=== PATIENT | female | born 1950 | race Caucasian/White ===

== ENCOUNTER 2017-10-10 12:44 | Day surgery (SDC) | payer MEDICARE, SELFPAY ==
[2017-10-10] VITALS (7 sets, daily range): BP systolic 118–142; BP diastolic 69–81; PULSE 67–80; RESP 14–16; TEMP 36.7–37.4; O2SAT 96–97; BMI 28.0
[2017-10-10 13:23] LABS: Hematocrit 44.5 % (37-47); Hemoglobin 15.3 g/dl (12.0-15.0); Mean Corp Hgb Conc 34.4 g/gl (32-36); Mean Corpuscular Hgb 31.1 pg (27.0-32.0); Mean Corpuscular Volume 90.4 fL (81-99); Mean Platelet Vol. 8.9 fl (6.2-12.0); Platelet Count 195 K/mm3 (150-450); RBC Distribution Width CV 12.6 % (11.6-14.6); RBC Distribution Width SD 41.4 fl (35.1-43.9); Red Blood Count 4.92 M/mm3 (4.2-5.4); Scan Indicated on CBC? Y/N NO; White Blood Count 5.2 K/mm3 (4.4-11.0)
--- NOTE | 2017-10-10 14:25 | UTC_PTH ---
PATIENT: CANDICE CARD LOC: [facility] – [place] U#:[id number] AGE/SX: 67/F ROOM: RE10/10/[address]: Dr. Esperanza Barber MD : 1950 BED: DIS: 10/10/2017 SPEC #: [id number] RECD: 10/10/17 16:10 STATUS: SERGIO GARY #: [id number] FEDE: 10/10/17 14:[address]: Esperanza Barber DEPT: SURGICAL PATHOLOGY RECD BY: Scot De León ENTERED: 10/11/17 08:07 SP TYPE: TX IBRAHIMA CARRILLO DR: Dr. Darryl Ramirez MD Tissues: Uterine cervix, NOS Procedures: Surgery Specimen Level IV HEADER OPERATION: Hysteroscopy, dilation and curettage PRE-OP DIAGNOSIS: Postmenopausal bleeding TISSUE SUBMITTED: Uterine curettings MICROSCOPIC DIAGNOSIS Uterine curettings: A few strips of benign endometrial epithelium, superficial fragment of benign endometrial tissue consisting only of stromal tissue and blood clots. A few fragments of benign endocervical mucosa. See comment. NEFTALY:beni 10/12/17 COMMENT The specimen predominantly consists of blood clots. Clinical correlation and appropriate follow up are necessary. MICROSCOPIC DESCRIPTION Slides are reviewed. GROSS DESCRIPTION Received in fixative is one container labeled with the patient's name and designated uterine curettings. The specimen consists of multiple irregular fragments of red-chambers soft tissue that in aggregate measure 6 x 3 x 0.2 cm. The specimen is totally submitted in three cassettes. / AM:beni 10/11/17 TC:5 CPT: 45855
--- NOTE | 2017-10-10 14:26 | PCM.DC.D&C ---
Discharge Diet: No Restrictions Discharge Activity: May not drive while taking narcotic pain medications., May Shower, May Take a Tub Bath May resume sexual activity in: 1 week - when comfortable Call your doctor if you observe: Fever of 101 or Higher, Using more than one pad per hour, Uncontrolled pain Additional Instructions: you may take Tylenol , Aleve or Ibuprofen as needed for mild pain. Add Ultram if needed for more severe pain. Allergies/Adverse Reactions: Allergies bee venom protein (honey bee) Allergy (Verified 10/05/17 08:15) Swelling Sulfa (Sulfonamide Antibiotics) Allergy (Verified 10/05/17 08:15) Rash Proton Pump Inhibitors Adverse Reaction (Verified 10/05/17 08:15) Upset Stomach Medications to take at Discharge Krill Oil 1,000 mg PO DAILY 10/05/17 Losartan Potassium [Cozaar] 25 mg PO DAILY 10/05/17 Minocycline [Minocin] 100 mg PO PRN PRN 10/05/17 traMADol [Ultram (G)] 50 mg PO Q6H PRN PRN 2 Days #5 tablet 10/10/17 Primary Care Physician: Darryl Ramirez MD [Primary Care Provider] - Please Follow Up With: Esperanza Barber MD - [phone] When: optional postop check in 1-2 wks Call for appt if you would like this appt Proposed Discharge Date: 10/10/17
--- NOTE | 2017-10-10 14:30 | DCINST_ITS ---
Discharge Diet: No Restrictions Discharge Activity: May not drive while taking narcotic pain medications., May Shower, May Take a Tub Bath May resume sexual activity in: 1 week - when comfortable Call your doctor if you observe: Fever of 101 or Higher, Using more than one pad per hour, Uncontrolled pain Additional Instructions: you may take Tylenol , Aleve or Ibuprofen as needed for mild pain. Add Ultram if needed for more severe pain. Allergies/Adverse Reactions: Allergies bee venom protein (honey bee) Allergy (Verified 10/05/17 08:15) Swelling Sulfa (Sulfonamide Antibiotics) Allergy (Verified 10/05/17 08:15) Rash Proton Pump Inhibitors Adverse Reaction (Verified 10/05/17 08:15) Upset Stomach Medications to take at Discharge Krill Oil 1,000 mg PO DAILY 10/05/17 Losartan Potassium [Cozaar] 25 mg PO DAILY 10/05/17 Minocycline [Minocin] 100 mg PO PRN PRN 10/05/17 traMADol [Ultram (G)] 50 mg PO Q6H PRN PRN 2 Days #5 tablet 10/10/17 Primary Care Physician: Darryl Ramirez MD [Primary Care Provider] - Please Follow Up With: Esperanza Barber MD - [phone] When: optional postop check in 1-2 wks Call for appt if you would like this appt Proposed Discharge Date: 10/10/17
[2017-10-10] MEDS: Silver Nitrate (BKC) 1 EACH (15:16)
[2017-10-10] MEDS: FERRIC SUBSULFATE 8 GM SOLN (15:25)
--- NOTE | 2017-10-11 11:47 | PCM.OP.BLANK ---
Operative Report Date of Procedure: 10/10/17 PROCEDURE: Hysteroscopy, Dilation and curettage Preoperative Diagnosis: Thickened endometrial stripe on pelvic ultrasound . Possible pedunculated submucous fibroid vs endometrial polyp Postmenopausal bleeding Prior endometrial ablation procedure. Postop diagnosis: Thickened endometrial stripe on pelvic ultrasound . Possible pedunculated submucous fibroid vs endometrial polyp Postmenopausal bleeding Prior endometrial ablation procedure, with significant adhesions in endometrial cavity. Suboptimal hysteroscopy : neither tubal ostium noted No evidence of pedunculated polyp. Probable Left posterior uterine segment submucous/intramural fibroid by texture on sharp curettage Anesthesia: General laryngeal airway, Nadine Gamez MD Surgeon: Esperanza Barber MD EBL: 100 cc Drains: Red Null catheter, minimal clear yellow urine Complications: none Fluids: replacement Findings: Uterus sounds to approximately 9 cm Significant scarring noted within the endometrial cavity, partially broken up by sharp D and C. Neither tubal ostia visualized No endometrial polyp or pedunculated fibroid noted. By texture at curettage: likely submucous fibroid at L posterior lower uterine segment. Narrative account After the R,B,Alternatives of the procedure were reviewed with the patient , informed consent was obtained. The patient was taken to the operating room with an IV running and placed in dorsal supine position on the operating table. She was given general anesthesia by laryngeal airway, and repositioned to the dorsal lithotomy position and prepped and draped in the usual sterile fashion. A graves speculum was placed into the vagina and the cervix was brought into view. A single toothed tenaculum was applied to the posterior lip of the cervix. The cervix was then gently probed and sequentially dilated to allow admission of the hysteroscope into the endometrial cavity. The hysteroscopy was performed with findings noted as above. There were significant adhesions within the endometrial cavity, and neither tubal ostia was noted. A sharp curettage was performed to break up the adhesions and sample tissue. Blood and tissue were withdrawn and set aside. The hysteroscope was again inserted and again significant adhesions were still noted. By texture at sharp curettage: likely submucous fibroid at posterior lower uterine segment. The multiple pieces of tissue were set aside for later pathology review. The single toothed tenaculum was removed from the cervix and two stitches were placed over the tenaculum puncture sites, Silver nitrate and Monsels were also used for hemostasis. A RayTec was used to remove any remaining tissue and blood from the upper vagina and cervix. Adequate hemostasis was noted. The procedure was terminated. The speculum was removed. The patient was returned to dorsal supine position and awakened from IV sedation and transferred to her recovery room bed in stable condition after tolerating the procedure well. Sponge, lap, needle and instrument counts were correct x two. medications given intraoperatively included the topical AgNO3 and Monsells. For a complete listing of the medications given intraoperatively, see the anesthesia record.
== END 2017-10-10 17:07 | disposition home or self-care (01) ==
LOC: SDC 12:45 → AC 12:50
PROVIDERS: Family Provider Family Medicine; PCP Family Medicine; Visit Provider Obstetrics & Gynecology
PROC: 0UDB8ZZ Extraction of Endometrium, Via Natural or Artificial Opening Endoscopic (ICD-10-PCS; CPT 58558; principal; 2017-10-10 14:15)
DX: N85.01 Benign endometrial hyperplasia (principal); N95.0 Postmenopausal bleeding; N73.6 Female pelvic peritoneal adhesions (postinfective); R10.32 Left lower quadrant pain; I10 Essential (primary) hypertension; Z86.718 Personal history of other venous thrombosis and embolism
CPT/HCPCS: 58558; 36415; 85027; 86850; 86900; 88305; J7120; J2405

== ENCOUNTER 2017-10-24 13:08 | Day surgery (SDC) | payer MEDICARE, SELFPAY ==
--- NOTE | 2017-10-19 08:33 | EKG12_ITS ---
Test Reason : PRE-OP Blood Pressure : / mmHG Vent. Rate : 064 BPM Atrial Rate : 064 BPM P-R Int : 174 ms QRS Dur : 082 ms QT Int : 396 ms P-R-T Axes : 056 007 014 degrees QTc Int : 408 ms Normal sinus rhythm Septal infarct , age undetermined Abnormal ECG Confirmed by CORNELIO DANIEL, ADELSO ([id number]), photo editor SILVERIO TATE ([id number]) on 10/23/2017 2:24:00 PM Referred By: Esperanza Barber Confirmed By:ADELSO GRIMES MD
[2017-10-19 08:36] LABS: Hematocrit 41.9 % (37-47); Hemoglobin 14.7 g/dl (12.0-15.0); Mean Corp Hgb Conc 35.1 g/gl (32-36); Mean Corpuscular Hgb 31.5 pg (27.0-32.0); Mean Corpuscular Volume 89.7 fL (81-99); Mean Platelet Vol. 8.8 fl (6.2-12.0); Platelet Count 199 K/mm3 (150-450); RBC Distribution Width CV 12.5 % (11.6-14.6); RBC Distribution Width SD 40.8 fl (35.1-43.9); Red Blood Count 4.67 M/mm3 (4.2-5.4); Scan Indicated on CBC? Y/N NO; White Blood Count 5.8 K/mm3 (4.4-11.0)
[2017-10-24] VITALS (12 sets, daily range): BP systolic 118–144; BP diastolic 67–81; PULSE 57–81; RESP 14–17; TEMP 36.5–37; O2SAT 94–100; BMI 27.8; BMI 27.6
--- NOTE | 2017-10-24 | IMM_PTH ---
PATIENT: CANDICE CARD LOC: [facility] [place] U#:[id number] AGE/SX: 67/F ROOM: RE10/24/[address]: Dr. Esperanza Barber MD : 1950 BED: DIS: 10/25/2017 SPEC #: [id number] RECD: 10/31/17 12:35 STATUS: SERGIO REMauricio #: [id number] FEDE: 10/24/17 00:[address]: Esperanza Barber DEPT: IMMUNOHISTOCHEMISTRY RECD BY: Krystina Roland ENTERED: 10/31/17 12:36 SP TYPE: IMMUNO OTHR DR: Dr. Darryl Ramirez MD Tissues: Uterus, NOS Procedures: MLH-1 (add) MSH6 (add) Anti-PMS2 (add) MSH2 (initial) PHYSICIAN & INSTITUTION [place] [id number] SPECIMEN INFORMATION: Tissue Source: Uterus, hysterectomy Clinical Info: Abdominal pain lower left quadrant, postmenopausal bleeding Specimen Number: [id number] #7 CPT code: 89890, 33430 x3 METHODOLOGY: Deparaffinized sections of prefer/formalin-fixed tissue or PAP/DQ stained slides are incubated with monoclonal/polyclonal antibodies/oligonucleotide probes. Localization is made via biotin free immunoperoxidase method. Appropriate controls are performed and reacted as expected. Results on target cell population are indicated in the following table: RESULTS: ANTIBODY / CLONE RESULT Block #7 MSH2 (25D12) negative MSH6 (44) negative MLH-1 (M1) positive PMS2 (NCT8294) positive These tests were developed and their performance characteristics determined by [facility]. They may not have been cleared or approved by the U.[place]. Food and Drug Administration. The FDA has determined that such clearance or approval is not necessary. INTERPRETATION: Uterus, hysterectomy: Result of Microsatellite Instability Study: Positive (partial loss of mismatch proteins; microsatellite instability detected): Loss of MSH2 and MSH6. AM:beni 11/01/17
--- NOTE | 2017-10-24 | HYST_PTH ---
PATIENT: CANDICE CARD LOC: [facility] [place] U#:[id number] AGE/SX: 67/F ROOM: RE10/24/[address]: Dr. Esperanza Barber MD : 1950 BED: DIS: 10/25/2017 SPEC #: [id number] RECD: 10/25/17 11:53 STATUS: SERGIO GARY #: [id number] FEDE: 10/24/17 00:[address]: Esperanza Barber DEPT: SURGICAL PATHOLOGY RECD BY: Scot De León ENTERED: 10/25/17 11:53 SP TYPE: HYSTERECT OTHR DR: Dr. Darryl Ramirez MD Tissues: Uterus, NOS Procedures: Surgery Specimen Level IV HEADER OPERATION: Hysterectomy, lap assisted vaginal, BSO PRE-OP DIAGNOSIS: Abdominal pain lower left quadrant, postmenopausal bleeding TISSUE SUBMITTED: Uterus, cervix, bilateral ovaries and fallopian tubes MICROSCOPIC DIAGNOSIS Uterus, cervix, bilateral fallopian tubes and ovaries, vaginal hysterectomy and bilateral salpingo-oophorectomy: Endometrial adenocarcinoma. See cancer summary below. ENDOMETRIUM CANCER SUMMARY: Specimen ? uterus, cervix, right ovary, left ovary, right fallopian tube and left fallopian tube Procedure - vaginal hysterectomy and bilateral salpingo-oophorectomy Lymph node sampling ? not performed Specimen integrity ? intact hysterectomy Tumor site ? anterior and posterior endometrium Tumor size ? 3 x 3 x 3 cm Histologic type ? endometrial adenocarcinoma, not otherwise characterized Histologic grade - FIGO grade I Myometrial invasion ? present Depth of invasion ? 1.5 cm Myometrial thickness ? 2 cm Involvement of cervix ? not involved Extent of involvement of other organs ? bilateral ovaries and bilateral fallopian tubes ? not involved Peritoneal ascitic fluid ? not submitted Margins ? margins uninvolved by invasive carcinoma Distance of invasive carcinoma from closest margin ? the tumor is 0.5 cm away from the closest serosal surface posterior uterine wall. Lymph-Vascular invasion ? not identified Regional lymph nodes ? not submitted or found Distant metastasis ? not applicable Additional pathologic findings: Cervix ? chronic cystic cervicitis. Myometrium ? no additional mass lesion. Bilateral fallopian tubes and ovaries ? no pathologic diagnosis. Left paratubal cyst. Ancillary studies ? not performed PATHOLOGIC STAGE: pT1b Nx Mx The above summary is in compliance with [employer] (CAP) Cancer Protocols Checklist and [place] Joint Committee of Cancer (AJCC), Staging Manual, 8th Ed. SJ:beni 10/26/17 COMMENT Please make reference to previous specimen ([id number]) uterine curettings with diagnosis of a few strips of benign endometrial epithelium, superficial fragment of benign endometrial tissue consisting only of stromal tissue and blood clots. The specimen predominantly consists of blood clots. The slides are reviewed again along with Dr. Jeronimo. Case has been reviewed in consultation with Dr. Jeronimo who concurs with the above diagnosis. IDC:AM MICROSCOPIC DESCRIPTION Slides are reviewed. GROSS DESCRIPTION Received in fixative is one container labeled with the patient's name and designated uterus, cervix, bilateral ovaries and fallopian tubes. The specimen consists of a hysterectomy specimen consisting of uterus with cervix, attached left fallopian tube and ovary and detached right fallopian tube and ovary. The uterus with cervix weighs 117 gm and measures 10 x 7 x 5 cm. The serosal surface is chambers, glistening. The ectocervical mucosa is partly disrupted. The external os is oval in contour. The endocervical canal measures 3.5 cm in length and the endocervical mucosa is chambers, glistening and unremarkable. The endometrial cavity measures 5.5 cm in length and 3.6 cm in width. The proximal portion of endometrial cavity is filled with hemorrhagic mucoid mass measuring 3 x 3 x 3 cm. The mass does not extend up to the lower uterine segment. The mass appears to involve more than half the thickness of the uterine wall. Sections of this mass reveal grayish, mucoidy cut surfaces. Sections of the uterine wall do not reveal additional mass lesions and it measures up to 2 cm in thickness. The detached right fallopian tube measures 4.5 cm in length and 0.5 cm in diameter. The fimbrial end is identified. Tubo-ovarian adhesions are not seen. The right ovary measures 2.5 x 2 x 1.5 cm. Sections reveal a cyst filled with clear fluid measuring 1 cm in greatest dimension. The left fallopian tube measures 5 cm in length and 0.5 cm in diameter. The fimbrial end is identified. A paratubal cyst is also noted measuring 1 cm in greatest dimension. No tubo-ovarian adhesions are identified. The left ovary measures 2 x 1 x 1 cm. Sections reveal unremarkable cut surfaces. 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 right fallopian tube, 12 ? right ovary, 13 - left fallopian tube and paratubal cyst, 14 ? left ovary. / SJ:rg 10/25/17 TC:0 CPT: 18534
--- NOTE | 2017-10-24 15:56 | PCM.DC.VHY ---
Discharge Diet: No Restrictions Discharge Activity: May not drive while taking narcotic pain medications., May Shower, May Take a Tub Bath May resume sexual activity in: 4-6 weeks Lifting Restrictions: Limit to 20 lbs or less for 4-6 wk to allow healing Call your doctor if you observe: Fever of 101 or Higher, Inability to urinate, Inability to have a bowel movement, Using more than one pad per hour, Shortness of breath, Calf discomfort, Uncontrolled pain Change Dressing in (Days):: 4 Remove Dressing in (days):: 4 Cleanse incision/area with: Soap & Water, Keep Dressing Clean & Dry Additional Instructions: 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 Nothing in vagina and avoid heavy lifting for 4-6 wk to allow healing. Take Tylenol up to 1000 mg by mouth every 8 hrs for pain Add two Naprosyn every 8 hr for pain Add OxyIR 5 - 10 mg every 6 hr for more severe pain. Allergies/Adverse Reactions: Allergies bee venom protein (honey bee) Allergy (Verified 10/17/17 13:49) Swelling Sulfa (Sulfonamide Antibiotics) Allergy (Verified 10/17/17 13:49) Rash Proton Pump Inhibitors Adverse Reaction (Verified 10/17/17 13:49) Upset Stomach Medications to take at Discharge Krill Oil 1,000 mg PO DAILY 10/05/17 Losartan Potassium [Cozaar] 25 mg PO QHS 10/05/17 Minocycline [Minocin] 100 mg PO PRN PRN 10/05/17 traMADol [Ultram (G)] 50 mg PO Q6H PRN PRN 2 Days #5 tablet 10/10/17 Naproxen [Naprosyn] 250 - 500 mg PO BID PRN #30 tab 10/24/17 Oxycodone [Oxyir] 5 - 10 mg PO Q6H PRN PRN 7 Days #28 tablet 10/24/17 Polyethylene Glycol 3350 [Miralax] 17 gm PO DAILY 30 Days #30 packet 10/24/17 The following prescriptions were given: Oxycodone [Oxyir] 5 - 10 mg PO Q6H PRN PRN 7 Days #28 tablet PRN Reason: Mod-Severe Pain (-04/17) Polyethylene Glycol 3350 [Miralax] 17 gm PO DAILY 30 Days #30 packet Naproxen [Naprosyn] 250 - 500 mg PO BID PRN #30 tab PRN Reason: Mild-Mod Pain (-11/15) Primary Care Physician: Darryl Ramirez MD [Primary Care Provider] - Please Follow Up With: Esperanza Barber MD - [phone] When: two weeks for initial postop check. Proposed Discharge Date: 10/25/17
--- NOTE | 2017-10-24 16:04 | DCINST_ITS ---
Discharge Diet: No Restrictions Discharge Activity: May not drive while taking narcotic pain medications., May Shower, May Take a Tub Bath May resume sexual activity in: 4-6 weeks Lifting Restrictions: Limit to 20 lbs or less for 4-6 wk to allow healing Call your doctor if you observe: Fever of 101 or Higher, Inability to urinate, Inability to have a bowel movement, Using more than one pad per hour, Shortness of breath, Calf discomfort, Uncontrolled pain Change Dressing in (Days):: 4 Remove Dressing in (days):: 4 Cleanse incision/area with: Soap & Water, Keep Dressing Clean & Dry Additional Instructions: 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 Nothing in vagina and avoid heavy lifting for 4-6 wk to allow healing. Take Tylenol up to 1000 mg by mouth every 8 hrs for pain Add two Naprosyn every 8 hr for pain Add OxyIR 5 - 10 mg every 6 hr for more severe pain. Allergies/Adverse Reactions: Allergies bee venom protein (honey bee) Allergy (Verified 10/17/17 13:49) Swelling Sulfa (Sulfonamide Antibiotics) Allergy (Verified 10/17/17 13:49) Rash Proton Pump Inhibitors Adverse Reaction (Verified 10/17/17 13:49) Upset Stomach Medications to take at Discharge Krill Oil 1,000 mg PO DAILY 10/05/17 Losartan Potassium [Cozaar] 25 mg PO QHS 10/05/17 Minocycline [Minocin] 100 mg PO PRN PRN 10/05/17 traMADol [Ultram (G)] 50 mg PO Q6H PRN PRN 2 Days #5 tablet 10/10/17 Naproxen [Naprosyn] 250 - 500 mg PO BID PRN #30 tab 10/24/17 Oxycodone [Oxyir] 5 - 10 mg PO Q6H PRN PRN 7 Days #28 tablet 10/24/17 Polyethylene Glycol 3350 [Miralax] 17 gm PO DAILY 30 Days #30 packet 10/24/17 The following prescriptions were given: Oxycodone [Oxyir] 5 - 10 mg PO Q6H PRN PRN 7 Days #28 tablet PRN Reason: Mod-Severe Pain (-04/17) Polyethylene Glycol 3350 [Miralax] 17 gm PO DAILY 30 Days #30 packet Naproxen [Naprosyn] 250 - 500 mg PO BID PRN #30 tab PRN Reason: Mild-Mod Pain (-11/15) Primary Care Physician: Darryl Ramirez MD [Primary Care Provider] - Please Follow Up With: Esperanza Barber MD - [phone] When: two weeks for initial postop check. Proposed Discharge Date: 10/25/17
[2017-10-24] MEDS: Bupiv/Epi 0.5% Mpf 30 ML Vial (17:35)
[2017-10-24] MEDS: Ketorolac 15 MG/ML Vial IV (22:09)
[2017-10-24] MEDS: HYDROmorphone 1 MG/ML Syringe IV (22:10)
[2017-10-24] MEDS: Acetaminophen 500 MG Tablet 1000 MG PO (22:18)
[2017-10-24] MEDS: Losartan Potassium 25 MG Tablet PO (22:18)
[2017-10-24] MEDS: Docusate Sodium 100 MG Capsule PO (22:18)
[2017-10-25 01:12] VITALS: BP 121/73; PULSE 80; RESP 16; TEMP 37.3; O2SAT 99
--- NOTE | 2017-10-25 01:42 | NURSING ---
USING LR BAG FROM OR
[2017-10-25] MEDS: Acetaminophen 500 MG Tablet 1000 MG PO (05:24)
[2017-10-25] MEDS: Ketorolac 15 MG/ML Vial IV ×2 (05:24→12:22)
[2017-10-25 05:32] VITALS: BP 120/55; PULSE 82; RESP 18; TEMP 36.8; O2SAT 93
--- NOTE | 2017-10-25 05:41 | PCM.OP.BLANK ---
Operative Report Date of Procedure: 10/24/17 PROCEDURE: Laparoscopic assisted vaginal hysterectomy. Bilateral salpingoophorectomy Preoperative diagnosis: Postmenopausal bleeding Prior endometrial ablation Uterine fibroid on sono Postop diagnosis: Postmenopausal bleeding Prior endometrial ablation Uterine fibroid on sono Anesthesia: General Francesca Schmitt CRNA Surgeon: Esperanza Barber MD Dental Hygienist Mobile Coordinator: ILIANA Porter second assist RN EBL 380 cc Complications: none Drains: Muro draining clear yellow urine 90 cc for case Fluids: replacement LR Findings: On exam under anesthesia, minimal prolapse of a parous appearing cervix At Laparoscopy: the uterus fallopian tubes and atrophic ovaries are normal appearing. PATH: Uterus and cervix, bilateral fallopian tubes and ovaries Narrative account: After the risks, benefits and alternatives of the procedure were reviewed with the patient , informed consent was obtained. The patient was taken to the Operating room with an IV running . She was positioned in the dorsal supine position on the operating table and given general anesthesia. Once asleep she was positioned to the dorsal lithotomy position with the arms tucked at the sides and prepped and draped in the usual sterile fashion. A Muro catheter was inserted to drain the bladder. The weighted speculum was placed into the vagina and a single tooth tenaculum was placed at the cervix. A Gonzalez cannula was inserted into the cervix and secured into place with the single - toothed tenaculum. Attention was then turned to the anterior abdominal wall. the scrap hoist operator's gloves were changed and skin incisions were created at the infraumbilical skin, suprapubic skin and at a point approximately fdc between the suprapubic and infraumbilical skin incisions. Local anesthesia was used to infiltrate the skin where the trocar incision sites were created. A vertical 5 mm infraumbilical skin incision , a transverse 5 mm suprapubic incision and an transverse 5 mm midline mid-lower abdominal incision were created. A Veress needle was inserted in to the peritoneal cavity at the infraumbilical skin incision while maintaining upward traction of the anterior abdominal wall at the umbilicus. There was free drop of saline, free flow of CO2 and low opening pressure noted. Once the intraabdominal pressure had reached approximately 12 mm HG, the Veress needle was removed and a bladeless 5 mm trocar was inserted into the peritoneal cavity. Correct placement was confirmed using the laparoscope. Under direct visualization the other two 5 mm bladeless trocars were inserted into the peritoneal cavity through the other skin incisions. The fallopian tubes and ovaries were retracted medially, and using a LigaSure device the infundibulopelvic ligament at each side was taken down. Excellent hemostasis was noted. The broad ligament then was sequentially grasped and divided in pedicles at each side of the uterus down to the level of the round ligament on each side. Each pedicle was grasped and divided and inspected for hemostasis. Excellent hemostasis was noted. The round ligaments were grasped and divided at each side. At this point the laparoscopic portion of the case was completed. The trocars were left in place, but the instruments were removed and gas turned off. A sterile drape was used to cover the abdomen. Attention was then turned to the vaginal portion of the case. The Gonzalez cannula was removed and the single toothed tenaculum repositioned on the cervix. The cervical mucosal was then incised circumferentially using Bovie cautery and a knife. The posterior cul de sac was entered by sharp dissection with Walton scissors and a long weighted speculum was placed into the posterior cul se sac. Dissection then was initiated at the anterior cervix to and the anterior anterior cul se sac was entered by sharp dissection and a narrow Heena retractor was placed to retract the bladder back out of harm's way for the remainder of the case. The uterosacral ligaments were clamped bilaterally with curved Oz clamps and the pedicles divided and suture ligated and tagged for later identification. Next the cardinal ligament was clamped bilaterally and divided and suture ligated. Adequate hemostasis was noted. The uterine arteries were clamped bilaterally , divided and suture ligated. Dissection then continued along each side of the uterus. Each pedicle was secured with a Oz clamp, divided and suture ligated until ultimately the uterine fundus was reached. The uterus was inverted and the superior pedicles on each side were secured with a curved Oz clamp and the uterus and attached fallopian tube and ovary on the left was then surgically amputated and set aside. The remaining R ovarian pedicle and R fallopian tube was retracted medially and the pedicle clamped, divided (removing the fallopian tube and ovary) divided, and suture ligated and tied. Excellent hemostasis was noted. The L superior pedicle was lost. There was bleeding noted at the L vaginal angle and this was grasped and oversewn with a figure of 8 stitch of 1 vicryl. The posterior cuff was reapproximated to the posterior cul de sac peritoneum for hemostasis. The R superior pedicle was dry. The peritoneum was then closed with a running purse string suture of 1 Vicryl, incorporating the superior pedicle on the right, and uterosacral ligament tags. The vaginal cuff was then close using interrupted and figure of eight stitches of 1 Vicryl. Excellent hemostasis was noted. The Muro was attached to the Muro bag., and clear yellow urine returned. A second look was performed with the laparoscope: The pelvis and abdomen were irrigated. Old clots were aspirated. Excellent hemostasis was noted at all pedicles and at the vaginal cuff. James was sprayed along the cuff and pedicles for additional hemostasis. The pneumoperitoneum was reduced and all instruments and trocars were removed. The skin incisions were closed with 4-0 Monocryl in a subcuticular fashion. Sterile dressings were then applied. The patient was returned to dorsal supine position and awakened from general anesthesia. She was transferred to the recovery room bed in stable condition after tolerating the procedure well. Sponge, lap, needle and instrument counts correct times two. Medications given preop and intraoperatively included: Cefotetan IV given education courses sales representative to the operating room , 0.5% Marcaine with epinephrine was used as a subcutaneous injection at the trocar skin incision sites. For a complete listing of medications given preop and intraoperatively, please see the anesthesia record.
[2017-10-25 06:00] LABS: Hematocrit 34.4 % (37-47); Hemoglobin 11.5 g/dl (12.0-15.0); Mean Corp Hgb Conc 33.4 g/gl (32-36); Mean Corpuscular Hgb 30.4 pg (27.0-32.0); Platelet Count 179 K/mm3 (150-450); RBC Distribution Width SD 42.8 fl (35.1-43.9); Red Blood Count 3.78 M/mm3 (4.2-5.4); White Blood Count 7.2 K/mm3 (4.4-11.0)
[2017-10-25 06:13] LABS: Scan Indicated on CBC? Y/N NO
[2017-10-25 06:15] LABS: Anion Gap 8 (5-15); BUN 11 mg/dL (7-18); BUN/Creat Ratio 13.7 RATIO (10-20); Calcium,Total 7.6 mg/dL (8.5-10.1); Chloride 105 mmol/L (98-107); EST Glomerular Filtration Rate 76 mL/min (>60); Est Glom Filt Rate - Afr Amer 91 mL/min (>60); Estimated Creatinine Clearance 69.78 ml/min; Glucose 99 mg/dL (74-106); Potassium 3.6 mmol/L (3.5-5.1); Sodium Level 140 mmol/L (136-145)
--- NOTE | 2017-10-25 08:18 | PCM.PROGNOTE ---
Subjective: POD#1 ANGELICA BSO Doing well. tolerating liquids w/o N/V Ordered breakfast. States pain control adequate. Occasionally having some sharp cramping lower abdominal pain. OOB to chair and tolerating well. Objective: OOB to chair. tolerating well. Johnston in place with copious clear pale yellow urine. - Physical Exam General: Alert, Oriented x3, Cooperative, No apparent distress HEENT: Atraumatic Neck: Supple Abdomen: Soft Skin: Incision - L/S incisions CDI. Shadow dischg noted , not extending beyond marked. Psych/Mental Status: Normal Affect Vital Signs Temp Pulse Resp BP Pulse Ox 98.2 F 82 18 120/55 L 93 10/25/17 05:32 10/25/17 05:32 10/25/17 05:32 10/25/17 05:32 10/25/17 05:32 Oxygen Flow Rate (L/min) 2 Oxygen Delivery Method Room Air Weight: 82.554 kg Body Mass Index (BMI) 27.6 Intake and Output for Last 24 Hours 10/23/18 10/24/17 10/25/17 23:59 23:59 23:59 Intake Total 2500 / 2500 2525 / 2525 Output Total 90 / 90 1500 / 1500 Balance 2410 / 2410 1025 / 1025 Laboratory Tests Past 24 Hrs 10/25/18 10/25/17 05:10 05:10 WBC 7.2 RBC 3.78 L Hgb 11.5 L Hct 34.4 L MCV 91.0 MCH 30.4 MCHC 33.4 RDW 13.0 RDW Differential 42.8 Plt Count 179 MPV 9.0 Sodium 140 Potassium 3.6 Chloride 105 Carbon Dioxide 27.0 Anion Gap 8 BUN 11 Creatinine 0.80 Estim Creat Clear Calc 69.78 Est GFR (MDRD) Af Amer 91 Est GFR (MDRD) Non-Af 76 BUN/Creatinine Ratio 13.7 Glucose 99 Calcium 7.6 L Medical Necessity - Tobacco Use Smoking Status: Never smoker Assessment/Plan POD#1 ANGELICA BSO Stable postop. Inc diet and activity as tolerated. D/C johnston for voiding trial. Begin po meds. Dischg home today. RTO in 2 wk , prn sooner.
[2017-10-25 08:24] VITALS: O2SAT 94
--- NOTE | 2017-10-25 08:24 | DS.PCM_ITS ---
Discharge Date and Diagnosis Date of Admission: 10/24/17 - postmenopausal bleeding. fibroid failed endometrial ablation Date of Discharge: 10/25/17 - S/P LAVH, BSO Hospital Course and Treatment Operations: hysterectomy - LAVH, BSO Summary of Care Provided: The patient is a 67 year old F s/p prior endometrial ablation, with postmenopausal bleeding and h/o LLQ pain. Likely fibroid uterus. Presented for LAVH, BSO. Procedure uncomplicated. Postop course uneventful and sent home on POD #1 RTO in 2 wk, prn sooner. Discharge Diet: No Restrictions Discharge Activity: May not drive while taking narcotic pain medications., May Shower, May Take a Tub Bath May resume sexual activity in: 4-6 weeks Call your doctor if you observe: Fever of 101 or Higher, Inability to urinate, Inability to have a bowel movement, Using more than one pad per hour, Shortness of breath, Calf discomfort, Uncontrolled pain Change Dressing in (Days):: 4 Remove Dressing in (days):: 4 Cleanse incision/area with: Soap & Water, Keep Dressing Clean & Dry Home Medications: Medications to take at Discharge Krill Oil 1,000 mg PO DAILY 10/05/17 Losartan Potassium [Cozaar] 25 mg PO QHS 10/05/17 Minocycline [Minocin] 100 mg PO PRN PRN 10/05/17 traMADol [Ultram (G)] 50 mg PO Q6H PRN PRN 2 Days #5 tablet 10/10/17 Naproxen [Naprosyn] 250 - 500 mg PO BID PRN #30 tab 10/24/17 Oxycodone [Oxyir] 5 - 10 mg PO Q6H PRN PRN 7 Days #28 tablet 10/24/17 Polyethylene Glycol 3350 [Miralax] 17 gm PO DAILY 30 Days #30 packet 10/24/17 Following Prescrptions Were Given to Patient: Oxycodone [Oxyir] 5 - 10 mg PO Q6H PRN PRN 7 Days #28 tablet PRN Reason: Mod-Severe Pain (4-10/10) Polyethylene Glycol 3350 [Miralax] 17 gm PO DAILY 30 Days #30 packet Naproxen [Naprosyn] 250 - 500 mg PO BID PRN #30 tab PRN Reason: Mild-Mod Pain (1-5/10) Primary Care Physician: Darryl Ramirez MD [Primary Care Provider] - Please Follow Up With: Esperanza Barber MD - [phone] When: two weeks for initial postop check. 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 Nothing in vagina and avoid heavy lifting for 4-6 wk to allow healing. Take Tylenol up to 1000 mg by mouth every 8 hrs for pain Add two Naprosyn every 8 hr for pain Add OxyIR 5 - 10 mg every 6 hr for more severe pain. Medical Necessity - Tobacco Use Smoking Status: Never smoker Meaningful Use Info Meaningful Use Diagnoses (Choose all that apply): None applicable
[2017-10-25 09:11] VITALS: BP 109/61; PULSE 78; RESP 16; TEMP 36.7; O2SAT 100
== END 2017-10-25 13:03 | disposition home or self-care (01) ==
LOC: SDC 13:09 → AC 13:13 → MS3 10-25 12:13
PROVIDERS: Family Provider Family Medicine; PCP Family Medicine; Visit Provider Obstetrics & Gynecology
PROC: 0UT9FZZ Resection of Uterus, Via Natural or Artificial Opening With Percutaneous Endoscopic Assistance (ICD-10-PCS; CPT 58552; principal; 2017-10-24 14:15)
DX: C54.1 Malignant neoplasm of endometrium (principal); N72 Inflammatory disease of cervix uteri; N95.0 Postmenopausal bleeding; D25.0 Submucous leiomyoma of uterus; I10 Essential (primary) hypertension; Z79.899 Other long term (current) drug therapy
CPT/HCPCS: 58552; 36415; 80048; 85027; 86850; 86900; 88305; 88307; 88341; 88342; 93005; J7120; A4216; J2310; J2405

== ENCOUNTER → 2017-11-09 10:35 | Outpatient (CLI) | payer MEDICARE, SELFPAY ==
--- NOTE | 2017-11-09 10:38 | RAD_ITS ---
STUDY: X-RAY CHEST REASON FOR EXAM: Female, 67 years old. No chest complaints. Recent removal of an endometrial tumor. TECHNIQUE: PA and lateral views of the chest. COMPARISON: None. FINDINGS: The lungs are clear and expanded. There is no demonstrated pleural abnormality. Normal size heart. Normal mediastinum and maria luisa. Normal visualized pulmonary arteries. There is atherosclerotic calcification of the aortic arch with tortuosity. There are diffuse degenerative changes of the visualized thoracic spine. Normal visualized ribs, clavicles, and shoulders. There is no demonstrated abnormality of the visualized soft tissue structures of the upper abdomen. RAD/Chest PA and Lateral IMPRESSION: No acute cardiopulmonary disease. Electronically Signed: Zia De La Cruz DO at 12:24 EDT Tel [phone], Service support ,
== END ==
PROVIDERS: Family Provider Family Medicine; PCP Family Medicine; Visit Provider Obstetrics & Gynecology Gynecologic Oncology
DX: C54.1 Malignant neoplasm of endometrium (principal)
CPT/HCPCS: 71046

== ENCOUNTER → 2017-11-13 07:28 | Outpatient (CLI) | payer MEDICARE, SELFPAY ==
--- NOTE | 2017-11-13 07:32 | CT_ITS ---
STUDY: CT ABDOMEN AND PELVIS WITH CONTRAST REASON FOR EXAM: Female, 67 years old. Endometrial cancer, new diagnosis RADIATION DOSAGE (If Supplied By Facility): CTDIvol = ( 13.26 ) mGy, DLP = ( 1014.16 ) mGycm TECHNIQUE: Transaxial images were obtained from the dome of the diaphragm to the symphysis pubis with oral contrast. 100 ml of Isovue 300 contrast was administered. Sagittal and coronal images were reconstructed. Individualized dose optimization techniques were used for this CT. COMPARISON: None. FINDINGS: The visualized lung bases are unremarkable. The visualized portions of the heart are within normal limits. There is a subcentimeter cyst of the periphery of the anterior left hepatic lobe. Normal gallbladder and extrahepatic biliary system. Normal spleen. Normal pancreas. Normal bilateral adrenal glands. Normal right kidney. Normal left kidney. Normal visualized stomach. Normal small intestine. There are several small sigmoid diverticuli. There is no associated diverticulitis. There is non-visualization of the appendix. There are several small calcified plaques of the abdominal aorta. Normal inferior vena cava. No pathologically enlarged retroperitoneal nodes are seen. Normal urinary bladder. There is absence of the uterus consistent with a prior hysterectomy. There is a small umbilical hernia containing fat. There are diffuse degenerative changes of the visualized thoracolumbar spine. CT/Abdomen/Pelvis WITH Contrast IMPRESSION: 1. There are several small sigmoid diverticuli with no associated diverticulitis. 2. Status post hysterectomy. 3. Diffuse degenerative changes of the visualized thoracolumbar spine. 4. Small fat-containing umbilical hernia. 5. There is no evidence of free intra-abdominal or intrapelvic air, fluid, or inflammatory process. No pathologically enlarged retroperitoneal nodes are evident. Electronically Signed: Diego Glass MD at 23:50 EDT , Service support ,
== END ==
PROVIDERS: Family Provider Family Medicine; PCP Family Medicine; Visit Provider Obstetrics & Gynecology Gynecologic Oncology
DX: C54.1 Malignant neoplasm of endometrium (principal); K57.30 Diverticulosis of large intestine without perforation or abscess without bleeding; K42.9 Umbilical hernia without obstruction or gangrene
CPT/HCPCS: 74177; Q9967

== ENCOUNTER → 2018-01-14 08:59 | Outpatient (CLI) | payer MEDICARE, SELFPAY ==
[2018-01-14 10:33] LABS: Anion Gap 9 (5-15); BUN 14 mg/dL (7-18); BUN/Creat Ratio 18.1 RATIO (10-20); Calcium,Total 8.6 mg/dL (8.5-10.1); Chloride 106 mmol/L (98-107); Cholesterol 167 mg/dL (200); Creatinine, Serum 0.78 mg/dL (0.55-1.02); EST Glomerular Filtration Rate 79 mL/min (>60); Est Glom Filt Rate - Afr Amer 95 mL/min (>60); Glucose 110 mg/dL (74-106); High Density Lipoprotein 33 mg/dL; Potassium 3.8 mmol/L (3.5-5.1); Sodium Level 141 mmol/L (136-145); Triglycerides 141 mg/dL; Very Low Density Lipoprotein 28 mg/dL (5-40)
== END ==
PROVIDERS: Family Provider Family Medicine; PCP Family Medicine; Visit Provider Family Medicine
DX: I10 Essential (primary) hypertension (principal)
CPT/HCPCS: 36415; 80048; 80061

== ENCOUNTER → 2018-01-25 09:53 | Outpatient (CLI) | payer MEDICARE, SELFPAY ==
--- NOTE | 2018-01-25 09:57 | CDU_ITS ---
Reason For Study: Neck Pain/ Syncope Rt. Velocities/BP Lt. Velocities/BP Prox CCA 110/16 cm/sec. Prox CCA 143/37 cm/sec. Mid CCA 110/23 cm/sec. Mid CCA 109/22 cm/sec. Dist CCA 83/19 cm/sec. Dist CCA 85/25 cm/sec. Prox ICA 60/15 cm/sec. Prox ICA 75/17 cm/sec. Mid ICA 70/25 cm/sec. Mid ICA 75/24 cm/sec. Dist ICA 106/33 cm/sec. Dist ICA 113/39 cm/sec. Rt. ICA/CCA = 0.96. Lt. ICA/CCA = 1.03. Prox ECA 136/24 cm/sec. Prox ECA 94/15 cm/sec. Rt. Vert. 55/17 cm/sec. Lt. Vert. 50/14 cm/sec. Right Extracranial There is intimal thickening but no significant atherosclerotic plaque noted in the right common carotid artery. There is heterogeneous, smooth atherosclerotic plaque noted in the right internal carotid artery. There is intimal thickening but no significant atherosclerotic plaque noted in the right external carotid artery. Antegrade flow is noted in the right vertebral artery. Left Extracranial There is intimal thickening but no significant atherosclerotic plaque noted in the left common carotid artery. There is intimal thickening but no significant atherosclerotic plaque noted in the left internal carotid artery. There is intimal thickening but no significant atherosclerotic plaque noted in the left external carotid artery. Antegrade flow is noted in the left vertebral artery. Procedure Carotid Duplex 71946. Exam performed in department. Interpretation Summary Mild (<50%) stenosis right extracranial internal carotid. No significant atherosclerotic plaque or stenosis noted in the left internal carotid artery. Flow within the vertebral arteries is antegrade bilaterally. Ordering Physician: Darryl Ramirez Referring Physician: Darryl Ramirez Performed By: Ro Person, RDCS, RVT
== END ==
PROVIDERS: Family Provider Family Medicine; PCP Family Medicine; Visit Provider Family Medicine
DX: R55 Syncope and collapse (principal); M54.2 Cervicalgia
CPT/HCPCS: 93880

== ENCOUNTER → 2018-05-01 07:41 | Outpatient (CLI) | payer MEDICARE, SELFPAY ==
--- NOTE | 2018-05-01 07:44 | BI_ITS ---
MAMMOGRAPHY - BILATERAL SCREENING REASON FOR EXAM: Female, 68 years old. Routine annual screening examination. PERTINENT HISTORY: Sisters with breast cancer. TECHNIQUE: Digital bilateral breast regi (3D mammographic acquisition) in the CC and MLO projections. 2-D mediolateral oblique (MLO) and craniocaudad (CC) views of both breasts were obtained. CAD: Full Field Digital Mammography with Computer Added Detection was performed. COMPARISON: Comparison is made with prior study dated April 30, 2017 and April 19, 2016. FINDINGS: Breast Composition: The breasts are heterogeneously dense, which may obscure small masses. There are no dominant masses or suspicious calcifications. No other significant abnormalities are identified. There has been no significant change since the prior study. BI/SCREENING MAMM (CAD), BILAT IMPRESSION: Stable bilateral screening mammogram. Yearly follow-up mammogram recommended. (A) ASSESSMENT CATEGORY: BIRADS Category 1: Negative. A letter regarding these results will be sent to the patient by the facility within 30 days. Approximately 10% of breast cancers are not detected by mammography. A normal mammogram should not delay biopsy of a clinically suspicious abnormality. [id number] Electronically Signed: Jose Fox MD at 9:28 EDT Tel [phone], Service support ,
[2018-05-04 13:32] LABS: HPV Reflexed? NOT INDICATED
== END ==
LOC: OPBI 07:42 → LABSPEC 13:35
PROVIDERS: Referring Provider Obstetrics & Gynecology; Visit Provider Obstetrics & Gynecology
DX: Z12.4 Encounter for screening for malignant neoplasm of cervix (principal); Z12.31 Encounter for screening mammogram for malignant neoplasm of breast
CPT/HCPCS: 77063; 77067; 88175; G0145

== ENCOUNTER → 2018-07-01 10:40 | Outpatient (CLI) | payer MEDICARE, SELFPAY ==
[2018-07-01 12:30] LABS: Anion Gap 9 (5-15); BUN 13 mg/dL (7-18); BUN/Creat Ratio 17.1 RATIO (10-20); Calcium,Total 8.9 mg/dL (8.5-10.1); Chloride 107 mmol/L (98-107); Creatinine, Serum 0.76 mg/dL (0.55-1.02); EST Glomerular Filtration Rate 80 mL/min (>60); Est Glom Filt Rate - Afr Amer 97 mL/min (>60); Glucose 96 mg/dL (74-106); Potassium 4.2 mmol/L (3.5-5.1); Sodium Level 144 mmol/L (136-145)
== END ==
PROVIDERS: Family Provider Family Medicine; PCP Family Medicine; Referring Provider Family Medicine; Visit Provider Family Medicine
DX: I10 Essential (primary) hypertension (principal)
CPT/HCPCS: 36415; 80048

== ENCOUNTER → 2018-09-12 06:23 | Outpatient (CLI) | payer MEDICARE, SELFPAY ==
--- NOTE | 2018-09-12 09:57 | STRESSREP_ITS ---
Stress Test Report Date: 09-12-18 Procedure: Exercise tolerance test/imaging study Indications: shortness of breath/dyspnea Consent: Per the patient Procedure: The patient exercised on a Patricio protocol for 6 minutes completing Stage II achieving a peak heart rate of 162 bpm (105 % predicted maximal heart rate) with a peak blood pressure 164/70 mmHg and a peak MET capacity of 7 METs. The baseline ECG demonstrated normal sinus rhythm . The peak exercise ECG demonstrated no obvious ECG changes . There were occasional PVCs and ventricular couplets during exercise and occasional PVCs during recovery . The functional capacity was considered average . There was no complaint of chest discomfort during exercise or recovery. The examination was discontinued secondary to dyspnea . Impression: 1. Technically adequate (percent predicted maximal heart rate greater than 85%) exercise tolerance test 2. Peak exercise ECG with no obvious ECG changes 3. There were occasional PVCs and ventricular couplets during exercise and occasional PVCs during recovery 4. Nuclear images pending Myocardial perfusion imaging study: Technique: The patient was injected with 11.3 mCi of technetium 99m Cardiolite and subsequently rest SPECT Cardiolite nuclear imaging was obtained in the horizontal long, vertical long, and short axis views. The patient exercised on a Patricio protocol for 6 minutes completing Stage II achieving a peak heart rate of 162 bpm (105 % predicted maximal heart rate) with a peak blood pressure 164/70 mmHg and a peak MET capacity of 7 METs. The patient was injected with 33.6 mCi of technetium 99m Cardiolite and subsequently stress SPECT Cardiolite nuclear imaging was obtained in the horizontal long, vertical long, and short axis views. A gated Cardiolite study at peak stress was obtained. Interpretation: Rest and stress SPECT Cardiolite nuclear imaging status post realignment, normalization, and attenuation correction, demonstrates the appearance of relative uniform tracer uptake and myocardial perfusion appearing within normal limits. There is end systolic thickening and brightening. The gated Cardiolite study demonstrates myocardial thickening and inward wall motion. The reported LVEF is 84 %. Impression: 1. Rest and stress SPECT Cardiolite nuclear imaging demonstrate relative uniform tracer uptake and myocardial perfusion appearing within normal limits. 2. The gated Cardiolite study reports an LVEF of 84 %. This note was generated with [employer] software. It may contain incorrect words, spelling, and punctuation that were not noted in checking the note before signing.
== END ==
PROVIDERS: Family Provider Family Medicine; PCP Family Medicine; Referring Provider Family Medicine; Visit Provider Family Medicine
DX: R06.02 Shortness of breath (principal)
CPT/HCPCS: 78452; 93017; A9500; A4216

== ENCOUNTER → 2018-10-30 09:44 | Outpatient (CLI) | payer MEDICARE, SELFPAY ==
[2018-11-13 12:24] LABS: HPV Reflexed? NOT INDICATED
== END ==
PROVIDERS: Visit Provider Obstetrics & Gynecology
DX: Z12.4 Encounter for screening for malignant neoplasm of cervix (principal); C54.1 Malignant neoplasm of endometrium
CPT/HCPCS: 88175; G0145

== ENCOUNTER → 2019-01-13 08:26 | Outpatient (CLI) | payer MEDICARE, SELFPAY ==
[2019-01-13 11:08] LABS: Vitamin D,25 Hydroxy 17.7 ng/mL (29.95-100.01)
[2019-01-13 11:11] LABS: Anion Gap 4 (5-15); BUN 13 mg/dL (7-18); BUN/Creat Ratio 17.9 RATIO (10-20); Calcium,Total 8.9 mg/dL (8.5-10.1); Chloride 108 mmol/L (98-107); Cholesterol 151 mg/dL (200); Creatinine, Serum 0.73 mg/dL (0.55-1.02); EST Glomerular Filtration Rate 85 mL/min (>60); Est Glom Filt Rate - Afr Amer 102 mL/min (>60); Glucose 97 mg/dL (74-106); High Density Lipoprotein 36 mg/dL; Sodium Level 140 mmol/L (136-145); Triglycerides 120 mg/dL
[2019-01-13 11:12] LABS: Thyroid Stim Hormone (TSH) 1.59 uIU/mL (0.358-3.74); Very Low Density Lipoprotein 24 mg/dL (5-40)
== END ==
PROVIDERS: Visit Provider Family Medicine
DX: I10 Essential (primary) hypertension (principal); R53.83 Other fatigue
CPT/HCPCS: 36415; 80048; 80061; 82306; 84443

== ENCOUNTER → 2019-03-03 17:41 | Outpatient (CLI) | payer MEDICARE, SELFPAY ==
--- NOTE | 2019-03-03 | IMM_PTH ---
PATIENT: CANDICE CARD LOC: [facility] U#:[id number] AGE/SX: 75/F ROOM: RE03/03/[address]: Dr. Rafa Arnold MD : 1950 BED: DIS: SPEC #: [id number] RECD: 03/05/19 12:35 STATUS: SERGIO RE #: [id number] FEDE: 03/03/19 00:[address]: Rafa Arnold DEPT: IMMUNOHISTOCHEMISTRY RECD BY: Jovita Izquierdo Tissues: Vagina, NOS Procedures: p16 (initial) KI-67 (add) PHYSICIAN & INSTITUTION [place] [id number] SPECIMEN INFORMATION: Tissue Source: Vaginal lesion Clinical Info: Vaginal lesion Specimen Number: [id number] CPT code: 51728, 69302 METHODOLOGY: Deparaffinized sections of prefer/formalin-fixed tissue or PAP/DQ stained slides are incubated with monoclonal/polyclonal antibodies/oligonucleotide probes. Localization is made via biotin free immunoperoxidase method. Appropriate controls are performed and reacted as expected. Results on target cell population are indicated in the following table: RESULTS: ANTIBODY / CLONE RESULT P16 (E6H4) positive, rare cells, dim Ki-67 (30-9) negative These tests were developed and their performance characteristics determined by [facility]. They may not have been cleared or approved by the U.S. Food and Drug Administration. The FDA has determined that such clearance or approval is not necessary. INTERPRETATION: Vaginal lesion, biopsy: No evidence of dysplasia AM:kenzie 03/06/19
--- NOTE | 2019-03-03 14:30 | LES_PTH ---
PATIENT: CANDICE CARD LOC: [facility] U#:[id number] AGE/SX: 75/F ROOM: RE03/03/[address]: Dr. Rafa Arnold MD : 1950 BED: DIS: SPEC #: [id number] RECD: 03/03/19 17:47 STATUS: SERGIO GARY #: [id number] FEDE: 03/03/19 14:[address]: Rafa Arnold DEPT: SURGICAL PATHOLOGY RECD BY: Angelito Miles Tissues: Vagina, NOS Procedures: Surgery Specimen Level IV HEADER OPERATION: Vaginal cuff PRE-OP DIAGNOSIS: Vaginal lesion TISSUE SUBMITTED: Vaginal lesion MICROSCOPIC DIAGNOSIS Vaginal lesion, biopsy: Fragments of benign mucosa and submucosa with mild chronic inflammation. No evidence of dysplasia. AM:michael 03/05/19 COMMENT Results from immunohistochemistry ([id number]) for surrogate HPV marker (p16) will be reported separately. MICROSCOPIC DESCRIPTION Slides are reviewed. GROSS DESCRIPTION Received is one container labeled with the patient name and designated vagina lesion. The specimen consists of two irregular fragments of chambers soft tissue each measuring 0.2 x 0.2 x 0.1 cm. The specimen is totally submitted in one cassette. /NEFTALY:sp 03/04/19 TC: 3 CPT:83809
== END ==
PROVIDERS: Referring Provider Obstetrics & Gynecology; Visit Provider Obstetrics & Gynecology
DX: N89.8 Other specified noninflammatory disorders of vagina (principal); N39.0 Urinary tract infection, site not specified; Z85.42 Personal history of malignant neoplasm of other parts of uterus
CPT/HCPCS: 87086; 87088; 88305; 88341; 88342

== ENCOUNTER → 2019-03-18 14:41 | Outpatient (CLI) | payer MEDICARE, SELFPAY ==
[2019-03-18 07:35] VITALS: BMI 27.6
== END ==
PROVIDERS: Referring Provider Physician Assistant Surgical; Visit Provider Physician Assistant Surgical
DX: J02.9 Acute pharyngitis, unspecified (principal)
CPT/HCPCS: 87070; 87186

== ENCOUNTER → 2019-05-05 | Outpatient (CLI) | payer MEDICARE, SELFPAY ==
[2019-03-18 07:35] VITALS: BMI 27.6
--- NOTE | 2019-05-05 07:47 | BI_ITS ---
MAMMOGRAPHY - BILATERAL SCREENING REASON FOR EXAM: Female, 69 years old. Routine annual screening examination. PERTINENT HISTORY: Sisters with breast cancer. TECHNIQUE: Digital bilateral breast ham (3D mammographic acquisition) in the CC and MLO projections. 2-D mediolateral oblique (MLO) and craniocaudad (CC) views of both breasts were obtained. CAD: Full Field Digital Mammography with Computer Added Detection was performed. COMPARISON: Comparison is made with prior examination May 01, 2018 and April 30, 2017. FINDINGS: Breast Composition: The breasts are heterogeneously dense, which may obscure small masses. There are no dominant masses or suspicious calcifications. No other significant abnormalities are identified. There has been no significant change since the prior study. BI/SCREEN MAMM (CAD) W/HAM BILAT IMPRESSION: Stable bilateral screening mammogram. Yearly follow-up mammogram recommended. (A) ASSESSMENT CATEGORY: BIRADS Category 1: Negative. A letter regarding these results will be sent to the patient by the facility within 30 days. Approximately 10% of breast cancers are not detected by mammography. A normal mammogram should not delay biopsy of a clinically suspicious abnormality. [id number] Electronically Signed: Jose Fox, at 9:59 EDT , Service support ,
== END | disposition home or self-care (01) ==
PROVIDERS: Family Provider Family Medicine; PCP Family Medicine; Referring Provider Obstetrics & Gynecology; Visit Provider Obstetrics & Gynecology
DX: Z12.4 Encounter for screening for malignant neoplasm of cervix (principal); Z12.31 Encounter for screening mammogram for malignant neoplasm of breast
CPT/HCPCS: 77063; 77067; 88175; G0145

== ENCOUNTER → 2019-11-03 17:45 | Outpatient (CLI) | payer MEDICARE, SELFPAY ==
[2019-03-18 07:35] VITALS: BMI 27.6
== END ==
PROVIDERS: PCP Family Medicine; Referring Provider Obstetrics & Gynecology; Visit Provider Obstetrics & Gynecology
DX: Z12.4 Encounter for screening for malignant neoplasm of cervix (principal)
CPT/HCPCS: 88175; G0145

== ENCOUNTER → 2020-01-26 11:06 | Outpatient (CLI) | payer MEDICARE, SELFPAY ==
[2019-03-18 07:35] VITALS: BMI 27.6
[2020-01-26 15:39] LABS: Anion Gap 3 (5-15); BUN 13 mg/dL (7-18); BUN/Creat Ratio 18.8 RATIO (10-20); Calcium,Total 8.8 mg/dL (8.5-10.1); Chloride 110 mmol/L (98-107); Cholesterol 193 mg/dL (200); Creatinine, Serum 0.69 mg/dL (0.55-1.02); EST Glomerular Filtration Rate 90 mL/min (>60); Est Glom Filt Rate - Afr Amer 109 mL/min (>60); Glucose 99 mg/dL (74-106); High Density Lipoprotein 43 mg/dL; Potassium 4.3 mmol/L (3.5-5.1); Sodium Level 143 mmol/L (136-145); Triglycerides 122 mg/dL; Very Low Density Lipoprotein 24 mg/dL (5-40)
[2020-01-28 14:02] LABS: Vitamin D,25 Hydroxy 31.1 ng/mL
== END ==
PROVIDERS: PCP Family Medicine; Referring Provider Family Medicine; Visit Provider Family Medicine
DX: Z00.00 Encounter for general adult medical examination without abnormal findings (principal); E55.9 Vitamin D deficiency, unspecified; I10 Essential (primary) hypertension
CPT/HCPCS: 36415; 80048; 80061; 82306

== ENCOUNTER → 2020-01-29 12:53 | Outpatient (CLI) | payer MEDICARE, SELFPAY ==
[2019-03-18 07:35] VITALS: BMI 27.6
--- NOTE | 2020-01-29 13:00 | BD_ITS ---
STUDY: DUAL ENERGY X-RAY ABSORPTIOMETRY / DXA REASON FOR EXAM: Female, 70 years old. 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 COMPARISON: Comparison is made with prior study dated 08-08-16. FINDINGS: Lumbar Spine (L1-L4): g/cm2 (1.446) / T-score (2.3) / Z-score (3.9) Findings are suggestive of normal bone density with a low fracture risk. Left Femur Total: g/cm2 (0.956) / T-score (-0.4) / Z-score (1.0) Left Femoral Neck: g/cm2 (0.895) / T-score (-1.0) / Z-score (0.6) Right Femur Total: g/cm2 (0.974) / T-score (-0.3) / Z-score (1.1) Right Femoral Neck: g/cm2 (0.946) / T-score (-0.7) / Z-score (1.0) The T-Scores on the most recent prior examination were: Lumbar Spine (L1-L4): There has been worsening of bone density since the previous examination. Left Femur Total: which represents a worsening of 4.3%. Right Femur Total: which represents a worsening of 2.6%. BD/Dexa Bone Density Study IMPRESSION: The patient is considered normal as outlined below according to World Bill Organization (WHO) criteria with a low fracture risk. There has been worsening of bone density since the previous examination. Reference Information: The T-score is the number of standard deviations above or below the standard which is normal for young adults at their peak bone mineral density. The World Health Organization (WHO) interprets the T-scores as follows: Above -1 Normal bone density Between -1 and -2.5 Osteopenia Equal to / or below -2.5 Osteoporosis As a practical clinical guideline, osteopenia may be graded as follows: Mild -1 through -1.5 Moderate -1.6 through -2.0 Severe -2.1 through -2.4 The Z-score is the number of standard deviations above or below age-matched controls. A Z-score of less than -1.5 would be considered abnormal. References: 1. NIH Osteoporosis and Related Bone Diseases http://www.osteo.org 2. International Society for Clinical Densitometry http://www.iscd.org 3. National Osteoporosis Foundation http://www.nof.org Electronically Signed: Jose Fox, at 9:26 EDT , Service support ,
== END ==
PROVIDERS: PCP Family Medicine; Referring Provider Family Medicine; Visit Provider Family Medicine
DX: N95.9 Unspecified menopausal and perimenopausal disorder (principal)
CPT/HCPCS: 77080

== ENCOUNTER → 2020-05-06 15:10 | Outpatient (CLI) | payer MEDICARE, SELFPAY ==
[2019-03-18 07:35] VITALS: BMI 27.6
--- NOTE | 2020-05-06 15:13 | BI_ITS ---
MAMMOGRAPHY - BILATERAL SCREENING REASON FOR EXAM: Female, 70 years old. Routine annual screening examination. PERTINENT HISTORY: Sister with breast cancer. TECHNIQUE: Digital bilateral breast ham (3D mammographic acquisition) in the CC and MLO projections. 2-D mediolateral oblique (MLO) and craniocaudad (CC) views of both breasts were obtained. CAD: Full Field Digital Mammography with Computer Added Detection was performed. COMPARISON: Comparison is made with prior study dated 05/05/2019 and 05/01/2018. FINDINGS: Breast Composition: The breasts are heterogeneously dense, which may obscure small masses. There are no dominant masses or suspicious calcifications. Stable small benign appearing bilateral axillary lymph nodes. No other significant abnormalities are identified. There has been no significant change since the prior study. BI/SCREEN MAMM (CAD) W/HAM BILAT IMPRESSION: Stable bilateral screening mammogram. Yearly follow-up mammogram recommended. (A) ASSESSMENT CATEGORY: BIRADS Category 2: Benign. A letter regarding these results will be sent to the patient by the facility within 30 days. Approximately 10% of breast cancers are not detected by mammography. A normal mammogram should not delay biopsy of a clinically suspicious abnormality. [id number] Electronically Signed: Jose Fox, at 8:46 EDT , Service support ,
== END ==
PROVIDERS: PCP Family Medicine; Referring Provider Obstetrics & Gynecology; Visit Provider Obstetrics & Gynecology
DX: Z12.31 Encounter for screening mammogram for malignant neoplasm of breast (principal)
CPT/HCPCS: 77063; 77067

== ENCOUNTER → 2020-07-19 11:53 | Outpatient (CLI) | payer MEDICARE, SELFPAY ==
[2019-03-18 07:35] VITALS: BMI 27.6
--- NOTE | 2020-07-19 11:57 | RAD_ITS ---
STUDY: X-RAY - CERVICAL SPINE REASON FOR EXAM: Female, 70 years old. NECK PAIN AND LROM, GOES INTO BILATERAL ARMS- LEFT and gt; RIGHT EXTREMITY TECHNIQUE: 5 view(s) of the cervical spine were obtained. COMPARISON: None FINDINGS: There are degenerative changes of the anterior atlantoaxial articulation. Normal odontoid process. There is straightening of the normal cervical lordosis. There is multi-level endplate spondylosis. There is multi-level degenerative disc disease with multilevel disc space narrowing. There is right greater than left neural foraminal narrowing especially in the upper cervical spine. There is multilevel severe disc space narrowing spondylosis without evidence of acute loss of height or alignment. The soft tissue structures are unremarkable. RAD/Cerv Spine 4 or 5 Views IMPRESSION: Multilevel degenerative disc disease. No visualized acute fracture. Could consider follow-up MRI if clinically appropriate. Electronically Signed: Ayse Mariano MD at 0:43 EST Tel , Service support ,
== END ==
PROVIDERS: PCP Family Medicine; Referring Provider Family Medicine; Visit Provider Family Medicine
DX: M54.2 Cervicalgia (principal)
CPT/HCPCS: 72050

== ENCOUNTER → 2020-08-20 11:55 | Outpatient (CLI) | payer MEDICARE, SELFPAY ==
[2020-08-20 15:27] LABS: Absolute Lymphocyte Count 1.62 X10^3/uL (0.83-4.51); Absolute Neutrophil Count 4.6 X10^3/uL (2.0-7.7); Basophil# 0.04 X10^3/uL; Basophil% 0.6 % (0-1); Eosinophil# 0.12 X10^3/uL; Eosinophils% 1.7 % (0-5); Hematocrit 44.8 % (37-47); Hemoglobin 15.1 g/dL (12.0-15.0); Lymphocyte # 1.62 X10^3/ul (4.0); Lymphocyte % 23.2 % (19-41); Mean Corp Hgb Conc 33.7 g/dL (32-36); Mean Corpuscular Hgb 30.8 pg (27.0-32.0); Mean Corpuscular Volume 91.4 fL (81-99); Mean Platelet Vol. 9.4 fl (6.2-12.0); Monocyte% 8.6 % (0-10); NRBC Flagged by Analyzer 0 % (0-5); Neutrophil # 4.59 X10^3/uL (2.7-7.7); Neutrophil % 65.6 % (47-70); Platelet Count 263 K/mm3 (150-450); RBC Distribution Width CV 11.9 % (11.6-14.6); RBC Distribution Width SD 39.9 fl (35.1-43.9)
[2020-08-20 15:43] LABS: Hemoglobin A1c 5.7 % (3.8-5.6)
[2020-08-20 15:44] LABS: Erythrocyte Sedimentation Rate 26 mm/hr (0-30)
[2020-08-20 15:45] LABS: Free T3 2.8 pg/mL (2.18-3.98); T4 Total, Thyroxin 9.5 ug/dL (4.8-13.9); Thyroid Stim Hormone (TSH) 2.19 uIU/mL (0.358-3.74)
[2020-08-23 15:35] LABS: ANTINUCLEAR ANTIBODIES DIRECT Negative (Negative)
== END ==
PROVIDERS: PCP Family Medicine; Referring Provider Family Medicine; Visit Provider Family Medicine
DX: Z00.00 Encounter for general adult medical examination without abnormal findings (principal); R53.83 Other fatigue; Z79.899 Other long term (current) drug therapy; M25.50 Pain in unspecified joint; I10 Essential (primary) hypertension
CPT/HCPCS: 36415; 83036; 84436; 84443; 84481; 85025; 85652; 86038

== ENCOUNTER 2020-09-27 11:30 | Outpatient (RCR) | payer MEDICARE, SELFPAY ==
[2020-08-04 13:31] VITALS: BMI 27.1
--- NOTE | 2020-08-25 16:07 | HP.PTEVAL_ITS ---
Patient's Visit Information CANDICE CARD is a 70 year old F referred to Physical Therapy by Dr. Mk Justin DO with a diagnosis of B shoulder impingement. Date of Evaluation: 08/25/20 Physical Therapist: Delroy Quintana, PT, ATC - Visit Plan Frequency: 2-3x /Week Duration: 4-6 Weeks Plan: B shoulder rot cuff strengthening, scap stab ex's, UBE, and HEP - Subjective Pt reports her L shoulder became painful on July 09 of this year. Pt reports she was walking her dog when the dog jerked her, resulting in L shoulder pain. Pt reports approximately 1 month later, she began to experience R shoulder pain as well. Pt notes she has significant sleep difficulty secondary to pain. Pt reports her pain will radiate down her UE's to elbow at times. Pt reports she has difficulty with donning her jacket secondary to pain. Pt reports she recen tlelza bagan taking a steroid which has helped her pain a lot. Pt has been going to a chiro which has helped a little bit. 0/10 pain at rest on meds, 10/10 at worst (getting out of bet). Pt notes reaching into cabnes to lift objects down and reaching into the fridge all increase her pain. - Pain B Shoulders Pain Intensity (Out of 10): 0 Pain Intensity Range: 10 - Objective Neuro: B UE sensation is WNL to light touch. B bicepital reflex= 2/3. Palpation: Pt is sore along the anterior shoulder along the LHB tendon and posteriorly along the supraspinatus. ROM: R shoulder flex= 170, abd= 165, ER= 65, IR= WNL; L shoulder flex= 170, abd= 165, ER= 60, IR WNL. MMT: B shoulder IR= 5/5 throughout. All other measurements 4/5 througjout. SPecial tests: Pos Mcmurrays, Pos speeds - Goals Goal 1:: Decrease B shoulder pain x 50% to aid with sleep Goal Time Frame: 4-6 Weeks Goal 2:: Increase B shoulder strength x 1 grade to aid with IADL's Goal Time Frame: 4-6 Weeks Goal 3:: I with HEP Goal Time Frame: 4-6 Weeks - Rehabilitation Potential Physical Therapy Diagnosis: B shoulder pain, weakness, and limited ROM secondary to B shoulder impingement syndrome Rehabilitation Potential: Good - Anticipated Interventions Patient/Client Instruction: Educate patient on: Condition, Plan of Care For the Purpose of:: To improve self management Therapeutic Exercise to Include: Strength training, Endurance training, Postural training, Scapular Strength/Stabilization For the Purpose of:: To decrease pain, To improve muscle performance and motor function Cryotherapy (ice pack, ice massage): Yes Ultrasound (thermal/non thermal): Yes For the Purpose of:: To decrease pain Thank you for the opportunity to evaluate your patient. For Medicare and Medicare HMO plans, please review the plan of care and approve it. It will need to be FAXED BACK to us at [phone] for Medicare purposes. For Medicare only, by signing this I certify the plan of care. Please let me know if there are questions or concerns regarding this plan of care. Physician Signature: Date:
--- NOTE | 2021-01-31 12:43 | HP.PTDCSUM ---
It has been my pleasure to treat CANDICE CARD referred by Dr. Mk Justin DO, with the diagnosis of B shoulder impingement for a total of 10 visit(s). Discharge Date: Please see the following information for a summary of their discharge status. Subjective: R shoulder is now in more pain than the L. Did not get through her HEP exercises due to pain in R shoulder. L shoulder still hurts but not as bad as it has been. She gets woken up at night with throbbing of the R shoulder. Drying hair in the morning has been a problem getting her R arm up. B Shoulders Pain Intensity (Out of 10): 5 % Improvement: 40 Objective/Function: ROM: WNL on L side, ABD limited on R side due to pain. MMT: R: Flex:4/5; ABD 3+/5 due to pain; ER: 4+/5, IE 5/5. L: Flex: 4/5; ABD 4/5; ER 4+/5, IR 5/5. Palpation: R sided coracoid process tenderness Goal 1:: Decrease B shoulder pain x 50% to aid with sleep Goal Progress: Not Progressing Goal 2:: Increase B shoulder strength x 1 grade to aid with IADL's Goal Progress: Not Progressing Goal 3:: I with HEP Goal Progress: Goal Met Plan: HEP for L shoulder and refer to MD to assess R shoulder pain. Discharge. If there are questions or concerns regarding this patient's physical therapy, please feel free to call me at [phone]. Thank you for the referral of this patient. Sincerely, Delroy Quintana, PT, ATC Balance/Gait/Functional tests - Balance/Special Test Scores Quick DASH Score: [phone]
== END 2020-09-27 19:00 | disposition home or self-care (01) ==
LOC: PT 11:30
PROVIDERS: PCP Family Medicine; Referring Provider Orthopaedic Surgery; Visit Provider Orthopaedic Surgery
DX: M75.41 Impingement syndrome of right shoulder (principal); M75.42 Impingement syndrome of left shoulder; M47.812 Spondylosis without myelopathy or radiculopathy, cervical region
CPT/HCPCS: 97110; 97161; 97164

== ENCOUNTER → 2020-10-26 16:16 | Outpatient (CLI) | payer MEDICARE, SELFPAY ==
--- NOTE | 2020-10-26 16:16 | MRI_ITS ---
STUDY: MRI RIGHT SHOULDER REASON FOR EXAM: Female, 70 years old. pain TECHNIQUE: Standardized fat and water weighted pulse sequences were obtained in all 3 orthogonal planes. COMPARISON: X-ray 10/18/2020 FINDINGS: Moderate supraspinatus and infraspinatus tendinosis and peritendinitis as with a 1 x 1 cm full-thickness tear of the distal anterior supraspinatus tendon at the footprint. Moderate subscapularis tendinosis with an interstitial tear and interstitial subluxation long head of the biceps tendon. Normal teres minor tendon. There is moderate muscular atrophy of the supraspinatus muscle. Normal infraspinatus muscle. Normal subscapularis muscle. Normal teres minor muscle. Normal glenohumeral articulation. Normal humeral head and visualized proximal humerus. Normal biceps labral complex. There is tendinosis with thickening of the biceps tendon, but without a demonstrated tear. Normal labrum. Normal capsulo- ligamentous complex. Normal rotator interval. 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 There is a Type II morphology (curved), with a anterior downsloping orientation. There is no subacromial-subdeltoid bursal fluid. Normal visualized coracohumeral and coracoacromial ligaments. Normal quadrilateral space. Normal axillary space. Normal deltoid muscle. Normal trapezius muscle. MRI/Upper Ext Joint Only(Routine) IMPRESSION: 1. Moderate supraspinatus and infraspinatus tendinosis and peritendinitis as with a 1 x 1 cm full-thickness tear of the distal anterior supraspinatus tendon at the footprint with moderate supraspinatus muscular atrophy. 2. Moderate subscapularis tendinosis with interstitial tears and interstitial subluxation long head of the biceps tendon. 3. Moderate acromioclavicular joint arthrosis with inferior osteophyte formation producing medial outlet stenosis. Anterolateral downsloping acromion with thickening of the coracoacromial ligament produces lateral outlet stenosis. Electronically Signed: Ivan Moran MD at 11:23 EDT Tel , Service support ,
--- NOTE | 2020-10-26 16:54 | MRI_ITS ---
STUDY: MRI LEFT SHOULDER REASON FOR EXAM: Female, 70 years old. pain TECHNIQUE: Standardized fat and water weighted pulse sequences were obtained in all 3 orthogonal planes. COMPARISON: X-ray 08/04/2020 FINDINGS: Moderate supraspinatus and infraspinatus tendinosis and peritendinitis with a 1 x 1 cm full-thickness tear of the distal mid supraspinatus tendon at the footprint. Moderate subscapularis tendinosis with interstitial tears. Normal teres minor tendon. There is moderate muscular atrophy of the supraspinatus muscle. Normal infraspinatus muscle. Normal subscapularis muscle. Normal teres minor muscle. Normal glenohumeral articulation. Normal humeral head and visualized proximal humerus. Normal biceps labral complex. There is tendinosis with thickening of the biceps tendon, but without a demonstrated tear. Normal labrum. Normal capsulo- ligamentous complex. Normal rotator interval. 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 There is a Type II morphology (curved), with a anterior downsloping orientation. There is no subacromial-subdeltoid bursal fluid. Normal visualized coracohumeral and coracoacromial ligaments. Normal quadrilateral space. Normal axillary space. Normal deltoid muscle. Normal trapezius muscle. MRI/Upper Ext Joint Only(Routine) IMPRESSION: 1. Moderate supraspinatus and infraspinatus tendinosis and peritendinitis as with a 1 x 1 cm full-thickness tear of the distal mid supraspinatus tendon at the footprint with moderate of the supraspinatus muscular atrophy. 2. Moderate subscapularis tendinosis with interstitial tears. 3. Tendinosis of the arcuate segment long head of the biceps tendon. 4. Moderate acromioclavicular joint arthrosis with inferior osteophyte formation producing medial outlet stenosis. Anterolateral downsloping acromion with thickening of the coracoacromial ligament produces lateral outlet stenosis. Electronically Signed: Ivan Moran MD at 11:19 EDT Tel , Service support ,
== END ==
PROVIDERS: PCP Family Medicine; Referring Provider Orthopaedic Surgery; Visit Provider Orthopaedic Surgery
DX: M75.41 Impingement syndrome of right shoulder (principal); M75.42 Impingement syndrome of left shoulder
CPT/HCPCS: 73221

== ENCOUNTER → 2020-11-08 16:12 | Outpatient (CLI) | payer MEDICARE, SELFPAY ==
[2020-11-11 15:34] LABS: HPV Reflexed? NOT INDICATED
== END ==
PROVIDERS: Visit Provider Obstetrics & Gynecology
DX: Z12.4 Encounter for screening for malignant neoplasm of cervix (principal)
CPT/HCPCS: 88175; G0145

== ENCOUNTER → 2021-03-07 07:49 | Outpatient (CLI) | payer MEDICARE, SELFPAY ==
[2021-03-07 10:16] LABS: Absolute Lymphocyte Count 1.65 X10^3/uL (0.83-4.51); Absolute Neutrophil Count 3.8 X10^3/uL (2.0-7.7); Basophil# 0.03 X10^3/uL; Basophil% 0.5 % (0-1); Eosinophil# 0.14 X10^3/uL; Eosinophils% 2.3 % (0-5); Hematocrit 44.2 % (37-47); Hemoglobin 15.2 g/dL (12.0-15.0); Lymphocyte # 1.65 X10^3/ul (0.83-4.51); Lymphocyte % 27.2 % (19-41); Mean Corp Hgb Conc 34.4 g/dL (32-36); Mean Corpuscular Hgb 31.5 pg (27.0-32.0); Mean Corpuscular Volume 91.5 fL (81-99); Mean Platelet Vol. 9.8 fl (6.2-12.0); Monocyte# 0.44 X10^3/uL; Monocyte% 7.2 % (0-10); NRBC Flagged by Analyzer 0 % (0-5); Neutrophil % 62.6 % (47-70); Platelet Count 226 K/mm3 (150-450); RBC Distribution Width CV 11.9 % (11.6-14.6); RBC Distribution Width SD 39.8 fl (35.1-43.9); Red Blood Count 4.83 M/mm3 (4.2-5.4); White Blood Count 6.1 K/mm3 (4.4-11.0)
[2021-03-07 10:23] LABS: Anion Gap 6 (5-15); BUN 14 mg/dL (7-18); BUN/Creat Ratio 21.7 RATIO (10-20); Calcium,Total 9.4 mg/dL (8.5-10.1); Chloride 106 mmol/L (98-107); Creatinine, Serum 0.64 mg/dL (0.55-1.02); EST Glomerular Filtration Rate 97 mL/min (>60); Est Glom Filt Rate - Afr Amer 117 mL/min (>60); Glucose 114 mg/dL (74-106); Sodium Level 140 mmol/L (136-145)
[2021-03-07 10:25] LABS: Vitamin D,25 Hydroxy 34.8 ng/mL
== END ==
PROVIDERS: PCP Family Medicine; Referring Provider Family Medicine; Visit Provider Family Medicine
DX: Z00.00 Encounter for general adult medical examination without abnormal findings (principal); R53.83 Other fatigue; E55.9 Vitamin D deficiency, unspecified
CPT/HCPCS: 36415; 80048; 82306; 85025

== ENCOUNTER 2021-03-29 06:28 | Day surgery (SDC) | payer MEDICARE, SELFPAY ==
[2021-03-29] VITALS (7 sets, daily range): BP systolic 102–138; BP diastolic 59–79; PULSE 72–88; RESP 16–18; TEMP 36.1–36.2; O2SAT 94–99; BMI 27.5
[2021-03-29] MEDS: Lactated Ringers 1,000 ML 100 ML IV (07:19)
--- NOTE | 2021-03-29 07:30 | COLBX_PTH ---
PATIENT: CANDICE CARD LOC: EN U#:[id number] AGE/SX: 71/F ROOM: RE03/29/[address]: Dr. Dasia Parada MD : 1950 BED: DIS: 03/29/2021 SPEC #: [id number] RECD: 03/29/21 08:47 STATUS: SERGIO REMauricio #: [id number] FEDE: 03/29/21 07:[address]: Dasia Parada DEPT: SURGICAL PATHOLOGY RECD BY: Scot De León ENTERED: 03/29/21 10:37 SP TYPE: COLON BX OTHR DR: Dr. Darryl Ramirez MD Tissues: COLON BIOPSY Procedures: Surgery Specimen Level IV HEADER OPERATION: Colonoscopy (MAC) PRE-OP DIAGNOSIS: Bright red blood per rectum TISSUE SUBMITTED: Biopsy carpet-like polyp at appendiceal orifice MICROSCOPIC DIAGNOSIS Polyp at appendiceal orifice, biopsy: Fragments of tubular adenoma. AM:beni 03/30/2021 MICROSCOPIC DESCRIPTION Slides are reviewed. GROSS DESCRIPTION Received in fixative is one container labeled with the patient's name and designated carpet-like polyp at appendiceal orifice. The specimen consists of multiple irregular fragments of light chambers soft tissue that in aggregate measure 2.5 x 0.5 x 0.1 cm. The specimen is totally submitted in one cassette. / NEFTALY:beni 03/29/21 TC:5 CPT:
--- NOTE | 2021-03-29 07:33 | PCM.HP.BLA ---
History and Physical Date of Admission: 03/29/21 Date of Service: 03/22/21 MR#:[id number]: CANDICE CARDep #:[id number]:[id number] Provider:Dr. 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 Is patient in pain?: No Allergies lansoprazole [From Prevacid] Allergy (Mild, Verified 03/22/21 08:49) Unknown bee venom protein (honey bee) Allergy (Verified 03/22/21 08:49) Swelling Sulfa (Sulfonamide Antibiotics) Allergy (Verified 03/22/21 08:49) Rash Proton Pump Inhibitors Adverse Reaction (Verified 03/22/21 08:49) Upset Stomach Medications losartan 25 mg tablet 25 mg PO tab 08/04/20 [History Confirmed 03/22/21] triamcinolone acetonide 0.1 % topical cream applic TOPICAL 08/04/20 [History Confirmed 03/22/21] PFSH Medical History Fatigue History of cancer History of carpal tunnel syndrome Hypertension Surgical History History of hysterectomy Family History Sister Breast cancer x2 Aunt CVA (cerebral vascular accident) Social History Smoking Status: Never smoker alcohol intake: never HPI HPI HPI: CANDICE CARD, is a 71 F who presents to the office today for bright red blood per rectum. Patient states for the last couple months she has had blood with her stools about once a week. Patient states that it is red in color. Patient denies any straining but states his nausea does not happen with every bowel movement. Patient denies any history of hemorrhoids. Patient's last colonoscopy was in [address] Zafar only showed diverticulosis. Patient states she does not have blood when she wipes only in the toilet. Patient does have occasional abdominal pain described at time of an ache that goes across her belly but she also admits to having increased gas. Patient denies any family history of colon cancer. Patient did have a hysterectomy in 2018 in which they did find endometrial carcinoma pathological stage T1b. ROS General General: No weight change, appetite, fatigue, colon cancer, breast cancer or weakness HEENT HEENT: No difficulty swallowing, eye injury, eye surgery, swollen glands or hoarseness Endo Endocrine: No thyroid disease, diabetes mellitus, thyroid cancer, Hair loss, heat intolerance or cold intolerance Skin Skin: No rash or changing moles Breast Breast: No left breast lump, right breast lump, nipple discharge, breast pain, abnormal mammogram, abnormal US or breast enlargement Musc Musculoskeletal: Yes arthritis; No back problems, rheumatoid arthritis, gout or joint pain Cardio Cardiovascular: Yes high blood pressure; No murmur, pacemaker, heart disease, atrial fibrillation, heart attack, heart stent, palpitations, shortness of breat with exertion or chest pain Psych Psychiatric: No depression, anxiety or hearing voices Resp Respiratory: No shortness of breath, No sleep apnea, No cough, No COPD, No asthma, No emphysema and No wheezing Gastro Gastrointestinal: Yes abdominal pain, No nausea or vomiting, No diarrhea, No constipation, Yes blood in stool, Yes acid reflux, Yes hemorrhoids, No ulcers, No gallbladder problem and No black,tarry stools [place] Hematologic: No blood thinners, No blood disorders, No bleeding, No anemia and No blood clots Neuro Neurologic: No weakness Exam Const General: cooperative, healthy appearing, comfortable and no acute distress Neck Neck: normal visual inspection Resp Effort & Inspection: normal respiratory effort Cardio Rate: regular rate GI Inspection: non-distended Palpation: soft, no guarding and nontender Skin General: no rashes or lesions noted Neuro General: patient oriented x3 Psych Affect: normal affect COVID (Procedure Consent) Procedure Criteria Procedure Criteria: Yes Elective The surgeon/proceduralist and patient have discussed in detail the risk of exposure to and/or potential harm posed by the COVID-19 virus with having a surgery/procedure at this time versus the risk of delaying the surgery/procedure. It is not possible to know either the risk of delaying the surgery or procedure or chance of getting an infection with perfect accuracy, but a joint decision was made between the patient and the surgeon/proceduralist to proceed at this time with the scheduled surgery/procedure as indicated on the consent form. Assessment and Plan Assessment and Plan (1) BRBPR (bright red blood per rectum): Status: Acute Plan - Dr. Dasia Parada MD: I have discussed the above with the patient. I have offered the patient colonoscopy for evaluation. I have explained the risks/benefits of the procedure and described the procedure. I have discussed the risks with the patient, including but not limited to: infection, bleeding, perforation of the GI tract requiring emergency surgery, inability to complete the procedure, injury to any internal organs, complications of anesthesia, etc. - the patient understands and agrees to proceed. I have answered all the patient's questions to the patient's satisfaction and the patient has no further questions. The patient has been given instructions for the colon cleansing preparation. 1 day of clears, MiraLAX Dulcolax split prep Dasia Parada M.D. Pager: [phone] [facility] [address] [place] [address], [address] [place] [address] Office: [phone] Plan Details Other Orders: Orders: Colonoscopy 03/22/21 Coding Level of Care Code Off vis,new,level 3 Diagnoses BRBPR (bright red blood per rectum) K62.5 03/24/21 1253<Electronically signed by Dasia Parada MD>Date Dasia Parada MD
--- NOTE | 2021-03-29 08:20 | OP.COLON_ITS ---
Patient Name: Anali Rdz Procedure Date: 03/29/2021 7:06 AM Date of : 1950 Age: 71 Procedure: Colonoscopy Indications: Gastrointestinal occult blood loss Providers: Dasia Parada MD Medicines: Monitored Anesthesia Care Patient Profile: This is a 71 year old female. Last Colonoscopy: 2016. Complications: No immediate complications. Procedure: Pre-Anesthesia Assessment: - Prior to the procedure, a History and Physical was performed, and patient medications and allergies were reviewed. The patient's tolerance of previous anesthesia was also reviewed. The risks and benefits of the procedure and the sedation options and risks were discussed with the patient. All questions were answered, and informed consent was obtained. Prior Anticoagulants: The patient has taken no previous anticoagulant or antiplatelet agents. ASA Grade Assessment: Per anesthesia. After reviewing the risks and benefits, the patient was deemed in satisfactory condition to undergo the procedure. After I obtained informed consent, the scope was passed under direct vision. Throughout the procedure, the patient's blood pressure, pulse, and oxygen saturations were monitored continuously. The Colonoscope was introduced through the anus and advanced to the cecum, identified by the ileocecal valve. The colonoscopy was performed without difficulty. The patient tolerated the procedure well. The quality of the bowel preparation was good. Scope In: 7:41:09 AM Scope Out: 8:10:23 AM Total Procedure Duration Time 0 hours 29 minutes 14 seconds Findings: Multiple small-mouthed diverticula were found in the sigmoid colon, descending colon and transverse colon. A 7 mm polyp was found in the appendiceal orifice. The polyp was carpet-like. Polypectomy was attempted, initially using a piecemeal technique with a hot snare. Polyp resection was incomplete with this device. This intervention then required a different device and polypectomy technique. The polyp was removed with a piecemeal technique using a cold biopsy forceps. Difficult area to assure complete resection due to being in the appendiceal oriface, complete retrieval. The perianal and digital rectal examinations were normal. The exam was otherwise without abnormality on direct and retroflexion views. Impression: - Diverticulosis in the sigmoid colon, in the descending colon and in the transverse colon. - One 7 mm polyp at the appendiceal orifice, removed piecemeal using a cold biopsy forceps. - The examination was otherwise normal on direct and retroflexion views. - No specimens collected. Recommendation: - Discharge patient to home. - High fiber diet. - Continue present medications. - Await pathology results. - Perform a CT scan (computed tomography) of abdomen with contrast and pelvis with contrast at appointment to be scheduled. - Repeat colonoscopy is recommended. The colonoscopy date will be determined after pathology results from today's exam become available for review. Procedure Code(s): --- Professional --- 02775, Colonoscopy, flexible; diagnostic, including collection of specimen(s) by brushing or washing, when performed (separate procedure) Diagnosis Code(s): --- Professional --- D12.1, Benign neoplasm of appendix R19.5, Other fecal abnormalities K57.30, Diverticulosis of large intestine without perforation or abscess without bleeding CPT copyright 2017 [employer]. All rights reserved. The codes documented in this report are preliminary and upon talent scout review may be revised to meet current compliance requirements. MD Dasia Lundy MD 03/29/2021 8:20:21 AM This report has been signed electronically. Number of Addenda: 0 Note Initiated On: 03/29/2021 7:06 AM
--- NOTE | 2021-03-29 08:21 | OP.CCLET_ITS ---
03/29/2021 Darryl Ramirez MD [address] [id number] Re : Colonoscopy procedure for Anali Luxhoff Dear Dr. Ramirez This procedure was performed on Monday, March 29, 2021. My impressions and recommendations are as follows: Impressions : - Diverticulosis in the sigmoid colon, in the descending colon and in the transverse colon. - One 7 mm polyp at the appendiceal orifice, removed piecemeal using a cold biopsy forceps. - The examination was otherwise normal on direct and retroflexion views. - No specimens collected. Recommendations : - Discharge patient to home. - High fiber diet. - Continue present medications. - Await pathology results. - Perform a CT scan (computed tomography) of abdomen with contrast and pelvis with contrast at appointment to be scheduled. - Repeat colonoscopy is recommended. The colonoscopy date will be determined after pathology results from today's exam become available for review. My findings are described in the full procedure note, which is enclosed. If I can be of further assistance, please feel free to contact me at Doctor phone number(s): , Work: . Sincerely, MD Dasia Lundy MD 03/29/2021 8:20:21 AM This report has been signed electronically.
== END 2021-03-29 08:56 ==
LOC: EN 06:29 → AC 06:33
PROVIDERS: PCP Family Medicine; Referring Provider Family Medicine; Visit Provider Surgery
PROC: 0DJD8ZZ Inspection of Lower Intestinal Tract, Via Natural or Artificial Opening Endoscopic (ICD-10-PCS; CPT 45378; principal; 2021-03-29 07:25)
DX: Z12.11 Encounter for screening for malignant neoplasm of colon (principal); D12.1 Benign neoplasm of appendix; K57.30 Diverticulosis of large intestine without perforation or abscess without bleeding; I10 Essential (primary) hypertension; Z79.899 Other long term (current) drug therapy
CPT/HCPCS: 45380; 88305; J7120; J2405

== ENCOUNTER → 2021-04-06 07:38 | Outpatient (CLI) | payer MEDICARE, SELFPAY ==
--- NOTE | 2021-04-06 07:46 | CT_ITS ---
STUDY: CT ABDOMEN AND PELVIS WITH CONTRAST REASON FOR EXAM: Female, 71 years old. Appendiceal polyp. Partial resection., hx of endometrial cancer -- with PO and IV contrast RADIATION DOSAGE (If Supplied By Facility): CTDIvol = ( 13.72 ) mGy, DLP = ( 606.31 ) mGycm TECHNIQUE: Transaxial images were obtained from the dome of the diaphragm to the symphysis pubis with oral contrast. Oral and amp; IV REDICAT and amp; 100ML ISOVUE 370 was administered. Sagittal and coronal images were reconstructed. Individualized dose optimization techniques were used for this CT. COMPARISON: Comparison is made with prior study dated 11/13/2017. FINDINGS: The visualized lung bases are unremarkable. The visualized portions of the heart are within normal limits. Normal liver. Normal gallbladder and extrahepatic biliary system. Normal spleen. Normal pancreas. Normal bilateral adrenal glands. Normal right kidney. Normal left kidney. There is a small hiatal hernia. Normal small intestine. There are scattered colonic diverticula consistent with diverticulosis. There is non-visualization of the appendix. Increased markings are seen within the mesenteric fat in the right lower quadrant in the region of the appendix. This has progressed as compared to prior study. There is scattered atherosclerotic calcification of the abdominal aorta, without a demonstrated aneurysm. Normal inferior vena cava. There is borderline retroperitoneal lymphadenopathy with enlarged nodes no greater than 10mm in the short axis diameter. Normal urinary bladder. There is absence of the uterus consistent with a prior hysterectomy. There is a small umbilical hernia containing fat. There are diffuse degenerative changes of the visualized lumbar spine. Loss of the normal lumbar lordosis. CT/Abdomen/Pelvis WITH Contrast IMPRESSION: Increased markings are seen in the mesenteric fat in the right lower quadrant in the region of the appendix. This has progressed as compared to prior study. Electronically Signed: Jose Fox MD at 9:18 EDT , Service support ,
== END ==
PROVIDERS: PCP Family Medicine; Referring Provider Surgery; Visit Provider Surgery
DX: Z85.42 Personal history of malignant neoplasm of other parts of uterus (principal)
CPT/HCPCS: 74177; Q9967

== ENCOUNTER → 2021-04-27 11:53 | Outpatient (CLI) | payer MEDICARE, SELFPAY ==
--- NOTE | 2021-04-27 11:56 | RAD_ITS ---
STUDY: X-RAY - RIGHT KNEE REASON FOR EXAM: Right knee pain. TECHNIQUE: 4 view(s) of the knee. COMPARISON: None. FINDINGS: Normal visualized distal femur. Normal visualized proximal tibia and fibula. Normal proximal tibiofibular articulation. Normal medial femorotibial compartment. Normal lateral femorotibial compartment. Normal patellofemoral articulation. There is a small joint effusion. There is mild patellar enthesopathy. RAD/Knee 4 or More Views IMPRESSION: Small joint effusion. Mild patellar enthesopathy. Otherwise, unremarkable x-ray examination of the right knee. Electronically Signed: Daniel Oquendo MD at 12:54 EDT Tel , Service support ,
== END ==
PROVIDERS: PCP Family Medicine; Referring Provider Family Medicine; Visit Provider Family Medicine
DX: M25.561 Pain in right knee (principal)
CPT/HCPCS: 73564

== ENCOUNTER 2021-04-28 07:48 | Day surgery (SDC) | payer MEDICARE, SELFPAY ==
[2021-04-28] VITALS (9 sets, daily range): BP systolic 122–156; BP diastolic 66–90; PULSE 66–80; RESP 16–18; TEMP 36.4–37.2; O2SAT 94–100; BMI 28.1
--- NOTE | 2021-04-28 | IMM_PTH ---
PATIENT: CANDICE CARD LOC: EN U#:[id number] AGE/SX: 71/F ROOM: RE04/28/[address]: Dr. Brian Guerra DO : 1950 BED: DIS: 04/28/2021 SPEC #: [id number] RECD: 04/29/21 14:06 STATUS: SERGIO REQ #: [id number] FEDE: 04/28/21 00:[address]: Brian Guerra DEPT: IMMUNOHISTOCHEMISTRY RECD BY: Krystina Roland ENTERED: 04/29/21 14:07 SP TYPE: IMMUNO OTHR DR: Dr. Darryl Ramirez MD Tissues: Cecum, NOS Procedures: BCL-2 (add) CD20 (add) CD3 (add) CD45 (add) CD5 (add) CD79A (add) Pankeratin (initial) PHYSICIAN & INSTITUTION [place] [id number] SPECIMEN INFORMATION: Tissue Source: Cecal polyp Clinical Info: Tubular adenoma of colon, retroperitoneal lymphadenopathy Specimen Number: [id number] CPT code: 34522, 14303 x6 METHODOLOGY: Deparaffinized sections of prefer/formalin-fixed tissue or PAP/DQ stained slides are incubated with monoclonal/polyclonal antibodies/oligonucleotide probes. Localization is made via biotin free immunoperoxidase method. Appropriate controls are performed and reacted as expected. Results on target cell population are indicated in the following table: RESULTS: ANTIBODY / CLONE RESULT AE1-3 (AE1/AE3/PCK26) negative CD3 (PS1) positive CD5 (SP10) positive CD20 (L26) positive CD45 (RP2/18) positive CD79a (11E3) positive BCL-2 (bcl-2/100/D5) negative These tests were developed and their performance characteristics determined by [facility]. They may not have been cleared or approved by the U.S. Food and Drug Administration. The FDA has determined that such clearance or approval is not necessary. The above immunohistochemical/dualISH markers are ordered and reviewed by the Pathologist. INTERPRETATION: Cecal polyp, biopsy: Polytypic (benign) lymphoid aggregates. AM:beni 05/02/2021
[2021-04-28] MEDS: Lactated Ringers 1,000 ML 100 ML IV ×2 (08:35→11:17)
--- NOTE | 2021-04-28 09:00 | COLBX_PTH ---
PATIENT: CANDICE CARD LOC: EN U#:[id number] AGE/SX: 71/F ROOM: RE04/28/[address]: Dr. Brian Guerra DO : 1950 BED: DIS: 04/28/2021 SPEC #: [id number] RECD: 04/28/21 11:49 STATUS: SERGIO REMauricio #: [id number] FEDE: 04/28/21 09:[address]: Brian Guerra DEPT: SURGICAL PATHOLOGY RECD BY: Negra Omalley ENTERED: 04/28/21 12:51 SP TYPE: COLON BX OTHR DR: Dr. Darryl Ramirez MD Tissues: Cecum, NOS Procedures: Surgery Specimen Level IV HEADER OPERATION: Colonoscopy (MAC) PRE-OP DIAGNOSIS: Tubular adenoma of colon; retroperitoneal lymphadenopathy TISSUE SUBMITTED: Cecal polyp MICROSCOPIC DIAGNOSIS Cecal polyp, biopsy: Cauterized fragments of colonic mucosa with hyperplastic change. Fragments of benign lymphoid tissue. See comment. AM:beni 04/29/2021 COMMENT Immunohistochemistry ([id number]) supports the above diagnosis. Case has been reviewed in consultation with Dr. Hollis who concurs with the above diagnosis. IDC:NEFTALY MICROSCOPIC DESCRIPTION Slides are reviewed. GROSS DESCRIPTION Received in fixative is one container labeled with the patient's name and designated cecal polyp. The specimen consists of multiple irregular fragments of light chambers soft tissue that in aggregate measure 1 x 0.5 x 0.1 cm. The specimen is totally submitted in one cassette. / NEFTALY:beni 04/28/21 TC:5 [facility]: [id number]
--- NOTE | 2021-04-28 09:54 | HP.PCM_ITS ---
History and Physical Date of Admission: 04/28/21 HPI HPI Chief Complaint: rectal bleeding Details: CANDICE CARD, is a 71 F who presents to the office today for Coloscopy performed by Dr. Parada recently and there was a polyp that she was unable to remove. She was noted to have a sessile tubular adenoma in the cecal cap. She has had 2 other colonoscopies and has not had any polyps. She has no problems with her bowels. She has no abdominal pain. She has not had any melena or hematochezia. She recently had a follow-up CT scan from her previous diagnosis of uterine cancer in 2018. Her previous CT scan in 2018 did not show any signs lymphadenopathy and on her current CT scan it does show 11mm lymph node in the retroperitoneum. She has no night sweats. She has no subjective symptoms. She has no abdominal pain. She has no melena hematochezia. ROS Gastro GI: Positive for bloating and heartburn Exam Const General: cooperative and comfortable Nutritional Appearance: average body habitus and well nourished HENIL Head: normal to inspection Ears: hearing grossly normal bilaterally Nose: external nose normal Face and sinus: normal facial exam Mouth: oral mucosae normal Throat: posterior oropharynx normal Eyes General: appearance normal, both eyes and all related structures Neck Neck: normal visual inspection Chest Chest palpation & inspection: normal inspection of the chest and normal palpation of entire chest wall Resp Effort & Inspection: normal respiratory effort Auscultation: Bilateral: Clear to Auscultation Cardio Palpation: normal PMI Rate: regular rate Rhythm: regular rhythm GI Inspection: normal to inspection Auscultation: normal bowel sounds Percussion: normal to percussion Palpation: no hepatosplenomegaly Skin General: no rashes or lesions noted Neuro General: patient alert Extrem General: normal to inspection Psych Affect: normal affect Quality Reporting Tobacco Screening ([facility] 138) Smoking Status: Never smoker Assessment and Plan Assessment and Plan (1) Tubular adenoma of colon: Status: Acute Comment: incomplete resection at appendiceal orifice Orders: Orders: Colonoscopy 04/28/21 (2) Retroperitoneal lymphadenopathy: Status: Acute Plan - Dr. oTrres Friend, DO: She should have a repeat CT scan in approximately 2 to 3 months. She should have an LDH, ESR, CRP, ANTOINE, CA 19-9, CA-125, CEA. If the size of the lymphadenopathy changes she will need PET scan and possibly biopsy with referral to oncology. Plan Details Other Medications: New: bisacodyl 20 mg (4 x 5 mg) PO ONCE 4 tabs 0RF polyethylene glycol 3350 (Miralax) 17 grams PO Q10M 238 grams 0RF Coding Level of Care Code Off vis,new,level 3 Diagnoses Tubular adenoma of colon D12.6 Retroperitoneal lymphadenopathy R59.0
--- NOTE | 2021-04-28 12:07 | OP.COLON_ITS ---
Patient Name: Anali Rdz Procedure Date: 04/28/2021 9:55 AM Date of : 1950 Age: 71 Procedure: Colonoscopy Indications: High risk colon cancer surveillance: Personal history of colonic polyps Providers: Brian Guerra DO Medicines: Propofol per Anesthesia Patient Profile: This is a 71 year old female. Refer to note in patient chart for documentation of history and physical. Last Colonoscopy: within the past 3 months. Complications: No immediate complications. Procedure: Pre-Anesthesia Assessment: - Prior to the procedure, a History and Physical was performed, and patient medications and allergies were reviewed. The patient is competent. The risks and benefits of the procedure and the sedation options and risks were discussed with the patient. All questions were answered and informed consent was obtained. Patient identification and proposed procedure were verified by the physician in the pre-procedure area. Mental Status Examination: alert and oriented. Airway Examination: normal oropharyngeal airway and neck mobility. Respiratory Examination: clear to auscultation. CV Examination: normal. Prophylactic Antibiotics: The patient does not require prophylactic antibiotics. Prior Anticoagulants: The patient has taken no previous anticoagulant or antiplatelet agents. ASA Grade Assessment: II - A patient with mild systemic disease. After reviewing the risks and benefits, the patient was deemed in satisfactory condition to undergo the procedure. The anesthesia plan was to use moderate sedation / analgesia (conscious sedation). Immediately prior to administration of medications, the patient was re-assessed for adequacy to receive sedatives. The heart rate, respiratory rate, oxygen saturations, blood pressure, adequacy of pulmonary ventilation, and response to care were monitored throughout the procedure. The physical status of the patient was re-assessed after the procedure. After I obtained informed consent, the scope was passed under direct vision. Throughout the procedure, the patient's blood pressure, pulse, and oxygen saturations were monitored continuously. The pediatric colonoscope was introduced through the anus and advanced to the cecum, identified by appendiceal orifice and ileocecal valve. The colonoscopy was performed without difficulty. The patient tolerated the procedure well. The quality of the bowel preparation was good. Moderate Sedation: Moderate (conscious) sedation was administered by the endoscopy nurse and supervised by the endoscopist. The following parameters were monitored: oxygen saturation, heart rate, blood pressure, and response to care. Total physician intraservice time was 15 minutes. Scope In: 10:07:54 AM Scope Out: 10:38:51 AM Total Procedure Duration Time 0 hours 30 minutes 57 seconds Findings: The perianal and digital rectal examinations were normal. A few small and large-mouthed diverticula were found in the sigmoid colon and descending colon. A 5 mm polyp was found in the cecum. The polyp was sessile. Area was successfully injected with 2 mL of a 1:10,000 solution of epinephrine for a lift polypectomy. The polyp was removed with a saline injection-lift technique using a hot snare at 20 vail. Resection and retrieval were complete using a suction (via the working channel). Verification of patient identification for the specimen was done. Impression: - Diverticulosis in the sigmoid colon and in the descending colon. - One 5 mm polyp in the cecum, removed using injection-lift and a hot snare. Resected and retrieved. Injected. Recommendation: - Await pathology results. - Repeat colonoscopy in 3 years for surveillance based on pathology results. - Continue present medications. Procedure Code(s): --- Professional --- 26562, Colonoscopy, flexible; with removal of tumor(s), polyp(s), or other lesion(s) by snare technique 04847, Colonoscopy, flexible; with directed submucosal injection(s), any substance G0500, Moderate sedation services provided by the same physician or other qualified health senior caregiver performing a gastrointestinal endoscopic service that sedation supports, requiring the presence of an independent trained observer to assist in the monitoring of the patient's level of consciousness and physiological status; initial 15 minutes of intra-service time; patient age 5 years or older (additional time may be reported with 15791, as appropriate) CPT copyright 2017 [employer]. All rights reserved. The codes documented in this report are preliminary and upon womens volleyball coach review may be revised to meet current compliance requirements. Brian Guerra DO 04/28/2021 12:07:15 PM This report has been signed electronically. Number of Addenda: 1 Note Initiated On: 04/28/2021 9:55 AM Addendum Number: 1 Addendum Date: 03/09/2022 4:40:43 PM MAC was used instead of moderate sedation for this patient. Brian Guerra DO 03/09/2022 4:40:50 PM This report has been signed electronically.
--- NOTE | 2021-04-28 12:07 | OP.CCLET_ITS ---
03/09/2022 Darryl Ramirez MD [address] [id number] Re : Colonoscopy procedure for Anali Rdz Dear Dr. Ramirez This procedure was performed on April. My impressions and recommendations are as follows: Impressions : - Diverticulosis in the sigmoid colon and in the descending colon. - One 5 mm polyp in the cecum, removed using injection-lift and a hot snare. Resected and retrieved. Injected. Recommendations : - Await pathology results. - Repeat colonoscopy in 3 years for surveillance based on pathology results. - Continue present medications. My findings are described in the full procedure note, which is enclosed. If I can be of further assistance, please feel free to contact me at . Sincerely, Brian Friend, 04/28/2021 12:07:15 PM This report has been signed electronically.
== END 2021-04-28 12:20 ==
LOC: EN 07:48 → AC 07:53
PROVIDERS: PCP Family Medicine; Referring Provider Family Medicine; Visit Provider Internal Medicine Gastroenterology
PROC: 0DJD8ZZ Inspection of Lower Intestinal Tract, Via Natural or Artificial Opening Endoscopic (ICD-10-PCS; CPT 45378; principal; 2021-04-28 08:55)
DX: D12.0 Benign neoplasm of cecum (principal); K57.30 Diverticulosis of large intestine without perforation or abscess without bleeding; I10 Essential (primary) hypertension; M19.90 Unspecified osteoarthritis, unspecified site; Z85.42 Personal history of malignant neoplasm of other parts of uterus; Z79.899 Other long term (current) drug therapy
CPT/HCPCS: 45381; 45385; 88305; 88341; 88342; J7120; A4216; J2405; J3490

== ENCOUNTER → 2021-05-12 14:41 | Outpatient (CLI) | payer MEDICARE, SELFPAY | PROVIDERS: PCP Family Medicine; Visit Provider Obstetrics & Gynecology | DX: Z12.4 Encounter for screening for malignant neoplasm of cervix (principal) | CPT/HCPCS: 88175; G0145 ==

== ENCOUNTER → 2021-05-12 14:54 | Outpatient (CLI) | payer MEDICARE, SELFPAY ==
--- NOTE | 2021-05-12 14:57 | BI_ITS ---
MAMMOGRAPHY - BILATERAL SCREENING REASON FOR EXAM: Female, 71 years old. Routine annual screening examination. PERTINENT HISTORY: Sisters with breast cancer. TECHNIQUE: Digital bilateral breast ham (3D mammographic acquisition) in the CC and MLO projections. 2-D mediolateral oblique (MLO) and craniocaudad (CC) views of both breasts were obtained. CAD: Full Field Digital Mammography with Computer Added Detection was performed. COMPARISON: Comparison is made with prior study dated 05/06/2020 and 05/05/2019. FINDINGS: Breast Composition: The breasts are heterogeneously dense, which may obscure small masses. There are no dominant masses or suspicious calcifications. No other significant abnormalities are identified. There has been no significant change since the prior study. BI/SCRN MAMM (CAD)W/HAM BILAT IMPRESSION: Stable bilateral screening mammogram. Yearly follow-up mammogram recommended. (A) ASSESSMENT CATEGORY: BIRADS Category 1: Negative. A letter regarding these results will be sent to the patient by the facility within 30 days. Approximately 10% of breast cancers are not detected by mammography. A normal mammogram should not delay biopsy of a clinically suspicious abnormality. [id number] Electronically Signed: Jose Fox MD at 15:45 EDT , Service support ,
== END ==
PROVIDERS: PCP Family Medicine; Referring Provider Obstetrics & Gynecology; Visit Provider Obstetrics & Gynecology
DX: Z12.31 Encounter for screening mammogram for malignant neoplasm of breast (principal); Z12.4 Encounter for screening for malignant neoplasm of cervix
CPT/HCPCS: 77063; 77067; 88175; G0145

== ENCOUNTER → 2021-05-13 13:26 | Outpatient (CLI) | payer MEDICARE, SELFPAY ==
[2021-05-13 14:22] LABS: Erythrocyte Sedimentation Rate 17 mm/hr (0-30)
[2021-05-13 14:58] LABS: CRP < 2.90 mg/L (0.0-3.0); LDH 209 U/L (84-246)
[2021-05-16 14:08] LABS: Anti-Centromere B Ab <0.2 AI (0.0-0.9); Anti-Chromatin <0.2 AI (0.0-0.9); Anti-Jo <0.2 AI (0.0-0.9); Anti-Scleroderma-70 AB <0.2 AI (0.0-0.9); Anti-ribosomal P Antibodies <0.2 AI (0.0-0.9); RNP Ab 0.2 AI (0.0-0.9); SJOGREN'S Anti-SS-A test < 0.2 AI (0.0-0.9); SJOGREN'S Anti-SS-B test < 0.2 AI (0.0-0.9); Smith Ab <0.2 AI (0.0-0.9); Smith/RNP Ab <0.2 AI (0.0-0.9)
[2021-05-16 14:19] LABS: Anti-dsDNA Ab <1 IU/mL (0-9)
[2021-05-16 17:46] LABS: Cancer Antigen 125 2303 13.7 U/mL (0.0-38.1); Carbohydrate Ag 19-9 2261 15 U/mL (0-35); Carcinoembryonic Antigen 2139 1.2 ng/mL (0.0-4.7)
== END ==
PROVIDERS: PCP Family Medicine; Referring Provider Internal Medicine Gastroenterology; Visit Provider Internal Medicine Gastroenterology
DX: R59.0 Localized enlarged lymph nodes (principal)
CPT/HCPCS: 36415; 82378; 83615; 85652; 86038; 86140; 86225; 86235; 86301; 86304

== ENCOUNTER → 2021-05-27 13:01 | Outpatient (CLI) | payer MEDICARE, SELFPAY ==
[2021-05-27 15:25] LABS: Vitamin D,25 Hydroxy 44.6 ng/mL
== END ==
PROVIDERS: PCP Family Medicine; Visit Provider Specialist
DX: E55.9 Vitamin D deficiency, unspecified (principal)
CPT/HCPCS: 36415; 82306

== ENCOUNTER → 2021-06-29 12:51 | Outpatient (CLI) | payer MEDICARE, SELFPAY ==
--- NOTE | 2021-06-29 12:53 | CT_ITS ---
STUDY: CT ABDOMEN AND PELVIS WITH CONTRAST REASON FOR EXAM: Female, 71 years old. Monitor RETRO PERITONEAL lymphadenopathy RADIATION DOSAGE (If Supplied By Facility): CTDIvol = ( 11.69 ) mGy, DLP = ( 554.20 ) mGycm TECHNIQUE: Transaxial images were obtained from the dome of the diaphragm to the symphysis pubis without oral contrast. IV 100mL Isovue-300 was administered. Sagittal and coronal images were reconstructed. Individualized dose optimization techniques were used for this CT. COMPARISON: Comparison is made with prior study dated 04/06/2021. FINDINGS: The visualized lung bases are unremarkable. The visualized portions of the heart are within normal limits. Normal liver. Normal gallbladder and extrahepatic biliary system. Normal spleen. Normal pancreas. Normal bilateral adrenal glands. Normal right kidney. Normal left kidney. Normal visualized stomach. Normal small intestine. Normal colon. The patient is status post hysterectomy. There is scattered atherosclerotic calcification of the abdominal aorta, without a demonstrated aneurysm. Normal inferior vena cava. There is borderline retroperitoneal lymphadenopathy with enlarged nodes no greater than 10mm in the short axis diameter. Normal urinary bladder. There is absence of the uterus consistent with a prior hysterectomy. There is a small umbilical hernia containing fat. There are diffuse degenerative changes of the visualized lumbar spine. CT/Abdomen/Pelvis WITH Contrast IMPRESSION: The previously seen mild increased markings in the mesenteric fat in the right lower quadrant is not seen at this time. The remainder of the examination is unchanged. Electronically Signed: Jose Fox MD at 13:46 EST , Service support ,
[2021-06-29 13:20] LABS: CREATININE FINGERSTICK < 0.6 mg/dL (0.55-1.02); EGFR FINGERSTICK > 60.0000 mL/min (>60)
== END ==
PROVIDERS: PCP Family Medicine; Referring Provider Internal Medicine Gastroenterology; Visit Provider Internal Medicine Gastroenterology
DX: R59.0 Localized enlarged lymph nodes (principal)
CPT/HCPCS: 74177; Q9967

== ENCOUNTER 2021-09-12 09:13 | Outpatient (CLI) | payer MEDICARE, SELFPAY ==
[2021-09-12 11:04] LABS: LDH 195 U/L (84-246)
[2021-09-12 11:09] LABS: Anion Gap 5 (5-15); BUN 11 mg/dL (7-18); BUN/Creat Ratio 14.5 RATIO (10-20); Calcium,Total 8.7 mg/dL (8.5-10.1); Chloride 107 mmol/L (98-107); Cholesterol 170 mg/dL (200); Creatinine, Serum 0.76 mg/dL (0.55-1.02); EST Glomerular Filtration Rate 80 mL/min (>60); Est Glom Filt Rate - Afr Amer 97 mL/min (>60); Glucose 110 mg/dL (74-106); High Density Lipoprotein 40 mg/dL; Potassium 3.7 mmol/L (3.5-5.1); Sodium Level 140 mmol/L (136-145); Triglycerides 119 mg/dL; Very Low Density Lipoprotein 24 mg/dL (5-40)
[2021-09-13 14:17] LABS: Cancer Antigen 125 13.5 U/mL (0.0-38.1); Carbohydrate Ag 19-9 2261 18 U/mL (0-35)
== END 2021-09-12 23:59 | disposition home or self-care (01) ==
LOC: MTLAB 09:15
PROVIDERS: PCP Family Medicine; Referring Provider Internal Medicine Gastroenterology; Visit Provider Internal Medicine Gastroenterology
DX: R59.0 Localized enlarged lymph nodes (principal); I10 Essential (primary) hypertension; D12.6 Benign neoplasm of colon, unspecified
CPT/HCPCS: 36415; 80048; 80061; 82378; 83615; 86301; 86304

== ENCOUNTER → 2021-12-06 | Outpatient (CLI) | payer MEDICARE, SELFPAY ==
--- NOTE | 2021-12-06 07:52 | MRI_ITS ---
STUDY: MRI BRAIN WITH AND WITHOUT CONTRAST (ATTENTION INTERNAL AUDITORY CANALS - I.A.C.''s) REASON FOR EXAM: Female, 71 years old. VERTIGO TECHNIQUE: Standardized multiplanar fat and water weighted pulse sequences were obtained. IV 17ml Dotarem was administered for the contrast portion of the examination. COMPARISON: None. FINDINGS: Normal bilateral temporal bones. Normal bilateral internal auditory canals. There is no demonstrated intracanalicular or cisternal vestibular schwannoma (acoustic neuroma). There is no enhancement of the bilateral VIIth or VIIIth cranial nerves. Normal bilateral cochlea, vestibules and semicircular canals. Normal size of the ventricles and extra-axial spaces for the patient''s age. Normal white matter tracts of the supratentorial brain. Normal prominent perivascular space in the right anterior periventricular white matter and in the subcortical white matter of the right parietal lobe. Normal bilateral basal ganglia. Normal thalami. Normal flow voids within the major intracranial circulation suggesting patency by spin echo criteria. Normal venous enhancement. There is no enhancing intra-axial or extra-axial abnormality. There is no extra-axial fluid accumulation. Normal sella turcica, pituitary gland, infundibular stalk, optic chiasm and hypothalamus. Normal tectal plate and pineal gland. Normal midbrain, joanna and medulla. Normal cerebellum. Normal basal cisterns. No demonstrated orbital abnormality, within the constraints of a routine brain study. Normal visualized paranasal sinuses. Normal calvarium and skull base. Normal visualized soft tissue structures. Normal visualized upper cervical spine. MRI/Brain W/WO Contrast IMPRESSION: Normal unenhanced and enhanced MRI of the bilateral internal auditory canals (I.A.C''s). Electronically Signed: Jace Morrison MD at 13:42 EDT ,
[2021-12-06 10:15] LABS: CREATININE FINGERSTICK < 0.9 mg/dL (0.55-1.02); EGFR FINGERSTICK > 60.0000 mL/min (>60)
== END | disposition home or self-care (01) ==
LOC: MRI 07:46
PROVIDERS: PCP Family Medicine; Referring Provider Otolaryngology Otolaryngology/Facial Plastic Surgery; Visit Provider Otolaryngology Otolaryngology/Facial Plastic Surgery
DX: H81.12 Benign paroxysmal vertigo, left ear (principal)
CPT/HCPCS: 70553; A9575

== ENCOUNTER → 2021-12-16 | Outpatient (CLI) | payer MEDICARE, SELFPAY ==
--- NOTE | 2021-12-16 12:54 | CT_ITS ---
STUDY: CT ABDOMEN AND PELVIS WITH CONTRAST REASON FOR EXAM: Female, 71 years old. Monitoring retroperitoneal lymphadenopathy RADIATION DOSAGE (If Supplied By Facility): CTDIvol = ( 14.59 ) mGy, DLP = ( 1025.47 ) mGycm TECHNIQUE: Transaxial images were obtained from the dome of the diaphragm to the symphysis pubis without oral contrast. IV 100mL Isovue-300 was administered. Sagittal and coronal images were reconstructed. Individualized dose optimization techniques were used for this CT. COMPARISON: 06/29/2021 FINDINGS: The visualized lung bases are unremarkable. The visualized portions of the heart are within normal limits. Liver is mildly enlarged and there is diffuse fatty infiltration of liver without mass or bile duct dilatation. Contracted thick-walled gallbladder without calcified stones likely physiologic however if concern for gallbladder disease ultrasound recommended. Normal spleen. Normal pancreas. Normal bilateral adrenal glands. Normal right kidney. Normal left kidney. Normal visualized stomach. Normal small intestine. Minor diverticular changes of the sigmoid colon without evidence for acute diverticulitis. No evidence for acute appendicitis Minor atherosclerotic changes of the aorta without evidence for aneurysm.. Normal inferior vena cava. Tiny subcentimeter nodes are present. No pathologically enlarged retroperitoneal nodes are observed unchanged since previous exam.. Poorly distended thick-walled bladder likely of no significance Uterus not visualized consistent with hysterectomy Normal abdominal wall. Lumbar spine demonstrates spondylosis CT/Abdomen/Pelvis WITH Contrast IMPRESSION: No significant abnormalities. Specifically no evidence for retroperitoneal adenopathy Nonspecific fatty infiltrated liver. Contracted thick-walled gallbladder without stones.. Minor diverticular changes of the colon without evidence for acute diverticulitis. Electronically Signed: Yoan Reilly MD at 21:43 EDT ,
[2021-12-16 13:20] LABS: CREATININE FINGERSTICK < 0.9 mg/dL (0.55-1.02); EGFR FINGERSTICK > 60.0000 mL/min (>60)
== END | disposition home or self-care (01) ==
PROVIDERS: PCP Family Medicine; Referring Provider Internal Medicine Gastroenterology; Visit Provider Internal Medicine Gastroenterology
DX: R59.0 Localized enlarged lymph nodes (principal)
CPT/HCPCS: 74177; Q9967

== ENCOUNTER 2022-01-25 13:00 | Outpatient (RCR) | payer MEDICARE, SELFPAY ==
--- NOTE | 2021-12-14 19:06 | HP.PTEVAL_ITS ---
Patient's Visit Information CANDICE CARD is a 71 year old F referred to Physical Therapy by Dr. Easton Porter MD with a diagnosis of dizziness and vertigo. Date of Evaluation: 12/14/21 Physical Therapist: JASWANT Hood - Visit Plan Frequency: 1-2x /Week Duration: 6 Weeks Plan: 1-2X/ week for habiltuation of seated flexion and full sitting and then progressing to supine to sit and then standing flexion to standing extension exercises - Subjective She has had this since October 16. She got up in the morning and had to hold onto door frame to stay up. She threw up quite a bit that day and it lasted a few days. She had that one other time but it was a shorter duration. She was supposed to go on a road trip. She found Gaurav padilla that she found online and when she would sit up and she would start vomiting. She saw Dr Maza and he said that both of her Eustacian tubes were red and swollen and put her on a steroid (Sunday) and then Sunday she saw Dr Crook cause she was still dizzy bending over or looking down and he checked her out and told her that her L ear was the problem with BPPV and told her to take Benedryl and go on her trip. He told her it would be 10 days to 2 weeks. Car ride was a little shaky in the mountains but she could still tell she was dizzy when bend over and stand up. On the way home she told her that was calling and ENT and saw Dr Porter and he did the Elpy manuever and she felt like she was going to throw up but did not (only gag). She left his office and the whole rid home she was car sick and got home and got into kitchen and started vomiting and saw Dr Porter 10 days later and he did the Eply Dejon again and said that her eyes were better and she did not throw up then. She wants to try PT before she does drugs. It is mostly when she leans over (housework). She feels like she is spinning and it lasts a few minutes. She reports that rolling over in bed to her L side would make her dizzy but said to not do that and so she has not. She puts pillows up to try and prevent her from rolling to her L side. - Objective -Hallpike B for nystagmus or dizziness. -Roll test B for nystagmus or dizziness. Pt did have some dizziness going from supine to sit quickly but subsided quickly. VOR Cx, COR X 1 and VOR X 2 ... no dizziness. Smooth pursuit both horizontal and vertical... slight decreased smoothness on the L but no dizziness and could be age related changes. Standing VOR horizontal and vertical... maybe slight off feeling.... Walking VOR horizotonal and vertical.... more than just standing but not much. Had pt do repeated seated head to L knee X 10 and to R X 10 and had slight issue to the L. Had pt do repeated bending forward in the chair and back to full erect sitting posture and she did feel slightly off.... got better by 3rd set of 10. Pt had no issues rolling to her L side... encourage pt to resume sleeping on the L side. Pt did get dizzy going from supine to sit... will start habiliutation of this next visit - Balance/Special Test Scores Dizziness Score: 40 - Goals Goal 1:: I HEP Goal Time Frame: 4-6 Weeks Goal 2:: Abolish standing and bending and coming back to erect standing without any dizziness Goal Time Frame: 6-8 Weeks Goal 3:: Be able to walk with head turns with eyes focused without any hin of dizziness Goal Time Frame: 6-8 Weeks - Rehabilitation Potential Rehabilitation Potential: Good - Anticipated Interventions Patient/Client Instruction: Educate patient on: Condition, Plan of Care For the Purpose of:: To improve nutrient delivery to tissue, To improve muscle performance and motor function, To improve ability to perform ADL's, To increase tolerance to activity/condition/position, To improve performance and independence with ADL's, To decrease level of supervision to perform tasks, To improve ability of physical actions for home/community/work/leisure Therapeutic Exercise to Include: Balance training, Coordination, Body mechanics, Postural training, Flexibilty training, Gait and locomotor training, Neuromotor development For the Purpose of:: To improve nutrient delivery to tissue, To increase oxygenation perfusion, To improve muscle performance and motor function, To improve performance and independence with ADL's, To decrease level of supervision to perform tasks, To improve ability of physical actions for home/community/work/leisure, To improve gait and locomotor functions Thank you for the opportunity to evaluate your patient. For Medicare and Medicare HMO plans, please review the plan of care and approve it. It will need to be FAXED BACK to us at [phone] for Medicare purposes. For Medicare only, by signing this I certify the plan of care. Please let me know if there are questions or concerns regarding this plan of care. Physician Signature: Date:
--- NOTE | 2022-04-03 10:36 | HP.PT.NRP ---
CANDICE CARD was seen in my office for initial evaluation on 12/14/21. The following Plan of Care was established for this patient: Initial Frequency: 1-2x /Week Initial Duration: 6 Weeks Patient/Client Instruction: Educate patient on: Condition, Plan of Care For the Purpose of:: To improve nutrient delivery to tissue, To improve muscle performance and motor function, To improve ability to perform ADL's, To increase tolerance to activity/condition/position, To improve performance and independence with ADL's, To decrease level of supervision to perform tasks, To improve ability of physical actions for home/community/work/leisure Therapeutic Exercise to Include: Balance training, Coordination, Body mechanics, Postural training, Flexibilty training, Gait and locomotor training, Neuromotor development For the Purpose of:: To improve nutrient delivery to tissue, To increase oxygenation perfusion, To improve muscle performance and motor function, To improve performance and independence with ADL's, To decrease level of supervision to perform tasks, To improve ability of physical actions for home/community/work/leisure, To improve gait and locomotor functions This patient was last seen in our office 01/25/22. Pertinent comments regarding their Physical therapy will appear below: Pt was to call in 2 weeks if he felt he needed additional PT and he did not. He will be discharged from our care. At this point I will be discontinuing this patient from physical therapy. I would be happy to see this patient again in the future if found appropriate by the physician. Thank you! Onelia Wasserman, MPT Balance/Gait/Functional tests - Balance/Special Test Scores CATSIB Score (Max score 120 seconds): 90 Dizziness Score: 40
== END 2022-01-25 19:00 | disposition home or self-care (01) ==
LOC: PT 13:00
PROVIDERS: PCP Family Medicine; Referring Provider Otolaryngology Otolaryngology/Facial Plastic Surgery; Visit Provider Otolaryngology Otolaryngology/Facial Plastic Surgery
DX: R42 Dizziness and giddiness (principal)
CPT/HCPCS: 97110; 97161; 97530

== ENCOUNTER → 2022-02-14 | Outpatient (CLI) | payer MEDICARE, SELFPAY ==
--- NOTE | 2022-02-14 09:24 | US_ITS ---
STUDY: ABDOMINAL ULTRASOUND - ELASTOGRAPHY REASON FOR VISIT: Female, 72 years old. Fatty infiltration of the liver. TECHNIQUE: Liver stiffness measurements were obtained on a [employer] RS 85 ultrasound machine using a CA 1-7 probe following the SRU guidelines. 3 measurements were obtained using a 2-D-SWE method. The IQR/M was 15% suggesting a quality data set. TECHNICAL QUALITY: Adequate. COMPARISON: Comparison is made with prior study done earlier in the day. FINDINGS: Liver: Fatty infiltration of the liver. Median liver stiffness measured 10.5 kPa. US/Elastography Parenchyma/Organ IMPRESSION: Liver stiffness measures 10.5 kPa compatible with F2-F3 (Mild to moderate liver fibrosis) Metavir score. Electronically Signed: Jose Fox MD at 14:51 EDT ,
--- NOTE | 2022-02-14 09:24 | US_ITS ---
STUDY: ABDOMINAL ULTRASOUND - RIGHT UPPER QUADRANT REASON FOR VISIT: Female, 72 years old fatty liver TECHNIQUE: Ultrasound evaluation of the right upper quadrant was performed with real-time and static morales-scale imaging. TECHNICAL QUALITY: Adequate. COMPARISON: Comparison is made with prior CT scan of the abdomen and pelvis dated 12/16/2021. FINDINGS: Liver: The liver measures 13.8 cm. There is increased echogenicity consistent with fatty infiltration. The bile ducts are within normal limits. There is hepatic color flow. The direction of portal flow is hepatopetal. There is a 7 mm x 6 mm x 5 mm cyst in the left lobe of the liver. Gallbladder: Normal distended gallbladder. The gallbladder wall measures 1.8 mm. There is a negative sonographic Pemberton''s sign. There is no pericholecystic fluid. There are no gallstones. Common Bile Duct (C.B.D.): The common bile duct measures 3.4 mm. Pancreas: Normal size of the head, body of the pancreas. The tail portion is obscured due to overlying bowel gas. There is normal echogenicity of the pancreas. There is no demonstrated pancreatic mass or cyst. Right Kidney: Normal size of the right kidney. The right kidney measures 12.7 cm x 4.9 cm x 4.6 cm. Normal renal cortex. The right cortex measures 1.5 cm. There is no demonstrated renal mass or cyst. There is no right hydronephrosis. US/Abdomen Limited IMPRESSION: Fatty infiltration of the liver. Subcentimeter cyst in the left lobe of the liver. Electronically Signed: Jose Fox MD at 14:49 EDT ,
== END | disposition home or self-care (01) ==
PROVIDERS: PCP Family Medicine; Referring Provider Internal Medicine Gastroenterology; Visit Provider Internal Medicine Gastroenterology
DX: K76.0 Fatty (change of) liver, not elsewhere classified (principal); R59.0 Localized enlarged lymph nodes
CPT/HCPCS: 76705; 76981

== ENCOUNTER → 2022-03-24 | Outpatient (CLI) | payer MEDICARE, SELFPAY ==
[2022-03-24 10:17] LABS: ALB/GLOB Ratio 0.9 RATIO (0.9-2.4); AST(SGOT) 30 U/L (15-37); Alanine Aminotransfer ALT/SGPT 55 U/L (13-56); Albumin, Serum 3.6 g/dL (3.2-5.0); Alkaline Phosphatase 91 U/L (45-117); Anion Gap 6 (5-15); BUN 16 mg/dL (7-18); BUN/Creat Ratio 21.5 RATIO (10-20); Calcium,Total 8.9 mg/dL (8.5-10.1); Chloride 107 mmol/L (98-107); Cholesterol 162 mg/dL (200); Creatinine, Serum 0.74 mg/dL (0.55-1.02); EST Glomerular Filtration Rate 82 mL/min (>60); Est Glom Filt Rate - Afr Amer 99 mL/min (>60); Globulin 3.8 g/dL (2.2-4.2); Glucose 113 mg/dL (74-106); High Density Lipoprotein 37 mg/dL; Potassium 3.9 mmol/L (3.5-5.1); Protein, Total 7.4 g/dL (6.4-8.2); Sodium Level 141 mmol/L (136-145); Triglycerides 83 mg/dL; Very Low Density Lipoprotein 17 mg/dL (5-40)
== END | disposition home or self-care (01) ==
PROVIDERS: PCP Family Medicine; Referring Provider Family Medicine; Visit Provider Family Medicine
DX: I10 Essential (primary) hypertension (principal)
CPT/HCPCS: 36415; 80053; 80061

== ENCOUNTER 2022-04-19 14:13 | Outpatient (CLI) | payer MEDICARE, SELFPAY ==
[2022-04-19 14:56] LABS: Ammonia < 10.0 umol/L (11-32)
[2022-04-19 15:40] LABS: Absolute Neutrophil Count 4.1 X10^3/uL (2.0-7.7); Basophil# 0.04 X10^3/uL; Basophil% 0.7 % (0-1); Eosinophils% 1.6 % (0-5); Hematocrit 46.9 % (37-47); Hemoglobin 16.2 g/dL (12.0-15.0); Mean Corp Hgb Conc 34.5 g/dL (32-36); Mean Corpuscular Hgb 32.4 pg (27.0-32.0); Mean Corpuscular Volume 93.8 fL (81-99); Mean Platelet Vol. 9.5 fl (6.2-12.0); Monocyte# 0.42 X10^3/uL; Monocyte% 6.9 % (0-10); NRBC Flagged by Analyzer 0 % (0-5); Neutrophil # 4.12 X10^3/uL (2.7-7.7); Neutrophil % 67.5 % (47-70); Platelet Count 234 K/mm3 (150-450); RBC Distribution Width CV 12.1 % (11.6-14.6); White Blood Count 6.1 K/mm3 (4.4-11.0)
[2022-04-19 15:48] LABS: International Normalized Ratio 1.1; Prothrombin Time (Protime)PT. 14.4 SECONDS (11.7-14.9)
[2022-04-19 16:00] LABS: Erythrocyte Sedimentation Rate 12 mm/hr (0-30)
[2022-04-19 16:28] LABS: AST(SGOT) 41 U/L (15-37); Alanine Aminotransfer ALT/SGPT 65 U/L (13-56); Albumin, Serum 4.2 g/dL (3.2-5.0); Alkaline Phosphatase 104 U/L (45-117); Anion Gap 8 (5-15); BUN 17 mg/dL (7-18); BUN/Creat Ratio 22.8 RATIO (10-20); CRP < 2.90 mg/L (0.0-3.0); Calcium,Total 9.4 mg/dL (8.5-10.1); Chloride 105 mmol/L (98-107); Creatinine, Serum 0.75 mg/dL (0.55-1.02); EST Glomerular Filtration Rate 81 mL/min (>60); Est Glom Filt Rate - Afr Amer 99 mL/min (>60); Ferritin 550 ng/mL (8-252); Globulin 4.1 g/dL (2.2-4.2); Glucose 93 mg/dL (74-106); LDH 193 U/L (84-246); Potassium 4.1 mmol/L (3.5-5.1); Protein, Total 8.3 g/dL (6.4-8.2); Sodium Level 140 mmol/L (136-145)
[2022-04-19 16:33] LABS: HIV - WCH Non-Reactive (Nonreactive)
[2022-04-21 13:08] LABS: Anti-Centromere B Ab <0.2 AI (0.0-0.9); Anti-Chromatin <0.2 AI (0.0-0.9); Anti-Jo <0.2 AI (0.0-0.9); Anti-Scleroderma-70 AB <0.2 AI (0.0-0.9); RNP Ab 0.2 AI (0.0-0.9); SJOGREN'S Anti-SS-A test < 0.2 AI (0.0-0.9); SJOGREN'S Anti-SS-B test < 0.2 AI (0.0-0.9); Smith Ab <0.2 AI (0.0-0.9)
[2022-04-22 13:57] LABS: Anti-Mitochondrial AB <20.0 Units (0.0-20.0); Anti-dsDNA Ab <1 IU/mL (0-9)
[2022-04-24 16:09] LABS: Angiotensin Convert Enzyme 41 U/L (14-82); Ceruloplasmin 26.7 mg/dL (19.0-39.0); Cytoplasmic Ab (C-ANCA) <1:20 titer (Neg:<1:20)
[2022-04-24 18:04] LABS: Anti-Smooth Muscle ABS 10 Units (0-19); Cancer Antigen 125 15.7 U/mL (0.0-38.1); Carbohydrate AG 19-9 20 U/mL (0-35); Carcinoembryonic Antigen 1.2 ng/mL (0.0-4.7); Copper, Serum or Plasma 103 ug/dL (80-158); Haptoglobin 167 mg/dL (42-346); Perinuclear Ab (P-ANCA) <1:20 titer (Neg:<1:20)
== END 2022-04-19 23:59 | disposition home or self-care (01) ==
LOC: LAB 14:14
PROVIDERS: PCP Family Medicine; Visit Provider Nurse Practitioner Adult Health
DX: K76.0 Fatty (change of) liver, not elsewhere classified (principal); C80.1 Malignant (primary) neoplasm, unspecified; K62.5 Hemorrhage of anus and rectum; R59.0 Localized enlarged lymph nodes; M75.112 Incomplete rotator cuff tear or rupture of left shoulder, not specified as traumatic
CPT/HCPCS: 36415; 80053; 82140; 82164; 82378; 82390; 82525; 82728; 83010; 83516; 83615; 85025; 85610; 85652; 86140; 86225; 86235; 86256; 86301; 86304; 86703

== ENCOUNTER → 2022-05-17 | Outpatient (CLI) | payer MEDICARE, SELFPAY ==
--- NOTE | 2022-05-17 10:51 | BI_ITS ---
MAMMOGRAPHY - BILATERAL SCREENING REASON FOR EXAM: Female, 72 years old. Routine annual screening examination. PERTINENT HISTORY: Sisters with breast cancer. TECHNIQUE: Digital bilateral breast ham (3D mammographic acquisition) in the CC and MLO projections. 2-D mediolateral oblique (MLO) and craniocaudad (CC) views of both breasts were obtained. CAD: Full Field Digital Mammography with Computer Added Detection was performed. COMPARISON: Comparison is made with prior examination dated 05/12/2021 and 05/06/2020. FINDINGS: Breast Composition: The breasts are heterogeneously dense, which may obscure small masses. There are no dominant masses or suspicious calcifications. No other significant abnormalities are identified. There has been no significant change since the prior study. BI/SCRN MAMM (CAD)W/HAM BILAT IMPRESSION: Stable bilateral screening mammogram. Yearly follow-up mammogram recommended. (A) ASSESSMENT CATEGORY: BIRADS Category 1: Negative. A letter regarding these results will be sent to the patient by the facility within 30 days. Approximately 10% of breast cancers are not detected by mammography. A normal mammogram should not delay biopsy of a clinically suspicious abnormality. [id number] Electronically Signed: Jose Fox MD at 12:19 EST ,
== END | disposition home or self-care (01) ==
LOC: OPBD 10:49
PROVIDERS: PCP Family Medicine; Visit Provider Family Medicine
DX: Z12.31 Encounter for screening mammogram for malignant neoplasm of breast (principal)
CPT/HCPCS: 77063; 77067

== ENCOUNTER → 2022-05-19 | Outpatient (CLI) | payer MEDICARE, SELFPAY ==
[2022-05-19 13:38] LABS: Absolute Lymphocyte Count 2.12 X10^3/uL (0.83-4.51); Absolute Neutrophil Count 3.9 X10^3/uL (2.0-7.7); Basophil# 0.03 X10^3/uL; Basophil% 0.4 % (0-1); Eosinophil# 0.17 X10^3/uL; Eosinophils% 2.5 % (0-5); Hemoglobin 15.5 g/dL (12.0-15.0); Lymphocyte # 2.12 X10^3/ul (0.83-4.51); Lymphocyte % 31.2 % (19-41); Mean Corp Hgb Conc 35.2 g/dL (32-36); Mean Corpuscular Hgb 32.7 pg (27.0-32.0); Mean Corpuscular Volume 92.8 fL (81-99); Mean Platelet Vol. 9.4 fl (6.2-12.0); Monocyte# 0.55 X10^3/uL; Monocyte% 8.1 % (0-10); NRBC Flagged by Analyzer 0 % (0-5); Neutrophil # 3.91 X10^3/uL (2.7-7.7); Neutrophil % 57.5 % (47-70); Platelet Count 231 K/mm3 (150-450); RBC Distribution Width CV 12.4 % (11.6-14.6); RBC Distribution Width SD 41.9 fl (35.1-43.9); Red Blood Count 4.74 M/mm3 (4.2-5.4); White Blood Count 6.8 K/mm3 (4.4-11.0)
[2022-05-19 14:19] LABS: Ferritin 475 ng/mL (8-252); Iron 130 ug/dL (50-170); Iron Binding Capacity,Total 281 ug/dL (250-450); PERCENT IRON SATURATION 46.3 % (15.0-55.0)
[2022-05-21 12:07] LABS: HEPATITIS B SURFACE AG Negative (Negative); Hep C Antibodies <0.1 s/co ratio (0.0-0.9); Hepatitis A IgM Antibody Negative (Negative); Hepatitis B Core AB IgM Negative (Negative)
== END | disposition home or self-care (01) ==
LOC: LAB 13:06
PROVIDERS: PCP Family Medicine; Referring Provider Nurse Practitioner Adult Health; Visit Provider Nurse Practitioner Adult Health
DX: R79.89 Other specified abnormal findings of blood chemistry (principal)
CPT/HCPCS: 36415; 80074; 82728; 83540; 83550; 85025

== ENCOUNTER 2022-05-22 13:00 | Outpatient (RCR) | payer MEDICARE, SELFPAY ==
--- NOTE | 2022-04-25 18:17 | HP.PTEVAL ---
Patient's Visit Information CANDICE CARD is a 72 year old F referred to Physical Therapy by Dr. Rafa Walsh MD with a diagnosis of BPPV. Date of Evaluation: 04/25/22 Physical Therapist: Santiago Sifuentes, DPT, OCS, CSCS - Visit Plan Frequency: 1-2x /Week Duration: 2-4 Weeks Plan: 1-2x/week as needed for 2-4 weeks for positional treatments and exercises. Did L noel today and check these positionals next time. - Subjective Woke up this morning with dizzyness after she walked into bathroom as the world started spinning and she fell off the toilet. Saw Dr. Walsh (Ramirez not in) and tried positional but she could not tolerate and vomitted. Has been having LAMB with coughing or sneezing and head hurts across eyes for a few minutes. Bending over to look in stove gets woozy and has since Arpil 10 , woozy until she straightens back up. Lying down in bed bothered her rolling one direction and it goes away quick. Had to be careful before today. Today has been worse and took benadryl and gave shot for nausea. Retired. No other recent falls. - Objective Walks into PT I but miserable look on face. Transfers I. Cervical aROM is slow but I. - L HD, + R HD for up torsional delayed and 15 second. Treated with Noel R and much better after but did vomit after treatement. - Balance/Special Test Scores Functional Gait Assessment Score: 29 % Disability: 3.3400 Dizziness Score: 74 - Goals Goal 1:: abolish dizzyness bending or lying down/rolling Goal Time Frame: 2-4 Weeks Goal 2:: pt feel 100% better with dizzyness Goal Time Frame: 2-4 Weeks Goal 3:: DHI score 10 or less. Goal Time Frame: 2-4 Weeks - Rehabilitation Potential Physical Therapy Diagnosis: R post canal BPPV Rehabilitation Potential: Fair - Anticipated Interventions Patient/Client Instruction: Educate patient on: Condition, Plan of Care For the Purpose of:: To increase tolerance to activity/condition/position Comment: positional treatments and exercises, return of function ex as needed. For the Purpose of:: To increase tolerance to activity/condition/position Thank you for the opportunity to evaluate your patient. For Medicare and Medicare HMO plans, please review the plan of care and approve it. It will need to be FAXED BACK to us at [phone] for Medicare purposes. For Medicare only, by signing this I certify the plan of care. Please let me know if there are questions or concerns regarding this plan of care. Physician Signature: Date:
--- NOTE | 2022-05-03 13:01 | HP.PTREVAL ---
Dr. Rafa Walsh MD, It has been my pleasure to treat CANDICE CARD over the last 4 visits for BPPV. Please see the progress note below for an update on the physical therapy plan of care! Subjective: [place] good yesterday, Thought she turned the corner. Did laundry adn put quilts out on line and fucntioned half decently. Did 8 reps yesterday and felt a little off but not bad. no change since then. [place] ok waking this morning and then started exercises and it just made her nauseous and felt worse with 3 reps. Objective/Function: - R hallpike raffy today. + L hallpike raffy for quick up torsional nystagmus, treated with Epleya dn then negative however she gets dizzy/nauseous feeling evertyime she sits up today(3x). Looks miserable and wants to (appropriately ) contact doctor regarding other options but I will continue to see her in therapy until no nystagmus or other symptoms appropriate. Plan Plan: Pt to contact doctor regarding her concerns of infection and unconventional response to positional treatments despite obvious positive tests. continue positional monitorring. Balance/Gait/Functional tests - Balance/Special Test Scores Functional Gait Assessment Score: 29 % Disability: 3.3400 Dizziness Score: 74 Goals Goal 1:: abolish dizzyness bending or lying down/rolling Goal Time Frame: 2-4 Weeks Goal 2:: pt feel 100% better with dizzyness Goal Time Frame: 2-4 Weeks Goal 3:: DHI score 10 or less. Goal Time Frame: 2-4 Weeks Anticipated Interventions Patient/Client Instruction: Educate patient on: Condition, Plan of Care For the Purpose of:: To increase tolerance to activity/condition/position Comment: positional treatments and exercises, return of function ex as needed. For the Purpose of:: To increase tolerance to activity/condition/position Please do not hesitate to contact me at [phone] by phone or if you have questions or concerns regarding this new plan of care! Sincerely, Santiago Sifuentes, DPT, OCS, CSCS
--- NOTE | 2022-05-22 13:26 | HP.PTDCSUM_ITS ---
It has been my pleasure to treat CANDICE CARD referred by Dr. Rafa Walsh MD, with the diagnosis of BPPV for a total of 8 visit(s). Discharge Date: 05/22/22 Please see the following information for a summary of their discharge status. Subjective: Last Sunday got nauseous after her visit. Did exe Sunday 6 reps. Today feels very good and had dental check up this morning without a problem. Did 10 exercises this am without a problem. Had a little nauseaover the weekend. No nausea lying down but gets saueous when she comes back up. Outside of exercises, can tell she is not right getting up from looking in the dryer. Up from bending down can still be awkward. These are transient. % Improvement: 95 Objective/Function: - B hallpike raffy, no nystagmus, only slight dizzyness up from the right. - roll test. Pursuit and saccades are normal. Walking is normal today. Pt significantly better but seems to be up and down with nausea and dizzyness mostly up from right side. Recommend f/u with doctor to r/o other possible causes(carotid, vertebral arteries, blood pressure, etc) due to lack of consistent progress. Pt to schedule with doctor this week. Goal 1:: abolish dizzyness bending or lying down/rolling Goal Progress: up from lying still Goal 2:: pt feel 100% better with dizzyness Goal Progress: 95% Goal 3:: DHI score 10 or less. Goal Progress: Goal Met Plan: d/c, pt to doctor for next medical step. Discharge Comments: Pt to doctor for next medical step due to lack of full im provement. If there are questions or concerns regarding this patient's physical therapy, please feel free to call me at [phone]. Thank you for the referral of this patient. Sincerely, Santiago Sifuentes, DPT, OCS, CSCS Balance/Gait/Functional tests - Balance/Special Test Scores Functional Gait Assessment Score: 30 % Disability: 0 Dizziness Score: 22
== END 2022-05-22 13:37 | disposition home or self-care (01) ==
LOC: PT 13:00
PROVIDERS: PCP Family Medicine; Referring Provider Family Medicine; Visit Provider Family Medicine
DX: H81.10 Benign paroxysmal vertigo, unspecified ear (principal)
CPT/HCPCS: 97161; 97164; 97530

== ENCOUNTER → 2022-06-07 | Outpatient (CLI) | payer MEDICARE, SELFPAY ==
--- NOTE | 2022-06-07 11:17 | BD_ITS ---
STUDY: DUAL ENERGY X-RAY ABSORPTIOMETRY / DXA REASON FOR EXAM: Female, 72 years old. V76.12ScreeningBONE DENSITY REASON FOR EXAM TECHNIQUE: Bone Mineral Density (BMD) measurements of lumbar spine and bilateral hips were obtained. COMPARISON: Comparison is made with prior study of 01/29/2020. FINDINGS: Lumbar Spine (L1-L4): g/cm2 (1.248) / T-score (1.8) / Z-score (4.0) Findings are suggestive of normal bone density with a low fracture risk. Left Femur Total: g/cm2 (0.879) / T-score (-0.5) / Z-score (1.1) Left Femoral Neck: g/cm2 (0.743) / T-score (-1.0) / Z-score (0.9) Right Femur Total: g/cm2 (0.870) / T-score (-0.6) / Z-score (1.0) Right Femoral Neck: g/cm2 (0.732) / T-score (-1.1) / Z-score (0.8) The T-Scores on the most recent prior examination were: Lumbar Spine (L1-L4): There has been worsening of bone density since the previous examination. Left Femur Total: which represents a worsening of 1.3%. Right Femur Total: which represents a worsening of 4.3%. BD/Dexa Bone Density Study IMPRESSION: The patient is considered osteopenic as outlined below according to World Bill Organization (WHO) criteria with a low fracture risk. There has been worsening of bone density since the previous examination. Reference Information: The T-score is the number of standard deviations above or below the standard which is normal for young adults at their peak bone mineral density. The World Health Organization (WHO) interprets the T-scores as follows: Above -1 Normal bone density Between -1 and -2.5 Osteopenia Equal to / or below -2.5 Osteoporosis As a practical clinical guideline, osteopenia may be graded as follows: Mild -1 through -1.5 Moderate -1.6 through -2.0 Severe -2.1 through -2.4 The Z-score is the number of standard deviations above or below age-matched controls. A Z-score of less than -1.5 would be considered abnormal. References: 1. NIH Osteoporosis and Related Bone Diseases www osteo.org 2. International Society for Clinical Densitometry www iscd.org 3. National Osteoporosis Foundation www nof.org Electronically Signed: Jose Fox MD at 11:09 EST ,
== END | disposition home or self-care (01) ==
LOC: OPBD 11:10
PROVIDERS: PCP Family Medicine; Referring Provider Family Medicine; Visit Provider Family Medicine
DX: M81.0 Age-related osteoporosis without current pathological fracture (principal)
CPT/HCPCS: 77080

== ENCOUNTER → 2022-09-08 | Outpatient (CLI) | payer MEDICARE, SELFPAY ==
--- NOTE | 2022-09-08 08:38 | US_ITS ---
STUDY: ABDOMINAL ULTRASOUND - ELASTOGRAPHY REASON FOR VISIT: Female, 72 years old. Fatty infiltration of the liver. TECHNIQUE: Liver stiffness measurements were obtained on a [employer] RS 85 ultrasound machine using a CA 1-7 probe following the SRU guidelines. 3 measurements were obtained using a 2-D-SWE method. TheIQR/M was 18 % suggesting a quality data set. TECHNICAL QUALITY: Adequate. COMPARISON: Comparison is made with prior study February 14, 2022. FINDINGS: Liver: Fatty infiltration of the liver. Median liver stiffness measured 9 kPa. IMPRESSION: Liver stiffness measures 9 kPa compatible with F2-F3 (Mild to moderate liver fibrosis) Metavir score. Electronically Signed: Jose Fox MD at 14:12 EST , STUDY: ABDOMINAL ULTRASOUND - RIGHT UPPER QUADRANT REASON FOR VISIT: Female, 72 years old fatty liver TECHNIQUE: Ultrasound evaluation of the right upper quadrant was performed with real-time and static morales-scale imaging. TECHNICAL QUALITY: Adequate. COMPARISON: Comparison is made with prior sonogram dated February 14, 2022. FINDINGS: Liver: The liver measures 15 cm. There is increased echogenicity consistent with fatty infiltration. The bile ducts are within normal limits. There is hepatic color flow. The direction of portal flow is hepatopetal. Several echogenic nodules seen throughout both lobes of the liver. The largest in the right lobe measures 2.7 cm x 3.3 cm x 1.9 cm. The largest in the left lobe measures 2.3 cm x 1.6 x 1.3 cm. Gallbladder: Normal distended gallbladder. The gallbladder wall measures 1.5 mm. There is a negative sonographic Pemberton''s sign. There is no pericholecystic fluid. There are no gallstones. A 4 mm x 9 mm x 7 mm polyp is seen. Common Bile Duct (C.B.D.): The common bile duct measures 3.4 mm. Pancreas: Normal size of the head, body and tail of the pancreas. There is normal echogenicity of the pancreas. There is no demonstrated pancreatic mass or cyst. Right Kidney: Normal size of the right kidney. The right kidney measures 10.8 cm x 4.9 cm by 5.5 cm. Normal renal cortex. The right cortex measures 2.1 cm. There is no demonstrated renal mass or cyst. There is no right hydronephrosis. US/ABD Limited w/ Elastography IMPRESSION: Multiple echogenic nodules in the liver as described. Correlation with a CT scan following IV contrast is recommended. Electronically Signed: Jose Fox MD at 15:44 EST ,
== END | disposition home or self-care (01) ==
LOC: US 08:38
PROVIDERS: PCP Family Medicine; Visit Provider Nurse Practitioner Adult Health
DX: K76.0 Fatty (change of) liver, not elsewhere classified (principal)
CPT/HCPCS: 76705; 76981

== ENCOUNTER → 2022-09-12 | Outpatient (CLI) | payer MEDICARE, SELFPAY ==
--- NOTE | 2022-09-12 19:18 | CT_ITS ---
INDICATION: New liver nodules on ultrasound. EXAMINATION: CT ABDOMEN AND PELVIS WITH CONTRAST - CT Abdomen And Pelvis W/ Contrast Injection TECHNIQUE: Helically acquired images were obtained of the abdomen and pelvis following IV contrast. A radiation dose optimization technique was used for this scan. IV Contrast dosage and agent: 100 mL of Isovue-370 Oral contrast: None. COMPARISON: Abdominal ultrasound, September 08, 2022. CT of the abdomen and pelvis, December 16, 2021. FINDINGS: LOWER CHEST: Lung bases are clear. No cardiomegaly or pericardial effusion. LIVER: There is a small fluid attenuation structure in the subcapsular aspect of segment 2 of the liver (image 24 series 2. This measures 4 mm in diameter. There is no evidence of enhancing mass or other liver abnormality. There are no CT correlates to the ringlike density seen in the liver on ultrasound. GALLBLADDER AND BILIARY TREE: No calcified gallstones. No gallbladder distension or wall edema. No intra- or extrahepatic biliary ductal dilation. PANCREAS: No focal cystic or solid mass. SPLEEN: Normal size without focal cystic or solid mass. ADRENAL GLANDS: No nodules. KIDNEYS AND URETERS: Normal renal size and position. No hydronephrosis. Normal visualized ureters. PERITONEUM: No ascites or free air. No other fluid collection. BOWEL: Normal stomach. Normal small intestine. Scattered colonic diverticuli without inflammatory change. There is no mass or obstruction. The appendix is not visualized. LYMPH NODES: No enlarged mesenteric or retroperitoneal lymph nodes. VESSELS: Normal abdominal aorta. Normal IVC. URINARY BLADDER: Unremarkable. REPRODUCTIVE ORGANS: Status post hysterectomy. Unremarkable vaginal cuff. ABDOMINAL WALL: No discrete abdominal or pelvic wall hernia. BONES: There is flattening of lumbar lordosis with diffuse degenerative change. There is evidence of narrowing of the spinal canal at L1-2, L2-3 and L3-4. CT/Abdomen/Pelvis WITH Contrast IMPRESSION: 1. Small stable cysts in the left lobe of the liver. No other mass is seen. If there is continued concern for mass, MRI is recommended. 2. No acute abnormality of the abdomen or pelvis or other major interval change from the CT of December 16, 2021. Electronically Signed: Zia De La Cruz DO at 17:19 EST Reading Location ID and State: [address] [place] [address] Tel [phone], Service support ,
[2022-09-12 19:41] LABS: CREATININE FINGERSTICK < 0.9 mg/dL (0.55-1.02); EGFR FINGERSTICK > 60.0000 mL/min (>60)
== END | disposition home or self-care (01) ==
PROVIDERS: PCP Family Medicine; Visit Provider Nurse Practitioner Adult Health
DX: R16.0 Hepatomegaly, not elsewhere classified (principal)
CPT/HCPCS: 74177; Q9967

== ENCOUNTER → 2022-10-10 | Outpatient (CLI) | payer MEDICARE, SELFPAY ==
[2022-10-10 07:25] LABS: Absolute Lymphocyte Count 1.93 X10^3/uL (0.83-4.51); Absolute Neutrophil Count 3.6 X10^3/uL (2.0-7.7); Basophil# 0.04 X10^3/uL; Basophil% 0.6 % (0-1); Eosinophils% 3.2 % (0-5); Hematocrit 44.6 % (37-47); Hemoglobin 15.1 g/dL (12.0-15.0); Lymphocyte # 1.93 X10^3/ul (0.83-4.51); Lymphocyte % 30.6 % (19-41); Mean Corp Hgb Conc 33.9 g/dL (32-36); Mean Corpuscular Hgb 31.7 pg (27.0-32.0); Mean Corpuscular Volume 93.7 fL (81-99); Mean Platelet Vol. 9.1 fl (6.2-12.0); Monocyte# 0.56 X10^3/uL; Monocyte% 8.9 % (0-10); NRBC Flagged by Analyzer 0 % (0-5); Neutrophil # 3.57 X10^3/uL (2.7-7.7); Neutrophil % 56.5 % (47-70); Platelet Count 210 K/mm3 (150-450); RBC Distribution Width SD 41.8 fl (35.1-43.9); Red Blood Count 4.76 M/mm3 (4.2-5.4); White Blood Count 6.3 K/mm3 (4.4-11.0)
[2022-10-10 08:11] LABS: Erythrocyte Sedimentation Rate 8 mm/hr (0-30)
[2022-10-10 08:15] LABS: AST(SGOT) 30 U/L (15-37); Alanine Aminotransfer ALT/SGPT 29 U/L (13-56); Albumin, Serum 3.8 g/dL (3.2-5.0); Alkaline Phosphatase 90 U/L (45-117); Anion Gap 4 (5-15); BUN 19 mg/dL (7-18); BUN/Creat Ratio 23.1 RATIO (10-20); CRP 4.38 mg/L (0.0-3.0); Calcium,Total 9.1 mg/dL (8.5-10.1); Chloride 107 mmol/L (98-107); Creatinine, Serum 0.82 mg/dL (0.55-1.02); EST Glomerular Filtration Rate 73 mL/min (>60); Est Glom Filt Rate - Afr Amer 88 mL/min (>60); Ferritin 271 ng/mL (8-252); Globulin 3.8 g/dL (2.2-4.2); Glucose 110 mg/dL (74-106); Potassium 3.7 mmol/L (3.5-5.1); Protein, Total 7.6 g/dL (6.4-8.2); Sodium Level 140 mmol/L (136-145)
--- NOTE | 2022-10-10 14:28 | CT_ITS ---
INDICATION: DIZZINESS EXAMINATION: CTA NECK - CTA Neck WO/W Contrast Injection TECHNIQUE: Routine carotid CT angiogram protocol was performed with IV contrast. NASCET criteria using the distal ICAs for comparison were used for evaluation of stenoses. 3D reconstructions were reviewed. A radiation dose optimization technique was used for this scan. IV Contrast dosage and agent: 75 cc Isovue-370 COMPARISON: None. FINDINGS: AORTIC ARCH AND BRANCHES: Vessel origins patent. RIGHT CCA: No occlusion, significant stenosis or dissection. RIGHT ICA: No occlusion, significant stenosis or dissection. LEFT CCA: No occlusion, significant stenosis or dissection. LEFT ICA: No occlusion, significant stenosis or dissection. RIGHT VERTEBRAL ARTERY: No occlusion, significant stenosis or dissection. LEFT VERTEBRAL ARTERY: No occlusion, significant stenosis or dissection. NECK SOFT TISSUES: Unremarkable. LUNG APICES: Clear. BONES: Degenerative changes. CT/CTA Neck W/WO Contrast IMPRESSION: Negative CTA Neck. Electronically Signed: Mike Wagner MD at 16:27 EDT ,
== END | disposition home or self-care (01) ==
LOC: CT 14:27
PROVIDERS: Nurse Practitioner Adult Health; PCP Family Medicine; Referring Provider Family Medicine; Visit Provider Family Medicine
DX: K76.0 Fatty (change of) liver, not elsewhere classified (principal); R42 Dizziness and giddiness
CPT/HCPCS: 36415; 70498; 80053; 82728; 85025; 85652; 86140; Q9967; A4216

== ENCOUNTER → 2023-03-19 | Outpatient (CLI) | payer MEDICARE, SELFPAY ==
[2023-03-19 15:23] LABS: Absolute Lymphocyte Count 1.38 X10^3/uL (0.83-4.51); Absolute Neutrophil Count 3.7 X10^3/uL (2.0-7.7); Basophil# 0.04 X10^3/uL; Basophil% 0.7 % (0-1); Eosinophil# 0.13 X10^3/uL; Eosinophils% 2.3 % (0-5); Hematocrit 44.7 % (37-47); Hemoglobin 14.9 g/dL (12.0-15.0); Lymphocyte # 1.38 X10^3/ul (0.83-4.51); Mean Corp Hgb Conc 33.3 g/dL (32-36); Mean Corpuscular Hgb 31.4 pg (27.0-32.0); Mean Corpuscular Volume 94.3 fL (81-99); Mean Platelet Vol. 10.1 fl (6.2-12.0); Monocyte# 0.47 X10^3/uL; Monocyte% 8.2 % (0-10); NRBC Flagged by Analyzer 0 % (0-5); Neutrophil # 3.72 X10^3/uL (2.7-7.7); Neutrophil % 64.6 % (47-70); Platelet Count 223 K/mm3 (150-450); RBC Distribution Width CV 12.2 % (11.6-14.6); RBC Distribution Width SD 42.2 fl (35.1-43.9); Red Blood Count 4.74 M/mm3 (4.2-5.4); White Blood Count 5.8 K/mm3 (4.4-11.0)
[2023-03-19 15:58] LABS: Vitamin D,25 Hydroxy 51.1 ng/mL
[2023-03-19 16:07] LABS: AST(SGOT) 25 U/L (15-37); Alanine Aminotransfer ALT/SGPT 33 U/L (13-56); Albumin, Serum 3.8 g/dL (3.2-5.0); Alkaline Phosphatase 98 U/L (45-117); Anion Gap 9 (5-15); BUN 13 mg/dL (7-18); BUN/Creat Ratio 17.3 RATIO (10-20); Calcium,Total 9.2 mg/dL (8.5-10.1); Chloride 105 mmol/L (98-107); Cholesterol 200 mg/dL (200); Creatinine, Serum 0.75 mg/dL (0.55-1.02); EST Glomerular Filtration Rate 81 mL/min (>60); Est Glom Filt Rate - Afr Amer 98 mL/min (>60); Ferritin 256 ng/mL (8-252); Globulin 3.9 g/dL (2.2-4.2); Glucose 86 mg/dL (74-106); High Density Lipoprotein 42 mg/dL; Iron 150 ug/dL (50-170); Iron Binding Capacity,Total 273 ug/dL (250-450); PERCENT IRON SATURATION 54.9 % (15.0-55.0); Potassium 3.9 mmol/L (3.5-5.1); Protein, Total 7.7 g/dL (6.4-8.2); Sodium Level 140 mmol/L (136-145); Triglycerides 124 mg/dL; Very Low Density Lipoprotein 25 mg/dL (5-40)
[2023-03-23 06:09] LABS: Alternaria alternata <0.10 kU/L (Class 0); Aspergillus fumigatus <0.10 kU/L (Class 0); Bahia Grass <0.10 kU/L (Class 0); Bermuda Grass <0.10 kU/L (Class 0); Bluegrass, Kentucky <0.10 kU/L (Class 0); Cat Hair/Dander, Standard <0.10 kU/L (Class 0); Cedar, Mountain <0.10 kU/L (Class 0); Cladosporium herbarum <0.10 kU/L (Class 0); Cockroach, American <0.10 kU/L (Class 0); D farinae Mite <0.10 kU/L (Class 0); D pteronyssinus <0.10 kU/L (Class 0); Dog Epithelia <0.10 kU/L (Class 0); Elm, American White <0.10 kU/L (Class 0); Hazelnut Tree <0.10 kU/L (Class 0); Hickory, White 1.79 kU/L (Class III); Johnson Grass <0.10 kU/L (Class 0); Maple/Box Elder <0.10 kU/L (Class 0); Mucor racemosus <0.10 kU/L (Class 0); Mugwort <0.10 kU/L (Class 0); Mulberry, White <0.10 kU/L (Class 0); Nettle <0.10 kU/L (Class 0); Oak, White <0.10 kU/L (Class 0); Penicillium chrysogen <0.10 kU/L (Class 0); Pigweed, Rough <0.10 kU/L (Class 0); Plantain, English <0.10 kU/L (Class 0); Ragweed, Short/Common <0.10 kU/L (Class 0); Sheep Sorrel(Dock) <0.10 kU/L (Class 0); Stemphylium herbarum <0.10 kU/L (Class 0); Sweet Gum <0.10 kU/L (Class 0); Sycamore, American <0.10 kU/L (Class 0)
== END | disposition home or self-care (01) ==
LOC: MTLAB 11:21
PROVIDERS: PCP Family Medicine; Referring Provider Family Medicine; Visit Provider Family Medicine
DX: Z00.00 Encounter for general adult medical examination without abnormal findings (principal); D64.9 Anemia, unspecified; R42 Dizziness and giddiness; E55.9 Vitamin D deficiency, unspecified; T78.40XA Allergy, unspecified, initial encounter; Z79.899 Other long term (current) drug therapy
CPT/HCPCS: 36415; 80053; 80061; 82306; 82728; 83540; 83550; 85025; 86003

== ENCOUNTER 2023-03-21 14:00 | Outpatient (RCR) | payer MEDICARE, SELFPAY ==
--- NOTE | 2023-03-14 10:27 | HP.PTEVAL_ITS ---
Patient's Visit Information Visit Information Visit Information: CANDICE CARD is a 73 year old F referred to Physical Therapy by MANN Jean with a diagnosis of BPPV. Date of Evaluation: 03/14/23 Physical Therapist: Santiago Sifuentes, SADIAT, OCS, CSCS Visit Plan Frequency: 1-2x /Week Duration: 2-4 Weeks Plan: weekly x 2-4 for progression of VOR exercises and MSQ as needed. pt is to schedule with doctor to r/o other conditions. No positive tests for BPPV today. Also will do VOR H 60 sec 6x/day and activitiy modification to minimize symptoms at home Subjective Subjective: Had BPPV last year. Was doing well. it came back Sunday upon waking and sitting up. head was not right. moving head was weird feeling. [place] Ok while she was up for a little bit. That evening ears felt weird. Sunday went into [facility] to check for ear infection, her ears were fine. Was very active Sunday but did not feel normal. This morning moving head made her feel funny again swimmy. Got moving and it was getting worse. Vomitted today after breakfast. Bent over brushing teeth and stood back up and then nauseous. Has not had room spinning. Lying on wedge at night for the last year. No other blood tests or anything at [facility]. Sleep is OK on wedge on back, typicaly left side. Retired. Spends day walking in am and cleaning house and has been avoiding lately. Has been taking claritin since last episode in 2021 until about 3 weeks ago and then stopped, wondering if this is coincidence. Will check with doctor on this. Objective Objective: Neck movement is slow and hesitant but WFL ROM cardona. UE AROM WFL. reflexes 2/3 bi and tri Walk is I with hesitancy to trun or move head, nausea bag in hand. - B hallpike raffy, - roll test Oculomotor: no nystagmus with gaze or head shake No worsening with head shake - ocular tilt - skew eye deviation - head thrust DVA 4 + lines worse than SVA Pursuit and saccades appear normal VOR is slightly symptomatic 30 seconds for a few seconds. 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 For Medicare and Medicare HMO plans, please review the plan of care and approve it. It will need to be FAXED BACK to us at [phone] for Medicare purposes. For Medicare only, by signing this I certify the plan of care. Please let me know if there are questions or concerns regarding this plan of care. Physician Signature: Date:
--- NOTE | 2023-05-22 10:24 | HP.PT.NRP ---
Patient Information Patient Information: CANDICE CARD was seen in my office for initial evaluation on 03/14/23. The following Plan of Care was established for this patient: POC Established Initial Frequency: 1-2x /Week Initial Duration: 2-4 Weeks Anticipated Interventions Patient/Client Instruction: Educate patient on: Condition and Plan of Care For the Purpose of:: To increase tolerance to activity/condition/position and To improve gait and locomotor functions Therapeutic Exercise to Include: Balance training For the Purpose of:: To increase tolerance to activity/condition/position and To improve gait and locomotor functions Last Seen Last Seen: This patient was last seen in our office 03/14/23. Pertinent comments regarding their Physical therapy will appear below: Pt seen one visit of positional therapy. She cancelled the rest of her POC stating she felt all better. D/C at this time. At this point I will be discontinuing this patient from physical therapy. I would be happy to see this patient again in the future if found appropriate by the physician. Thank you! Santiago Sifuentes, DPT, OCS, CSCS Balance/Gait/Functional tests Balance/Special Test Scores Functional Gait Assessment Score: 30 % Disability: 0 Dizziness Score: 58
== END 2023-03-21 19:00 | disposition home or self-care (01) ==
LOC: PT 14:00
PROVIDERS: PCP Family Medicine; Referring Provider Physician Assistant; Visit Provider Physician Assistant
DX: H81.10 Benign paroxysmal vertigo, unspecified ear (principal)
CPT/HCPCS: 97110; 97162; 97530

== ENCOUNTER → 2023-05-07 | Outpatient (CLI) | payer MEDICARE, SELFPAY ==
--- NOTE | 2023-05-07 09:56 | US_ITS ---
STUDY: ABDOMINAL ULTRASOUND - RIGHT UPPER QUADRANT; ELASTOGRAPHY REASON FOR VISIT: Female, 73 years old. Fatty infiltration of the liver. TECHNIQUE: Ultrasound evaluation of the right upper quadrant was performed with real-time and static morales-scale imaging. Point quantification shear wave elastography was performed (ElasticBox). TECHNICAL QUALITY: Adequate. COMPARISON: Comparison is made with prior study dated September 08, 2022. FINDINGS: Liver: The liver measures 16.8 cm. There is increased echogenicity consistent with fatty infiltration. The bile ducts are within normal limits. There is hepatic color flow. The direction of portal flow is hepatopetal. Stable 1.2 cm by 1 cm x 0.6 cm septated cyst in the left lobe. Stable right hepatic cyst. Once again, there are multiple echogenic nodules in both lobes. The largest nodule in the right lobe measures 3.2 cm x 3.1 cm x 2.6 cm. The largest echogenic nodule in the left lobe measures 2.8 cm x 2.6 cm by 1.6 cm. Median liver stiffness measured 8.4 kPa. Gallbladder: Normal distended gallbladder. The gallbladder wall measures 1.9 mm. There is a negative sonographic Pemberton''s sign. There is no pericholecystic fluid. There are no gallstones. Sludge is seen within the gallbladder lumen. Common Bile Duct (C.B.D.): The common bile duct measures 4 mm. Pancreas: There is increased echogenicity of the pancreas. There is no demonstrated pancreatic mass or cyst. Right Kidney: Normal size of the right kidney. The right kidney measures 11.7 cm x 5.8 cm x 5 cm. Normal renal cortex. The right cortex measures 1.1 cm. There is no demonstrated renal mass or cyst. There is no right hydronephrosis. US/ABD Limited w/ Elastography IMPRESSION: 1. Liver stiffness measures 8.4 kPa compatible with F2-F3 (Mild to moderate liver fibrosis) Metavir score. 2. Stable multiple echogenic nodules in both lobes of the liver. Electronically Signed: Jose Fox MD at 15:26 EDT ,
[2023-05-07 10:47] LABS: Erythrocyte Sedimentation Rate 2 mm/hr (0-30)
[2023-05-07 10:51] LABS: Absolute Lymphocyte Count 1.38 X10^3/uL (0.83-4.51); Absolute Neutrophil Count 3.5 X10^3/uL (2.0-7.7); Basophil# 0.04 X10^3/uL; Basophil% 0.7 % (0-1); Eosinophil# 0.08 X10^3/uL; Eosinophils% 1.5 % (0-5); Hematocrit 44.4 % (37-47); Hemoglobin 14.9 g/dL (12.0-15.0); Lymphocyte # 1.38 X10^3/ul (0.83-4.51); Lymphocyte % 25.3 % (19-41); Mean Corp Hgb Conc 33.6 g/dL (32-36); Mean Corpuscular Hgb 31.4 pg (27.0-32.0); Mean Corpuscular Volume 93.5 fL (81-99); Mean Platelet Vol. 9.1 fl (6.2-12.0); Monocyte# 0.44 X10^3/uL; Monocyte% 8.1 % (0-10); NRBC Flagged by Analyzer 0 % (0-5); Neutrophil # 3.51 X10^3/uL (2.7-7.7); Neutrophil % 64.2 % (47-70); Platelet Count 210 K/mm3 (150-450); RBC Distribution Width CV 12.3 % (11.6-14.6); RBC Distribution Width SD 42.6 fl (35.1-43.9); Red Blood Count 4.75 M/mm3 (4.2-5.4); White Blood Count 5.5 K/mm3 (4.4-11.0)
[2023-05-07 10:53] LABS: International Normalized Ratio 1.1; Prothrombin Time (Protime)PT. 13.8 SECONDS (11.7-14.9)
[2023-05-07 11:09] LABS: ALB/GLOB Ratio 1.1 RATIO (0.9-2.4); AST(SGOT) 26 U/L (15-37); Alanine Aminotransfer ALT/SGPT 37 U/L (13-56); Alkaline Phosphatase 94 U/L (45-117); Ammonia < 10.0 umol/L (11-32); Anion Gap 4 (5-15); BUN 17 mg/dL (7-18); CRP < 2.90 mg/L (0.0-3.0); Chloride 108 mmol/L (98-107); Creatinine, Serum 0.85 mg/dL (0.55-1.02); EST Glomerular Filtration Rate 70 mL/min (>60); Est Glom Filt Rate - Afr Amer 85 mL/min (>60); Globulin 3.5 g/dL (2.2-4.2); Glucose 111 mg/dL (74-106); LDH 185 U/L (84-246); Potassium 4.3 mmol/L (3.5-5.1); Protein, Total 7.5 g/dL (6.4-8.2); Sodium Level 142 mmol/L (136-145)
== END | disposition home or self-care (01) ==
PROVIDERS: PCP Family Medicine; Referring Provider Internal Medicine Gastroenterology; Visit Provider Internal Medicine Gastroenterology
DX: K76.0 Fatty (change of) liver, not elsewhere classified (principal)
CPT/HCPCS: 36415; 76705; 76981; 80053; 82140; 83615; 85025; 85610; 85652; 86140

== ENCOUNTER → 2023-06-01 | Outpatient (CLI) | payer MEDICARE, SELFPAY ==
--- NOTE | 2023-06-01 12:51 | BI_ITS ---
MAMMOGRAPHY - BILATERAL SCREENING REASON FOR EXAM: Female, 73 years old. Routine annual screening examination. PERTINENT HISTORY: Sisters with breast cancer. TECHNIQUE: Digital bilateral breast ham (3D mammographic acquisition) in the CC and MLO projections. 2-D mediolateral oblique (MLO) and craniocaudad (CC) views of both breasts were obtained. CAD: Full Field Digital Mammography with Computer Added Detection was performed. COMPARISON: Comparison is made with prior examination dated May 17, 2022 and May 12, 2021. FINDINGS: Breast Composition: The breasts are heterogeneously dense, which may obscure small masses. There are no dominant masses or suspicious calcifications. No other significant abnormalities are identified. There has been no significant change since the prior study. BI/SCRN MAMM (CAD)W/HAM BILAT IMPRESSION: Stable bilateral screening mammogram. Yearly follow-up mammogram recommended. (A) ASSESSMENT CATEGORY: BIRADS Category 1: Negative. A letter regarding these results will be sent to the patient by the facility within 30 days. Approximately 10% of breast cancers are not detected by mammography. A normal mammogram should not delay biopsy of a clinically suspicious abnormality. [id number] Electronically Signed: Jose Fox MD at 10:05 EST ,
== END | disposition home or self-care (01) ==
LOC: OPBI 12:49
PROVIDERS: PCP Family Medicine; Referring Provider Family Medicine; Visit Provider Family Medicine
DX: Z12.31 Encounter for screening mammogram for malignant neoplasm of breast (principal)
CPT/HCPCS: 77063; 77067

== ENCOUNTER → 2023-07-06 | Outpatient (CLI) | payer MEDICARE, SELFPAY ==
--- OUTSIDE RECORDS SUMMARY | 2023-07-06 07:52 | XMS RPT_ITS | CCD ---
Author Name Unknown Address [address] [place] [address] Organization [facility] Care Team Providers Care [employer] Marketing Analyst Name Role Phone Robert Braun Unavailable Unavailable PROVIDER, UNKNOWN Unavailable Unavailable No, PCP Unavailable Unavailable Encounters Encounter Date Encounter Type Care Provider Facility Start: 12-27-2017 Ambulatory Robert Braun [facility] Payers Date Payer Category Payer Policy ID Private Health Insurance Progress note 05-19-2021 Note Date & Type Note Facility 05-19-2021 Note HNO ID: [id number] Author: Ana Arreola Population Health Navigator Service: ? Author Type: ? Type: Progress Notes Filed: 05/19/2021 2:42 PM Note Text: POPULATION HEALTH NAVIGATION OUTREACH Action/FYI I left a voice message and a my chart message re: pcp No care everywhere Contact made with patient or family member? NO Pt identified by name and : NO Outreach Outcome/Action Unable to reach patient: Left message MyChart message sent Reason for Outreach Attribution: Provider Off-boarding Payer: Payor: MEDICARE / Plan: MEDICARE A AND B / Product Type: Medicare / Care Gap Reviewed:: Reminder: Reminder note to check Health Maintenance for items below Health Maintenance items due: DEPRESSION SCREENING Never done COVID-19 VACCINE(1) Never done SHINGRIX VACCINE(2 of 3) due on 02/15/2012 ADVANCE DIRECTIVE DISCUSSION Never done PNEUMOVAX AGE 65 AND OVER WITH 5YR LOOKBACK(1) Never done DTAP,TDAP,TD(2 - Td or Tdap) due on 04/16/2016 PAP TESTING due on 03/30/2017 MAMMOGRAM due on 04/30/2018 DIABETES SCREEN due on 01/06/2020 INFLUENZA(1) due on 03/09/2021 Advanced Directives Completed: Have you ever planned for future healthcare decisions with a power of criminal defense attorney, living will, or advance directives? No. Please bring a copy to your next appointment or email to [email or web address] Referrals: N/A Message Sent to Practice: NO Navigation Signature: Ana Arreola Population Health Navigator May 19, 2021 2:41 PM [facility] Clinical Note 05-19-2021 Note Date & Type Note Facility 05-19-2021 Note Patient Outreach (NE TNAV) CANDICE CARD ([id number]) 1950 F Date Time Provider Department 05/19/21 ANA ARREOLA During your visit today, we recorded the following information about you: Ana Arreola Population Health Navigator 05/19/2021 2:42 PM Signed POPULATION HEALTH NAVIGATION OUTREACH Action/FYI I left a voice message and a my chart message re: pcp No care everywhere Contact made with patient or family member? NO Pt identified by name and : NO Outreach Outcome/Action Unable to reach patient: Left message [employer] message sent Reason for Outreach Attribution: Provider Off-boarding Payer: Payor: MEDICARE / Plan: MEDICARE A AND B / Product Type: Medicare / Care Gap Reviewed:: Reminder: Reminder note to check Health Maintenance for items below Health Maintenance items due: DEPRESSION SCREENING Never done COVID-19 VACCINE(1) Never done SHINGRIX VACCINE(2 of 3) due on 02/15/2012 ADVANCE DIRECTIVE DISCUSSION Never done PNEUMOVAX AGE 65 AND OVER WITH 5YR LOOKBACK(1) Never done DTAP,TDAP,TD(2 - Td or Tdap) due on 04/16/2016 PAP TESTING due on 03/30/2017 MAMMOGRAM due on 04/30/2018 DIABETES SCREEN due on 01/06/2020 INFLUENZA(1) due on 03/09/2021 Advanced Directives Completed: Have you ever planned for future healthcare decisions with a power of criminal defense attorney, living will, or advance directives? No. Please bring a copy to your next appointment or email to [email or web address] Referrals: N/A Message Sent to Practice: NO Navigation Signature: Ana Arreola Population Health Navigator May 19, 2021 2:41 PM Allergies As of Date: 05/19/2021 Noted Allergy Reaction BEES 07/31/2016 2 - Rash 7 - Swelling AMLODIPINE 01/25/2015 5 - Intolerance Comments: Swollen ankles LISINOPRIL 01/25/2015 3 - Cough PRILOSEC (OMEPRAZOLE) 04/10/2006 8 - GI Upset SULFA (SULFONAMIDE ANTIBIOTICS) 10/04/2005 2 - Rash Date Reviewed: 01/26/2017 Reviewed by: Ana White Ma - Fully Assessed Reason for Visit: Population Health Navigation Outreach [3910] Cmt: Offboarding Prescriptions as of 05/19/2021 - losartan (COZAAR) 25 mg tablet Take 1 tablet by mouth once daily. - minocycline (MINOCIN, DYNACIN) 100 mg capsule Take 1 capsule by mouth twice daily. as needed for Rosacea flare - mometasone (ELOCON) 0.1 % cream Apply 1 application to affected area once daily. - EPINEPHrine 0.3 mg/0.3 mL auto-injector Inject 0.3 mg intramuscularly as needed (Allergy to bees). - mwchc-tx-2-lsc-rih-wawxtbu-ast (KRILL OIL) 1,789-731-50-50 mg cap Take 2 tablets by mouth once daily. - Apple Cider Vinegar 600 mg cap Take 1,200 mg by mouth as directed. Problem List As Of Date 05/19/2021 Noted Resolved BENIGN HYPERTENSION [I10] PALPITATIONS [R00.2] ESOPHAGEAL REFLUX [K21.9] Diarrhea [R19.7] 07/23/2006 12/05/2013 Hemorrhage of gastrointestinal tract, unspecifi*07/23/2006 12/05/2013 INT HEMORRHOID W/O COMPL [K64.8] 07/23/2006 Impacted cerumen [H61.20] 08/07/2006 12/05/2013 CARPAL TUNNEL SYNDROME [G56.00] 03/27/2007 Impaired fasting glucose [R73.01] 10/10/2010 Rosacea [L71.9] 11/06/2012 Enlargement of sternoclavicular joint [M25.819] 12/10/2014 Pain in left hip [M25.552] 09/06/2016 Encounter Status:Closed by [facility] NAVIGATORANA on 05/19/21 [facility] Summary Purpose Family History No Family History Records FoundNo Family History Records Found Advance Directives No Advanced Directives Records FoundNo Advanced Directives Records Found Additional Source Comments INFORMATION SOURCE (unrecogn ized section and content) DATE CREATED AUTHOR AUTHOR'S ORGANIZ ATION 08/24/2021 [facility] FOR RECORDS PERTAINING TO PATIENTS WHO ARE OR HAVE BEEN ENROLLED IN A CHEMICAL DEPENDENCY/SUBSTANCEABUSE PROGRAM, SOME INFORMATION MAY BE OMITTED. This clinical summary was aggregated from multiple sources. Caution should be exercised in using it in the provision of clinical care. This summary normalizes information from multiple sources, and as a consequence, information in this document may materially change the coding, format and clinical context of patient data. In addition, data may be omitted in some cases. CLINICAL DECISIONS SHOULD BE BASED ON THE PRIMARY CLINICAL RECORDS. [facility] [employer] [facility]. provides no warranty or guarantee of the accuracy or completeness of information in this document.
== END | disposition home or self-care (01) ==
PROVIDERS: PCP Family Medicine; Referring Provider Family Medicine; Visit Provider Family Medicine
DX: R19.7 Diarrhea, unspecified (principal)
CPT/HCPCS: 87493

== ENCOUNTER → 2023-10-10 | Outpatient (CLI) | payer MEDICARE, SELFPAY ==
--- NOTE | 2023-10-10 12:55 | CT_ITS ---
STUDY: CT ABDOMEN AND PELVIS WITH AND WITHOUT CONTRAST REASON FOR EXAM: Female, 73 years old. 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 Isovue 370 was administered. Sagittal and coronal images were reconstructed. Individualized dose optimization techniques were used for this CT. COMPARISON: Comparison is made with prior study September 12, 2022. FINDINGS: The visualized lung bases are unremarkable. The visualized portions of the heart are within normal limits. There is decreased attenuation of the liver consistent with steatosis. 5 mm cyst in the anterior aspect of the left lobe of the liver superiorly. Normal gallbladder and extrahepatic biliary system. Normal spleen. Normal pancreas. Normal bilateral adrenal glands. Normal right kidney. Focal tiny cortical scarring in the mid portion of the medial aspect of the left kidney. Normal visualized stomach. Normal small intestine. There are scattered colonic diverticula consistent with diverticulosis. There is non-visualization of the appendix. There is scattered atherosclerotic calcification of the abdominal aorta, without a demonstrated aneurysm. Normal inferior vena cava. Normal retroperitoneum. Normal urinary bladder. There is absence of the uterus consistent with a prior hysterectomy. There is a small umbilical hernia containing fat. There are diffuse degenerative changes of the visualized lumbar spine. There is loss of the normal lumbar lordosis. CT/CT Abd/Pelvis W/WO Contrast IMPRESSION: Stable 5 mm cyst in the anterior aspect of the left lobe of the liver. Scattered sigmoid diverticula. Fatty infiltration of the liver. No hepatic nodule or mass is seen. Electronically Signed: Jose Fox MD at 13:22 EDT ,
[2023-10-10 13:11] LABS: CREATININE FINGERSTICK < 1.0 mg/dL (0.55-1.02); EGFR FINGERSTICK > 60.0000 mL/min (>60)
== END | disposition home or self-care (01) ==
LOC: CT 12:45
PROVIDERS: PCP Family Medicine; Referring Provider Internal Medicine; Visit Provider Internal Medicine
DX: R16.0 Hepatomegaly, not elsewhere classified (principal); K76.0 Fatty (change of) liver, not elsewhere classified
CPT/HCPCS: 74178; Q9967

== ENCOUNTER → 2023-10-17 | Outpatient (CLI) | payer MEDICARE, SELFPAY ==
[2023-10-17 17:48] LABS: Absolute Lymphocyte Count 1.83 X10^3/uL (0.83-4.51); Absolute Neutrophil Count 4.3 X10^3/uL (2.0-7.7); Basophil# 0.05 X10^3/uL; Basophil% 0.7 % (0-1); Eosinophil# 0.16 X10^3/uL; Eosinophils% 2.3 % (0-5); Hematocrit 43.3 % (37-47); Hemoglobin 14.7 g/dL (12.0-15.0); Lymphocyte # 1.83 X10^3/ul (0.83-4.51); Lymphocyte % 26.6 % (19-41); Mean Corp Hgb Conc 33.9 g/dL (32-36); Mean Corpuscular Hgb 31.5 pg (27.0-32.0); Mean Corpuscular Volume 92.7 fL (81-99); Mean Platelet Vol. 9.3 fl (6.2-12.0); Monocyte# 0.52 X10^3/uL; Monocyte% 7.6 % (0-10); NRBC Flagged by Analyzer 0 % (0-5); Neutrophil % 62.5 % (47-70); Platelet Count 265 K/mm3 (150-450); RBC Distribution Width CV 12.2 % (11.6-14.6); RBC Distribution Width SD 41.2 fl (35.1-43.9); Red Blood Count 4.67 M/mm3 (4.2-5.4); White Blood Count 6.9 K/mm3 (4.4-11.0)
[2023-10-17 17:57] LABS: Erythrocyte Sedimentation Rate 9 mm/hr (0-30)
[2023-10-17 17:58] LABS: International Normalized Ratio 1.1
[2023-10-17 18:19] LABS: Hemoglobin A1c 5.5 % (3.8-5.6)
[2023-10-17 18:26] LABS: AST(SGOT) 26 U/L (15-37); Alanine Aminotransfer ALT/SGPT 34 U/L (13-56); Albumin, Serum 3.7 g/dL (3.2-5.0); Alkaline Phosphatase 89 U/L (45-117); Anion Gap 5 (5-15); BUN 21 mg/dL (7-18); BUN/Creat Ratio 27.1 RATIO (10-20); CRP < 2.90 mg/L (0.0-3.0); Chloride 107 mmol/L (98-107); Cholesterol 194 mg/dL (200); Creatinine, Serum 0.77 mg/dL (0.55-1.02); EST Glomerular Filtration Rate 78 mL/min (>60); Est Glom Filt Rate - Afr Amer 94 mL/min (>60); Ferritin 225 ng/mL (8-252); Globulin 3.7 g/dL (2.2-4.2); Glucose 126 mg/dL (74-106); High Density Lipoprotein 35 mg/dL; Iron 122 ug/dL (50-170); Iron Binding Capacity,Total 271 ug/dL (250-450); Potassium 3.7 mmol/L (3.5-5.1); Protein, Total 7.4 g/dL (6.4-8.2); Sodium Level 141 mmol/L (136-145); Triglycerides 320 mg/dL; Very Low Density Lipoprotein 64 mg/dL (5-40)
[2023-10-19 04:07] LABS: AFP, Tumor Marker < 1.8 ng/mL (0.0-9.2)
== END | disposition home or self-care (01) ==
PROVIDERS: PCP Family Medicine; Referring Provider Internal Medicine; Visit Provider Internal Medicine
DX: K76.0 Fatty (change of) liver, not elsewhere classified (principal); R16.0 Hepatomegaly, not elsewhere classified; R79.89 Other specified abnormal findings of blood chemistry
CPT/HCPCS: 36415; 80053; 80061; 82105; 82728; 83036; 83540; 83550; 85025; 85610; 85652; 86140

== ENCOUNTER → 2024-02-05 | Outpatient (CLI) | payer MEDICARE, SELFPAY ==
[2024-02-05 12:35] LABS: Absolute Lymphocyte Count 1.82 X10^3/uL (0.83-4.51); Absolute Neutrophil Count 3.6 X10^3/uL (2.0-7.7); Basophil# 0.04 X10^3/uL; Basophil% 0.6 % (0-1); Eosinophil# 0.18 X10^3/uL; Eosinophils% 2.9 % (0-5); Hematocrit 43.1 % (37-47); Hemoglobin 14.6 g/dL (12.0-15.0); Lymphocyte # 1.82 X10^3/ul (0.83-4.51); Lymphocyte % 29.3 % (19-41); Mean Corp Hgb Conc 33.9 g/dL (32-36); Mean Corpuscular Hgb 31.2 pg (27.0-32.0); Mean Corpuscular Volume 92.1 fL (81-99); Mean Platelet Vol. 9.5 fl (6.2-12.0); Monocyte# 0.53 X10^3/uL; Monocyte% 8.5 % (0-10); NRBC Flagged by Analyzer 0 % (0-5); Neutrophil # 3.62 X10^3/uL (2.7-7.7); Neutrophil % 58.4 % (47-70); Platelet Count 235 K/mm3 (150-450); RBC Distribution Width CV 12.2 % (11.6-14.6); RBC Distribution Width SD 41.1 fl (35.1-43.9); Red Blood Count 4.68 M/mm3 (4.2-5.4); White Blood Count 6.2 K/mm3 (4.4-11.0)
[2024-02-05 13:03] LABS: ALB/GLOB Ratio 1.1 RATIO (0.9-2.4); AST(SGOT) 34 U/L (15-37); Alanine Aminotransfer ALT/SGPT 35 U/L (13-56); Albumin, Serum 3.8 g/dL (3.2-5.0); Alkaline Phosphatase 93 U/L (45-117); Anion Gap 7 (5-15); BUN 16 mg/dL (7-18); BUN/Creat Ratio 21.2 RATIO (10-20); CRP 3.26 mg/L (0.0-3.0); Calcium,Total 8.8 mg/dL (8.5-10.1); Chloride 106 mmol/L (98-107); Cholesterol 184 mg/dL (200); Creatinine, Serum 0.75 mg/dL (0.55-1.02); EST Glomerular Filtration Rate 80 mL/min (>60); Est Glom Filt Rate - Afr Amer 97 mL/min (>60); Globulin 3.5 g/dL (2.2-4.2); Glucose 100 mg/dL (74-106); High Density Lipoprotein 45 mg/dL; Potassium 4.1 mmol/L (3.5-5.1); Protein, Total 7.3 g/dL (6.4-8.2); Sodium Level 139 mmol/L (136-145); Triglycerides 91 mg/dL; Very Low Density Lipoprotein 18 mg/dL (5-40)
[2024-02-05 13:05] LABS: International Normalized Ratio 1.1; Prothrombin Time (Protime)PT. 13.9 SECONDS (11.7-14.9)
[2024-02-05 13:52] LABS: Hemoglobin A1c 5.4 % (3.8-5.6)
== END | disposition home or self-care (01) ==
LOC: MTLAB 09:50
PROVIDERS: PCP Family Medicine; Referring Provider Internal Medicine; Visit Provider Internal Medicine
DX: K76.0 Fatty (change of) liver, not elsewhere classified (principal); E78.5 Hyperlipidemia, unspecified; R79.0 Abnormal level of blood mineral
CPT/HCPCS: 36415; 80053; 80061; 83036; 85025; 85610; 86140

== ENCOUNTER → 2024-07-03 | Outpatient (CLI) | payer MEDICARE, SELFPAY ==
--- NOTE | 2024-07-03 09:05 | BI_ITS ---
MAMMOGRAPHY - BILATERAL SCREENING 3-D TOMOSYNTHESIS REASON FOR EXAM: Female, 74 years old. SCREENING PERTINENT HISTORY: No significant family history. TECHNIQUE: 2-D mammograms and 3-D Tomosynthesis of the breast (s) were performed. CAD was performed. COMPARISON: 06/01/2023 FINDINGS: The breast composition is heterogeneously dense that can obscure small breast masses. Scattered benign calcifications are seen. No dense spiculated masses or suspicious microcalcifications are identified. No architectural distortion is identified. There is no skin thickening or retraction. There has been no significant change since the prior study. BI/SCRN MAMM (CAD)W/HAM BILAT IMPRESSION: No mammographic signs of malignancy. Routine yearly mammograms recommended. ASSESSMENT CATEGORY: BIRADS Category 1: Negative. A letter regarding these results will be sent to the patient by the facility within 30 days. FOLLOW UP RECOMMENDATION: Yearly follow up mammogram recommended. (A) Approximately 10% of breast cancers are not detected by mammography. A normal mammogram should not delay biopsy of a clinically suspicious abnormality. Electronically Signed: Ivan Moran MD at 10:03 [facility] ,
== END | disposition home or self-care (01) ==
LOC: OPBI 09:04
PROVIDERS: PCP Family Medicine; Referring Provider Obstetrics & Gynecology Gynecology; Visit Provider Obstetrics & Gynecology Gynecology
DX: Z12.31 Encounter for screening mammogram for malignant neoplasm of breast (principal); Z85.42 Personal history of malignant neoplasm of other parts of uterus; Z80.3 Family history of malignant neoplasm of breast
CPT/HCPCS: 77063; 77067

== ENCOUNTER → 2024-09-12 | Outpatient (CLI) | payer MEDICARE, SELFPAY ==
[2024-09-12 07:36] LABS: Absolute Lymphocyte Count 1.73 X10^3/uL (0.83-4.51); Basophil# 0.04 X10^3/uL; Basophil% 0.6 % (0-1); Eosinophil# 0.24 X10^3/uL; Eosinophils% 3.6 % (0-5); Hematocrit 45.1 % (37-47); Hemoglobin 15.3 g/dL (12.0-15.0); Lymphocyte # 1.73 X10^3/ul (0.83-4.51); Lymphocyte % 26.3 % (19-41); Mean Corp Hgb Conc 33.9 g/dL (32-36); Mean Corpuscular Hgb 31.7 pg (27.0-32.0); Mean Corpuscular Volume 93.6 fL (81-99); Mean Platelet Vol. 9.4 fl (6.2-12.0); Monocyte# 0.56 X10^3/uL; Monocyte% 8.5 % (0-10); NRBC Flagged by Analyzer 0 % (0-5); Neutrophil % 60.7 % (47-70); Platelet Count 212 K/mm3 (150-450); RBC Distribution Width CV 12.3 % (11.6-14.6); RBC Distribution Width SD 42.5 fl (35.1-43.9); Red Blood Count 4.82 M/mm3 (4.2-5.4); White Blood Count 6.6 K/mm3 (4.4-11.0)
[2024-09-12 08:26] LABS: Prothrombin Time (Protime)PT. 13.8 SECONDS (11.7-14.9)
[2024-09-12 08:50] LABS: Hemoglobin A1c 5.7 % (<=5.6)
[2024-09-12 10:01] LABS: ALB/GLOB Ratio 1.4 RATIO (0.9-2.4); AST(SGOT) 34 U/L (<=31); Alanine Aminotransfer ALT/SGPT 37 U/L (<=34); Albumin, Serum 4.4 g/dL (3.4-4.8); Alkaline Phosphatase 87 U/L (35-104); Anion Gap 15 (5-15); BUN 14 mg/dL (4-19); BUN/Creat Ratio 18.3 RATIO (10-20); Calcium,Total 9.8 mg/dL (7.6-11.0); Carbon Dioxide 22.2 mmol/L (21.0-32.0); Chloride 104 mmol/L (98-108); Cholesterol 207 mg/dL (<=200); Creatinine, Serum 0.79 mg/dL (0.70-1.20); EST Glomerular Filtration Rate 80 (>60); Globulin 3.1 g/dL (2.2-4.2); Glucose 105 mg/dL (70-99); High Density Lipoprotein 50 mg/dL; Low Density Lipoprotein Calc. 141 mg/dL; Potassium 4.1 mmol/L (3.3-5.1); Protein, Total 7.5 g/dL (5.9-8.4); Sodium Level 141 mmol/L (133-145); Total Bilirubin 0.45 mg/dL (0.00-1.30); Triglycerides 84 mg/dL; Very Low Density Lipoprotein 17 mg/dL (5-40); cholesterol:hdl ratio screen 4.17
[2024-09-12 10:34] LABS: Iron 140 ug/dL (50-170); Iron Binding Capacity,Total 249 ug/dL (250-450); Iron Binding Capacity,Unsat 109 ug/dL (228-428)
[2024-09-12 10:35] LABS: Ferritin 355 ng/mL (22-378); Vitamin D,25 Hydroxy 34.2 ng/mL (30-100)
== END | disposition home or self-care (01) ==
LOC: LAB 06:55
PROVIDERS: PCP Family Medicine; Referring Provider Internal Medicine; Visit Provider Internal Medicine
DX: E78.5 Hyperlipidemia, unspecified (principal); K76.9 Liver disease, unspecified; R73.03 Prediabetes; D64.9 Anemia, unspecified; R16.0 Hepatomegaly, not elsewhere classified; E03.9 Hypothyroidism, unspecified; R63.4 Abnormal weight loss
CPT/HCPCS: 80053; 80061; 82105; 82306; 82728; 83036; 83540; 83550; 84439; 84443; 85025; 85610

== ENCOUNTER → 2024-09-15 | Outpatient (CLI) | payer MEDICARE, SELFPAY ==
--- NOTE | 2024-09-15 09:18 | US_ITS ---
PROCEDURE: ABD LIMITED W/ ELASTOGRAPHY REASON FOR EXAM: Hepatic cyst. COMPARISON: Comparison is made with prior study dated May 07, 2023. TECHNIQUE: Right upper quadrant abdominal ultrasound. [employer] ElastQ Imaging shear wave elastography for non-invasive assessment of liver tissue stiffness. Mary EPIQ Elite. FINDINGS: LIVER: Size: Hepatomegaly. Length: 18.2 cm cm Echotexture: Diffusely echogenic suggesting fatty infiltration Contour: Normal Lesions: Stable 1 cm cyst in the left lobe of the liver. There are multiple echogenic nodules scattered throughout both lobes of the liver. These may represent multiple hemangiomas. Correlation with a CT scan is recommended for further evaluation. Elastography: EQI Med: 6.8 kPa EQI Med Gino: 1.49 m/s IQR/Med: 16 %* GALLBLADDER: Normal COMMON BILE DUCT: Normal it measures 5 mm. PANCREAS: Normal Visualized portions of the right kidney are unremarkable. No right upper quadrant ascites. US/ABD Limited w/ Elastography IMPRESSION: NO TO MILD HEPATIC FIBROSIS Multiple echogenic nodule seen throughout both lobes of the liver as described. Correlation with a CT scan following IV contrast recommended. Reference Values: SRU <1.37 m/s (5.7kPa): No to mild fibrosis 1.37 m/s - 2.2 m/s: Moderate to severe fibrosis >2.2 m/s (15kPa): Significant fibrosis / cirrhosis METAVIR Score F2 or higher: 1.34 m/s (5.7kPa) F3 or higher: 1.55 m/s (7.3kPa) F4: 1.80 m/s (10kPa) * If the IQR/Med is >30%, the variance in the measurements is a large and the a ccuracy of the measurement may be in question. Reading Location: [place] [address]
== END | disposition home or self-care (01) ==
LOC: US 09:18
PROVIDERS: PCP Family Medicine; Referring Provider Internal Medicine; Visit Provider Internal Medicine
DX: K76.0 Fatty (change of) liver, not elsewhere classified (principal); E78.5 Hyperlipidemia, unspecified
CPT/HCPCS: 76705; 76981

== ENCOUNTER 2024-10-09 10:55 | Day surgery (SDC) | payer MEDICARE, SELFPAY ==
[2024-10-09] VITALS (8 sets, daily range): BP systolic 105–147; BP diastolic 71–80; PULSE 67–85; RESP 16; TEMP 36.3–37; O2SAT 94–98; BMI 27.6
--- NOTE | 2024-10-09 12:25 | PRE.ANES_ITS ---
ASA Classification* ASA Classification ASA Classification: 3 Assessment & Plan Anesthesia* Anesthesia Assessment Anesthesia Assessment: Discussed sedation and/or anesthesia options, risks, benefits, and alternatives with patient/parents/legal guardian/POA. Questions invited. The patient/parents/legal guardian/POA seems to understand and agrees to proceed with anesthesia plan. Reviewed the physical assessment, medical history, allergy history and patient home medications list prior to surgery/procedure/anesthetic and documented any changes. Performed airway and anesthesia risk assessments. Anesthesia Type Anesthesia Type: MAC History Source History Obtained from:: Patient and Chart Anesthesia Focused Assessment* Temperature: 97.6 F Pulse Rate: 85 Blood Pressure: 147/80 Respiratory Rate: 16 Pulse Ox: 98 Airway Assessment Mouth opens: >3 cm Mallampati Score: II Focused Labs Anesthesia Preop lab: CBC WBC 6.6 K/mm3 (4.4-11.0) 09/12/24 06:58 09/12/24 RBC 4.82 M/mm3 (4.2-5.4) 09/12/24 06:58 09/12/24 Hgb 15.3 g/dL (12.0-15.0) H 09/12/24 06:58 5 Hct 45.1 % (37-47) 09/12/24 06:58 09/12/24 Plt Count 212 K/mm3 (150-450) 09/12/24 06:58 09/12/24 CHEMISTRY Potassium 4.1 mmol/L (3.3-5.1) 09/12/24 06:58 09/12/24 Sodium 141 mmol/L (133-145) 09/12/24 06:58 09/12/24 BUN 14 mg/dL (4-19) 09/12/24 06:58 09/12/24 Creatinine 0.79 mg/dL (0.70-1.20) 09/12/24 06:58 09/12/24 Glucose 105 mg/dL (70-99) H 09/12/24 06:58 09/12/24 TSH 2.960 uIU/mL (0.300-4.200) 09/12/24 06:58 01/30 COAG PT 13.8 SECONDS (11.7-14.9) 09/12/24 06:58 Pre-Assessment Diagnosis/Proposed Procedure Planned Operative Procedure(s): COLONOSCOPY Anesthesia History 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 When Was Last Pacemaker Check QUESTION #4 FULL TEXT: You/Your Family Experience fever (hyperthermia) with Anesthesia Last Oral Intake Last Oral intake: Last Oral Intake NPO since 07:00 10/09/24 11:28 Meds taken in AM with sips of Yes 10/09/24 11:28 water? Meds patient instructed to take am of surgery PONV PONV - regional facilities manager: PONV - regional facilities manager Female Yes 10/06/24 13:04 HX of Motion Sickness Yes 10/06/24 13:04 HX of N/V After Surgery Yes 10/06/24 13:04 Non-Smoker Yes 10/06/24 13:04 Duration of Surgery greater No 10/06/24 13:04 than 60 minutes Number of Risk Factors 4 10/06/24 13:04 PONV Score Severe Risk 10/06/24 13:04 Height & Weight Height & Weight: Anesthesia: Height & Weight Height 5 ft 7 in 10/09/24 11:28 Weight: 80 kg 10/09/24 11:28 Body Mass Index (BMI) 27.6 10/09/24 11:28 Respiratory Assessment Respiratory Assessment - regional facilities manager: Respiratory Tract Infection Hx - regional facilities manager Hx Respiratory Tract Infection No 10/06/24 13:04 STOP Sleep Apnea STOP Sleep Apnea - regional facilities manager: STOP Sleep Apnea - regional facilities manager Hx Hypertension Yes 10/06/24 13:04 Hx Sleep Apnea No 10/06/24 13:04 CPAP BIPAP Do you snore loudly (louder No 10/06/24 13:04 than talking or can be heard Do you often feel tired/ No 10/06/24 13:04 fatigued/ sleepy during daytime? Has anyone observed you stop No 10/06/24 13:04 breathing during sleep? STOP Results Negative 10/06/24 13:04 QUESTION #5 FULL TEXT : Do you snore loudly (louder than talking or can be heard through closed doors)? Tobacco Use History Tobacco Use History - regional facilities manager: Tobacco Use History - regional facilities manager Tobacco Use Smoking Status Never smoker 10/06/24 13:04 Hx Tobacco Use No 10/06/24 13:04 Years Smoking Packs Smoked per Day Smoking Cessation Date was within the last 15 years Hx Smoking Cessation Date Hx Smoking Cessation Counseling Hematologic Medial History Hematologic Hx - regional facilities manager: Hematologic Medical Hx - proposal rep Hx of Blood Transfusion No 10/06/24 13:04 Hx of Transfusion in last 3 No 10/06/24 13:04 Months Date of Last Transfusion (if within last 3 months) Ever experience any problems No 10/06/24 13:04 with transfusion(s)? Specify any problems Hx of Preganancy in last 3 No 10/06/24 13:04 Months Nurse Filling Out Transfusion [facility] 10/06/24 13:04 & Questions: Date: 10/06/24 10/06/24 13:04 Time: 13:11 10/06/24 13:04 Patient unable to answer at this time (ie. confused, unrespo /Reproduction History /Reproductive History - regional facilities manager: /Reproductive Hx- regional facilities manager Hx Now No 10/06/24 13:04 Gestational Age (in weeks): EDC: Hx Hx Para Hx Section SAB No 10/06/24 13:04 PFSH Medical History Post-menopausal Vertigo Heartburn Cataract (lens) fragments in eye following cataract surgery BPPV (benign paroxysmal positional vertigo) Retroperitoneal lymphadenopathy Tubular adenoma of colon Wears glasses Cancer Arthritis Blood in stool GERD (gastroesophageal reflux disease) Non-smoker History of stress test BRBPR (bright red blood per rectum) History of carpal tunnel syndrome Fatigue History of cancer Hypertension Home Medications ?Medication ?Instructions ?Recorded ?Last Taken ?Type losartan 25 mg tablet 25 mg PO DAILY bp 08/04/20 0 10/09/24 History Lactobacillus rhamnosus GG 20 20 cell PO DAILY 4 10/08/24 History billion cell capsule (Probiotic Digestive Care) milk thistle 500 mg capsule 1,000 mg PO QDAY 04/01/24 Unknown History loratadine 10 mg tablet (Claritin) 10 mg PO QDAY aller gy symptoms 09/19/24 10/08/24 History krill oil 500 mg capsule mg PO DAILY 10/09/24 5 History Allergy/AdvReac Type Severity Reaction Status Date / Time lansoprazole (From Prevacid) Allergy Mild Unknown Verified 10/09/24 11:26 bee venom protein (honey bee) Allergy Swelling Verified 10/09/24 11:26 Sulfa (Sulfonamide Allergy Rash Verified 10/09/24 11:26 Antibiotics) Proton Pump Inhibitors AdvReac Upset Verified 10/09/24 11:26 Stomach soy AdvReac Upset Verified 10/09/24 11:26 Stomach Family History Sister Breast cancer x2 Aunt CVA (cerebral vascular accident) Surgical History History of bilateral cataract extraction History of colonoscopy History of carpal tunnel release of both wrists History of appendectomy History of tonsillectomy History of hysterectomy Social History Smoking Status: Never smoker alcohol intake: never Review of Systems (Anesthesia) ROS Narrative System reviewed and no additional complaints, except as documented.
--- NOTE | 2024-10-09 12:26 | HP.PCM_ITS ---
HPI - General General Date of Admission: 10/09/24 Date of Service: 10/09/24 Chief Complaint: screening colon HPI Narrative CANDICE CARD, is a 74 Fwas previously seen by Dr. Terence Parada for rectal bleeding, there was also a polyp that she was unable to remove. Colonoscopy 03.29.[address] Terence Parada finding diverticulosis of sigmoid, descending and transverse colons; one 7mm polyp at appendiceal orifice. Colonoscopy 04.28.21 finding diverticulosis of sigmoid and descending colons; one 5mm hyperplastic polyp with benign lymphoid tissue removed from cecum. Tubular adenoma ? repeat colonoscopy 2025. CT abd/pel 6.. without lymphadenopathy; fatty infiltration of liver; contracted thick-walled gallbladder without stones; minor diverticular changes of colon without acute diverticulitis. chhk US abd/elastography 8.9.22- Liver measures 13.9cm- fatty infiltration of liver, subcentimeter cyst in the left lower lobe of liver, 10 kPa US abd/elastograpgy 3.3.23- Liver measures 15cm , 9 kPa - several echogenic nodules throughout the right and left lobe of the liver, nodules in both lobes of thyroid gland, reccomended CT CT abd/pel w/ contrast 3.7.23- stable liver cysts, no other mass seen. 10/2022 labs: crp 4.38 H, ferr 271 H, unremarkable CBC, unremarkable CMP OV 04.12.23 Liver stiffness improved. Cont. Milk thistle and Vitamin E. Diet and excercise. Rpt labs and Us in 6 mo US abd/elastograpgy 10.30.23- Liver measuring 16.8cm , 8.4kPa OV 11.6.23 Pt reports doing very well since last visit. Occasional bloating and gas. BM are normal and consistent. No other changes. Labs and ultrasound reviewed from May 07, 2023. Patient is taking liver cleanse and used to take milk thistle CT abd/pel Triple phase 4.3.24- Stable 5mm cyst in the anterior aspect of the left lobe of the liver, scattered sigmoid diverticula, fatty infiltration of liver OV 4.16.24 Pt stable since last visit. Continues to have occasional bloating and gas. BM remain normal. No other concerns. Review of the imaging test. Labs from January 2024 discussed with the patient glucose 100, A1c 5.4. Ferritin which was elevated in the past but most recent 225 in October 2023. Triglyceride 320, total cholesterol 194, VLDL 64 HDL low 35. Last lipid profile in March 31 shows LDL elevated 133 otherwise rest in normal limit. Repeat lipid profile from January 2024 shows triglyceride in normal range 91, TC 184 and other lipid profile normal OV 04.01.24- Reports feeling well since last visit. Weight gain since last visit. Continued occ bloating and gas, stayed the same. Blood pressure is controlled. No new concerns. Liver ultrasound with elastography from April 2023 also discussed which shows stable sepated cyst in the left lobe and right hepatic cyst. Median liver stiffness 8.4 kPa. US abd w/ elastography 3.10.25- Hepatomegaly 18.2 cm. Diffusely echogenic suggesting fatty infiltration. Stable 1 cm cyst in the left lobe of the liver. Multiple echogenic nodules scattered throughout both lobes of the liver. These may represent multiple hemangiomas. Correlation with a CT scan is recommended for further evaluation. OV 3..25- Feeling well. No acute concerns. Occasional gas and bloating unchanged. ROS Const Constitutional: Positive for weight change; No excessive sweating, fatigue, fever(s), frequent falls, headache(s) or w eakness ENT ENT: No headache(s) or difficulty swallowing Cardio Cardiology: No leg pain with exertion or excessive sweating Gastro GI: Positive for bloating and excessive flatus; No abdominal pain, change in bowel habits, constipation, diarrhea, heartburn, difficulty swallowing, Vomiting blood/hematemesis, Blood in stool, nausea/dyspepsia or vomiting Musc Musculoskeletal: No joint pain, back pain, joint swelling, muscle cramps, muscle weakness, numbness, stiffness, tingling, Arthritis, sciatica, restless legs, leg pain at night or leg pain with exertion Skin Skin: No dry skin, lesions, itchy eyes or rash Neuro Neurology: No behavioral changes, unsteady gait/balance, weakness, frequent falls, headache(s), numbness, tingling, restless legs, tremor(s), Increased tone in limbs, paralysis or seizures Psych Psychiatric: No anxiety, No behavioral changes, No depression, No paranoia, No Compulsive Behavior, No hyperactivity, No inattentiveness, No obsessions/compulsions, No Temper Tantrums and No suicidal ideation Endo Endocrine: Positive for weight change; No excessive sweating or fatigue Aller/Imm Allergy/Immunologic: No itchy eyes Bayron/Lymp Hematologic/Lymphatic: No easy bleeding or easy bruising Exam Const General: cooperative, no acute distress and well developed Nutritional Appearance: average body habitus Orientation: alert, awake and oriented x3 [facility] Head: normocephalic and atraumatic Nose: external nose normal Face and sinus: normal facial exam Mouth: moist mucous membranes Eyes Pupils: PERRL EOM: EOM intact bilaterally Neck Neck: normal visual inspection, no meningeal signs and trachea midline Carotids: no bruits Chest Chest palpation & inspection: normal inspection of the chest Resp Effort & Inspection: normal respiratory effort and symmetric chest movement Auscultation: Bilateral: Clear to Auscultation Cardio Palpation: normal PMI Rate: regular rate Rhythm: regular rhythm Heart Sounds: S1 normal and S2 normal Other: Ejection systolic murmur present over right second ICS. GI Auscultation: normal bowel sounds Percussion: normal to percussion Palpation: soft, no hepatosplenomegaly and no guarding Other: Abdomen nontender nondistended. Liver edge palpable over right costal margin. Spleen not palpable. General: bimanual renal exam normal bilaterally, bladder normal to inspection and bladder normal to palpation Bimanual Exam- Vagina & Uterus: bladder normal to palpation Musc Musculoskeletal: No joint tenderness, joint redness, joint warmth or decreased range of motion Thoracic/Lumbar Spine: thor and lumb spine abnorm to inspection Skin General: rashes and/or lesions noted, turgor normal and no erythema Wounds: wound noted Neuro General: patient alert, patient awake, patient oriented x3 and no focal motor deficits Speech: speech normal Motor: muscle tone normal throughout Extrem General: normal exam except as noted Psych Appearance: grossly normal Mood: congruent mood Affect: normal affect Attitude: cooperative Assessment and Plan Assessment and Plan (1) Metabolic dysfunction-associated steatotic liver disease (MASLD): Status: Chronic Plan: Lab test and imaging reviewed with the patient. She has elevated ferritin, H&H 15.3/45.1%. Glucose 105, TIBC low normal, ferritin 355, high normal. Mildly elevated AST ALT 30s. Glucose mildly elevated 105. A1c 5.7% She had elevated ferritin in the past but most recent 225 in October 2023.and started taking milk thistle but she is on multiple other vitamin supplements and herbal medications. Liver ultrasound shows median liver fibrosis 6.8 kPa, median velocity 1.49 m/s suggestive of mild fibrosis. Echogenic nodule seen both lobes of the liver. Her previous CT scan also reviewed with the patient which showed cyst, hemangioma and cyst but no evidence of enhancing mass in CT triple phage in September 2022. Liver ultrasound with elastography from April 2023 also discussed which shows stable sepated cyst in the left lobe and right hepatic cyst. Median liver stiffness 8.4 kPa In last visit, she did not use for respiratory curtis and does not want to take it. Repeat labs including ferritin and iron profile ordered ordered in [address] triple phage in 6 months. Follow-up in 6 months. (2) Dyslipidemia: Status: Chronic Plan: Triglyceride 320, total cholesterol 194, VLDL 64 HDL low 35. Last lipid profile shows total cholesterol 207, TG 84, LDL 141. One-time triglyceride 320 in October 2023 was lab error Advised weight loss. Currently 183. Was about 172 in October 2022 Orders: Orders CT Abd/Pelvis W/WO Contrast 6 Months E78.5 - Hyperlipidemia, unspecified, K76.0 - Fatty (change of) liver, not elsewhere classified, R79.89 - Other specified abnormal findings of blood chemistry CBC W/Diff, Automated 3 Months E78.5 - Hyperlipidemia, unspecified, K76.0 - Fatty (change of) liver, not elsewhere classified, R79.89 - Other specified abnormal findings of blood chemistry Ferritin 3 Months E78.5 - Hyperlipidemia, unspecified, K76.0 - Fatty (change of) liver, not elsewhere classified, R79.89 - Other specified abnormal findings of blood chemistry CRP 3 Months E78.5 - Hyperlipidemia, unspecified, K76.0 - Fatty (change of) liver, not elsewhere classified, R79.89 - Other specified abnormal findings of blood chemistry Comprehensive Metabolic Profil 3 Months E78.5 - Hyperlipidemia, unspecified, K76.0 - Fatty (change of) liver, not elsewhere classified, R79.89 - Other specified abnormal findings of blood chemistry Prothrombin Time w/INR 3 Months E78.5 - Hyperlipidemia, unspecified, K76.0 - Fatty (change of) liver, not elsewhere classified, R79.89 - Other specified abnormal findings of blood chemistry Transferrin 3 Months E78.5 - Hyperlipidemia, unspecified, K76.0 - Fatty (change of) liver, not elsewhere classified, R79.89 - Other specified abnormal findings of blood chemistry Bilirubin, Direct 3 Months E78.5 - Hyperlipidemia, unspecified, K76.0 - Fatty (change of) liver, not elsewhere classified, R79.89 - Other specified abnormal findings of blood chemistry Iron+Iron Binding Capacity 3 Months E78.5 - Hyperlipidemia, unspecified, K76.0 - Fatty (change of) liver, not elsewhere classified, R79.89 - Other specified ab normal findings of blood chemistry Medications: Changed From loratadine (Claritin) 10 mg PO QDAY To loratadine (Claritin) 10 mg PO QDAY PRN allergy symptoms Discontinued [id number]-ktx-znzqria-ast 1,514-365-96-80 mg (krill oil) Discontinued Reason: Discontinued by PCP/other physicians 1 cap PO QDAY [liver health by [employer]] Discontinued Reason: Discontinued by PCP/other physicians 2 caps PO DAILY L.acid,karen-B.anim,bifid,infan 50 billion cell (Fortify [employer]od[employer] Women Probiotic) Discontinued Reason: Discontinued by PCP/other physicians 1 cap PO DAILY sour garcia extract (Tart Garcia Extract) Discontinued Reason: Discontinued by PCP/other physicians 2,500 mg PO DAILY [immuneti] Discontinued Reason: Discontinued by PCP/other physicians 2 caps PO DAILY [CL Balance by [employer]] Discontinued Reason: Discontinued by PCP/other physicians 2 caps PO DAILY vitamin E (dl, acetate) Discontinued Reason: Discontinued by PCP/other physicians 540 mg PO DAILY wjozthfyqdss-Zl-wgzk-minerals Discontinued Reason: Discontinued by PCP/other physicians 1 TAB PO QDAY On Hold milk thistle Hold Comment: Order Changed 1,000 mg PO QDAY [facility] Medical History Post-menopausal Vertigo Heartburn Cataract (lens) fragments in eye following cataract surgery BPPV (benign paroxysmal positional vertigo) Retroperitoneal lymphadenopathy Tubular adenoma of colon Wears glasses Cancer Arthritis Blood in stool GERD (gastroesophageal reflux disease) Non-smoker History of stress test BRBPR (bright red blood per rectum) History of carpal tunnel syndrome Fatigue History of cancer Hypertension Home Medications ?Medication ?Instructions ?Recorded ?Last Taken ?Type losartan 25 mg tablet 25 mg PO DAILY bp 08/04/20 0 10/09/24 History Lactobacillus rhamnosus GG 20 20 cell PO DAILY 4 10/08/24 History billion cell capsule (Probiotic Digestive Care) milk thistle 500 mg capsule 1,000 mg PO QDAY 04/01/24 Unknown History loratadine 10 mg tablet (Claritin) 10 mg PO QDAY aller gy symptoms 09/19/24 10/08/24 History krill oil 500 mg capsule mg PO DAILY 10/09/24 5 History Allergy/AdvReac Type Severity Reaction Status Date / Time lansoprazole (From Prevacid) Allergy Mild Unknown Verified 10/09/24 11:26 bee venom protein (honey bee) Allergy Swelling Verified 10/09/24 11:26 Sulfa (Sulfonamide Allergy Rash Verified 10/09/24 11:26 Antibiotics) Proton Pump Inhibitors AdvReac Upset Verified 10/09/24 11:26 Stomach soy AdvReac Upset Verified 10/09/24 11:26 Stomach Family History Sister Breast cancer x2 Aunt CVA (cerebral vascular accident) Surgical History History of bilateral cataract extraction History of colonoscopy History of carpal tunnel release of both wrists History of appendectomy History of tonsillectomy History of hysterectomy Social History Smoking Status: Never smoker alcohol intake: never ROS Constitutional Constitutional: Denies fatigue, fever(s), poor appetite, weight gain or weight loss Gastrointestinal Gastrointestinal: Denies belching, bloating, change in bowel habits, change in stool character, chewing difficulty, coffee ground emesis, constipation, cramping, diarrhea, dyspepsia, dysphagia, early satiety, excessive flatus, fecal incontinence, heartburn, hematemesis, hematochezia, hemorrhoids, loose stools, melena, nausea, odynophagia, rectal bleeding, tenesmus, vomiting or weight changes Vital Signs Vital Signs Vital Signs: 10/09/24 11:28 10/09/24 11:28 10/09/24 12:26 Temperature 97.6 F L 97.6 F L Temperature Source Temporal Pulse Rate 85 85 Respiratory Rate 16 16 Respiratory Pattern Normal Blood Pressure 147/80 H 147/80 H Blood Pressure Mean 102 Blood Pressure Source Monitor Blood Pressure Position Semi-Fowlers Blood Pressure Location Left Arm Pulse Ox 98 98 Oxygen Delivery Method Room Air Weight Weight: 176 lb 5.917 oz Body Mass Index (BMI) 27.6 Physical Exam Const alert, oriented x3, no apparent distress and healthy appearing General Appearance: cooperative GI normal to inspection, nondistended, normoactive bowel sounds, soft to palpation, non-tender and non-distended Percussion: normal to percussion Rectal Exam: deferred Assessment & Plan Assessment/Plan (1) Colon polyp: PLAN: Attitude: cooperative Assessment and Plan Assessment and Plan (1) 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 She has elevated ferritin, H&H 15.3/45.1%. Glucose 105, TIBC low normal, ferritin 355, high normal. Mildly elevated AST ALT 30s. Glucose mildly elevated 105. A1c 5.7% She had elevated ferritin in the past but most recent 225 in October 2023.and started taking milk thistle but she is on multiple other vitamin supplements and herbal medications. Liver ultrasound shows median liver fibrosis 6.8 kPa, median velocity 1.49 m/s suggestive of mild fibrosis. Echogenic nodule seen both lobes of the liver. Her previous CT scan also reviewed with the patient which showed cyst, hemangioma and cyst but no evidence of enhancing mass in CT triple phage in September 2022. Liver ultrasound with elastography from April 2023 also discussed which shows stable sepated cyst in the left lobe and right hepatic cyst. Median liver stiffness 8.4 kPa In last visit, she did not use for respiratory curtis and does not want to take it. Repeat labs including ferritin and iron profile ordered ordered in [address] triple phage in 6 months. Follow-up in 6 months. (2) Dyslipidemia: Status: Chronic Plan: Triglyceride 320, total cholesterol 194, VLDL 64 HDL low 35. Last lipid profile shows total cholesterol 207, TG 84, LDL 141. One-time triglyceride 320 in October 2023 was lab error Advised weight loss. Currently 183. Was about 172 in October 2022 Orders: Orders CT Abd/Pelvis W/WO Contrast 6 Months E78.5 - Hyperlipidemia, unspecified, K76.0 - Fatty (change of) liver, not elsewhere classified, R79.89 - Other specified abnormal findings of blood chemistry CBC W/Diff, Automated 3 Months E78.5 - Hyperlipidemia, unspecified, K76.0 - Fatty (change of) liver, not elsewhere classified, R79.89 - Other specified abnormal findings of blood chemistry Ferritin 3 Months E78.5 - Hyperlipidemia, unspecified, K76.0 - Fatty (change of) liver, not elsewhere classified, R79.89 - Other specified abnormal findings of blood chemistry CRP 3 Months E78.5 - Hyperlipidemia, unspecified, K76.0 - Fatty (change of) liver, not elsewhere classified, R79.89 - Other specified abnormal findings of blood chemistry Comprehensive Metabolic Profil 3 Months E78.5 - Hyperlipidemia, unspecified, K76.0 - Fatty (change of) liver, not elsewhere classified, R79.89 - Other specified abnormal findings of blood chemistry Prothrombin Time w/INR 3 Months E78.5 - Hyperlipidemia, unspecified, K76.0 - Fatty (change of) liver, not elsewhere classified, R79.89 - Other specified abnormal findings of blood chemistry Transferrin 3 Months E78.5 - Hyperlipidemia, unspecified, K76.0 - Fatty (change of) liver, not elsewhere classified, R79.89 - Other specified abnormal findings of blood chemistry Bilirubin, Direct 3 Months E78.5 - Hyperlipidemia, unspecified, K76.0 - Fatty (change of) liver, not elsewhere classified, R79.89 - Other specified abnormal findings of blood chemistry Iron+Iron Binding Capacity 3 Months E78.5 - Hyperlipidemia, unspecified, K76.0 - Fatty (change of) liver, not elsewhere classified, R79.89 - Other specified abnormal findings of blood chemistry Medications: Changed From loratadine (Claritin) 10 mg PO QDAY To loratadine (Claritin) 10 mg PO QDAY PRN allergy symptoms Discontinued esmca-fv-[id number]-sdp-sjkhidr-ast 1,831-254-12-80 mg (krill oil) Discontinued Reason: Discontinued by PCP/other physicians 1 cap PO QDAY [liver health by [employer]] Discontinued Reason: Discontinued by PCP/other physicians 2 caps PO DAILY L.acid,karen-B.anim,bifid,infan 50 billion cell (Fortify [employer] Women Probiotic) Discontinued Reason: Discontinued by PCP/other physicians 1 cap PO DAILY sour garcia extract (Tart Garcia Extract) Discontinued Reason: Discontinued by PCP/other physicians 2,500 mg PO DAILY [immuneti] Discontinued Reason: Discontinued by PCP/other physicians 2 caps PO DAILY [CL Balance by [employer]] Discontinued Reason: Discontinued by PCP/other physicians 2 caps PO DAILY vitamin E (dl, acetate) Discontinued Reason: Discontinued by PCP/other physicians 540 mg PO DAILY gqszlagkubog-Nr-dfzz-minerals Discontinued Reason: Discontinued by PCP/other physicians 1 TAB PO QDAY On Hold milk thistle Hold Comment: Order Changed 1,000 mg PO QDAY
--- NOTE | 2024-10-09 13:15 | OP.CCLET_ITS ---
10/09/2024 Darryl Ramirez MD [address] [id number] Re : Colonoscopy procedure for Anali Rdz Dear Dr. Ramirez This procedure was performed on October. My impressions and recommendations are as follows: Impressions : - Diverticulosis in the recto-sigmoid colon, in the sigmoid colon, in the transverse colon and in the ascending colon. - The examination was otherwise normal on direct and retroflexion views. - No specimens collected. Recommendations : - Discharge patient to home. - Resume previous diet. - Continue present medications. - Repeat colonoscopy in 5 years for surveillance. My findings are described in the full procedure note, which is enclosed. If I can be of further assistance, please feel free to contact me at . Sincerely, Brian Guerra, 10/09/2024 1:14:51 PM This report has been signed electronically.
--- NOTE | 2024-10-09 13:15 | OP.COLON_ITS ---
Patient Name: Anali Rdz Procedure Date: 10/09/2024 12:22 PM Date of : 1950 Age: 74 Procedure: Colonoscopy Indications: Screening for colorectal malignant neoplasm Providers: Brian Guerra DO Referring MD: Darryl Ramirez MD Medicines: Monitored Anesthesia Care Patient Profile: This is a 74 year old female. Refer to note in patient chart for documentation of history and physical. Last Colonoscopy: 5 years ago. Complications: No immediate complications. Procedure: Pre-Anesthesia Assessment: - Prior to the procedure, a History and Physical was performed, and patient medications and allergies were reviewed. The patient is competent. The risks and benefits of the procedure and the sedation options and risks were discussed with the patient. All questions were answered and informed consent was obtained. Patient identification and proposed procedure were verified by the physician in the pre-procedure area. Mental Status Examination: alert and oriented. Airway Examination: normal oropharyngeal airway and neck mobility. Respiratory Examination: clear to auscultation. CV Examination: normal. Prophylactic Antibiotics: The patient does not require prophylactic antibiotics. Prior Anticoagulants: The patient has taken no anticoagulant or antiplatelet agents except for NSAID medication. ASA Grade Assessment: II - A patient with mild systemic disease. After reviewing the risks and benefits, the patient was deemed in satisfactory condition to undergo the procedure. The anesthesia plan was to use monitored anesthesia care (MAC). Immediately prior to administration of medications, the patient was re-assessed for adequacy to receive sedatives. The heart rate, respiratory rate, oxygen saturations, blood pressure, adequacy of pulmonary ventilation, and response to care were monitored throughout the procedure. The physical status of the patient was re-assessed after the procedure. After I obtained informed consent, the scope was passed under direct vision. Throughout the procedure, the patient's blood pressure, pulse, and oxygen saturations were monitored continuously. The Colonoscope was introduced through the anus and advanced to the cecum, identified by appendiceal orifice and ileocecal valve. The colonoscopy was performed without difficulty. The patient tolerated the procedure well. The quality of the bowel preparation was adequate. The ileocecal valve, appendiceal orifice, and rectum were photographed. Scope In: 12:54:43 PM Scope Withdrawal Time 0 hours 9 minutes 43 seconds Scope Out: 1:09:01 PM Total Procedure Duration Time 0 hours 14 minutes 18 seconds Findings: The perianal and digital rectal examinations were normal. Many small-mouthed diverticula were found in the recto-sigmoid colon, sigmoid colon, transverse colon and ascending colon. The exam was otherwise without abnormality on direct and retroflexion views. Impression: - Diverticulosis in the recto-sigmoid colon, in the sigmoid colon, in the transverse colon and in the ascending colon. - The examination was otherwise normal on direct and retroflexion views. - No specimens collected. Recommendation: - Discharge patient to home. - Resume previous diet. - Continue present medications. - Repeat colonoscopy in 5 years for surveillance. Procedure Code(s): --- Professional --- G0121, Colorectal cancer screening; colonoscopy on individual not meeting criteria for high risk CPT copyright 2021 [employer]. All rights reserved. The codes documented in this report are preliminary and upon potter or ceramic artist review may be revised to meet current compliance requirements. Brian Guerra DO 10/09/2024 1:14:51 PM This report has been signed electronically. Number of Addenda: 0 Note Initiated On: 10/09/2024 12:22 PM
--- NOTE | 2024-10-09 13:20 | PCM.POST.ANE ---
Anesthesia: Postop Eval I Current Vital Signs Temperature: 97.4 F Pulse Rate: 67 Blood Pressure: 113/71 Respiratory Rate: 16 Pulse Ox: 96 Oxygen Delivery Method: Room Air Assessment Airway patent: Yes Spontaneous unlabored respirations: Yes Mental status: Awake and Calm nausea: No Vomiting: No Anesthesia Complication: No Fluid Hydration Crystalloid volume administer (ml): 40 Total IV fluid infused: 40 Progress Note Anesthesia document: Postop Eval 1 completed: Yes
--- NOTE | 2024-10-09 14:05 | PCM.POSTANE2 ---
Anesthesia Postop Eval I Sum Postop Eval Completion status Anesthesia document: Postop Eval 1 completed: Yes Anesthesia Postop Eval I Summary Anesthesia Postop Eval I Summary: Anesthesia Postop Eval I: Assessment Summary Airway patent Yes 10/09/24 13:22 [email or web address] Spontaneous unlabored Yes 10/09/24 13:22 [email or web address] respirations Mental status Awake,Calm 10/09/24 13:22 [email or web address] nausea No 10/09/24 13:22 [email or web address] Vomiting No 10/09/24 13:22 [email or web address] Anesthesia Postop Eval I: Fluid Summary Crystalloid volume administer 40 10/09/24 13:22 [email or web address] (ml) Colloids volume administered ( ml) Blood Product volume administered (ml) Total IV fluid infused 40 10/09/24 13:22 [email or web address] Anesthesia Postop Eval I: Summary Notes Anesthesia Complication No 10/09/24 13:22 [email or web address] Anesthesia Complication Comment: Post-operative progress note Anesthesia: Postop Eval II Evaluation Mental status: Awake and Calm Pain Level: 0 nausea: No Vomiting: No Complications Anesthesia Complication: No
== END 2024-10-09 14:01 | disposition home or self-care (01) ==
LOC: EN 11:01 → AC 11:02
PROVIDERS: PCP Family Medicine; Referring Provider Family Medicine; Visit Provider Internal Medicine Gastroenterology
PROC: 0DJD8ZZ Inspection of Lower Intestinal Tract, Via Natural or Artificial Opening Endoscopic (ICD-10-PCS; CPT 45378; principal; 2024-10-09 11:55)
DX: Z12.11 Encounter for screening for malignant neoplasm of colon (principal); K57.30 Diverticulosis of large intestine without perforation or abscess without bleeding; I10 Essential (primary) hypertension; K76.0 Fatty (change of) liver, not elsewhere classified; Z79.899 Other long term (current) drug therapy
CPT/HCPCS: G0121; A4216; J2405

== ENCOUNTER → 2025-01-29 | Outpatient (CLI) | payer MEDICARE, SELFPAY ==
--- OUTSIDE RECORDS SUMMARY | 2025-01-29 07:31 | XMS RPT_ITS | CCD ---
Author Organization [facility] Care Team Providers Care Self Pay Specialist Name Role Phone Robert Braun Unavailable Unavailable PROVIDER, UNKNOWN Unavailable Unavailable No, PCP Unavailable Unavailable Dr. Darryl Ramirez Primary Care Provider Dr. Darryl Ramirez Referring Provider Friend, Dr. Torres Attending Provider [phone] Lynette SUPERVISOR ANODIZING, SUPERVISOR ANODIZING-C Tigist Rodriguez Attending Provider Dr. Darryl Ramirez Primary Care Provider Dr. Darryl Ramirez Referring Provider Lynette SUPERVISOR ANODIZING, SUPERVISOR ANODIZING-C Tigist Rodriguez Attending Provider [phone] Dr. Darryl Ramirez Primary Care Provider Dr. Darryl Ramirez Referring Provider MANN Moreira Attending Provider Dr. Darryl Ramirez Primary Care Provider Dr. Darryl Ramirez Referring Provider MANN Moreira Attending Provider Dr. Paul Rodriguez Attending Provider Dr. Darryl Ramirez Primary Care Provider Dr. Darryl Ramirez Referring Provider DR. DARRYL NARAYAN Primary Care Physician DR. DARRYL NARAYAN Primary Care CHIQUI Ford MD Attending Unavailable Dr. Darryl Ramirez MD Primary Care Provider Alia DANIEL, Dr. Florian Attending Provider Alia DANIEL, Dr. Florian Referring Provider Mihcael DANIEL, Dr. Miller Attending Provider Michael DANIEL, Dr. Miller Referring Provider James DANIEL, Dr. Andrews Referring Provider Friend DO, Dr. Torres Attending Provider Friend DO, Dr. Torres Other Provider [phone] Michael, Pual Attending Unavailable Ramirez, Darryl Referring Unavailable Ramirez, Darryl Primary Care Unavailable Ramirez, Darryl Primary Care Unavailable Ramirez, Darryl Referring Unavailable Michael, Paul Attending Unavailable Ramirez, Darryl Referring Unavailable Ramirez, Darryl Primary Care Unavailable Friend, Brian Consulting Unavailable Friend, Brian Attending Unavailable Ramirez, Darryl Referring Unavailable Ramirez, Darryl Primary Care Unavailable Michael, Paul Attending Unavailable Friend, Brian Attending Unavailable Ramirez, Darryl Referring Unavailable Ramirez, Darryl Primary Care Unavailable Ramirez, Darryl Primary Care Unavailable Alia, Chiqui Attending Unavailable Alia, Chiqui Referring Unavailable Michael, Paul Referring Unavailable Ramirez, Darryl Primary Care Unavailable Michael, Paul Attending Unavailable Michael, Paul Referring Unavailable Michael, Paul Attending Unavailable Ramirez, Darryl Primary Care Unavailable Ramirez, Darryl Primary Care Unavailable Michael, Paul Referring Unavailable Michael, Paul Attending Unavailable SYLVAIN, DR. DARRYL HOUSER Primary Care Flaca FREITAS, ELIAN Fu Attending Flaca FREITAS, ELIAN Fu Attending Flaca NARAYAN, DR. DARRYL HOUSER Primary Care Flaca vergara Allergies Allergy Classification Reported Allergen(s) Allergy Type Date of Onset Reaction(s) Facility (20 sources) lansoprazole Drug Allergy 1 Unknown [facility] (20 sources) Proton Pump Inhibitors; Translations: [Proton Pump Inhibitors] Propensity to adverse reactions 1 Upset Stomach [facility] (20 sources) Soy protein; Translations: [soy] Propensity to adverse reactions 1 Upset Stomach [facility] (20 sources) Sulfonamides (Antibiotic); Translations: [Sulfa (Sulfonamide Antibiotics)] Allergy to substance 1 Rash [facility] (20 sources) bee venom protein (honey bee) Allergy to substance 1 Swelling [facility] (1 source) Omeprazole; Translations: [omeprazole] Drug Allergy upset stomach [facility] (1 source) Sulfonamide; Translations: [sulfa drugs] Drug allergy rash (when very young) [facility] (1 source) lansoprazole Drug Allergy 5 [facility] (1 source) bee venom protein (honey bee) Drug allergy (disorder) 5 [facility] Medications Current Medications Medication Drug Class(es) Dates Sig (Normalized) Sig (Original) Immuneti (1 source) Start: 06-04-2023 Immuneti Immuneti, 0 Refill(s) Start Date: 06/04/23 Status: Ordered Repeat number: 1 krill oil 500 mg oral capsule (20 sources) Start: 10-09-2024 take 1 mg by mouth once daily Krill Oil 500 mg capsule Active mg PO DAILY October 09, 2024 12:00am Start: 04-01-2024 End: 09-19-2024 take 1 capsule by mouth once daily Pnkbc-Yx-3-Wdv-Ftx-Klnzqem-Ast (Krill Oi l) [id number] mg capsule Discontinued 1 NMA PO daily April 01, 2024 12:00am September 19, 2024 1:30pm Start: 10-05-2017 End: 03-18-2019 take 2 capsules by mouth once daily Krill Oil 500 MG capsule Discontinued 10 00 mg PO DAILY October 05, 2017 12:00am March 18, 2019 7:21am Start: 10-05-2017 End: 03-18-2019 take 1000 mg by mouth once daily Krill Oil Discontinued 1000 MG PO DAILY October 05, 2017 12:00am March 18, 2019 7:21am lactobacillus rhamnosus gg [id number] unt oral capsule (3 sources) Start: 04-01-2024 Lactobacillus Rhamnosus Gg (Probiotic Digestive Care) 20 billion cell capsule Active 20 NMA PO DAILY April 01, 2024 12:00am [facility] (1 source) Start: 06-24-2024 [facility], 0 Refill(s), 79 Start Date: 06/24/24 Status: Ordered Repeat number: 1 loratadine 10 mg oral tablet (7 sources) Start: 04-01-2024 End: 09-19-2024 take 1 tablet by mouth once daily Loratadine (Claritin) 10 mg tablet Active 10 mg PO daily September 19, 2024 1:36pm Start: 06-04-2023 Claritin qDay, 0 Refill(s) Start Date: 06/04/23 Status: Ordered Repeat number: 1 losartan potassium 25 mg oral tablet (20 sources) Angiotensin 2 Receptor Raymond Start: 08-04-2020 take 1 tablet by mouth once daily Losartan 25 mg tablet Active 25 mg PO DAILY August 04, 2020 1:00am Start: 10-05-2017 End: 03-18-2019 take 1 tablet by mouth at bedtime Losartan 25 MG tablet Discontinued 25 mg PO AT BEDTIME October 05, 2017 12:00am March 18, 2019 7:21am MegaRed Ultra Krill Oil 1000 mg oral capsule (1 source) Start: 06-04-2023 MegaRed Ultra Krill Oil 1000 mg oral capsule Dose : 1,000 mg = 1 cap(s), Oral, 0 Refill(s) Start Date: 06/04/23 Status: Ordered Repeat number: 1 Milk Thistle (4 sources) Start: 04-01-2024 take 2 capsules by mouth once daily Milk Thistle 500 mg capsule Active 1000 mg PO daily April 01, 2024 12:00am give with meal/snack Start: 04-01-2024 take 2 capsules by m outh once daily Milk Thistle 500 mg capsule Active 1000 mg PO daily April 01, 2024 12:00am On Hold: Order Changed give with meal/snack Start: 06-04-2023 milk thistle o ral capsule 0 Refill(s) Start Date: 06/04/23 Status: Ordered Repeat number: 1 Pr[facility] (1 source) Start: 06-04-2023 Primal Bone He alth Calciu [facility], 0 Refill(s) Start Date: 06/04/23 Status: Ordered Repeat number: 1 Rephresh Probiotic (1 source) Start: 06-04-2023 Rephresh Probi otic Rephresh Probiotic, 0 Refill(s) Start Date: 06/04/23 Status: Ordered Repeat number: 1 Tart Montero (1 source) Start: 06-04-2023 Tart Montero Ta rt Montero, 0 Refill(s) Start Date: 06/04/23 Status: Ordered Repeat number: 1 Completed/Discontinued Medications Medication Drug Class(es) Dates Sig (Normalized) Sig (Original) bisacodyl 5 mg delayed release oral tablet (20 sources) Stimulant Laxative Start: 04-15-2021 End: 05-19-2022 take 4 tablets by mouth once Bisacodyl 5 mg tablet,delayed release (DR/EC) Discontinued 20 mg PO ONCE April 15, 2021 12:00am May 19, 2022 9:50am Start: 04-15-2021 End: 05-19-2022 take 20 mg by mouth once Bisacodyl Discontinued 20 MG PO ONCE April 15, 2021 12:00am May 19, 2022 9:50am calcium carbonate 1500 mg oral tablet (3 sources) Start: 04-01-2024 End: 09-19-2024 take 1 tablet by mouth once daily Calcium Carbonate 600 mg calcium (1,500 mg) tablet Discontinued 600 mg PO daily April 01, 2024 12:00am September 19, 2024 1:04pm celecoxib 200 mg oral capsule (20 sources) Nonsteroidal Anti-inflammatory Drug Start: 11-24-2020 End: 03-22-2021 take 1 capsule by mouth once daily Celecoxib (Celebrex) 200 mg capsule Discontinued 200 mg PO DAILY November 24, 2020 12:00am March 22, 2021 8:44am Do not take in conjunction with other NSAIDs. CL Balance by [employer] (3 sources) Start: 04-01-2024 End: 09-19-2024 CL Balance by [employer] Discontinued 2 NMA PO DAILY April 01, 2024 12:00am September 19, 2024 1:30pm CL Balance supplement (1 source) Start: 06-24-2024 CL Balance supplement CL Balance supplement, 0 Refill(s), 79 Start Date: 06/24/24 Status: Ordered Repeat number: 1 clindamycin 300 mg oral capsule (20 sources) Lincosamide Antibacterial Start: 03-20-2019 End: 08-04-2020 take 1 capsule by mouth three times daily Clindamycin Hcl 300 mg capsule Discontinued 300 mg PO THREE TIMES A DAY March 20, 2019 12:00am August 04, 2020 2:32pm immuneti (3 sources) Start: 04-01-2024 End: 09-19-2024 immuneti Discontinued 2 NMA PO DAILY April 01, 2024 12:00am September 19, 2024 1:30pm L.Acid,Linda-B.Anim,Bifi d,Infan ([employer] [place] [employer] Probiotic) 50 billion cell capsule,delayed release(DR/EC) (3 sources) Start: 04-01-2024 End: 09-19-2024 L.Acid,Linda-B.An im,Bifid,Infan ([employer] [place] [employer] Probiotic) 50 billion cell capsule,delayed release(DR/EC) Discontinued 1 NMA PO DAILY April 01, 2024 12:00am September 19, 2024 1:30pm liver health by [employer] (3 sources) Start: 04-01-2024 End: 09-19-2024 liver health by [employer] Discontinued 2 NMA PO DAILY April 01, 2024 12:00am September 19, 2024 1:30pm meclizine hydrochloride 25 mg oral tablet (9 sources) Antiemetic Start: 03-13-2023 End: 04-01-2024 take 1 tablet by mouth three times daily as needed for dizziness Meclizine 25 mg tablet Discontinued 25 mg PO THREE TIMES A DAY as needed for dizziness or vertigo March 13, 2023 12:00am April 01, 2024 12:41pm meloxicam 15 mg oral tablet (20 sources) Nonsteroidal Anti-inflammatory Drug Start: 08-04-2020 End: 03-22-2021 take 1 tablet by mouth once daily Meloxicam (Mobic) 15 mg tablet Discontinued 15 mg PO DAILY October 27, 2020 12:00am March 22, 2021 8:44am methylPREDNISolone acetate 40 mg/ml injectable suspension (2 sources) Corticosteroid Start: 10-27-2020 End: 10-27-2020 Depo-Medrol (methylprednisol one acetate) 40 mg/mL suspension for injection Discontinued 80 MG INTRAARTIC ONCE October 27, 2020 12:50pm October 27, 2020 1:29pm minocycline 100 mg oral capsule (20 sources) Tetracycline-class Drug Start: 10-05-2017 End: 03-18-2019 Minocycline 100 MG capsule Discontinued 100 mg PO NEEDED as needed for rosacea October 05, 2017 12:00am March 18, 2019 7:21am Tmnehpmlboha-Mw-Xctk-Mi nerals tablet (3 sources) Start: 09-19-2024 End: 09-19-2024 Multivitamin-Ca- Iron-Minerals tablet Discontinued 1 {tbl} PO daily September 19, 2024 12:00am September 19, 2024 1:16pm naproxen 250 mg oral tablet (20 sources) Nonsteroidal Anti-inflammatory Drug Start: 10-24-2017 End: 03-18-2019 take 250-500 mg by mouth twice daily as needed for pain Naproxen 250 MG tablet Discontinued 250 - 500 mg PO TWICE A DAY as needed for Mild-Mod Pain (1-5/10) October 24, 2017 4:01pm March 18, 2019 7:21am oxyCODONE hydrochloride 5 mg oral tablet (20 sources) Opioid Agonist Start: 10-24-2017 End: 03-18-2019 take 5-10 mg by mouth every six hours as needed for pain Oxycodone 5 MG tablet Discontinued 5 - 10 mg PO EVERY 6 HOURS NEEDED as needed for Mod-Severe Pain (4-10/10) 28 October 24, 2017 12:00am March 18, 2019 7:21am polyethylene glycol 3350 78973 mg powder for oral solution (20 sources) Osmotic Laxative Start: 04-15-2021 End: 05-19-2022 Polyethylene Glycol 3350 (Miralax) 17 gram/dose powder Discontinued 17 g PO Q10M 238 April 15, 2021 12:00am May 19, 2022 9:51am Start: 10-24-2017 End: 03-18-2019 take 17 g by mouth once daily Polyethylene Glycol 3350 17 GM packet Discontinued 17 g PO DAILY October 24, 2017 12:00am March 18, 2019 7:21am sour montero allergenic extract (3 sources) Non-Standardized Food Allergenic Extract, Non-Standardized Plant Allergenic Extract Start: 04-01-2024 End: 09-19-2024 take 1 capsule by mouth once daily Sour Montero Extract (Tart Montero Extract) 1,000 mg capsule Discontinued 2500 mg PO DAILY April 01, 2024 12:00am September 19, 2024 1:31pm traMADol hydrochloride 50 mg oral tablet (20 sources) Opioid Agonist Start: 10-10-2017 End: 03-18-2019 take 1 tablet by mouth every six hours as needed for pain Tramadol 50 MG tablet Discontinued 50 mg PO EVERY 6 HOURS NEEDED as needed for Mod-Severe Pain (-04/17) 5 2 October 10, 2017 12:00am March 18, 2019 7:21am vitamin e 180 mg oral capsule (7 sources) Start: 04-01-2024 End: 09-19-2024 Vitamin E (Dl, Acetate) 180 mg (400 unit) capsule Discontinued 540 mg PO DAILY April 01, 2024 12:41pm September 19, 2024 1:31pm Start: 10-23-2023 End: 04-01-2024 take 1 capsule by mouth once daily Vitamin E (Dl, Acetate) 180 mg (400 unit) capsule Discontinued 180 mg PO DAILY October 23, 2023 12:00am April 01, 2024 12:41pm Start: 06-04-2023 vitamin E Oral , 0 Refill(s) Start Date: 06/04/23 Status: Ordered Repeat number: 1 Problems Problem Classification Problem Date Documented Da te Episodic/Chronic Cancer; other and unspecified primary (1 source) H/O: malignant neoplasm 06-24-2024 Episodic Conditions associated with dizziness or vertigo (12 sources) Benign paroxysmal positional vertigo; Translations: [Benign paroxysmal vertigo, unspecified ear] 03-13-2023 Episodic Disorders of lipid metabolism (7 sources) Dyslipidemia; Translations: [Hyperlipidemia, unspecified] Onset: 5 10-23-2023 Chronic Gastrointestinal hemorrhage (20 sources) Gastrointestinal hemorrhage; Translations: [Hemorrhage of anus and rectum] 03-22-2021 Episodic Lymphadenitis (20 sources) Retroperitoneal lymphadenopathy ; Translations: [Localized enlarged lymph nodes] Episodic Other and unspecified benign neoplasm (20 sources) Tubular adenoma of colon; Translations: [Benign neoplasm of colon, unspecified] 01-18-2022 Episodic Other and unspecified benign neoplasm (2 sources) Polyp of colon; Translations: [Polyp of colon] 10-09-2024 Episodic Other and unspecified benign neoplasm (1 source) Polyp of colon; Translations: [Polyp of colon] Onset: 5 Episodic Other connective tissue disease (18 sources) Nontraumatic rupture of rotator cuff of right shoulder; Translations: [Incomplete rotator cuff tear or rupture of right shoulder, not specified as traumatic] 11-24-2020 Episodic Other connective tissue disease (20 sources) Rotator cuff impingement syndrome; Translations: [Impingement syndrome of right shoulder] 11-24-2020 Episodic Other connective tissue disease (20 sources) Biceps tendinitis; Translations: [Bicipital tendinitis, right shoulder] 11-24-2020 Episodic Other connective tissue disease (3 sources) Non-traumatic partial tear of right rotator cuff; Translations: [Incomplete rotator cuff tear or rupture of right shoulder, not specified as traumatic] 11-24-2020 Episodic Other liver diseases (19 sources) Steatosis of liver; Translations: [Fatty (change of) liver, not elsewhere classified] 01-18-2022 Chronic Other liver diseases (20 sources) Fatty (change of) liver, not elsewhere classified; Translations: [Other chronic nonalcoholic liver disease] Onset: 5 Chronic Other liver diseases (4 sources) Non-alcoholic fatty liver; Translations: [Fatty (change of) liver, not elsewhere classified] Chronic Other screening for suspected conditions (not mental disorders or infectious disease) (17 sources) Protein level - finding; Translations: [Other specified abnormal findings of blood chemistry] Onset: 5 05-19-2022 Episodic Other upper respiratory infections (20 sources) Acute pharyngitis; Translations: [Acute pharyngitis, unspecified] 03-18-2019 Episodic Residual codes; unclassified (1 source) Family history of breast cancer 06-24-2024 Episodic Unclassified (19 sources) Incomplete rotator cuff tear or rupture of left shoulder, not specified as traumatic 11-24-2020 Results Test Name Value Interpretation Reference Range Facility MRI BREAST W/ + W/O CONTRAST BILATERALon 12-15-2024 MRI BREAST W/ + W/O CONTRAST BILATERAL ORIGINAL FROM: [address] [address] PROCEDURE FOR: ANALI RDZ [address] [place] [address] Home: PID#: [id number] Exam#: [id number] : 1950 Age: 74 TO: ELIAN OROPEZA SPANISH INTERPRETER PHYSICIAN PRACTICE COORDINATOR [address] [address] Fax: NO FAX EXAMINATION: MRI OF THE BILATERAL BREASTS WITHOUT AND WITH CONTRAST 12/09/2024 1:23 pm TECHNIQUE: Multiplanar multisequence MRI of the bilateral breasts were performed without and with the administration of intravenous contrast. Data analysis was performed with color parametric mapping, image subtraction, and 3D reconstructions. COMPARISON: July 03, 2024, June 01, 2023, May 17, 2022 HISTORY: ORDERING SYSTEM PROVIDED HISTORY: Reason for Exam: Screening, high risk of breast cancer, CHEK2 positive PT STATES NO COMPLAINTS. FAMILY HISTORY OF BREAST CANCER. CHEK2 POSITIVE. FINDINGS: Heterogeneous fibroglandular tissue is seen bilaterally. Bilateral background parenchymal enhancement is mild and is symmetric. No significant enhancing masses seen in either breast. There are no enlarged axillary or internal mammary lymph nodes. There is a small hiatal hernia. IMPRESSION: Negative exam. No evidence of a breast carcinoma measuring 3 mm in size or greater. Continued screening with annual mammograms and MRIs are recommended per the patient's screening protocol. BIRADS: BI-RADS: 1: Negative RECALL: return to screening RECALL TYPE: Mammo+MRI LETTER SENT: Normal BI-RADS 1 and 2 Interpreted by: Aster Thomas Preliminary Report By: Aster Thomas Electronically signed By Aster Thomas Dictated Date: 12/15/2024 9:04:38 AM Prelim Date: 12/15/2024 9:05:49 AM Sign Date: 12/15/2024 9:05:49 AM Ordering Provider: ELIAN OROPEZA Battery Loader: ISIDRO LUNA letter sent: Normal BI-RADS 1 and 2 MRI BI-RADS: 1 Negative Normal [facility] Colonoscopy Reporton 025 Colonoscopy Report [facility] Medical Records Department [address] [place] [id number] Colonoscopy Report MR#: [id number] Acct: [id number] Name: ANALI RDZ Rep #: [id number] : 1950 74 From: Brian Guerra DO PCP: Dr. Darryl Ramirez MD Status:[facility] [place] Patient Name: Anali Rdz Procedure Date: 10/09/2024 12:22 PM Date of : 1950 Age: 74 Procedure: Colonoscopy Indications: Screening for colorectal malignant neoplasm Providers: Brian Guerra DO Referring MD: Darryl Ramirez MD Medicines: Monitored Anesthesia Care Patient Profile: This is a 74 year old female. Refer to note in patient chart for documentation of history and physical. Last Colonoscopy: 5 years ago. Complications: No immediate complications. Procedure: Pre-Anesthesia Assessment: - Prior to the procedure, a History and Physical was performed, and patient medications and allergies were reviewed. The patient is competent. The risks and benefits of the procedure and the sedation options and risks were discussed with the patient. All questions were answered and informed consent was obtained. Patient identification and proposed procedure were verified by the physician in the pre-procedure area. Mental Status Examination: alert and oriented. Airway Examination: normal oropharyngeal airway and neck mobility. Respiratory Examination: clear to auscultation. CV Examination: normal. Prophylactic Antibiotics: The patient does not require prophylactic antibiotics. Prior Anticoagulants: The patient has taken no anticoagulant or antiplatelet agents except for NSAID medication. ASA Grade Assessment: II - A patient with mild systemic disease. After reviewing the risks and benefits, the patient was deemed in satisfactory condition to undergo the procedure. The anesthesia plan was to use monitored anesthesia care (MAC). Immediately prior to administration of medications, the patient was re-assessed for adequacy to receive sedatives. The heart rate, respiratory rate, oxygen saturations, blood pressure, adequacy of pulmonary ventilation, and response to care were monitored throughout the procedure. The physical status of the patient was re-assessed after the procedure. After I obtained informed consent, the scope was passed under direct vision. Throughout the procedure, the patient's blood pressure, pulse, and oxygen saturations were monitored continuously. The Colonoscope was introduced through the anus and advanced to the cecum, identified by appendiceal orifice and ileocecal valve. The colonoscopy was performed without difficulty. The patient tolerated the procedure well. The quality of the bowel preparation was adequate. The ileocecal valve, appendiceal orifice, and rectum were photographed. Scope In: 12:54:43 PM Scope Withdrawal Time 0 hours 9 minutes 43 seconds Scope Out: 1:09:01 PM Total Procedure Duration Time 0 hours 14 minutes 18 seconds Findings: The perianal and digital rectal examinations were normal. Many small-mouthed diverticula were found in the recto-sigmoid colon, sigmoid colon, transverse colon and ascending colon. The exam was otherwise without abnormality on direct and retroflexion views. Impression: - Diverticulosis in the recto-sigmoid colon, in the sigmoid colon, in the transverse colon and in the ascending colon. - The examination was otherwise normal on direct and retroflexion views. - No specimens collected. Recommendation: - Discharge patient to home. - Resume previous diet. - Continue present medications. - Repeat colonoscopy in 5 years for surveillance. Procedure Code(s): --- Professional --- G0121, Colorectal cancer screening; colonoscopy on individual not meeting criteria for high risk CPT copyright 2021 [employer]. All rights reserved. The codes documented in this report are preliminary and upon director of construction review may be revised to meet current compliance requirements. Brian Guerra DO 10/09/2024 1:14:51 PM This report has been signed electronically. Number of Addenda: 0 Note Initiated On: 10/09/2024 12:22 PM 10/09/24 1315 Date Brian Guerra DO Cosigner Signature: Date (if indicated) CC: Dr. Darryl Ramirez MD; Brian Guerra DO Date Dictated: 10/09/24 1222 Date Transcribed: Supervisor Assembly And Packing: CORBIN Signed [facility] MR/POSTOP.Gagan 10-09-2024 MR/POSTOP.[facility] Medical Records Department [address] [place] [address] Anesthesia Postop Eval I 10/09/24 1320 MR#: [id number] Acct: [id number] Name: ANALI RDZ Rep #: [id number] : 1950 74 From: Dilip Triana PCP: Dr. Darryl Ramirez MD Status:[facility] Y Race: C Location: [place] [address] Anesthesia: Postop Eval I Current Vital Signs Temperature: 97.4 F Pulse Rate: 67 Blood Pressure: 113/71 Respiratory Rate: 16 Pulse Ox: 96 Oxygen Delivery Method: Room Air Assessment Airway patent: Yes Spontaneous unlabored respirations: Yes Mental status: Awake and Calm nausea: No Vomiting: No Anesthesia Complication: No Fluid Hydration Crystalloid volume administer (ml): 40 Total IV fluid infused: 40 Progress Note Anesthesia document: Postop Eval 1 completed: Yes 10/09/24 1322 Date Dilip Coxignsteffany Signature: Date CC: Signed Normal [facility] [id number] 10-09-2024 [facility] Medical Records Department [address] [place] [address] Anesthesia Postop Eval II 10/09/24 1405 MR#: [id number] Acct: [id number] Name: ANALI RDZ Rep #: [id number] : 1950 74 From: Juliana Thomas PCP: Dr. Darryl Ramirez MD Status:[facility] Y Race: C Location: EN Anesthesia Postop Eval I Sum Postop Eval Completion status Anesthesia document: Postop Eval 1 completed: Yes Anesthesia Postop Eval I Summary Anesthesia Postop Eval I Summary: Anesthesia Postop Eval I: Assessment Summary Airway patent Yes 10/09/24 13:22 [email or web address] Spontaneous unlabored Yes 10/09/24 13:22 [email or web address] respirations Mental status Awake,Calm 10/09/24 13:22 [email or web address] nausea No 10/09/24 13:22 [email or web address] Vomiting No 10/09/24 13:22 [email or web address] Anesthesia Postop Eval I: Fluid Summary Crystalloid volume administer 40 10/09/24 13:22 [email or web address] (ml) Colloids volume administered ( ml) Blood Product volume administered (ml) Total IV fluid infused 40 10/09/24 13:22 [email or web address] Anesthesia Postop Eval I: Summary Notes Anesthesia Complication No 10/09/24 13:22 [email or web address] Anesthesia Complication Comment: Post-operative progress note Anesthesia: Postop Eval II Evaluation Mental status: Awake and Calm Pain Level: 0 nausea: No Vomiting: No Complications Anesthesia Complication: No 10/09/24 1406 Date Juliana Dotterer Cosigner Signature: Date CC: Signed Normal [facility] Gastroenterology Visit Repor ton 09-19-2024 Gastroenterology Visit Report [facility] [address] [place] [address] OFFICE VISIT Date of Service: 09/19/24 MR#: [id number] Acct: [id number] Name: AANLI RDZ Rep #: [id number] : 1950 Provider: Dr. Paul bryan MD Age/Sex: 74/F [place] [facility] [place]: Signed Intake Vital Signs 04/01/24 12:42 09/19/24 12:59 Height 5 ft 7 in 5 ft 7 in Weight: 182 lb 183 lb BMI 28.5 28.6 BP 145/81 H 144/81 H Blood Pressure Location Rt brachial Rt brachial Position Sitting Sitting Respiration 16 12 Pulse 74 71 Pulse Source Monitor Monitor Temp 99.1 F Temp Source Temporal Pulse Oximetry (%) 94 94 Oxygen Delivery Method room air room air Intake Visit Reasons: 6 M FU Chief Complaint: F/u non-alcoholic fatty liver Box Stamper Required: No Accompanied by: Is patient in pain?: No Allergies lansoprazole (From Prevacid) Allergy (Mild, Verified 09/19/24 13:01) Unknown bee venom protein (honey bee) Allergy (Verified 09/19/24 13:01) Swelling Sulfa (Sulfonamide Antibiotics) Allergy (Verified 09/19/24 13:01) Rash Proton Pump Inhibitors Adverse Reaction (Verified 09/19/24 13:01) Upset Stomach soy Adverse Reaction (Verified 09/19/24 13:01) Upset Stomach Medications ???Medication ???Instructions ???Recorded ???Confirmed ???Type losartan 25 mg tablet 25 mg PO DAILY bp 08/04/20 5 History Lactobacillus rhamnosus GG 20 20 cell PO DAILY 04/01/24 09/19/24 History billion cell capsule (Probiotic Digestive Care) milk thistle 500 mg capsule 1,000 mg PO QDAY 04/01/24 09/19/24 History Held on 09/19/24. Instructions: Order Changed loratadine 10 mg tablet (Claritin) 10 mg PO QDAY PRN allergy sympto ms 09/19/24 09/19/24 History Have you fallen in the past year?: No PFSH Medical History Cataract (lens) fragments in eye following cataract surgery BPPV (benign paroxysmal positional vertigo) Retroperitoneal lymphadenopathy Tubular adenoma of colon Wears glasses Cancer Arthritis Blood in stool GERD (gastroesophageal reflux disease) Non-smoker History of stress test BRBPR (bright red blood per rectum) History of carpal tunnel syndrome Fatigue History of cancer Hypertension Surgical History History of colonoscopy History of carpal tunnel release of both wrists History of appendectomy History of tonsillectomy History of hysterectomy Family History Sister Breast cancer x2 Aunt CVA (cerebral vascular accident) Social History Smoking Status: Never smoker alcohol intake: never HPI HPI Chief Complaint: F/u non-alcoholic fatty liver Details: ANALI RDZ, is a 74 F who presents to the office today for BGI Established 04.15.21. She was previously seen by Dr. Terence Parada for rectal bleeding, there was also a polyp that she was unable to remove. Colonoscopy 03.29.[address] Terence Parada finding diverticulosis of sigmoid, descending and transverse colons; one 7mm polyp at appendiceal orifice. Colonoscopy 04.28.21 finding diverticulosis of sigmoid and descending colons; one 5mm hyperplastic polyp with benign lymphoid tissue removed from cecum. Tubular adenoma ??? repeat colonoscopy 2025. CT abd/pel 6.. without lymphadenopathy; fatty infiltration of liver; contracted thick-walled gallbladder without stones; minor diverticular changes of colon without acute diverticulitis. chk US abd/elastography 8.9.22- Liver measures 13.9cm- fatty infiltration of liver, subcentimeter cyst in the left lower lobe of liver, 10 kPa US abd/elastograpgy 3.3.23- Liver measures 15cm , 9 kPa - several echogenic nodules throughout the right and left lobe of the liver, nodules in both lobes of thyroid gland, reccomended CT CT abd/pel w/ contrast 3.7.23- stable liver cysts, no other mass seen. 10/2022 labs: crp 4.38 H, ferr 271 H, unremarkable CBC, unremarkable CMP OV 04.12.23 Liver stiffness improved. Cont. Milk thistle and Vitamin E. Diet and excercise. Rpt labs and Us in 6 mo US abd/elastograpgy 10.30.23- Liver measuring 16.8cm , 8.4kPa OV 11.6.23 Pt reports doing very well since last visit. Occasional bloating and gas. BM are normal and consistent. No other changes. Labs and ultrasound reviewed from May 07, 2023. Patient is taking liver cleanse and used to take milk thistle CT abd/pel Triple phase 4.3.24- Stable 5mm cyst in the anterior aspect of the left lobe of the liver, scattered sigmoid diverticula, fatty infiltration of liver OV 4.16.24 Pt stable since last visit. Continues to have occasional bloating and gas. BM remain normal. No other concern (more content not included)... Normal [facility] ABD Limited w/ Elastographyo n 09-15-2024 ABD Limited w/ Elastography [facility] Imaging Services [address] [place] [address] ABD Limited w/ Elastography MR#: [id number] Acct: [id number] Name: ANALI RDZ Rep #: [id number] : 1950 F 74 From: Jose lopez MD PCP: Dr. Darryl Ramirez MD Status: REG CLI Study: ABD Limited w/ Elastography Date of Exam: 09/06 Exam# [id number] Ordering Dr: Paul Rodriguez MD PROCEDURE: ABD LIMITED W/ ELASTOGRAPHY REASON FOR EXAM: Hepatic cyst. COMPARISON: Comparison is made with prior study dated May 07, 2023. TECHNIQUE: Right upper quadrant abdominal ultrasound. wst.cn ElastQ Imaging shear wave elastography for non- invasive assessment of liver tissue stiffness. wst.cn EPIQ Elite. FINDINGS: LIVER: Size: Hepatomegaly. Length: 18.2 cm cm Echotexture: Diffusely echogenic suggesting fatty infiltration Contour: Normal Lesions: Stable 1 cm cyst in the left lobe of the liver. There are multiple echogenic nodules scattered throughout both lobes of the liver. These may represent multiple hemangiomas. Correlation with a CT scan is recommended for further evaluation. Elastography: EQI Med: 6.8 kPa EQI Med Gino: 1.49 m/s IQR/Med: 16 %* GALLBLADDER: Normal COMMON BILE DUCT: Normal it measures 5 mm. PANCREAS: Normal Visualized portions of the right kidney are unremarkable. No right upper quadrant ascites. US/ABD Limited w/ Elastography IMPRESSION: NO TO MILD HEPATIC FIBROSIS Multiple echogenic nodule seen throughout both lobes of the liver as described. Correlation with a CT scan following IV contrast recommended. Reference Values: SRU <1.37 m/s (5.7kPa): No to mild fibrosis 1.37 m/s - 2.2 m/s: Moderate to severe fibrosis >2.2 m/s (15kPa): Significant fibrosis / cirrhosis METAVIR Score F2 or higher: 1.34 m/s (5.7kPa) F3 or higher: 1.55 m/s (7.3kPa) F4: 1.80 m/s (10kPa) * If the IQR/Med is >30%, the variance in the measurements is a large and the accuracy of the measurement may be in question. Reading Location: [place] [address] CC: Dr. Darryl Ramirez MD; Dr. Paul Rodriguez MD Supervisor Assembly And Packing: Signed Normal [facility] AFP, Tumor Markeron 09-14-19 25 AFP TUMOR JADEN 2.0 ng/mL Normal 0.0-9.2 [facility] Comment on above: Order Comment: N Result Comment: [facility] Electrochemiluminescence Immunoassay (ECLIA) Values obtained with different assay methods or kits cannot be used interchangeably. Results cannot be interpreted as absolute evidence of the presence or absence of malignant disease. This test is not interpretable in females. Performed at: [facility] [id number] Manager Rfid: Anderson Holguin PhD, Phone: [phone] Performed By: #### L 506.0400, L501.9520, L506.1001, L501.9985, L500.4100, L3300.0700, L300.3900, L503.6550, L503.6030, L100.0100, L500.4050 ####[facility] [address] [place], [address] Absolute neutrophil countOrd ered By: Paul Rodriguez on 09-12-2024 Neutrophils (Bld) [#/Vol] 4.0 10*3/uL 2.0-7.7 [facility] Alpha fetoprotein measuremen t as tumor markerOrdered By: Paul Rodriguez on 09-12-2024 Tumor Marker Alpha Fetoprotein 2.0 ng/mL 0.0-9.2 [facility] Comment on above: [facility] El ectrochemiluminescence Immunoassay(ECLIA)Values obtained with different assay methods or kits cannotbe used interchangeably. Results cannot be interpreted asabsolute evidence of the presence or absence of malignantdisease.This test is not interpretable in females.Performed at: [facility] [id number] Director: Anderson Holguin PhD, Phone: [phone] Anion gap in Serum or Plasma Ordered By: Paul Rodriguez on 09-12-2024 Anion gap [Moles/Vol] 15 mmol/L 5-15 [facility] BUN/creatinine ratioOrdered By: Paul Rodriguez on 09-12-2024 Urea nitrogen/Creatinine [Mass ratio] 18.3 mg/mg 10-20 [facility] Basophil percentageOrdered B y: Paul Rodriguez on 09-12-2024 Basophils/100 WBC (Bld) 0.6 % 0-1 [facility] Bilirubin, totalOrdered By: Paul Rodriguez on 09-12-2024 Bilirubin [Mass/Vol] 0.45 mg/dL 0.00-1.30 [facility] CBC W/Diff, Automatedon Absolute Lymph 1.73 X10 3/uL Normal 0.83-4.51 [facility] Comment on above: Performed By: #### L 506.0400, L501.9520, L506.1001, L501.9985, L500.4100, L3300.0700, L300.3900, L503.6550, L503.6030, L100.0100, L500.4050 #### [facility] [address] [facility] [place], [address] Absolute Neut 4.0 X10 3/uL Normal 2.0-7.7 [facility] Comment on above: Performed By: #### L 506.0400, L501.9520, L506.1001, L501.9985, L500.4100, L3300.0700, L300.3900, L503.6550, L503.6030, L100.0100, L500.4050 #### [facility] [address] [place], [address] Basophils/100 WBC (Bld) 0.6 % Normal 0-1 [facility] Comment on above: Performed By: #### L 506.0400, L501.9520, L506.1001, L501.9985, L500.4100, L3300.0700, L300.3900, L503.6550, L503.6030, L100.0100, L500.4050 #### [facility] [address] [place], [address] Eosinophils/100 WBC (Bld) 3.6 % Normal 0-5 [facility] Comment on above: Performed By: #### L 506.0400, L501.9520, L506.1001, L501.9985, L500.4100, L3300.0700, L300.3900, L503.6550, L503.6030, L100.0100, L500.4050 #### [facility] [address] [place], [place], [phone] (641) Erythrocyte distribution width (RBC) [Ratio] 12.3 % Normal 11.6-14.6 [facility] Comment on above: Performed By: #### L 506.0400, L501.9520, L506.1001, L501.9985, L500.4100, L3300.0700, L300.3900, L503.6550, L503.6030, L100.0100, L500.4050 #### [facility] [address] [place], [address] Hematocrit (Bld) [Volume fraction] 45.1 % Normal 37-47 [facility] Comment on above: Performed By: #### L 506.0400, L501.9520, L506.1001, L501.9985, L500.4100, L3300.0700, L300.3900, L503.6550, L503.6030, L100.0100, L500.4050 #### [facility] [address] [place], [address] Hemoglobin (Bld) [Mass/Vol] 15.3 g/dL High 12.0-15.0 [facility] Comment on above: Performed By: #### L 506.0400, L501.9520, L506.1001, L501.9985, L500.4100, L3300.0700, L300.3900, L503.6550, L503.6030, L100.0100, L500.4050 #### [facility] [address] [facility] [place], [address] IG% 0.300 Normal 0.0-0.9 [facility] Comment on above: Result Comment: IG% - Immature Granulocytes (promyelocytes, myelocytes and metamyelocytes) > 1% indicates that a LEFT SHIFT is Present. Performed By: #### L 506.0400, L501.9520, L506.1001, L501.9985, L500.4100, L3300.0700, L300.3900, L503.6550, L503.6030, L100.0100, L500.4050 #### [facility] [address] [facility] [place], [address] Lymphocytes/100 WBC (Bld) 26.3 % Normal 19-41 [facility] Comment on above: Performed By: #### L 506.0400, L501.9520, L506.1001, L501.9985, L500.4100, L3300.0700, L300.3900, L503.6550, L503.6030, L100.0100, L500.4050 #### [facility] [address] [facility] [place], [address] MCH (RBC) [Entitic mass] 31.7 pg Normal 27.0-32.0 [facility] Comment on above: Performed By: #### L 506.0400, L501.9520, L506.1001, L501.9985, L500.4100, L3300.0700, L300.3900, L503.6550, L503.6030, L100.0100, L500.4050 #### [facility] [address] [facility] [place], [address] MCHC (RBC) [Mass/Vol] 33.9 g/dL Normal 32-36 [facility] Comment on above: Performed By: #### L 506.0400, L501.9520, L506.1001, L501.9985, L500.4100, L3300.0700, L300.3900, L503.6550, L503.6030, L100.0100, L500.4050 #### [facility] [address] [place], [address] MCV (RBC) [Entitic vol] 93.6 fL Normal 81-99 [facility] Comment on above: Performed By: #### L 506.0400, L501.9520, L506.1001, L501.9985, L500.4100, L3300.0700, L300.3900, L503.6550, L503.6030, L100.0100, L500.4050 #### [facility] [address] [place], [address] Monocytes/100 WBC (Bld) 8.5 % Normal 0-10 [facility] Comment on above: Performed By: #### L 506.0400, L501.9520, L506.1001, L501.9985, L500.4100, L3300.0700, L300.3900, L503.6550, L503.6030, L100.0100, L500.4050 #### [facility] [address] [place], [address] Neutrophils/100 WBC (Bld) 60.7 % Normal 47-70 [facility] Comment on above: Performed By: #### L 506.0400, L501.9520, L506.1001, L501.9985, L500.4100, L3300.0700, L300.3900, L503.6550, L503.6030, L100.0100, L500.4050 #### [facility] [address] [place], [address] Nucleated RBC (Bld) [#/Vol] 0 10*3/uL Normal 0-5 [facility] Comment on above: Performed By: #### L 506.0400, L501.9520, L506.1001, L501.9985, L500.4100, L3300.0700, L300.3900, L503.6550, L503.6030, L100.0100, L500.4050 #### [facility] [address] [place], [address] Platelet mean volume (Bld) [Entitic vol] 9.4 fL Normal 6.2-12.0 [facility] Comment on above: Performed By: #### L 506.0400, L501.9520, L506.1001, L501.9985, L500.4100, L3300.0700, L300.3900, L503.6550, L503.6030, L100.0100, L500.4050 #### [facility] [address] [facility] [place], [address] Platelets (Bld) [#/Vol] 212 10*3/uL Normal 150-450 [facility] Comment on above: Performed By: #### L 506.0400, L501.9520, L506.1001, L501.9985, L500.4100, L3300.0700, L300.3900, L503.6550, L503.6030, L100.0100, L500.4050 #### [facility] [address] [facility] [place], [address] RBC (Bld) [#/Vol] 4.82 10*6/uL Normal 4.2-5.4 [facility] Comment on above: Performed By: #### L 506.0400, L501.9520, L506.1001, L501.9985, L500.4100, L3300.0700, L300.3900, L503.6550, L503.6030, L100.0100, L500.4050 #### [facility] [address] [place], [place], [id number] RDW SD 42.5 fl Normal 35.1-43.9 [facility] Comment on above: Performed By: #### L 506.0400, L501.9520, L506.1001, L501.9985, L500.4100, L3300.0700, L300.3900, L503.6550, L503.6030, L100.0100, L500.4050 #### [facility] [address] [place], [place], [phone] WBC (Bld) [#/Vol] 6.6 10*3/uL Normal 4.4-11.0 [place] Comment on above: Performed By: #### L 506.0400, L501.9520, L506.1001, L501.9985, L500.4100, L3300.0700, L300.3900, L503.6550, L503.6030, L100.0100, L500.4050 #### [facility] [address] [place], [place], [phone] Calculated total iron bindin g capacityOrdered By: Paul Rodriguez on 09-12-2024 Total Iron Binding Capacity 249 ug/dL Low 250-450 [facility] Calculated very low density lipoprotein (VLDL) cholesterol measurementOrdered By: Paul Rodriguez on 09-12-2024 VLDL Cholesterol 17 mg/dL 5-40 [facility] Carbon dioxide, total [Moles /volume] in Central venous bloodOrdered By: Paul Rodriguez on 09-12-2024 CO2 [Moles/Vol] 22.2 mmol/L 21.0-32.0 [facility] Chloride assayOrdered By: Marifer Rodriguez on 09-12-2024 Chloride [Moles/Vol] 104 mmol/L 98-108 [facility] Comprehensive Metabolic Prof ilon 09-12-2024 Albumin [Mass/Vol] 4.4 g/dL Normal 3.4-4.8 [place] Comment on above: Performed By: #### L 506.0400, L501.9520, L506.1001, L501.9985, L500.4100, L3300.0700, L300.3900, L503.6550, L503.6030, L100.0100, L500.4050 #### [facility] [address] [place], [place], [phone] (953) Albumin/Globulin [Mass ratio] 1.4 {ratio} Normal 0.9-2.4 [facility] Comment on above: Performed By: #### L 506.0400, L501.9520, L506.1001, L501.9985, L500.4100, L3300.0700, L300.3900, L503.6550, L503.6030, L100.0100, L500.4050 #### [facility] [address] [place], [place], [id number] ALK PHOS 87 U/L Normal 35-104 [facility] Comment on above: Performed By: #### L 506.0400, L501.9520, L506.1001, L501.9985, L500.4100, L3300.0700, L300.3900, L503.6550, L503.6030, L100.0100, L500.4050 #### [facility] [address] [place], [place], [phone] (732) ALT [Catalytic activity/Vol] 37 U/L High <=34 [facility] Comment on above: Performed By: #### L 506.0400, L501.9520, L506.1001, L501.9985, L500.4100, L3300.0700, L300.3900, L503.6550, L503.6030, L100.0100, L500.4050 #### [facility] [address] [place], [place], [phone] (310) AST [Catalytic activity/Vol] 34 U/L High <=31 [facility] Comment on above: Performed By: #### L 506.0400, L501.9520, L506.1001, L501.9985, L500.4100, L3300.0700, L300.3900, L503.6550, L503.6030, L100.0100, L500.4050 #### [facility] [address] [place], [address] Bilirubin [Mass/Vol] 0.45 mg/dL Normal 0.00-1.30 [facility] Comment on above: Performed By: #### L 506.0400, L501.9520, L506.1001, L501.9985, L500.4100, L3300.0700, L300.3900, L503.6550, L503.6030, L100.0100, L500.4050 #### [facility] [address] [place], [address] (383) BUN/CRE 18.3 RATIO Normal 10-20 [facility] Comment on above: Performed By: #### L 506.0400, L501.9520, L506.1001, L501.9985, L500.4100, L3300.0700, L300.3900, L503.6550, L503.6030, L100.0100, L500.4050 #### [facility] [address] [place], [place], [phone] (510) Calcium [Mass/Vol] 9.8 mg/dL Normal 7.6-11.0 [place] Comment on above: Performed By: #### L 506.0400, L501.9520, L506.1001, L501.9985, L500.4100, L3300.0700, L300.3900, L503.6550, L503.6030, L100.0100, L500.4050 #### [facility] [address] [place], [place], [phone] (068) Chloride [Moles/Vol] 104 mmol/L Normal 98-108 [facility] Comment on above: Performed By: #### L 506.0400, L501.9520, L506.1001, L501.9985, L500.4100, L3300.0700, L300.3900, L503.6550, L503.6030, L100.0100, L500.4050 #### [facility] [address] [place], [place], [phone] (728) CO2 [Moles/Vol] 22.2 mmol/L Normal 21.0-32.0 [facility] Comment on above: Performed By: #### L 506.0400, L501.9520, L506.1001, L501.9985, L500.4100, L3300.0700, L300.3900, L503.6550, L503.6030, L100.0100, L500.4050 #### [facility] [address] [place], [place], [id number] Creatinine [Mass/Vol] 0.79 mg/dL Normal 0.70-1.20 [facility] Comment on above: Performed By: #### L 506.0400, L501.9520, L506.1001, L501.9985, L500.4100, L3300.0700, L300.3900, L503.6550, L503.6030, L100.0100, L500.4050 #### [facility] [address] [place], [place], [id number] GAP 15 Normal 5-15 [facility] Comment on above: Performed By: #### L 506.0400, L501.9520, L506.1001, L501.9985, L500.4100, L3300.0700, L300.3900, L503.6550, L503.6030, L100.0100, L500.4050 #### [facility] [address] [place], [address] GFR/1.73 sq M.predicted among non-blacks MDRD (S/P/Bld) [Vol rate/Area] 80 mL/min/{1.73_m2} Normal >60 [facility] Comment on above: Result Comment: mL/m in/1.73m2 CKD-EPI Creatinine Equation (2020) Performed By: #### L 506.0400, L501.9520, L506.1001, L501.9985, L500.4100, L3300.0700, L300.3900, L503.6550, L503.6030, L100.0100, L500.4050 #### [facility] [address] [place], [address] Globulin (S) [Mass/Vol] 3.1 g/dL Normal 2.2-4.2 [facility] Comment on above: Performed By: #### L 506.0400, L501.9520, L506.1001, L501.9985, L500.4100, L3300.0700, L300.3900, L503.6550, L503.6030, L100.0100, L500.4050 #### [facility] [address] [place], [address] Glucose [Mass/Vol] 105 mg/dL High 70-99 [place] Comment on above: Performed By: #### L 506.0400, L501.9520, L506.1001, L501.9985, L500.4100, L3300.0700, L300.3900, L503.6550, L503.6030, L100.0100, L500.4050 #### [facility] [address] [place], [address] Potassium [Moles/Vol] 4.1 mmol/L Normal 3.3-5.1 [facility] Comment on above: Performed By: #### L 506.0400, L501.9520, L506.1001, L501.9985, L500.4100, L3300.0700, L300.3900, L503.6550, L503.6030, L100.0100, L500.4050 #### [facility] [address] [place], [address] Sodium [Moles/Vol] 141 mmol/L Normal 133-145 [place] Comment on above: Performed By: #### L 506.0400, L501.9520, L506.1001, L501.9985, L500.4100, L3300.0700, L300.3900, L503.6550, L503.6030, L100.0100, L500.4050 #### [facility] [address] [place], [place], [id number] (710) T PROT 7.5 g/dL Normal 5.9-8.4 [facility] Comment on above: Performed By: #### L 506.0400, L501.9520, L506.1001, L501.9985, L500.4100, L3300.0700, L300.3900, L503.6550, L503.6030, L100.0100, L500.4050 #### [facility] [address] [place], [place], [id number] (223) Urea nitrogen [Mass/Vol] 14 mg/dL Normal 4-19 [facility] Comment on above: Performed By: #### L 506.0400, L501.9520, L506.1001, L501.9985, L500.4100, L3300.0700, L300.3900, L503.6550, L503.6030, L100.0100, L500.4050 #### [facility] [address] [facility] [place], [address] (419) Eosinophil percentageOrdered By: Paul Rodriguez on 09-12-2024 Eosinophils/100 WBC (Bld) 3.6 % 0-5 [facility] Erythrocyte distribution wid th ratioOrdered By: Paul Rodriguez on 09-12-2024 Erythrocyte distribution width (RBC) [Ratio] 12.3 % 11.6-14.6 [facility] Erythrocyte distribution wid th standard deviationOrdered By: Paul Rodriguez on 09-12-2024 Erythrocyte distribution width (RBC) [Entitic vol] 42.5 fL 35.1-43.9 [facility] Ferritinon 09-12-2024 Ferritin [Mass/Vol] 355 ng/mL Normal 22-378 [facility] Comment on above: Performed By: #### L 506.0400, L501.9520, L506.1001, L501.9985, L500.4100, L3300.0700, L300.3900, L503.6550, L503.6030, L100.0100, L500.4050 ####[facility] [address] [place], [place], [id number] GFR/1.73 sq M.predicted sudhir g non-blacks MDRD (S/P/Bld) [Vol rate/Area]Ordered By: Paul Rodriguez on 09-12-2024 Estimated GFR (MDRD) Non-Af Amer 80 >60 [facility] Comment on above: mL/min/1.73m2 CKD-EP I Creatinine Equation (2020) Hematocrit Auto (Bld) [Volum e fraction]Ordered By: Paul Rodriguez on 09-12-2024 Hematocrit (Bld) [Volume fraction] 45.1 % 37-47 [facility] Hemoglobin A1con 09-12-2024 HbA1c (Bld) [Mass fraction] 5.7 % Normal <=5.6 [facility] Comment on above: Performed By: #### L 506.0400, L501.9520, L506.1001, L501.9985, L500.4100, L3300.0700, L300.3900, L503.6550, L503.6030, L100.0100, L500.4050 #### [facility] [address] [place], [place], [id number] Hemoglobin A1c percentageOrd ered By: Paul Rodriguez on 03-07-2025 HbA1c (Bld) [Mass fraction] 5.7 % >5.7 [facility] Hemoglobin measurementOrdere d By: Paul Rodriguez on 09-12-2024 Hemoglobin (Bld) [Mass/Vol] 15.3 g/dL High 12.0-15.0 [facility] Immature granulocytes/100 WB C Auto (Bld)Ordered By: Paul Rodriguez on 09-12-2024 Immature granulocytes/100 WBC (Bld) 0.300 % 0.0-0.9 [facility] Comment on above: IG% - Immature Granu locytes (promyelocytes, myelocytes and metamyelocytes) > 1% indicates that a LEFT SHIFT is Present. International normalized rat io (INR) calculationOrdered By: Paul Rodriguez on 09-12-2024 INR Coag (Bld) [Relative time] 1.0 {INR} [facility] Iron (Unsp spec) [Mass/Mass] Ordered By: Paul Rodriguez on 09-12-2024 Iron [Mass/Vol] 140 ug/dL 50-170 [facility] Iron saturation [Mass fracti on]Ordered By: Paul Rodriguez on 09-12-2024 Iron Saturation 56.0 % 13-59 [facility] Iron+Iron Binding Capacityon 09-12-2024 Iron [Mass/Vol] 140 ug/dL Normal 50-170 [facility] Comment on above: Performed By: #### L 506.0400, L501.9520, L506.1001, L501.9985, L500.4100, L3300.0700, L300.3900, L503.6550, L503.6030, L100.0100, L500.4050 ####[facility] [address] [place], [place], [id number] IRON SATURATION 56.0 Normal 13-59 [facility] Comment on above: Performed By: #### L 506.0400, L501.9520, L506.1001, L501.9985, L500.4100, L3300.0700, L300.3900, L503.6550, L503.6030, L100.0100, L500.4050 ####[facility] [address] [place], [address] TIBC 249 ug/dL Low 250-450 [facility] Comment on above: Performed By: #### L 506.0400, L501.9520, L506.1001, L501.9985, L500.4100, L3300.0700, L300.3900, L503.6550, L503.6030, L100.0100, L500.4050 ####[facility] [address] [place], [address] UIBC 109 ug/dL Low 228-428 [facility] Comment on above: Performed By: #### L 506.0400, L501.9520, L506.1001, L501.9985, L500.4100, L3300.0700, L300.3900, L503.6550, L503.6030, L100.0100, L500.4050 ####[facility] [address] [place], [address] L506.1001on 09-12-2024 Vitamin D 25-OH 34.2 ng/mL Normal 30-100 [facility] Comment on above: Result Comment: Josiane min D Status Deficiency: <20 ng/mL (50nmol/L) Insufficiency: 20-30 ng/mL (50-75 nmol/L) Sufficiency: 30-100 ng/mL (75-250 nmol/L) Toxicity: >100 ng/mL (>250 nmol/L) Performed By: #### L 506.0400, L501.9520, L506.1001, L501.9985, L500.4100, L3300.0700, L300.3900, L503.6550, L503.6030, L100.0100, L500.4050 ####[facility] [address] [place], [address] LDL calc ser/plasOrdered By: Paul Rodriguez on 09-12-2024 LDL Cholesterol, Calculated 141 mg/dL [facility] Comment on above: Dxbtqqnnzw=929-140 m g/dL & Higher Osme=106 mg/dL or greater Laboratory - Chemistry and C hemistry - challengeOrdered By: Paul Rodriguez on 09-12-2024 AST [Catalytic activity/Vol] 34 U/L High <32 [facility] Lipid Profileon 09-12-2024 CHOL:HDL 4.17 Normal [facility] Comment on above: Performed By: #### L 506.0400, L501.9520, L506.1001, L501.9985, L500.4100, L3300.0700, L300.3900, L503.6550, L503.6030, L100.0100, L500.4050 #### [facility] [address] [place], [place], [phone] ([phone] Cholesterol [Mass/Vol] 207 mg/dL High <=200 [facility] Comment on above: Result Comment: Chol esterol level, Desirable <200 mg/dL Borderline high cholesterol 200-239 mg/dL High cholesterol >=240 mg/dL Recommendations of the NCEP Adult Treatment Panel for the following risk-cutoff thresholds for the [place] population. Performed By: #### L 506.0400, L501.9520, L506.1001, L501.9985, L500.4100, L3300.0700, L300.3900, L503.6550, L503.6030, L100.0100, L500.4050 #### [facility] [address] [place], [place], [phone] ([phone]) Cholesterol in HDL [Mass/Vol] 50 mg/dL Normal [facility] Comment on above: Result Comment: Carmita onal Cholesterol Education Program (NCEP) guidelines: <40 mg/dL: Low HDL-cholesterol (major risk factor for CHD) >= 60 mg/dL: High HDL-cholesterol (negative risk factor for CHD) HDL-cholesterol is affected by a number of factors, e.g. smoking, exercise, hormones, sex and age. Performed By: #### L 506.0400, L501.9520, L506.1001, L501.9985, L500.4100, L3300.0700, L300.3900, L503.6550, L503.6030, L100.0100, L500.4050 #### [facility] [address] [facility] [place], [place], [phone] (084) Cholesterol in LDL [Mass/Vol] 141 mg/dL Normal [facility] Comment on above: Result Comment: Bord ogawpa=960-609 mg/dL Higher Xxtt=066 mg/dL or greater Performed By: #### L 506.0400, L501.9520, L506.1001, L501.9985, L500.4100, L3300.0700, L300.3900, L503.6550, L503.6030, L100.0100, L500.4050 #### [facility] [address] [facility] [place], [place], [phone] (478) Cholesterol in VLDL [Mass/Vol] 17 mg/dL Normal 5-40 [facility] Comment on above: Performed By: #### L 506.0400, L501.9520, L506.1001, L501.9985, L500.4100, L3300.0700, L300.3900, L503.6550, L503.6030, L100.0100, L500.4050 #### [facility] [address] [facility] [place], [place], [phone] (270) Triglyceride [Mass/Vol] 84 mg/dL Normal [facility] Comment on above: Result Comment: The drugs N-Acetylcysteine and Metamizole may falsely depress this assay. Normal range: <150 mg/dL Borderline High: 150-199 mg/dL High: 200-499 mg/dL Very High: >500 mg/dL Performed By: #### L 506.0400, L501.9520, L506.1001, L501.9985, L500.4100, L3300.0700, L300.3900, L503.6550, L503.6030, L100.0100, L500.4050 #### [facility] [address] [place], [address] Lymphocytes Auto (Unsp spec) [#/Vol]Ordered By: Paul Rodriguez on 09-12-2024 Lymphocytes (Bld) [#/Vol] 1.73 10*3/uL 0.83-4.51 [facility] Lymphocytes/100 WBC Auto (Un sp spec)Ordered By: Paul Rodriguez on 09-12-2024 Lymphocytes/100 WBC (Bld) 26.3 % 19-41 [facility] MCV (mean corpuscular volume ) determinationOrdered By: Paul Rodriguez on 09-12-2024 MCV (RBC) [Entitic vol] 93.6 fL 81-99 [facility] Mean corpuscular hemoglobin (MCH) determinationOrdered By: Paul Rodriguez on 09-12-2024 MCH (RBC) [Entitic mass] 31.7 pg 27.0-32.0 [facility] Mean corpuscular hemoglobin concentration (MCHC) determinationOrdered By: Paul Rodriguez on 09-12-2024 MCHC (RBC) [Mass/Vol] 33.9 g/dL 32-36 [facility] Mean platelet volume determi nationOrdered By: Paul Rodriguez on 09-12-2024 Platelet mean volume (Bld) [Entitic vol] 9.4 fL 6.2-12.0 [facility] Monocyte percentageOrdered B y: Paul Rodriguez on 09-12-2024 Monocytes/100 WBC (Bld) 8.5 % 0-10 [facility] Neutrophil percentageOrdered By: Paul Rodriguez on 09-12-2024 Neutrophils/100 WBC (Bld) 60.7 % 47-70 [facility] No Panel InformationOrdered By: Paul Rodriguez on 09-12-2024 Unsaturated Iron Binding Capacity 109 ug/dL Low 228-428 [facility] Nucleated red blood cell per centageOrdered By: Paul Rodriguez on 09-12-2024 Nucleated RBC/100 WBC (Bld) [Ratio] 0 % 0-5 [facility] Platelet countOrdered By: Marifer Rodriguez on 09-12-2024 Platelets (Bld) [#/Vol] 212 10*3/uL 150-450 [facility] Potassium (Unsp spec) [Mass/ Vol]Ordered By: Paul Rodriguez on 09-12-2024 Potassium [Moles/Vol] 4.1 mmol/L 3.3-5.1 [facility] Prothrombin Time w/INRon INR Coag (PPP) [Relative time] 1.0 {INR} Normal [facility] Comment on above: Performed By: #### L 506.0400, L501.9520, L506.1001, L501.9985, L500.4100, L3300.0700, L300.3900, L503.6550, L503.6030, L100.0100, L500.4050 #### [facility] [address] [place], [address] PT Coag (PPP) [Time] 13.8 s Normal 11.7-14.9 [facility] Comment on above: Performed By: #### L 506.0400, L501.9520, L506.1001, L501.9985, L500.4100, L3300.0700, L300.3900, L503.6550, L503.6030, L100.0100, L500.4050 #### [facility] [address] [place], [address] Prothrombin timeOrdered By: Paul Rodriguez on 09-12-2024 PT Coag (PPP) [Time] 13.8 s 11.7-14.9 [facility] RBC Auto (Bld) [#/Vol]Ordere d By: Paul Rodriguez on 09-12-2024 RBC (Bld) [#/Vol] 4.82 10*6/uL 4.2-5.4 [facility] Screening total cholesterol/ high density lipoprotein (HDL) cholesterol ratioOrdered By: Paul Rodriguez on 09-12-2024 Cholesterol.total/Chol esterol in HDL [Mass ratio] 4.17 {ratio} [facility] Serum creatinine measurement (mass/volume)Ordered By: Paul Rodriguez on 09-12-2024 Creatinine [Mass/Vol] 0.79 mg/dL 0.70-1.20 [facility] Serum globulin measurementOr dered By: Paul Rodriguez on 09-12-2024 Globulin (S) [Mass/Vol] 3.1 g/dL 2.2-4.2 [facility] Serum glucose measurement (m ass/volume)Ordered By: Paul Rodriguez on 09-12-2024 Glucose [Mass/Vol] 105 mg/dL High 70-99 [place] Serum or plasma alanine cedeño otransferase (ALT) measurementOrdered By: Paul Rodriguez on 09-12-2024 ALT [Catalytic activity/Vol] 37 U/L High <35 [facility] Serum or plasma albumin arsen urement (mass/volume)Ordered By: Paul Rodriguez on 09-12-2024 Albumin [Mass/Vol] 4.4 g/dL 3.4-4.8 [place] Serum or plasma albumin/glob ulin mass ratioOrdered By: Paul Rodriguez on 09-12-2024 Albumin/Globulin [Mass ratio] 1.4 {ratio} 0.9-2.4 [facility] Serum or plasma alkaline mani sphatase measurementOrdered By: Paul Rodriguez on 09-12-2024 ALP [Catalytic activity/Vol] 87 U/L 35-104 [facility] Serum or plasma calcium arsen urement (mass/volume)Ordered By: Paul Rodriguez on 09-12-2024 Calcium [Mass/Vol] 9.8 mg/dL 7.6-11.0 [place] Serum or plasma cholesterol in HDL measurement (mass/volume)Ordered By: Paul Rodriguez on 09-12-2024 Cholesterol in HDL [Mass/Vol] 50 mg/dL >40 [facility] Comment on above: National Cholesterol Education Program (NCEP) guidelines:<40 mg/dL: Low HDL-cholesterol (major risk factor for CHD)>= 60 mg/dL: High HDL-cholesterol (negative risk factor for CHD)HDL-cholesterol is affected by a number of factors, e.g. smoking, exercise, hormones, sex and age. Serum or plasma cholesterol measurement (mass/volume)Ordered By: Paul Rodriguez on 09-12-2024 Cholesterol [Mass/Vol] 207 mg/dL High <201 [facility] Comment on above: Cholesterol level, D esirable <200 mg/dLBorderline high cholesterol 200-239 mg/dLHigh cholesterol >=240 mg/dLRecommendations of the NCEP Adult Treatment Panel for the following risk-cutoff thresholds for the [place] population. Serum or plasma ferritin thea surement (mass/volume)Ordered By: Paul Rodriguez on 09-12-2024 Ferritin [Mass/Vol] 355 ng/mL 22-378 [facility] Serum or plasma urea nitroge n measurement (mass/volume)Ordered By: Paul Rodriguez on 09-12-2024 Urea nitrogen [Mass/Vol] 14 mg/dL 4-19 [facility] Sodium levelOrdered By: Tarun Rodriguez on 09-12-2024 Sodium [Moles/Vol] 141 mmol/L 133-145 [place] T4 Free Directon 09-12-2024 T4 FREE DIRECT 1.00 ng/dL Normal 0.76-1.46 [facility] Comment on above: Performed By: #### L 506.0400, L501.9520, L506.1001, L501.9985, L500.4100, L3300.0700, L300.3900, L503.6550, L503.6030, L100.0100, L500.4050 ####[facility] [address] [place], [address] T4 freeOrdered By: Paul molina on 09-12-2024 Free T4 [Mass/Vol] 1.00 ng/dL 0.76-1.46 [place] TSH DL <= 0.005 mIU/L QnOrde red By: Paul Rodriguez on 09-12-2024 Thyroid Stimulating Hormone (TSH) 2.960 uIU/mL 0.300-4.200 [facility] Thyroid Stim Hormone (TSH)on 09-12-2024 TSH 2.960 uIU/mL Normal 0.300-4.200 [facility] Comment on above: Performed By: #### L 506.0400, L501.9520, L506.1001, L501.9985, L500.4100, L3300.0700, L300.3900, L503.6550, L503.6030, L100.0100, L500.4050 ####[facility] [address] [place], [place], [id number] Total proteinOrdered By: Parisa Rodriguez on 09-12-2024 Protein [Mass/Vol] 7.5 g/dL 5.9-8.4 [place] Triglycerides measurementOrd ered By: Paul Rodriguez on 09-12-2024 Triglyceride [Mass/Vol] 84 mg/dL <199 [facility] Comment on above: The drugs N-Acetylcy steine and Metamizole may falsely depress this assay. Normal range: <150 mg/dLBorderline High: 150-199 mg/dLHigh: 200-499 mg/dLVery High: >500 mg/dL Vitamin D, 25-hydroxyOrdered By: Paul Rodriguez on 09-12-2024 Vitamin D 25-Hydroxy 34.2 ng/mL 30-100 [facility] Comment on above: Vitamin D StatusDefi ciency: <20 ng/mL (50nmol/L)Insufficiency: 20-30 ng/mL (50-75 nmol/L)Sufficiency: 30-100 ng/mL (75-250 nmol/L)Toxicity: >100 ng/mL (>250 nmol/L) White blood cell (WBC) count Ordered By: Paul Rodriguez on 09-12-2024 WBC (Bld) [#/Vol] 6.6 10*3/uL 4.4-11.0 [place] SCRN MAMM (CAD)W/SREE BILATo n 07-03-2024 SCRN MAMM (CAD)W/SREE BILAT [facility] Imaging Services [address] [place], [place] [address] SCRN MAMM (CAD)W/SREE BILAT MR#: [id number] Acct: [id number] Name: ANALI RDZ Rep #: [id number] : 1950 F 74 From: Ivan Moran MD PCP: Dr. Darryl Ramirez MD Status: REG CLI Study: SCRN MAMM (CAD)W/SREE BILAT Date of Exam: 06/09 12/30 Exam# [id number] Ordering Dr: Chiqui Lawrence MD [id number] MAMMOGRAPHY - BILATERAL SCREENING 3-D TOMOSYNTHESIS REASON FOR EXAM: Female, 74 years old. SCREENING PERTINENT HISTORY: No significant family history. TECHNIQUE: 2-D mammograms and 3-D Tomosynthesis of the breast (s) were performed. CAD was performed. COMPARISON: 06/01/2023 FINDINGS: The breast composition is heterogeneously dense that can obscure small breast masses. Scattered benign calcifications are seen. No dense spiculated masses or suspicious microcalcifications are identified. No architectural distortion is identified. There is no skin thickening or retraction. There has been no significant change since the prior study. BI/SCRN MAMM (CAD)W/SREE BILAT IMPRESSION: No mammographic signs of malignancy. Routine yearly mammograms recommended. ASSESSMENT CATEGORY: BIRADS Category 1: Negative. A letter regarding these results will be sent to the patient by the facility within 30 days. FOLLOW UP RECOMMENDATION: Yearly follow up mammogram recommended. (A) Approximately 10% of breast cancers are not detected by mammography. A normal mammogram should not delay biopsy of a clinically suspicious abnormality. Electronically Signed: Ivan Moran MD at 10:03 EST Reading Location ID and State: [address] [place] [address] Tel , Service support , CC: Dr. Chiqui Lawrence MD; Dr. Darryl Ramirez MD Supervisor Assembly And Packing: Signed Normal [facility] Gastroenterology Visit Repor ton 04-01-2024 Gastroenterology Visit Report [facility] [address] [place] [address] OFFICE VISIT Date of Service: 04/01/24 MR#: [id number] Acct: [id number] Name: ANALI RDZ Rep #: [id number] : 1950 Provider: Dr. Paul bryan MD Age/Sex: 74/F Location: BMS.[facility]I Status: Signed Intake Vital Signs 10/23/23 12:36 04/01/24 12:42 Height 5 ft 7 in 5 ft 7 in Weight: 177 lb 182 lb BMI 27.7 28.5 BP 145/81 H 145/81 H Blood Pressure Location Lt brachial Rt brachial Position Sitting Sitting Respiration 16 Pulse 64 74 Pulse Source Monitor Temp 99.1 F Temp Source Temporal Pulse Oximetry (%) 96 94 Oxygen Delivery Method room air room air Intake Visit Reasons: 6 M FU Chief Complaint: F/u non-alcoholic fatty liver Accompanied by: Is patient in pain?: No Allergies lansoprazole (From Prevacid) Allergy (Mild, Verified 04/01/24 12:31) Unknown bee venom protein (honey bee) Allergy (Verified 04/01/24 12:31) Swelling Sulfa (Sulfonamide Antibiotics) Allergy (Verified 04/01/24 12:31) Rash Proton Pump Inhibitors Adverse Reaction (Verified 04/01/24 12:31) Upset Stomach soy Adverse Reaction (Verified 04/01/24 12:31) Upset Stomach Medications ???Medication ???Instructions ???Recorded ???Confirmed ???Type losartan 25 mg tablet 25 mg PO DAILY bp 08/04/20 04/01/24 History CL Balance by [employer] 2 cap PO DAILY 04/01/24 History L.acid,linda-B.animal,bifid , 1 cap PO DAILY 04/01/24 04/01/24 History 50 billion cell capsule,delayed rel ([employer] [place] [employer] Probiotic) Lactobacillus rhamnosus GG 20 20 cell PO DAILY 04/01/24 04/01/24 History billion cell capsule (Probiotic [employer]est[employer]) calcium carbonate 600 mg PO QDAY 04/01/24 04/01/24 History immuneti 2 cap PO DAILY 04/01/24 History krill 1,000 mg-omega-3 170 mg-dha 1 cap PO QDAY 04/01/24 04/01/24 History 50 mg-epa 80 uw-xbyiwz-zqfti capsule (krill oil) liver health by [employer] 2 cap PO DAILY 04/01/24 History loratadine 10 mg tablet (Claritin) 10 mg PO QDAY 04/01/24 04/01/24 History milk thistle 500 mg capsule 1,000 mg PO QDAY 04/01/24 04/01/24 History sour montero extract 1,000 mg 2,500 mg PO DAILY 04/01/24 04/01/24 History capsule (Tart Montero Extract) vitamin E (dl, acetate) 180 mg 540 mg PO DAILY 04/01/24 04/01/24 History (400 unit) capsule Have you fallen in the past year?: No PFSH Medical History BPPV (benign paroxysmal positional vertigo) Retroperitoneal lymphadenopathy Tubular adenoma of colon Wears glasses Cancer Arthritis Blood in stool GERD (gastroesophageal reflux disease) Non-smoker History of stress test BRBPR (bright red blood per rectum) History of carpal tunnel syndrome Fatigue History of cancer Hypertension Surgical History History of colonoscopy History of carpal tunnel release of both wrists History of appendectomy History of tonsillectomy History of hysterectomy Family History Sister Breast cancer x2 Aunt CVA (cerebral vascular accident) Social History Smoking Status: Never smoker alcohol intake: never HPI HPI Chief Complaint: F/u non-alcoholic fatty liver Details: ANLAI RDZ, is a 74 F who presents to the office today for BGI Established 04.15.21. She was previously seen by Dr. Terence Parada for rectal bleeding, there was also a polyp that she was unable to remove. Colonoscopy 03.29.[address] Terence Parada finding diverticulosis of sigmoid, descending and transverse colons; one 7mm polyp at appendiceal orifice. Colonoscopy 04.28.21 finding diverticulosis of sigmoid and descending colons; one 5mm hyperplastic polyp with benign lymphoid tissue removed from cecum. Tubular adenoma ??? repeat colonoscopy 2025. CT abd/pel 6.10.22 without lymphadenopathy; fatty infiltration of liver; contracted thick-walled gallbladder without stones; minor diverticular changes of colon without acute diverticulitis. [facility] US abd/elastography 8.9.22- Liver measures 13.9cm- fatty infiltration of liver, subcentimeter cyst in the left lower lobe of liver, 10 kPa US abd/elastograpgy 3.3.23- Liver measures 15cm , 9 kPa - several echogenic nodules throughout the right and left lobe of the liver, nodules in both lobes of thyroid gland, reccomended CT CT abd/pel w/ contrast 3.7.23- stable liver cysts, no other mass seen. 10/2022 labs: crp 4.38 H, ferr 271 H, unremarkable CBC, unremarkable CMP OV 04.12.23 Liver stiffness improved. Cont. Milk thistle and Vitamin E. Diet and excercise. Rpt labs and Us in 6 mo US abd/elastograpgy 10.30.23- Liver measuring 16.8cm , (more content not included)... Normal [facility] CBC W/Diff, Automatedon 01-08 0-2023 Absolute Lymph 1.82 X10 3/uL Normal 0.83-4.51 [facility] Comment on above: Performed By: #### L 100.0100, L500.4050, L501.9985, L300.3900, L500.4100, L501.6710 ####[facility] [address] [place], [address] Absolute Neut 3.6 X10 3/uL Normal 2.0-7.7 [facility] Comment on above: Performed By: #### L 100.0100, L500.4050, L501.9985, L300.3900, L500.4100, L501.6710 ####[facility] [address] [place], [address] Basophils/100 WBC (Bld) 0.6 % Normal 0-1 [facility] Comment on above: Performed By: #### L 100.0100, L500.4050, L501.9985, L300.3900, L500.4100, L501.6710 ####[facility] [address] [place], [address] Eosinophils/100 WBC (Bld) 2.9 % Normal 0-5 [facility] Comment on above: Performed By: #### L 100.0100, L500.4050, L501.9985, L300.3900, L500.4100, L501.6710 ####[facility] [address] [place], [address] Erythrocyte distribution width (RBC) [Ratio] 12.2 % Normal 11.6-14.6 [facility] Comment on above: Performed By: #### L 100.0100, L500.4050, L501.9985, L300.3900, L500.4100, L501.6710 ####[facility] [address] [place], [address] Hematocrit (Bld) [Volume fraction] 43.1 % Normal 37-47 [facility] Comment on above: Performed By: #### L 100.0100, L500.4050, L501.9985, L300.3900, L500.4100, L501.6710 ####[facility] [address] [place], [address] Hemoglobin (Bld) [Mass/Vol] 14.6 g/dL Normal 12.0-15.0 [facility] Comment on above: Performed By: #### L 100.0100, L500.4050, L501.9985, L300.3900, L500.4100, L501.6710 ####[facility] [address] [place], [address] IG% 0.300 Normal 0.0-0.9 [facility] Comment on above: Result Comment: IG% - Immature Granulocytes (promyelocytes, myelocytes and metamyelocytes) > 1% indicates that a LEFT SHIFT is Present. Performed By: #### L 100.0100, L500.4050, L501.9985, L300.3900, L500.4100, L501.6710 ####[facility] [address] [place], [address] Lymphocytes/100 WBC (Bld) 29.3 % Normal 19-41 [facility] Comment on above: Performed By: #### L 100.0100, L500.4050, L501.9985, L300.3900, L500.4100, L501.6710 ####[facility] [address] [place], [address] MCH (RBC) [Entitic mass] 31.2 pg Normal 27.0-32.0 [facility] Comment on above: Performed By: #### L 100.0100, L500.4050, L501.9985, L300.3900, L500.4100, L501.6710 ####[facility] [address] [place], [address] MCHC (RBC) [Mass/Vol] 33.9 g/dL Normal 32-36 [facility] Comment on above: Performed By: #### L 100.0100, L500.4050, L501.9985, L300.3900, L500.4100, L501.6710 ####[facility] [address] [place], [address] MCV (RBC) [Entitic vol] 92.1 fL Normal 81-99 [facility] Comment on above: Performed By: #### L 100.0100, L500.4050, L501.9985, L300.3900, L500.4100, L501.6710 ####[facility] [address] [place], [address] Monocytes/100 WBC (Bld) 8.5 % Normal 0-10 [facility] Comment on above: Performed By: #### L 100.0100, L500.4050, L501.9985, L300.3900, L500.4100, L501.6710 ####[facility] [address] [place], [address] Neutrophils/100 WBC (Bld) 58.4 % Normal 47-70 [facility] Comment on above: Performed By: #### L 100.0100, L500.4050, L501.9985, L300.3900, L500.4100, L501.6710 ####[facility] [address] [place], [address] Nucleated RBC (Bld) [#/Vol] 0 10*3/uL Normal 0-5 [facility] Comment on above: Performed By: #### L 100.0100, L500.4050, L501.9985, L300.3900, L500.4100, L501.6710 ####[facility] [address] [place], [address] Platelet mean volume (Bld) [Entitic vol] 9.5 fL Normal 6.2-12.0 [facility] Comment on above: Performed By: #### L 100.0100, L500.4050, L501.9985, L300.3900, L500.4100, L501.6710 ####[facility] [address] [place], [address] Platelets (Bld) [#/Vol] 235 10*3/uL Normal 150-450 [facility] Comment on above: Performed By: #### L 100.0100, L500.4050, L501.9985, L300.3900, L500.4100, L501.6710 ####[facility] [address] [place], [address] RBC (Bld) [#/Vol] 4.68 10*6/uL Normal 4.2-5.4 [facility] Comment on above: Performed By: #### L 100.0100, L500.4050, L501.9985, L300.3900, L500.4100, L501.6710 ####[facility] [address] [place], [address] RDW SD 41.1 fl Normal 35.1-43.9 [facility] Comment on above: Performed By: #### L 100.0100, L500.4050, L501.9985, L300.3900, L500.4100, L501.6710 ####[facility] [address] [place], [address] WBC (Bld) [#/Vol] 6.2 10*3/uL Normal 4.4-11.0 [place] Comment on above: Performed By: #### L 100.0100, L500.4050, L501.9985, L300.3900, L500.4100, L501.6710 ####[facility] [address] [place], [address] CRPon 02-05-2024 C-REACTIVE PROT 3.26 mg/L High 0.0-3.0 [facility] Comment on above: Order Comment: Comme nts: First week of February 2024First February 2024 Result Comment: C-Re active Protein (CRP) provides useful information for the diagnosis, therapy and monitoring of inflammatory processes and associated diseases. For the evaluation of Relative Risk for Cardiovascular Disease, a High Sensitivity CRP (HSCRP) should be ordered. Performed By: #### L 100.0100, L500.4050, L501.9985, L300.3900, L500.4100, L501.6710 ####[facility] [address] [place], [address] Comprehensive Metabolic Prof ilon 02-05-2024 Albumin [Mass/Vol] 3.8 g/dL Normal 3.2-5.0 [place] Comment on above: Order Comment: Comme nts: First week of February 2024First February 2024 Performed By: #### L 100.0100, L500.4050, L501.9985, L300.3900, L500.4100, L501.6710 ####[facility] [address] [place], [address] Albumin/Globulin [Mass ratio] 1.1 {ratio} Normal 0.9-2.4 [facility] Comment on above: Order Comment: Comme nts: First week of February 2024FirFebruary 2024 Performed By: #### L 100.0100, L500.4050, L501.9985, L300.3900, L500.4100, L501.6710 ####[facility] [address] [place], [address] ALK P 93 U/L Normal 45-117 [facility] Comment on above: Order Comment: Comme nts: First week February 2024FirFebruary 2024 Performed By: #### L 100.0100, L500.4050, L501.9985, L300.3900, L500.4100, L501.6710 ####[facility] [address] [place], [address] ALT [Catalytic activity/Vol] 35 U/L Normal 13-56 [facility] Comment on above: Order Comment: Comme nts: First week of February 2024FirFebruary 2024 Performed By: #### L 100.0100, L500.4050, L501.9985, L300.3900, L500.4100, L501.6710 ####[facility] [address] [place], [address] AST [Catalytic activity/Vol] 34 U/L Normal 15-37 [facility] Comment on above: Order Comment: Comme nts: First week of February 2024FirFebruary 2024 Performed By: #### L 100.0100, L500.4050, L501.9985, L300.3900, L500.4100, L501.6710 ####[facility] [address] [place], [address] Bilirubin [Mass/Vol] 0.50 mg/dL Normal 0.20-1.00 [facility] Comment on above: Order Comment: Comme nts: First week of February 2024FirFebruary 2024 Result Comment: For patients on eltrombopag therapy, use of Dimension Tobias TBIL is not recommended. Performed By: #### L 100.0100, L500.4050, L501.9985, L300.3900, L500.4100, L501.6710 ####[facility] [address] [place], [address] BUN/CRE 21.2 RATIO High 10-20 [facility] Comment on above: Order Comment: Comme nts: First week of February 2024FirFebruary 2024 Performed By: #### L 100.0100, L500.4050, L501.9985, L300.3900, L500.4100, L501.6710 ####[facility] [address] [place], [address] CA,Total 8.8 mg/dL Normal 8.5-10.1 [facility] Comment on above: Order Comment: Comme nts: First week of February 2024FirFebruary 2024 Performed By: #### L 100.0100, L500.4050, L501.9985, L300.3900, L500.4100, L501.6710 ####[facility] [address] [place], [address] Chloride [Moles/Vol] 106 mmol/L Normal 98-107 [facility] Comment on above: Order Comment: Comme nts: First week of February 2024FirFebruary 2024 Performed By: #### L 100.0100, L500.4050, L501.9985, L300.3900, L500.4100, L501.6710 ####[facility] [address] [place], [address] CO2 [Moles/Vol] 26.0 mmol/L Normal 21.0-32.0 [facility] Comment on above: Order Comment: Comme nts: First week of February 2024FirFebruary 2024 Performed By: #### L 100.0100, L500.4050, L501.9985, L300.3900, L500.4100, L501.6710 ####[facility] [address] [place], [place], [phone](642) Creatinine [Mass/Vol] 0.75 mg/dL Normal 0.55-1.02 [facility] Comment on above: Order Comment: Comme nts: First week of February 2024FirFebruary 2024 Result Comment: The validity of the calculated GFR GFRAA in patients over 70 years has not been determined. Clinical correlation is essential. Performed By: #### L 100.0100, L500.4050, L501.9985, L300.3900, L500.4100, L501.6710 ####[facility] [address] [place], [place], [phone] GFR - AA 97 mL/min Normal >60 [facility] Comment on above: Order Comment: Comme nts: First week of February 2024First February 2024 Result Comment: Afri can Barbadian GFR Calc Performed By: #### L 100.0100, L500.4050, L501.9985, L300.3900, L500.4100, L501.6710 ####[facility] [address] [place], [place], [id number] GAP 7 Normal 5-15 [facility] Comment on above: Order Comment: Comme nts: First week of February 2024FirFebruary 2024 Performed By: #### L 100.0100, L500.4050, L501.9985, L300.3900, L500.4100, L501.6710 ####[facility] [address] [place], [place], [phone](772) GFR/1.73 sq M.predicted among non-blacks MDRD (S/P/Bld) [Vol rate/Area] 80 mL/min/{1.73_m2} Normal >60 [facility] Comment on above: Order Comment: Comme nts: First week of February 2024FirFebruary 2024 Result Comment: Non- GFR Calc Performed By: #### L 100.0100, L500.4050, L501.9985, L300.3900, L500.4100, L501.6710 ####[facility] [address] [place], [address] Globulin (S) [Mass/Vol] 3.5 g/dL Normal 2.2-4.2 [facility] Comment on above: Order Comment: Comme nts: First week February 2024FirFebruary 2024 Performed By: #### L 100.0100, L500.4050, L501.9985, L300.3900, L500.4100, L501.6710 ####[facility] [address] [place], [address] Glucose [Mass/Vol] 100 mg/dL Normal 74-106 [place] Comment on above: Order Comment: Comme nts: First week of February 2024FirFebruary 2024 Result Comment: Fast ing Glucose result from 100 to 125 mg/dL suggests IMPAIRED HOMEOSTASIS per A.D.A. criteria. Performed By: #### L 100.0100, L500.4050, L501.9985, L300.3900, L500.4100, L501.6710 ####[facility] [address] [place], [address] Potassium [Moles/Vol] 4.1 mmol/L Normal 3.5-5.1 [facility] Comment on above: Order Comment: Comme nts: First week of February 2024FirFebruary 2024 Performed By: #### L 100.0100, L500.4050, L501.9985, L300.3900, L500.4100, L501.6710 ####[facility] [address] [place], [address] Sodium [Moles/Vol] 139 mmol/L Normal 136-145 [place] Comment on above: Order Comment: Comme nts: First week of February 2024First February 2024 Performed By: #### L 100.0100, L500.4050, L501.9985, L300.3900, L500.4100, L501.6710 ####[facility] [address] [place], [address] T PROT 7.3 g/dL Normal 6.4-8.2 [facility] Comment on above: Order Comment: Comme nts: First February 2024First February 2024 Performed By: #### L 100.0100, L500.4050, L501.9985, L300.3900, L500.4100, L501.6710 ####[facility] [address] [place], [place], [phone] Urea nitrogen [Mass/Vol] 16 mg/dL Normal 7-18 [facility] Comment on above: Order Comment: Comme nts: First week of February 2024First February 2024 Performed By: #### L 100.0100, L500.4050, L501.9985, L300.3900, L500.4100, L501.6710 ####[facility] [address] [place], [place], [phone] Hemoglobin A1con 02-05-2024 HbA1c (Bld) [Mass fraction] 5.4 % Normal 3.8-5.6 [facility] Comment on above: Result Comment: Norm al < 5.7 % Prediabetic 5.7 - 6.4 % Diabetic >or= 6.5 % Please note range changes. Performed By: #### L 100.0100, L500.4050, L501.9985, L300.3900, L500.4100, L501.6710 ####[facility] [address] [place], [place], [phone] Lipid Profileon 02-05-2024 Cholesterol [Mass/Vol] 184 mg/dL Normal 200 [facility] Comment on above: Order Comment: Comme nts: First week of February 2024FirFebruary 2024 Result Comment: <200 mg/dL Desirable 200-240 mg/dL Borderline >240 mg/dL High Risk Performed By: #### L 100.0100, L500.4050, L501.9985, L300.3900, L500.4100, L501.6710 ####[facility] [address] [place], [address] Cholesterol in HDL [Mass/Vol] 45 mg/dL Normal [facility] Comment on above: Order Comment: Comme nts: First week of February 2024FirFebruary 2024 Result Comment: The drugs N-Acetylcysteine and Metamizole may falsely depress this assay. Reference Range HDL <40 mg/dL Low HDL Cholesterol HDL >or= 60 mg/dL High HDL Cholesterol Performed By: #### L 100.0100, L500.4050, L501.9985, L300.3900, L500.4100, L501.6710 ####[facility] [address] [place], [address] Cholesterol in LDL [Mass/Vol] 121 mg/dL Normal 0-130 [facility] Comment on above: Order Comment: Comme nts: First week of February 2024FirFebruary 2024 Performed By: #### L 100.0100, L500.4050, L501.9985, L300.3900, L500.4100, L501.6710 ####[facility] [address] [place], [address] Cholesterol in VLDL [Mass/Vol] 18 mg/dL Normal 5-40 [facility] Comment on above: Order Comment: Comme nts: First week of February 2024FirFebruary 2024 Performed By: #### L 100.0100, L500.4050, L501.9985, L300.3900, L500.4100, L501.6710 ####[facility] [address] [place], [address] Triglyceride [Mass/Vol] 91 mg/dL Normal [facility] Comment on above: Order Comment: Comme nts: First week of February 2024First week of February 2024 Result Comment: The drugs N-Acetylcysteine and Metamizole may falsely depress this assay. Serum Triglycerides Reference Interval Normal <150 mg/dL Borderline high 150 - 199 mg/dL High 200 - 499 mg/dL Very High > or = 500 mg/dL Performed By: #### L 100.0100, L500.4050, L501.9985, L300.3900, L500.4100, L501.6710 ####[facility] [address] [place], [address] Prothrombin Time w/INRon INR Coag (PPP) [Relative time] 1.1 {INR} Normal [facility] Comment on above: Performed By: #### L 100.0100, L500.4050, L501.9985, L300.3900, L500.4100, L501.6710 ####[facility] [address] [place], [address] PT Coag (PPP) [Time] 13.9 s Normal 11.7-14.9 [facility] Comment on above: Performed By: #### L 100.0100, L500.4050, L501.9985, L300.3900, L500.4100, L501.6710 ####[facility] [address] [place], [address] Gastroenterology Visit Repor ton 10-23-2023 Gastroenterology Visit Report [facility] [address] [place] [address] OFFICE VISIT Date of Service: 10/23/23 MR#: [id number] Acct: [id number] Name: ANALI RDZ Rep #: [id number] : 1950 Provider: Dr. Paul bryan MD Age/Sex: 73/F Location: [facility] [place].[facility] Status: Signed Intake Vital Signs 05/14/23 12:25 10/23/23 12:36 Height 5 ft 7 in 5 ft 7 in Weight: 177 lb BMI 27.7 BP 145/81 H Blood Pressure Location Lt brachial Position Sitting Pulse 64 Pulse Oximetry (%) 96 Oxygen Delivery Method room air Intake Visit Reasons: FU Chief Complaint: dizziness, ear discomfort Allergies lansoprazole [From Prevacid] Allergy (Mild, Verified 05/14/23 12:25) Unknown bee venom protein (honey bee) Allergy (Verified 05/14/23 12:25) Swelling Sulfa (Sulfonamide Antibiotics) Allergy (Verified 05/14/23 12:25) Rash Proton Pump Inhibitors Adverse Reaction (Verified 05/14/23 12:25) Upset Stomach soy Adverse Reaction (Verified 05/14/23 12:25) Upset Stomach Medications losartan 25 mg tablet 25 mg PO DAILY bp 08/04/20 [History Confirmed 10/23/23] meclizine 25 mg tablet 25 mg PO TID PRN dizziness or vertigo #20 tabs 03/13/23 [Rx Confirmed 03/13/23] vitamin E (dl, acetate) 180 mg (400 unit) capsule 180 mg PO DAILY 10/23/23 [History Confirmed 10/23/23] PFSH Medical History Arthritis Blood in stool BPPV (benign paroxysmal positional vertigo) BRBPR (bright red blood per rectum) Cancer Fatigue GERD (gastroesophageal reflux disease) History of cancer History of carpal tunnel syndrome History of stress test Hypertension Non-smoker Retroperitoneal lymphadenopathy Tubular adenoma of colon Wears glasses Surgical History History of appendectomy History of carpal tunnel release of both wrists History of colonoscopy History of hysterectomy History of tonsillectomy Family History Sister Breast cancer x2 Aunt CVA (cerebral vascular accident) Social History Smoking Status: Never smoker alcohol intake: never HPI HPI Chief Complaint: dizziness, ear discomfort Details: ANALI RDZ, is a 73 F who presents to the office today for follow up. BGI Established 04.15.21. She was previously seen by Dr. Terence Parada for rectal bleeding, there was also a polyp that she was unable to remove. Colonoscopy 03.29.[address] Terence Parada finding diverticulosis of sigmoid, descending and transverse colons; one 7mm polyp at appendiceal orifice. Colonoscopy 04.28.21 finding diverticulosis of sigmoid and descending colons; one 5mm hyperplastic polyp with benign lymphoid tissue removed from cecum. Tubular adenoma ??? repeat colonoscopy 2025. CT abd/pel 6.04.29 without lymphadenopathy; fatty infiltration of liver; contracted thick-walled gallbladder without stones; minor diverticular changes of colon without acute diverticulitis. chhk US abd/elastography 8..- Liver measures 13.9cm- fatty infiltration of liver, subcentimeter cyst in the left lower lobe of liver, 10 kPa US abd/elastograpgy 3.3.- Liver measures 15cm , 9 kPa - several echogenic nodules throughout the right and left lobe of the liver, nodules in both lobes of thyroid gland, reccomended CT CT abd/pel w/ contrast 3.7.23- stable liver cysts, no other mass seen. 10/2022 labs: crp 4.38 H, ferr 271 H, unremarkable CBC, unremarkable CMP OV 04.12.23 Liver stiffness improved. Cont. Milk thistle and Vitamin E. Diet and excercise. Rpt labs and Us in 6 mo US abd/elastograpgy 10.30.23- Liver measuring 16.8cm , 8.4kPa OV 11.6.23 Pt reports doing very well since last visit. Occasional bloating and gas. BM are normal and consistent. No other changes. Labs and ultrasound reviewed from May 07, 2023. Patient is taking liver cleanse and used to take milk thistle CT abd/pel Triple phase 4.3.24- Stable 5mm cyst in the anterior aspect of the left lobe of the liver, scattered sigmoid diverticula, fatty infiltration of liver OV 4.16.24 Pt stable since last visit. Continues to have occasional bloating and gas. BM remain normal. No other concerns. Review of the imaging test. ROS Const Constitutional: No fatigue ENT ENT: No difficulty swallowing Gastro GI: Positive for bloating and excessive flatus; No abdominal pain, belching, change in bowel habits, change in stool character, coffee ground emesis, constipation, cramping, diarrhea, heartburn, difficulty swallowing, feeling full early, incontinent of stools, Vomiting blood/hematemesis, Blood in stool, loose stools, Black,tarry stools, nausea/dyspepsia, pain with swallowing, vomiting or other Genitourinary (more content not included)... Normal [facility] Absolute lymphocyte countOrd ered By: Paul Rodriguez on 10-17-2023 Lymphocytes Auto (Unsp spec) [#/Vol] 1.83 10*3/uL 0.83-4.51 [facility] Automated lymphocyte count a s percentage of total leukocytesOrdered By: Paul Rodriguez on 10-17-2023 Lymphocytes/100 WBC Auto (Unsp spec) 26.6 % 19-41 [facility] Basophil percentageOrdered B y: Paul Rodriguez on 10-17-2023 Basophils/100 WBC (Bld) 0.7 % 0-1 [facility] Bilirubin [Mass/Vol] 0.70 mg/dL 0.20-1.00 [facility] Comment on above: For patients on eltr ombopag therapy, use of Dimension Tobias TBIL is not recommended. Chloride [Moles/Vol] 107 mmol/L 98-107 [facility] Cholesterol [Mass/Vol] 194 mg/dL <200 [facility] Comment on above: <200 mg/dL Desirable 200-240 mg/dL Borderline >240 mg/dL High Risk Eosinophils/100 WBC (Bld) 2.3 % 0-5 [facility] Glucose [Mass/Vol] 126 mg/dL 74-106 [place] Comment on above: Fasting Glucose resu lt greater than or equal to 126 mg/dL suggests DIABETES MELLITUS per A.D.A. criteria. Hemoglobin (Bld) [Mass/Vol] 14.7 g/dL 12.0-15.0 [facility] Monocytes/100 WBC (Bld) 7.6 % 0-10 [facility] Neutrophils (Bld) [#/Vol] 4.3 10*3/uL 2.0-7.7 [facility] Neutrophils/100 WBC (Bld) 62.5 % 47-70 [facility] Potassium [Moles/Vol] 3.7 mmol/L 3.5-5.1 [facility] Protein [Mass/Vol] 7.4 g/dL 6.4-8.2 [place] Sodium [Moles/Vol] 141 mmol/L 136-145 [place] Triglyceride [Mass/Vol] 320 mg/dL <199 [facility] Comment on above: The drugs N-Acetylcy steine and Metamizole may falsely depress this assay.Serum Triglycerides Reference Interval Normal <150 mg/dL Borderline high 150 - 199 mg/dL High 200 - 499 mg/dL Very High > or = 500 mg/dL WBC (Bld) [#/Vol] 6.9 10*3/uL 4.4-11.0 [place] Determination of erythrocyte mean corpuscular volume (MCV)Ordered By: Paul Rodriguez on 10-17-2023 MCV (RBC) [Entitic vol] 92.7 fL 81-99 [facility] Erythrocyte distribution wid th ratioOrdered By: Paul Rodriguez on 10-17-2023 Erythrocyte distribution width (RBC) [Ratio] 12.2 % 11.6-14.6 [facility] Erythrocyte distribution wid th standard deviationOrdered By: Paul Rodriguez on 10-17-2023 Erythrocyte distribution width (RBC) [Entitic vol] 41.2 fL 35.1-43.9 [facility] Erythrocyte sedimentation ra teOrdered By: Paul Rodriguez on 10-17-2023 ESR (Bld) [Velocity] 9 mm/h 0-30 [facility] Hematocrit Auto (Bld) [Volum e fraction]Ordered By: Paul Rodriguez on 10-17-2023 Hematocrit (Bld) [Volume fraction] 43.3 % 37-47 [facility] Immature granulocytes/100 WB C Auto (Bld)Ordered By: Paul Rodriguez on 10-17-2023 Immature granulocytes/100 WBC (Bld) 0.300 % 0.0-0.9 [facility] Comment on above: IG% - Immature Granu locytes (promyelocytes, myelocytes and metamyelocytes) > 1% indicates that a LEFT SHIFT is Present. Iron measurement (mass/mass) Ordered By: Paul Rodriguez on 10-17-2023 Iron (Unsp spec) [Mass/Mass] 122 ug/dL 50-170 [facility] Laboratory - Chemistry and C hemistry - challengeOrdered By: Paul Rodriguez on 10-17-2023 Albumin/Globulin [Mass ratio] 1.0 {ratio} 0.9-2.4 [facility] ALP [Catalytic activity/Vol] 89 U/L 45-117 [facility] ALT [Catalytic activity/Vol] 34 U/L 13-56 [facility] Cholesterol in HDL [Mass/Vol] 35 mg/dL >40 [facility] Comment on above: The drugs N-Acetylcy steine and Metamizole may falsely depress this assay. Reference Range HDL <40 mg/dL Low HDL Cholesterol HDL >or= 60 mg/dL High HDL Cholesterol Cholesterol in LDL [Mass/Vol] 95 mg/dL 0-130 [facility] CO2 [Moles/Vol] 29.0 mmol/L 21.0-32.0 [facility] Ferritin [Mass/Vol] 225 ng/mL 8-252 [facility] Globulin (S) [Mass/Vol] 3.7 g/dL 2.2-4.2 [facility] Urea nitrogen/Creatinine [Mass ratio] 27.1 mg/mg 10-20 [facility] Laboratory - CoagulationOrde red By: Paul Rodriguez on 10-17-2023 INR Coag (Bld) [Relative time] 1.1 {INR} [facility] PT Coag (PPP) [Time] 14.0 s 11.7-14.9 [facility] Laboratory - Hematology and Cell countsOrdered By: Paul Rodriguez on 10-17-2023 MCH (RBC) [Entitic mass] 31.5 pg 27.0-32.0 [facility] MCHC (RBC) [Mass/Vol] 33.9 g/dL 32-36 [facility] Nucleated RBC/100 WBC (Bld) [Ratio] 0 % 0-5 [facility] Platelet mean volume (Bld) [Entitic vol] 9.3 fL 6.2-12.0 [facility] Platelets (Bld) [#/Vol] 265 10*3/uL 150-450 [facility] No Panel InformationOrdered By: Paul Rodriguez on 10-17-2023 C-Reactive Protein Extended Range < 2.90 mg/L 0.0-3.0 [facility] Comment on above: C-Reactive Protein ( CRP) provides useful information for thediagnosis, therapy and monitoring of inflammatory processesand associated diseases. For the evaluation of Relative Riskfor Cardiovascular Disease, a High Sensitivity CRP (HSCRP)should be ordered. Estimated GFR (MDRD) Amer 94 mL/min >60 [facility] Comment on above: GFR Calc Estimated GFR (MDRD) Non-Af Amer 78 mL/min >60 [facility] Comment on above: Non- GFR Calc Total Iron Binding Capacity 271 ug/dL 250-450 [facility] Tumor Marker Alpha Fetoprotein < 1.8 ng/mL 0.0-9.2 [facility] Comment on above: [facility] El ectrochemiluminescence Immunoassay(ECLIA)Values obtained with different assay methods or kits cannotbe used interchangeably. Results cannot be interpreted asabsolute evidence of the presence or absence of malignantdisease.This test is not interpretable in females.Performed at: [facility] [address] [id number] Director: Anderson Holguin PhD, Phone: [phone] VLDL Cholesterol 64 mg/dL 5-40 [facility] RBC Auto (Bld) [#/Vol]Ordere d By: Paul Rodriguez on 10-17-2023 RBC (Bld) [#/Vol] 4.67 10*6/uL 4.2-5.4 [facility] Serum or plasma calcium arsen urement (mass/volume)Ordered By: Paul Rodriguez on 10-17-2023 Calcium [Mass/Vol] 9.0 mg/dL 8.5-10.1 [place] Serum or plasma creatinine m easurement (mass/volume)Ordered By: Paul Rodriguez on 10-17-2023 Creatinine [Mass/Vol] 0.77 mg/dL 0.55-1.02 [facility] Comment on above: The validity of the calculated GFR & GFRAA in patients over 70 years has not been determined. Clinical correlation is essential. Serum or plasma urea nitroge n measurement (mass/volume)Ordered By: Paul Rodriguez on 10-17-2023 Urea nitrogen [Mass/Vol] 21 mg/dL 7-18 [facility] Thin prep Papanicolaou smear with manual screeningOrdered By: Paul Rodriguez on 10-17-2023 Thin prep Papanicolaou smear with manual screening 3.7 g/dL 3.2-5.0 [facility] Thin prep Papanicolaou smear with manual screening 26 U/L 15-37 [facility] Thin prep Papanicolaou smear with manual screening 5 5-15 [facility] Whole blood hemoglobin A1c/t otal hemoglobin ratio (mass fraction)Ordered By: Paul Rodriguez on 10-17-2023 HbA1c (Bld) [Mass fraction] 5.5 % 3.8-5.6 [facility] Comment on above: Normal < 5.7 % Predi abetic 5.7 - 6.4 % Diabetic >or= 6.5 % Please note range changes. Basophil percentageOrdered B y: Paul Rodriguez on 10-10-2023 Basophil percentage < 1.0 mg/dL 0.55-1.02 [facility] No Panel InformationOrdered By: Paul Rodriguez on 10-10-2023 Bedside Estimated GFR (eGFR) > 60.0000 mL/min >60 [facility] Clostridioides difficile nuc leic acid assay by PCROrdered By: Darryl Ramirez on 07-06-2023 C. difficile DNA RY+probe Ql (Unsp spec) [facility] Clostridium difficile detect ion by polymerase chain reactionOrdered By: Darryl Ramirez on 07-06-2023 C. difficile DNA RY+probe Ql (Unsp spec) [facility] No Panel InformationOrdered By: Darryl Ramirez on 07-06-2023 Miscellaneous Test See comment [facility] Comment on above: TEST RESULTS LIMITSS tool CultureSalmonella/Shigella Screen Final reportResult 1No Salmonella or Shigella recovered.Campylobacter Culture Final reportResult 1No Campylobacter species isolated.E coli Shiga Toxin EIA Negative Negative TESTING PERFORMED AT [facility]. ORIGINAL REPORT ON FILE IN LAB CONTAINS ADDITIONAL TEST SITE INFORMATION. Absolute lymphocyte countOrd ered By: Briandulce Guerra on 05-07-2023 Lymphocytes Auto (Unsp spec) [#/Vol] 1.38 10*3/uL 0.83-4.51 [facility] Basophil percentageOrdered B y: Brianelena Guerra on 05-07-2023 Basophil percentage < 10.0 umol/L 11-32 [facility] Basophils/100 WBC (Bld) 0.7 % 0-1 [facility] Bilirubin [Mass/Vol] 0.50 mg/dL 0.20-1.00 [facility] Comment on above: For patients on eltr ombopag therapy, use of Dimension Tobias TBIL is not recommended. Chloride [Moles/Vol] 108 mmol/L 98-107 [facility] Eosinophils/100 WBC (Bld) 1.5 % 0-5 [facility] Glucose [Mass/Vol] 111 mg/dL 74-106 [place] Comment on above: Fasting Glucose resu lt from 100 to 125 mg/dL suggests IMPAIRED HOMEOSTASIS per A.D.A. criteria. LDH [Catalytic activity/Vol] 185 U/L 84-246 [facility] Neutrophils (Bld) [#/Vol] 3.5 10*3/uL 2.0-7.7 [facility] Neutrophils/100 WBC (Bld) 64.2 % 47-70 [facility] Potassium [Moles/Vol] 4.3 mmol/L 3.5-5.1 [facility] Protein [Mass/Vol] 7.5 g/dL 6.4-8.2 [place] Sodium [Moles/Vol] 142 mmol/L 136-145 [place] WBC (Bld) [#/Vol] 5.5 10*3/uL 4.4-11.0 [place] Blood erythrocytes count (nu mber/volume)Ordered By: Brian Guerra on 05-07-2023 RBC (Bld) [#/Vol] 4.75 10*6/uL 4.2-5.4 [facility] Blood hemoglobin measurement (mass/volume)Ordered By: Brian Guerra on 05-07-2023 Hemoglobin (Bld) [Mass/Vol] 14.9 g/dL 12.0-15.0 [facility] Blood lymphocytes/100 leukoc ytesOrdered By: Brian Guerra on 05-07-2023 Lymphocytes/100 WBC (Bld) 25.3 % 19-41 [facility] Blood monocytes/100 leukocyt esOrdered By: Brian Guerra on 05-07-2023 Monocytes/100 WBC (Bld) 8.1 % 0-10 [facility] Blood platelet mean volumeOr dered By: Brian Guerra on 05-07-2023 Platelet mean volume (Bld) [Entitic vol] 9.1 fL 6.2-12.0 [facility] Determination of erythrocyte mean corpuscular volume (MCV)Ordered By: Brian Guerra on 05-07-2023 MCV (RBC) [Entitic vol] 93.5 fL 81-99 [facility] Erythrocyte sedimentation ra teOrdered By: Brian Guerra on 05-07-2023 ESR (Bld) [Velocity] 2 mm/h 0-30 [facility] Hematocrit Auto (Bld) [Volum e fraction]Ordered By: Brian Guerra on 05-07-2023 Hematocrit (Bld) [Volume fraction] 44.4 % 37-47 [facility] INR in Blood by Coagulation assayOrdered By: Brian Guerra on 05-07-2023 INR Coag (Bld) [Relative time] 1.1 {INR} [facility] Laboratory - Chemistry and C hemistry - challengeOrdered By: Brian Guerra on 05-07-2023 ALP [Catalytic activity/Vol] 94 U/L 45-117 [facility] ALT [Catalytic activity/Vol] 37 U/L 13-56 [facility] CO2 [Moles/Vol] 30.0 mmol/L 21.0-32.0 [facility] Globulin (S) [Mass/Vol] 3.5 g/dL 2.2-4.2 [facility] Urea nitrogen/Creatinine [Mass ratio] 20.0 mg/mg 10-20 [facility] Laboratory - CoagulationOrde red By: Brian Guerra on 05-07-2023 PT Coag (PPP) [Time] 13.8 s 11.7-14.9 [facility] Laboratory - Hematology and Cell countsOrdered By: Brian Guerra on 05-07-2023 Erythrocyte distribution width (RBC) [Entitic vol] 42.6 fL 35.1-43.9 [facility] Erythrocyte distribution width (RBC) [Ratio] 12.3 % 11.6-14.6 [facility] Immature granulocytes/100 WBC (Bld) 0.200 % 0.0-0.9 [facility] Comment on above: IG% - Immature Granu locytes (promyelocytes, myelocytes and metamyelocytes) > 1% indicates that a LEFT SHIFT is Present. MCH (RBC) [Entitic mass] 31.4 pg 27.0-32.0 [facility] Nucleated RBC/100 WBC (Bld) [Ratio] 0 % 0-5 [facility] MCHC Auto (RBC) [Mass/Vol]Or dered By: Brian Guerra on 05-07-2023 MCHC (RBC) [Mass/Vol] 33.6 g/dL 32-36 [facility] No Panel InformationOrdered By: Brian Guerra on 05-07-2023 Estimated GFR (MDRD) Amer 85 mL/min >60 [facility] Comment on above: GFR Calc Estimated GFR (MDRD) Non-Af Amer 70 mL/min >60 [facility] Comment on above: Non- GFR Calc Platelets bldOrdered By: Kali Guerra on 05-07-2023 Platelets (Bld) [#/Vol] 210 10*3/uL 150-450 [facility] Serum or plasma C reactive p rotein measurement (mass/volume)Ordered By: Brian Guerra on 05-07-2023 CRP [Mass/Vol] mg/L 0.0-3.0 [facility] Comment on above: C-Reactive Protein ( CRP) provides useful information for thediagnosis, therapy and monitoring of inflammatory processesand associated diseases. For the evaluation of Relative Riskfor Cardiovascular Disease, a High Sensitivity CRP (HSCRP)should be ordered. Serum or plasma albumin arsen urement (mass/volume)Ordered By: Brian Guerra on 05-07-2023 Albumin [Mass/Vol] 4.0 g/dL 3.2-5.0 [place] Serum or plasma albumin/glob ulin mass ratioOrdered By: Brian Guerra on 05-07-2023 Albumin/Globulin [Mass ratio] 1.1 {ratio} 0.9-2.4 [facility] Serum or plasma calcium arsen urement (mass/volume)Ordered By: Brian Guerra on 05-07-2023 Calcium [Mass/Vol] 9.0 mg/dL 8.5-10.1 [place] Serum or plasma creatinine m easurement (mass/volume)Ordered By: Brian Guerra on 05-07-2023 Creatinine [Mass/Vol] 0.85 mg/dL 0.55-1.02 [facility] Comment on above: The validity of the calculated GFR & GFRAA in patients over 70 years has not been determined. Clinical correlation is essential. Serum or plasma urea nitroge n measurement (mass/volume)Ordered By: Brian Guerra on 05-07-2023 Urea nitrogen [Mass/Vol] 17 mg/dL 7-18 [facility] Thin prep Papanicolaou smear with manual screeningOrdered By: Brian Guerra on 05-07-2023 Thin prep Papanicolaou smear with manual screening 26 U/L 15-37 [facility] Thin prep Papanicolaou smear with manual screening 4 5-15 [facility] Absolute lymphocyte countOrd ered By: Darryl Ramirez on 03-19-2023 Lymphocytes Auto (Unsp spec) [#/Vol] 1.38 10*3/uL 0.83-4.51 [facility] Alternaria alternata IgE ser umOrdered By: Darryl Ramirez on 03-19-2023 A. alternata IgE Qn (S) <0.10 kU/L Class 0 [facility] Basophil percentageOrdered B y: Darryl Ramirez on 03-19-2023 Basophils/100 WBC (Bld) 0.7 % 0-1 [facility] Bilirubin [Mass/Vol] 0.50 mg/dL 0.20-1.00 [facility] Comment on above: For patients on eltr ombopag therapy, use of Dimension Tobias TBIL is not recommended. Chloride [Moles/Vol] 105 mmol/L 98-107 [facility] Cholesterol [Mass/Vol] 200 mg/dL <200 [facility] Comment on above: <200 mg/dL Desirable 200-240 mg/dL Borderline >240 mg/dL High Risk Eosinophils/100 WBC (Bld) 2.3 % 0-5 [facility] Glucose [Mass/Vol] 86 mg/dL 74-106 [place] Neutrophils (Bld) [#/Vol] 3.7 10*3/uL 2.0-7.7 [facility] Neutrophils/100 WBC (Bld) 64.6 % 47-70 [facility] Potassium [Moles/Vol] 3.9 mmol/L 3.5-5.1 [facility] Protein [Mass/Vol] 7.7 g/dL 6.4-8.2 [place] Sodium [Moles/Vol] 140 mmol/L 136-145 [place] Triglyceride [Mass/Vol] 124 mg/dL <199 [facility] Comment on above: The drugs N-Acetylcy steine and Metamizole may falsely depress this assay.Serum Triglycerides Reference Interval Normal <150 mg/dL Borderline high 150 - 199 mg/dL High 200 - 499 mg/dL Very High > or = 500 mg/dL WBC (Bld) [#/Vol] 5.8 10*3/uL 4.4-11.0 [place] Blood erythrocytes count (nu mber/volume)Ordered By: Darryl Ramirez on 03-19-2023 RBC (Bld) [#/Vol] 4.74 10*6/uL 4.2-5.4 [facility] Blood hemoglobin measurement (mass/volume)Ordered By: Darryl Ramirez on 03-19-2023 Hemoglobin (Bld) [Mass/Vol] 14.9 g/dL 12.0-15.0 [facility] Blood lymphocytes/100 leukoc ytesOrdered By: Darryl Ramirez on 03-19-2023 Lymphocytes/100 WBC (Bld) 24.0 % 19-41 [facility] Blood monocytes/100 leukocyt esOrdered By: Darryl Ramirez on 03-19-2023 Monocytes/100 WBC (Bld) 8.2 % 0-10 [facility] Blood platelet mean volumeOr dered By: Darryl Ramirez on 03-19-2023 Platelet mean volume (Bld) [Entitic vol] 10.1 fL 6.2-12.0 [facility] Determination of erythrocyte mean corpuscular volume (MCV)Ordered By: Darryl Ramirez on 03-19-2023 MCV (RBC) [Entitic vol] 94.3 fL 81-99 [facility] Hematocrit Auto (Bld) [Volum e fraction]Ordered By: Darryl Ramirez on 03-19-2023 Hematocrit (Bld) [Volume fraction] 44.7 % 37-47 [facility] Iron measurement (mass/mass) Ordered By: Darryl Ramirez on 03-19-2023 Iron (Unsp spec) [Mass/Mass] 150 ug/dL 50-170 [facility] Laboratory - Chemistry and C hemistry - challengeOrdered By: Darryl Ramirez on 03-19-2023 ALP [Catalytic activity/Vol] 98 U/L 45-117 [facility] ALT [Catalytic activity/Vol] 33 U/L 13-56 [facility] CO2 [Moles/Vol] 26.0 mmol/L 21.0-32.0 [facility] Globulin (S) [Mass/Vol] 3.9 g/dL 2.2-4.2 [facility] Urea nitrogen/Creatinine [Mass ratio] 17.3 mg/mg 10-20 [facility] - Hematology and Cell countsOrdered By: Darryl Ramirez on 03-19-2023 Erythrocyte distribution width (RBC) [Entitic vol] 42.2 fL 35.1-43.9 [facility] Erythrocyte distribution width (RBC) [Ratio] 12.2 % 11.6-14.6 [facility] Immature granulocytes/100 WBC (Bld) 0.200 % 0.0-0.9 [facility] Comment on above: IG% - Immature Granu locytes (promyelocytes, myelocytes and metamyelocytes) > 1% indicates that a LEFT SHIFT is Present. MCH (RBC) [Entitic mass] 31.4 pg 27.0-32.0 [facility] Nucleated RBC/100 WBC (Bld) [Ratio] 0 % 0-5 [facility] Laboratory - Miscellaneous t estsOrdered By: Darryl Ramirez on 03-19-2023 Service comment (Unsp spec) [Interp] Comment . [facility] Comment on above: Levels of Specific I gE Class Description of Class ----- < 0.10 0 Negative 0.10 - 0.31 0/I Equivocal/Low 0.32 - 0.55 I Low 0.56 - 1.40 II Moderate 1.41 - 3.90 III High 3.91 - 19.00 IV Very High 19.01 - 100.00 V Very High >100.00 [facility] MCHC Auto (RBC) [Mass/Vol]Or dered By: Darryl Ramirez on 03-19-2023 MCHC (RBC) [Mass/Vol] 33.3 g/dL 32-36 [facility] No Panel InformationOrdered By: Darryl Ramirez on 03-19-2023 Aspergillus fumigatus Allergen <0.10 kU/L Class 0 [facility] Common Ragweed (Short) Allergen <0.10 kU/L Class 0 [facility] Kuwaiti Plantain Allergen (RAST) <0.10 kU/L Class 0 [facility] Estimated GFR (MDRD) Amer 98 mL/min >60 [facility] Comment on above: GFR Calc Estimated GFR (MDRD) Non-Af Amer 81 mL/min >60 [facility] Comment on above: Non- GFR Calc Maple (Bond) Allergen IgE Ab <0.10 kU/L Class 0 [facility] Ector Tree Allergen <0.10 kU/L Class 0 [facility] Total Iron Binding Capacity 273 ug/dL 250-450 [facility] Vitamin D 25-Hydroxy 51.1 ng/mL [facility] Comment on above: Vitamin D 25(OH) Sta tus Range Deficiency <20 ng/mL (50nmol/L) Insufficiency 20 - 30 ng/mL (50 - 75 nmol/L) Sufficiency 30 - 100 ng/mL (75 - 250 nmol/L) Toxicity >100 ng/mL (>250 nmol/L) Platelets bldOrdered By: Slime Ramirez on 03-19-2023 Platelets (Bld) [#/Vol] 223 10*3/uL 150-450 [facility] Rough pigweed specific IgE a ntibody assayOrdered By: Darryl Ramirez on 03-19-2023 Rough Pigweed IgE Qn (S) <0.10 kU/L Class 0 [facility] Serum Bermuda grass IgE anti body assay (units/volume)Ordered By: Darryl Ramirez on 03-19-2023 Bermuda grass IgE Qn (S) <0.10 kU/L Class 0 [facility] Serum Cladosporium herbarum IgE antibody assay (units/volume)Ordered By: Darryl Ramirez on 03-19-2023 C. herbarum IgE Qn (S) <0.10 kU/L Class 0 [facility] Serum Dermatophagoides farin ae specific IgE antibody assay (units/volume)Ordered By: Darryl Ramirez on 03-19-2023 Barbadian house dust mite IgE Qn (S) <0.10 kU/L Class 0 [facility] Serum house dust mi te IgE antibody assay (units/volume)Ordered By: Darryl Ramirez on 03-19-2023 house dust mite IgE Qn (S) <0.10 kU/L Class 0 [facility] Serum Magdy grass IgE anti body assay (units/volume)Ordered By: Darryl Ramirez on 03-19-2023 Magdy grass IgE Qn (S) <0.10 kU/L Class 0 [facility] Serum [place] blue grass Ig E antibody assay (units/volume)Ordered By: Darryl Ramirez on 03-19-2023 [place] blue grass IgE Qn (S) <0.10 kU/L Class 0 [facility] Serum Mucor racemosus IgE an tibody assay (units/volume)Ordered By: Darryl Ramirez on 03-19-2023 Mucor racemosus IgE Qn (S) <0.10 kU/L Class 0 [facility] Serum Penicillium notatum Ig E antibody assay (units/volume)Ordered By: Darryl Ramirez on 03-19-2023 P. notatum IgE Qn (S) <0.10 kU/L Class 0 [facility] Serum Periplaneta americana IgE antibody assay (units/volume)Ordered By: Darryl Ramirez on 03-19-2023 Barbadian Cockroach IgE Qn (S) <0.10 kU/L Class 0 [facility] Serum bahia grass IgE antibo dy assay (units/volume)Ordered By: Darryl Ramirez on 03-19-2023 Bahia grass IgE Qn (S) <0.10 kU/L Class 0 [facility] Serum cat dander IgE antibod y assay (units/volume)Ordered By: Darryl Ramirez on 03-19-2023 Cat dander IgE Qn (S) <0.10 kU/L Class 0 [facility] Serum dog epithelium IgE ant ibody assay (units/volume)Ordered By: Darryl Ramirez on 03-19-2023 Dog epithelium IgE Qn (S) <0.10 kU/L Class 0 [facility] Serum hazelnut pollen IgE an tibody assay (units/volume)Ordered By: Darryl Ramirez on 03-19-2023 Hazelnut Pollen IgE Qn (S) <0.10 kU/L Class 0 [facility] Serum mountain cedar specifi c IgE antibody assayOrdered By: Darryl Ramirez on 03-19-2023 Mountain Juniper IgE Qn (S) <0.10 kU/L Class 0 [facility] Serum mugwort IgE antibody a ssay (units/volume)Ordered By: Darryl Ramirez on 03-19-2023 Mugwort IgE Qn (S) <0.10 kU/L Class 0 [place] Serum nettle IgE antibody as say (units/volume)Ordered By: Darryl Ramirez on 03-19-2023 Nettle IgE Qn (S) <0.10 kU/L Class 0 [facility] Comment on above: Performed at: [facility] Julieth porter [address] [id number] Director: Cheryl Kaur MD, Phone: [phone] Serum or plasma albumin arsen urement (mass/volume)Ordered By: Darryl Ramirez on 03-19-2023 Albumin [Mass/Vol] 3.8 g/dL 3.2-5.0 [place] Serum or plasma albumin/glob ulin mass ratioOrdered By: Darryl Ramirez on 03-19-2023 Albumin/Globulin [Mass ratio] 1.0 {ratio} 0.9-2.4 [facility] Serum or plasma calcium arsen urement (mass/volume)Ordered By: Darryl Ramirez on 03-19-2023 Calcium [Mass/Vol] 9.2 mg/dL 8.5-10.1 [place] Serum or plasma cholesterol in HDL measurement (mass/volume)Ordered By: Darryl Ramirez on 03-19-2023 Cholesterol in HDL [Mass/Vol] 42 mg/dL >40 [facility] Comment on above: The drugs N-Acetylcy steine and Metamizole may falsely depress this assay. Reference Range HDL <40 mg/dL Low HDL Cholesterol HDL >or= 60 mg/dL High HDL Cholesterol Serum or plasma cholesterol in VLDL measurement (mass/volume)Ordered By: Darryl Ramirez on 03-19-2023 Cholesterol in VLDL [Mass/Vol] 25 mg/dL 5-40 [facility] Serum or plasma creatinine m easurement (mass/volume)Ordered By: Darryl Ramirez on 03-19-2023 Creatinine [Mass/Vol] 0.75 mg/dL 0.55-1.02 [facility] Comment on above: The validity of the calculated GFR & GFRAA in patients over 70 years has not been determined. Clinical correlation is essential. Serum or plasma ferritin thea surement (mass/volume)Ordered By: Darryl Ramirez on 03-19-2023 Ferritin [Mass/Vol] 256 ng/mL 8-252 [facility] Serum or plasma iron saturat ion measurement (mass fraction)Ordered By: Darryl Ramirez on 03-19-2023 Iron saturation [Mass fraction] 54.9 % 15.0-55.0 [facility] Serum or plasma low density lipoprotein (LDL) cholesterol measurement (mass/volume)Ordered By: Darryl Ramirez on 03-19-2023 Cholesterol in LDL [Mass/Vol] 133 mg/dL 0-130 [facility] Serum or plasma urea nitroge n measurement (mass/volume)Ordered By: Darryl Ramirez on 03-19-2023 Urea nitrogen [Mass/Vol] 13 mg/dL 7-18 [facility] Serum sheep sorrel IgE antib daniel assay (units/volume)Ordered By: Darryl Ramirez on 03-19-2023 Sheep Cobden IgE Qn (S) <0.10 kU/L Class 0 [facility] Serum sweet gum IgE radioall ergosorbent test (RAST) class determinationOrdered By: Darryl Ramirez on 03-19-2023 Sweet gum IgE RAST class (S) <0.10 kU/L Class 0 [facility] Serum white elm IgE antibody assay (units/volume)Ordered By: Darryl Ramirez on 03-19-2023 White Elm IgE Qn (S) <0.10 kU/L Class 0 [facility] Serum white hickory IgE anti body assay (units/volume)Ordered By: Darryl Ramirez on 03-19-2023 White Yellow Medicine IgE Qn (S) 1.79 kU/L Class III [facility] Serum white mulberry IgE ant ibody assay (units/volume)Ordered By: Darryl Ramirez on 03-19-2023 White mulberry IgE Qn (S) <0.10 kU/L Class 0 [facility] Serum white oak IgE antibody assay (units/volume)Ordered By: Darryl Ramirez on 03-19-2023 C[place]kill IgE Qn (S) <0.10 kU/L Class 0 [facility] Stemphylium herbarum IgE ser umOrdered By: Darryl Ramirez on 03-19-2023 Stemphylium botryosum IgE Qn (S) <0.10 kU/L Class 0 [facility] Thin prep Papanicolaou smear with manual screeningOrdered By: Darryl Ramirez on 03-19-2023 Thin prep Papanicolaou smear with manual screening 25 U/L 15-37 [facility] Thin prep Papanicolaou smear with manual screening 9 5-15 [facility] Basophil percentageOrdered B y: Tigist Ojeda on 09-12-2022 Basophil percentage < 0.9 mg/dL 0.55-1.02 [facility] No Panel InformationOrdered By: Tigist Ojeda on 09-12-2022 Bedside Estimated GFR (eGFR) > 60.0000 mL/min >60 [facility] Absolute lymphocyte countOrd ered By: Tigist Ojeda on 05-19-2022 Lymphocytes Auto (Unsp spec) [#/Vol] 2.12 10*3/uL 0.83-4.51 [facility] Basophil percentageOrdered B y: Tigist Ojeda on 05-19-2022 Basophils/100 WBC (Bld) 0.4 % 0-1 [facility] Eosinophils/100 WBC (Bld) 2.5 % 0-5 [facility] Neutrophils (Bld) [#/Vol] 3.9 10*3/uL 2.0-7.7 [facility] Neutrophils/100 WBC (Bld) 57.5 % 47-70 [facility] WBC (Bld) [#/Vol] 6.8 10*3/uL 4.4-11.0 [place] Blood erythrocytes count (nu mber/volume)Ordered By: Tigist Ojeda on 05-19-2022 RBC (Bld) [#/Vol] 4.74 10*6/uL 4.2-5.4 [facility] Blood hemoglobin measurement (mass/volume)Ordered By: Tigist Ojeda on 05-19-2022 Hemoglobin (Bld) [Mass/Vol] 15.5 g/dL 12.0-15.0 [facility] Blood lymphocytes/100 leukoc ytesOrdered By: Tigist Ojeda on 05-19-2022 Lymphocytes/100 WBC (Bld) 31.2 % 19-41 [facility] Blood monocytes/100 leukocyt esOrdered By: Tigist Ojeda on 05-19-2022 Monocytes/100 WBC (Bld) 8.1 % 0-10 [facility] Blood platelet mean volumeOr dered By: Tigist Ojeda on 05-19-2022 Platelet mean volume (Bld) [Entitic vol] 9.4 fL 6.2-12.0 [facility] Determination of erythrocyte mean corpuscular volume (MCV)Ordered By: Tigist Ojeda on 05-19-2022 MCV (RBC) [Entitic vol] 92.8 fL 81-99 [facility] Hematocrit Auto (Bld) [Volum e fraction]Ordered By: Tigist Ojeda on 05-19-2022 Hematocrit (Bld) [Volume fraction] 44.0 % 37-47 [facility] Iron measurement (mass/mass) Ordered By: Tigist Ojeda on 05-19-2022 Iron (Unsp spec) [Mass/Mass] 130 ug/dL 50-170 [facility] Laboratory - Hematology and Cell countsOrdered By: Tigist Ojeda on 05-19-2022 Erythrocyte distribution width (RBC) [Entitic vol] 41.9 fL 35.1-43.9 [facility] Erythrocyte distribution width (RBC) [Ratio] 12.4 % 11.6-14.6 [facility] Immature granulocytes/100 WBC (Bld) 0.300 % 0.0-0.9 [facility] Comment on above: IG% - Immature Granu locytes (promyelocytes, myelocytes and metamyelocytes) > 1% indicates that a LEFT SHIFT is Present. MCH (RBC) [Entitic mass] 32.7 pg 27.0-32.0 [facility] Nucleated RBC/100 WBC (Bld) [Ratio] 0 % 0-5 [facility] MCHC Auto (RBC) [Mass/Vol]Or dered By: Tigist Ojeda on 05-19-2022 MCHC (RBC) [Mass/Vol] 35.2 g/dL 32-36 [facility] No Panel InformationOrdered By: Tigist Ojeda on 05-19-2022 Hepatitis A IgM Antibody Negative Negative [facility] Hepatitis B Core IgM Antibody Negative Negative [facility] Hepatitis C Antibody (EIA) <0.1 s/co ratio 0.0-0.9 [facility] Hepatitis C Antibody Comment Comment . [facility] Comment on above: NegativeNot infected with HCV, unless recent infection issuspected or other evidence exists to indicate HCVinfection.Performed at: [facility] [employer] [id number] Director: Anderson Holguin PhD, Phone: [phone] Total Iron Binding Capacity 281 ug/dL 250-450 [facility] Platelets bldOrdered By: Tess Ojeda on 05-19-2022 Platelets (Bld) [#/Vol] 231 10*3/uL 150-450 [facility] Serum or plasma ferritin thea surement (mass/volume)Ordered By: Tigist Ojeda on 05-19-2022 Ferritin [Mass/Vol] 475 ng/mL 8-252 [facility] Serum or plasma hepatitis B virus surface antigen detection by immunoassayOrdered By: Tigist Ojeda on 05-19-2022 HBV surface Ag IA Ql Negative Negative [facility] Serum or plasma iron saturat ion measurement (mass fraction)Ordered By: Tigist Ojeda on 05-19-2022 Iron saturation [Mass fraction] 46.3 % 15.0-55.0 [facility] Absolute lymphocyte counton 04-19-2022 Lymphocytes Auto (Unsp spec) [#/Vol] 1.40 10*3/uL 0.83-4.51 [facility] Work Phone: [phone] Atypical perinuclear antineu trophil cytoplasmic antibodies measurementon 04-19-2022 Neutrophil cytoplasmic Ab.perinuclear.atypica l IF (S) [Titer] <1:20 titer Neg:<1:20 [facility] Work Phone: Comment on above: The atypical pANCA p attern has been observed in asignificant percentage of patients with ulcerative colitis,primary sclerosing cholangitis and autoimmune hepatitis. Basophil percentageon 2021 Basophil percentage < 10.0 umol/L - [facility] Work Phone: Basophil percentage < 0.2 AI 0.0-0.9 [facility] Work Phone: Basophils/100 WBC (Bld) 0.7 % 0-1 [facility] Work Phone: Bilirubin [Mass/Vol] 0.50 mg/dL 0.20-1.00 [facility] Work Phone: [phone] Comment on above: For patients on eltr ombopag therapy, use of Dimension Tobias TBIL is not recommended. Chloride [Moles/Vol] 105 mmol/L 98-107 [facility] Work Phone: Eosinophils/100 WBC (Bld) 1.6 % 0-5 [facility] Work Phone: Glucose [Mass/Vol] 93 mg/dL 74-106 [place] Work Phone: Neutrophils (Bld) [#/Vol] 4.1 10*3/uL 2.0-7.7 [facility] Work Phone: Neutrophils/100 WBC (Bld) 67.5 % 47-70 [facility] Work Phone: Potassium [Moles/Vol] 4.1 mmol/L 3.5-5.1 [facility]: Protein [Mass/Vol] 8.3 g/dL 6.4-8.2 [place] Work Phone: Sodium [Moles/Vol] 140 mmol/L 136-145 [place] Work Phone: WBC (Bld) [#/Vol] 6.1 10*3/uL 4.4-11.0 [place] Work Phone: Blood erythrocytes count (nu mber/volume)on 04-19-2022 RBC (Bld) [#/Vol] 5.00 10*6/uL 4.2-5.4 [facility]: Blood hemoglobin measurement (mass/volume)on 04-19-2022 Hemoglobin (Bld) [Mass/Vol] 16.2 g/dL 12.0-15.0 [facility] Work Phone: Blood lymphocytes/100 leukoc yteson 04-19-2022 Lymphocytes/100 WBC (Bld) 23.0 % 19-41 [facility] Work Phone: Blood monocytes/100 leukocyt eson 04-19-2022 Monocytes/100 WBC (Bld) 6.9 % 0-10 [facility] Work Phone: Blood platelet mean volumeon 04-19-2022 Platelet mean volume (Bld) [Entitic vol] 9.5 fL 6.2-12.0 [facility] Work Phone: Determination of erythrocyte mean corpuscular volume (MCV)on 04-19-2022 MCV (RBC) [Entitic vol] 93.8 fL 81-99 [facility] Work Phone: Erythrocyte sedimentation ra terence 04-19-2022 ESR (Bld) [Velocity] 12 mm/h 0-30 [facility] Work Phone: HIV 1 and HIV-2 antibody ass ay with HIV-1 p24 antigen detectionon 04-19-2022 HIV 1+2 Ab+HIV1 p24 Ag IA Ql Non-Reactive Nonreactive [facility] Work Phone: Hematocrit Auto (Bld) [Volum e fraction]on 04-19-2022 Hematocrit (Bld) [Volume fraction] 46.9 % 37-47 [facility] Work Phone: INR in Blood by Coagulation assayon 04-19-2022 INR Coag (Bld) [Relative time] 1.1 {INR} [facility] Work Phone: [phone] Laboratory - Chemistry and C hemistry - challengeon 04-19-2022 ALP [Catalytic activity/Vol] 104 U/L 45-117 [facility] Work Phone: ALT [Catalytic activity/Vol] 65 U/L 13-56 [facility] Work Phone: CO2 [Moles/Vol] 27.0 mmol/L 21.0-32.0 [facility] Work Phone: Globulin (S) [Mass/Vol] 4.1 g/dL 2.2-4.2 [facility] Work Phone: Urea nitrogen/Creatinine [Mass ratio] 22.8 mg/mg 10-20 [facility] Work Phone: Laboratory - Coagulationon 1 PT Coag (PPP) [Time] 14.4 s 11.7-14.9 [facility] Work Phone: Laboratory - Hematology and Cell countson 04-19-2022 Erythrocyte distribution width (RBC) [Entitic vol] 42.0 fL 35.1-43.9 [facility] Work Phone: Erythrocyte distribution width (RBC) [Ratio] 12.1 % 11.6-14.6 [facility] Work Phone: Immature granulocytes/100 WBC (Bld) 0.300 % 0.0-0.9 [facility] Work Phone: Comment on above: IG% - Immature Granu locytes (promyelocytes, myelocytes and metamyelocytes) > 1% indicates that a LEFT SHIFT is Present. MCH (RBC) [Entitic mass] 32.4 pg 27.0-32.0 [facility] Work Phone: Nucleated RBC/100 WBC (Bld) [Ratio] 0 % 0-5 [facility] Work Phone: MCHC Auto (RBC) [Mass/Vol]on 04-19-2022 MCHC (RBC) [Mass/Vol] 34.5 g/dL 32-36 [facility] Work Phone: No Panel Informationon 04-19 CA 125 Antigen 15.7 U/mL 0.0-38.1 [facility] Work Phone: Comment on above: Peri Diagnostics El ectrochemiluminescence Immunoassay(ECLIA)Values obtained with different assay methods or kits cannotbe used interchangeably. Results cannot be interpreted asabsolute evidence of the presence or absence of malignantdisease. CA 19-9 Antigen 20 U/mL 0-35 [facility] Work Phone: Comment on above: [facility] El ectrochemiluminescence Immunoassay(ECLIA)Values obtained with different assay methods or kits cannotbe used interchangeably. Results cannot be interpreted asabsolute evidence of the presence or absence of malignantdisease. Centromere B Antibody <0.2 AI 0.0-0.9 [facility] Work Phone: Ceruloplasmin 26.7 mg/dL 19.0-39.0 [facility] Work Phone: Estimated GFR (MDRD) Amer 99 mL/min >60 [facility] Work Phone: Comment on above: GFR Calc Estimated GFR (MDRD) Non-Af Amer 81 mL/min >60 [facility] Work Phone: Comment on above: Non- GFR Calc Haptoglobin 167 mg/dL 42-346 [facility] Work Phone: Comment on above: Performed at: CB - [facility] [id number] [place], [place] [id number] Director: Anderson Holguin PhD, Phone: [phone] at: - [facility] [id number] [place], [place] [id number] Director: Cheryl Kaur MD, Phone: [phone] WINDING MACHINE OPERATOR Antibody 0.2 AI 0.0-0.9 [facility] Work Phone: Platelets bldon 04-19-2022 Platelets (Bld) [#/Vol] 234 10*3/uL 150-450 [facility] Work Phone: Serum DNA double strand anti body assay (units/volume)on 04-19-2022 DNA double strand Ab Qn (S) [IU]/mL 0-9 [facility] Work Phone: Comment on above: Negative <5 Equivoca l 5 - 9 Positive >9 Serum Patricia-1 antibody assay (u nits/volume)on 04-19-2022 Patricia-1 extractable nuclear Ab Qn (S) <0.2 AI 0.0-0.9 [facility] Work Phone: Serum Scl-70 extractable nuc lear antibody assay (units/volume)on 04-19-2022 SCL-70 extractable nuclear Ab Qn (S) <0.2 AI 0.0-0.9 [facility] Work Phone: Serum Maza extractable nucl ear antibody detectionon 04-19-2022 Maza extractable nuclear Ab Ql (S) <0.2 AI 0.0-0.9 [facility] Work Phone: Serum classic neutrophil cyt oplasmic antibody assay (units/volume)on 04-19-2022 Neutrophil cytoplasmic Ab.classic Qn (S) <1:20 titer Neg:<1:20 [facility] Work Phone: Serum mitochondria antibody detectionon 04-19-2022 Mitochondria Ab Ql (S) <20.0 Units 0.0-20.0 [facility] Work Phone: Comment on above: Negative 0.0 - 20.0 Equivocal 20.1 - 24.9 Positive >24.9Mitochondrial (M2) Antibodies are found in 90-96% ofpatients with primary biliary cirrhosis.Performed at: [facility] [id number] [place], [place] [id number] Director: Anderson Holguin PhD, Phone: [phone] Serum or plasma C reactive p rotein measurement (mass/volume)on 04-19-2022 CRP [Mass/Vol] mg/L 0.0-3.0 [facility] Work Phone: Comment on above: C-Reactive Protein ( CRP) provides useful information for thediagnosis, therapy and monitoring of inflammatory processesand associated diseases. For the evaluation of Relative Riskfor Cardiovascular Disease, a High Sensitivity CRP (HSCRP)should be ordered. Serum or plasma actin IgG an tibody assay (units/volume)on 04-19-2022 Actin IgG Qn 10 Units 0-19 [facility] Work Phone: Comment on above: Negative 0 - 19 Weak positive 20 - 30 Moderate to strong positive >30 Actin Antibodies are found in 52-85% of patients with autoimmune hepatitis or chronic active hepatitis and in 22% of patients with primary biliary cirrhosis. Serum or plasma albumin arsen urement (mass/volume)on 04-19-2022 Albumin [Mass/Vol] 4.2 g/dL 3.2-5.0 [facility] Work Phone: Serum or plasma albumin/glob ulin mass ratioon 04-19-2022 Albumin/Globulin [Mass ratio] 1.0 {ratio} 0.9-2.4 [facility] Work Phone: Serum or plasma angiotensin converting enzyme measurement (enzymatic activity/volume)on 04-19-2022 Angiotensin converting enzyme [Catalytic activity/Vol] 41 U/L 14-82 [facility] Work Phone: Serum or plasma calcium arsen urement (mass/volume)on 04-19-2022 Calcium [Mass/Vol] 9.4 mg/dL 8.5-10.1 [facility] Work Phone: Serum or plasma carcinoembry onic antigen measurement (mass/volume)on 04-19-2022 Carcinoembryonic Ag [Mass/Vol] 1.2 ng/mL 0.0-4.7 [facility] Work Phone: Comment on above: Nonsmokers <3.9 Smok ers <5.6[facility] [employer] Electrochemiluminescence Immunoassay(ECLIA)Values obtained with different assay methods or kitscannot be used interchangeably. Results cannot beinterpreted as absolute evidence of the presence orabsence of malignant disease. Serum or plasma creatinine m easurement (mass/volume)on 04-19-2022 Creatinine [Mass/Vol] 0.75 mg/dL 0.55-1.02 [facility] Work Phone: Comment on above: The validity of the calculated GFR & GFRAA in patients over 70 years has not been determined. Clinical correlation is essential. Serum or plasma ferritin thea surement (mass/volume)on 04-19-2022 Ferritin [Mass/Vol] 550 ng/mL 8-252 [facility] Work Phone: Serum or plasma urea nitroge n measurement (mass/volume)on 04-19-2022 Urea nitrogen [Mass/Vol] 17 mg/dL 7-18 [facility] Work Phone: Serum perinuclear neutrophil cytoplasmic antibody titer by immunofluorescenceon 04-19-2022 Neutrophil cytoplasmic Ab.perinuclear IF (S) [Titer] <1:20 titer Neg:<1:20 [facility] Work Phone: Comment on above: The presence of posi tive fluorescence exhibiting P-ANCA orC-ANCA patterns alone is not specific for the diagnosis ofWegener's Granulomatosis (WG) or microscopic polyangiitis.Decisions about treatment should not be based solely onANCA IFA results. The International ANCA Group Consensusrecommends follow up testing of positive sera with both IN-3 and MPO-ANCA enzyme immunoassays. As many as 5% serumsamples are positive only by EIA. Ref. AM J Clin [id number];111:507-513. Thin prep Papanicolaou smear with manual screeningon 04-19-2022 Thin prep Papanicolaou smear with manual screening 41 U/L 15-37 [facility] Work Phone: Thin prep Papanicolaou smear with manual screening 8 5-15 [facility] Work Phone: Thin prep Papanicolaou smear with manual screening 193 U/L 84-246 [facility] Work Phone: Thin prep Papanicolaou smear with manual screening 103 ug/dL 80-158 [facility] Work Phone: Comment on above: Detection Limit = 5 Basophil percentageon 2021 Bilirubin [Mass/Vol] 0.40 mg/dL 0.20-1.00 [facility] Work Phone: Comment on above: For patients on eltr ombopag therapy, use of Dimension Tobias TBIL is not recommended. Chloride [Moles/Vol] 107 mmol/L 98-107 [facility] Work Phone: Cholesterol [Mass/Vol] 162 mg/dL <200 [facility] Work Phone: Comment on above: <200 mg/dL Desirable 200-240 mg/dL Borderline >240 mg/dL High Risk Glucose [Mass/Vol] 113 mg/dL 74-106 [facility] Work Phone: Comment on above: Fasting Glucose resu lt from 100 to 125 mg/dL suggests IMPAIRED HOMEOSTASIS per A.D.A. criteria. Potassium [Moles/Vol] 3.9 mmol/L 3.5-5.1 [facility] Work Phone: Protein [Mass/Vol] 7.4 g/dL 6.4-8.2 [facility] Work Phone: Sodium [Moles/Vol] 141 mmol/L 136-145 [facility] Work Phone: Triglyceride [Mass/Vol] 83 mg/dL <199 [facility] Work Phone: Comment on above: The drugs N-Acetylcy steine and Metamizole may falsely depress this assay.Serum Triglycerides Reference Interval Normal <150 mg/dL Borderline high 150 - 199 mg/dL High 200 - 499 mg/dL Very High > or = 500 mg/dL Laboratory - Chemistry and C hemistry - challengeon 03-24-2022 ALP [Catalytic activity/Vol] 91 U/L 45-117 [facility] Work Phone: ALT [Catalytic activity/Vol] 55 U/L 13-56 [facility] Work Phone: CO2 [Moles/Vol] 28.0 mmol/L 21.0-32.0 [facility] Work Phone: Globulin (S) [Mass/Vol] 3.8 g/dL 2.2-4.2 [facility] Work Phone: Urea nitrogen/Creatinine [Mass ratio] 21.5 mg/mg 10-20 [facility] Work Phone: No Panel Informationon 03-24 Estimated GFR (MDRD) Amer 99 mL/min >60 [facility] Work Phone: Comment on above: GFR Calc Estimated GFR (MDRD) Non-Af Amer 82 mL/min >60 [facility] Work Phone: Comment on above: Non- GFR Calc Serum or plasma albumin arsen urement (mass/volume)on 03-24-2022 Albumin [Mass/Vol] 3.6 g/dL 3.2-5.0 [facility] Work Phone: Serum or plasma albumin/glob ulin mass ratioon 03-24-2022 Albumin/Globulin [Mass ratio] 0.9 {ratio} 0.9-2.4 [facility] Work Phone: Serum or plasma calcium arsen urement (mass/volume)on 03-24-2022 Calcium [Mass/Vol] 8.9 mg/dL 8.5-10.1 [facility] Work Phone: Serum or plasma cholesterol in HDL measurement (mass/volume)on 03-24-2022 Cholesterol in HDL [Mass/Vol] 37 mg/dL >40 [facility] Work Phone: Comment on above: The drugs N-Acetylcy steine and Metamizole may falsely depress this assay. Reference Range HDL <40 mg/dL Low HDL Cholesterol HDL >or= 60 mg/dL High HDL Cholesterol Serum or plasma cholesterol in VLDL measurement (mass/volume)on 03-24-2022 Cholesterol in VLDL [Mass/Vol] 17 mg/dL 5-40 [facility] Work Phone: Serum or plasma creatinine m easurement (mass/volume)on 03-24-2022 Creatinine [Mass/Vol] 0.74 mg/dL 0.55-1.02 [facility] Work Phone: Comment on above: The validity of the calculated GFR & GFRAA in patients over 70 years has not been determined. Clinical correlation is essential. Serum or plasma low density lipoprotein (LDL) cholesterol measurement (mass/volume)on 03-24-2022 Cholesterol in LDL [Mass/Vol] 108 mg/dL 0-130 [facility] Work Phone: Serum or plasma urea nitroge n measurement (mass/volume)on 03-24-2022 Urea nitrogen [Mass/Vol] 16 mg/dL 7-18 [facility] Work Phone: Thin prep Papanicolaou smear with manual screeningon 03-24-2022 Thin prep Papanicolaou smear with manual screening 30 U/L 15-37 [facility] Work Phone: Thin prep Papanicolaou smear with manual screening 6 5-15 [facility] Work Phone: Basophil percentageon 2021 Basophil percentage < 0.9 mg/dL 0.55-1.02 [facility] Work Phone: No Panel Informationon 12-16 Bedside Estimated GFR (eGFR) > 60.0000 mL/min >60 [facility] Work Phone: Basophil percentageon 2021 Basophil percentage < 0.9 mg/dL 0.55-1.02 [facility] Work Phone: No Panel Informationon 12-06 Bedside Estimated GFR (eGFR) > 60.0000 mL/min >60 [facility] Work Phone: Basophil percentageon 2021 Chloride [Moles/Vol] 107 mmol/L 98-107 [facility] Work Phone: Cholesterol [Mass/Vol] 170 mg/dL <200 [facility] Work Phone: Comment on above: <200 mg/dL Desirable 200-240 mg/dL Borderline >240 mg/dL High Risk Glucose [Mass/Vol] 110 mg/dL 74-106 [facility] Work Phone: Comment on above: Fasting Glucose resu lt from 100 to 125 mg/dL suggests IMPAIRED HOMEOSTASIS per A.D.A. criteria. Potassium [Moles/Vol] 3.7 mmol/L 3.5-5.1 [facility] Work Phone: Sodium [Moles/Vol] 140 mmol/L 136-145 [facility] Work Phone: Triglyceride [Mass/Vol] 119 mg/dL [facility] Work Phone: Comment on above: The drugs N-Acetylcy steine and Metamizole may falsely depress this assay.Serum Triglycerides Reference Interval Normal <150 mg/dL Borderline high 150 - 199 mg/dL High 200 - 499 mg/dL Very High > or = 500 mg/dL Laboratory - Chemistry and C hemistry - challengeon 09-12-2021 CO2 [Moles/Vol] 28.0 mmol/L 21.0-32.0 [facility] Work Phone: Urea nitrogen/Creatinine [Mass ratio] 14.5 mg/mg 10-20 [facility] Work Phone: No Panel Informationon 09-12 Estimated GFR (MDRD) Amer 97 mL/min >60 [facility] Work Phone: Comment on above: GFR Calc Estimated GFR (MDRD) Non-Af Amer 80 mL/min >60 [facility] Work Phone: Comment on above: Non- GFR Calc CA 125 Antigen 13.5 U/mL [facility] Work Phone: Comment on above: [facility] El ectrochemiluminescence Immunoassay(ECLIA)Values obtained with different assay methods or kits cannotbe used interchangeably. Results cannot be interpreted asabsolute evidence of the presence or absence of malignantdisease.Performed at: [address] [id number] Director: Anderson Holguin PhD, Phone: [phone] CA 19-9 Antigen Serial Monitoring See comment [facility] Work Phone: Comment on above: Scanned image report available in EMR Carcinoembryonic Ag Serial Monitor See comment [facility] Work Phone: Comment on above: Scanned image report available in EMR Serum or plasma calcium arsen urement (mass/volume)on 09-12-2021 Calcium [Mass/Vol] 8.7 mg/dL 8.5-10.1 [facility] Work Phone: Serum or plasma carcinoembry onic antigen measurement (mass/volume)on 09-12-2021 Carcinoembryonic Ag [Mass/Vol] 1.0 ng/mL [facility] Work Phone: Comment on above: Nonsmokers <3.9 Smok ers <5.6[facility] [employer] Electrochemiluminescence Immunoassay(ECLIA)Values obtained with different assay methods or kitscannot be used interchangeably. Results cannot beinterpreted as absolute evidence of the presence orabsence of malignant disease. Serum or plasma cholesterol in HDL measurement (mass/volume)on 09-12-2021 Cholesterol in HDL [Mass/Vol] 40 mg/dL [facility] Work Phone: Comment on above: The drugs N-Acetylcy steine and Metamizole may falsely depress this assay. Reference Range HDL <40 mg/dL Low HDL Cholesterol HDL >or= 60 mg/dL High HDL Cholesterol Serum or plasma cholesterol in VLDL measurement (mass/volume)on 09-12-2021 Cholesterol in VLDL [Mass/Vol] 24 mg/dL 5-40 [facility] Work Phone: Serum or plasma creatinine m easurement (mass/volume)on 09-12-2021 Creatinine [Mass/Vol] 0.76 mg/dL 0.55-1.02 [facility] Work Phone: Comment on above: The validity of the calculated GFR & GFRAA in patients over 70 years has not been determined. Clinical correlation is essential. Serum or plasma low density lipoprotein (LDL) cholesterol measurement (mass/volume)on 09-12-2021 Cholesterol in LDL [Mass/Vol] 106 mg/dL 0-130 [facility] Work Phone: Serum or plasma urea nitroge n measurement (mass/volume)on 09-12-2021 Urea nitrogen [Mass/Vol] 11 mg/dL 7-18 [facility] Work Phone: Thin prep Papanicolaou smear with manual screeningon 09-12-2021 Thin prep Papanicolaou smear with manual screening 5 5-15 [facility] Work Phone: Thin prep Papanicolaou smear with manual screening 195 U/L 84-246 [facility] Work Phone: Vital Signs Date Time Vital Sign Value Performing Clinician Faci lity 10-09-2024 13:31-0400 Body temperature 98.4 [degF] Dr. Darryl Ramirez MD Work Phone: [facility] 10-09-2024 13:31-0400 Diastolic blood pressure 73 mm[Hg] Dr. Darryl Ramirez MD Work Phone: [facility] 10-09-2024 13:31-0400 Heart rate 75 /min Dr. Darryl Ramirez MD Work Phone: [facility] 10-09-2024 13:31-0400 Respiratory rate 16 /min Dr. Darryl Ramirez MD Work Phone: [facility] 10-09-2024 13:31-0400 SaO2% (BldA) [Mass fraction] 96 % Dr. Darryl Ramirez MD Work Phone: [facility] 10-09-2024 13:31-0400 Systolic blood pressure 105 mm[Hg] Dr. Darryl Ramirez MD Work Phone: [facility] 10-09-2024 11:28-0400 Body height 170.[address] Darryl Ramirez MD Work Phone: [facility] 10-09-2024 11:28-0400 Body mass index (BMI) [Ratio] 27.6 kg/m2 Dr. Darryl Ramirez MD Work Phone: [facility] 10-09-2024 11:28-0400 Body weight [address] Darryl Ramirez MD Work Phone: [facility] 09-19-2024 12:59-0400 Body height 170.[address] Darryl Ramirez MD Work Phone: [facility] 09-19-2024 12:59-0400 Body mass index (BMI) [Ratio] 28.6 kg/m2 Dr. Darryl Ramirez MD Work Phone: [facility] 09-19-2024 12:59-0400 Body weight [address] Darryl Ramirez MD Work Phone: [facility] 09-19-2024 12:59-0400 Diastolic blood pressure 81 mm[Hg] Dr. Darryl Ramirez MD Work Phone: [facility] 09-19-2024 12:59-0400 Heart rate 71 /min Dr. Darryl Ramirez MD Work Phone: [facility] 09-19-2024 12:59-0400 Respiratory rate 12 /min Dr. Darryl Ramirez MD Work Phone: [facility] 09-19-2024 12:59-0400 SaO2% (BldA) [Mass fraction] 94 % Dr. Darryl Ramirez MD Work Phone: [facility] 09-19-2024 12:59-0400 Systolic blood pressure 144 mm[Hg] Dr. Darryl Ramirez MD Work Phone: [facility] 05-14-2023 12:25-0500 Body height 170.[address] Darryl Ramirez Work Phone: [facility] 05-14-2023 12:25-0500 Body mass index (BMI) [Ratio] 27.2 kg/m2 Dr. Darryl Ramirez Work Phone: [facility] 05-14-2023 12:25-0500 Body weight 78.[address] Darryl Ramirez Work Phone: [facility] 05-14-2023 12:25-0500 Diastolic blood pressure 83 mm[Hg] Dr. Darryl Ramirez Work Phone: [facility] 05-14-2023 12:25-0500 Heart rate 66 /min Dr. Darryl Ramirez Work Phone: [facility] 05-14-2023 12:25-0500 SaO2% (BldA) [Mass fraction] 95 % Dr. Darryl Ramirez Work Phone: [facility] 05-14-2023 12:25-0500 Systolic blood pressure 136 mm[Hg] Dr. Darryl Ramirez Work Phone: [facility] 06-07-2022 11:12-0500 Body height 170.[address] Darryl Ramirez Work Phone: [facility] 04-19-2022 13:26-0400 Body height 170.[address] Darryl Ramirez Work Phone: [facility] Work Phone: 04-19-2022 13:26-0400 Body mass index (BMI) [Ratio] 28.1 kg/m2 Dr. Darryl Ramirez Work Phone: [facility] Work Phone: 04-19-2022 13:26-0400 Body weight 81.[address] Darryl Ramirez Work Phone: [facility] Work Phone: 04-19-2022 13:26-0400 Diastolic blood pressure 82 mm[Hg] Dr. Darryl Ramirez Work Phone: [facility] Work Phone: 04-19-2022 13:26-0400 Heart rate 72 /min Dr. Darryl Ramirez Work Phone: [facility] Work Phone: 04-19-2022 13:26-0400 SaO2% (BldA) [Mass fraction] 96 % Dr. Darryl Ramirez Work Phone: [facility] Work Phone: 04-19-2022 13:26-0400 Systolic blood pressure 147 mm[Hg] Dr. Darryl Ramirez Work Phone: [facility] Work Phone: Encounters Encounter Date Encounter Type Care Provider Facility Start: 12-09-2024 End: 12-09-2024 ambulatory ELIAN OROPEZA APRNPHYSICIAN PRACTICE COORDINATOR Facility:A Start: 10-09-2024 ambulatory Darryl Ramirez Facility:[facility] Start: 10-09-2024 Non-patient / Non-visit Brian Guerra DO -[facility] Start: 10-09-2024 End: 10-09-2024 Admission to same day surgery center Brian Guerra DO -Endoscopy Work Phone: Start: 10-09-2024 End: 10-09-[address] Darryl Ramirez MD Work Phone: [facility] Work Phone: Start: 09-19-2024 End: 09-19-[address] Paul Rodriguez MD -[facility] Work Phone: Start: 09-19-2024 End: 09-19-2024 ambulatory Paul Rodriguez Facility:[facility] Start: 09-15-2024 End: 09-15-[address] Darryl Ramirez MD Work Phone: [facility] Work Phone: Start: 09-15-2024 End: 09-15-[address] Paul Rodriguez MD -Ultrasound, [facility] Work Phone: Start: 09-15-2024 End: 09-15-2024 ambulatory Paul Rodriguez Facility:[facility] Start: 09-12-2024 End: 09-12-[address] Darryl Ramirez MD Work Phone: [facility] Work Phone: Start: 09-12-2024 End: 09-12-[address] Paul Rodriguez MD -Laboratory Work Phone: Start: 09-12-2024 End: 09-12-2024 ambulatory Paul Rodriguez Facility:[facility] Start: 09-11-2024 End: 09-11-[address] DARRYL NARAYAN Facility:[facility] Start: 07-03-2024 End: 07-03-[address] Chiqui Lawrence MD -Outpatient Breast Imaging Work Phone: Start: 07-03-2024 End: 07-03-2024 ambulatory Darryl Ramirez Facility:[facility] Start: 06-24-2024 End: 06-24-[address] DARRYL NARAYAN Facility:[facility] Start: 06-24-2024 End: 06-24-2024 Patient encounter procedure CHIQUI LAWRENCE MD [facility] Start: 04-01-2024 End: 04-01-2024 ambulatory Darryl Ramirez Facility:[facility] Start: 02-05-2024 End: 02-05-2024 ambulatory Darryl Ramirez Facility:[facility] Start: 10-23-2023 End: 10-23-2023 ambulatory Darryl Ramirez Facility:[facility] Start: 10-17-2023 End: 10-17-2023 ambulatory [facility] Work Phone: Start: 10-17-2023 End: 10-17-2023 Patient encounter procedure [facility] Work Phone: Start: 10-10-2023 End: 10-10-2023 ambulatory [facility] Work Phone: Start: 10-10-2023 End: 10-10-2023 Patient encounter procedure [facility]-Cat Scan, [facility] Work Phone: Start: 07-06-2023 End: 07-06-[address] Darryl Ramirez Work Phone: [facility] Work Phone: Start: 07-06-2023 End: 07-06-[address] Darryl Ramirez Work Phone: [facility] Work Phone: Start: 06-01-2023 End: 06-01-[address] Darryl Ramirez Work Phone: [facility] Work Phone: Start: 06-01-2023 End: 06-01-[address] Darryl Ramirez Work Phone: [facility]-Outpatient Breast Imaging Work Phone: Start: 05-14-2023 End: 05-14-[address] Darryl Ramirez Work Phone: [facility] Work Phone: Start: 05-07-2023 End: 05-07-[address] Darryl Ramirez Work Phone: [facility], [facility] Work Phone: Start: 03-21-2023 End: 03-21-[address] Darryl Ramirez Work Phone: [facility] Work Phone: Start: 03-21-2023 End: 03-21-[address] Darryl Ramirez Work Phone: [facility]-Physical Therapy Work Phone: Start: 03-21-[address] Darryl Ramirez Work Phone: [facility]-Physical Therapy Work Phone: Start: 03-19-2023 End: 03-19-[address] Darryl Ramirez Work Phone: [facility] Work Phone: Start: 03-19-2023 End: 03-19-[address] Darryl Ramirez Work Phone: [facility] Work Phone: Start: 03-13-2023 End: 03-13-[address] Darryl Ramirez Work Phone: [facility] Work Phone: Start: 09-12-2022 End: 09-12-2022 ambulatory [facility] Work Phone: Start: 09-12-2022 End: 09-12-2022 Patient encounter procedure [facility]-Cat Scan, [facility] Start: 09-08-2022 End: 09-08-2022 ambulatory [facility] Work Phone: Start: 09-08-2022 End: 09-08-2022 Patient encounter procedure [facility]-Ultrasound, [facility] Start: 06-07-2022 End: 06-07-[address] Darryl Ramirez Work Phone: [facility] Work Phone: Start: 06-07-2022 End: 06-07-[address] Darryl Ramirez Work Phone: [facility]-Outpatient Bone Densitometry Start: 05-22-2022 End: 05-22-[address] Darryl Ramirez Work Phone: [facility] Work Phone: Start: 05-22-2022 End: 05-22-[address] Darryl Ramirez Work Phone: [facility]-Physical Therapy Start: 05-19-2022 End: 05-19-[address] Darryl Ramirez Work Phone: [facility] Work Phone: Start: 05-19-2022 End: 05-19-[address] Darryl Ramirez Work Phone: [facility]-Laboratory Start: 05-17-2022 End: 05-17-[address] Darryl Ramirez Work Phone: [facility] Work Phone: Start: 05-17-2022 End: 05-17-[address] Darryl Ramirez Work Phone: [facility]Outpatient Bone Densitometry Start: 04-19-2022 End: 04-19-[address] Darryl Ramirez Work Phone: [facility] Work Phone: Start: 04-19-2022 End: 04-19-[address] Darryl Ramirez Work Phone: [facility] Start: 03-24-2022 End: 03-24-[address] Darryl Ramirez Work Phone: [facility] Work Phone: Start: 03-24-2022 End: 03-24-[address] Darryl Ramirez Work Phone: [facility] Start: 02-14-2022 End: 02-14-[address] Darryl Ramirez Work Phone: [facility] Start: 01-25-2022 End: 01-25-[address] Darryl Ramirez Work Phone: [facility] Work Phone: Start: 01-25-2022 End: 01-25-[address] Darryl Ramirez Work Phone: [facility]-Physical Therapy Start: 01-25-[address] Darryl Ramirez Work Phone: [facility] Therapy Start: 01-18-2022 End: 01-18-[address] Darryl Ramirez Work Phone: [facility] Start: 12-16-2021 End: 12-16-2021 Patient encounter procedure [facility]Cat Scan, [facility] Start: 12-14-2021 Registered Recurring [facility] Start: 12-06-2021 End: 12-06-2021 Patient encounter procedure [facility]MRI - [facility] Start: 09-12-2021 End: 09-12-2021 Patient encounter procedure [facility]Laboratory, [place] Start: 12-27-2017 [facility]ulatory [facility] Procedures Date Procedure Procedure Detail Performing Clinician Start: 10-09-[address] Darryl jimenez MD Work Phone: Start: 09-15-2024 Ultrasound elastogra phy of liver Dr. Darryl Ramirez MD Work Phone: Start: 07-03-2024 Screening mammography Ning Ramirez MD Work Phone: Start: 10-10-2023 Computed tomography of abdomen and pelvis with contrast Start: 07-06-[address] e detection Dr[address] Darryl Ramirez Work Phone: Start: 06-01-2023 Screening mammography Ning Ramirez Work Phone: Start: 05-07-2023 Ultrasound elastogra phy of liver Dr. Darryl Ramirez Work Phone: Start: 09-12-2022 Computed tomography of abdomen and pelvis with contrast Start: 09-08-2022 Ultrasound elastogra phy of liver Start: 06-07-2022 Dual energy X-ray absorptiometry Dr. Darryl Ramirez Work Phone: Start: 05-17-2022 Screening mammography Ning Ramirez Work Phone: Start: 02-14-[address] Darryl Ramirez Work Phone: Start: 02-14-[address] Darryl Ramirez Work Phone: Start: 12-16-2021 Computed tomography of abdomen and pelvis with contrast Start: 12-06-2021 MRI of brain with contrast Appendectomy CHIQUI LAWRENCE MD Cataract (disorder) CHIQUI PITTS MD Comment on above: bilateral Hysterectomy CHIQUI LAWRENCE MD Comment on above: complete Structure of carpal canal (body structure) CHIQUI LAWRENCE MD Tonsillectomy CHIQUI Bryan Plan of Treatment Date Care Activity Detail Author Start: 10-09-2024 Patient discharge [facility] Start: 07-06-2023 Procedure [facility] Start: 03-13-2023 Patient referral [place] Work Phone: Start: 04-19-2022 Angiotensin converti ng enzyme [Enzymatic activity/volume] in Serum or Plasma [facility] Work Phone: Start: 04-19-2022 Cancer Ag 125 [Units /volume] in Serum or Plasma [facility] Work Phone: Start: 04-19-2022 Cancer Ag 19-9 [Unit s/volume] in Serum or Plasma [facility] Work Phone: Start: 04-19-2022 Carcinoembryonic Ag [Mass/volume] in Serum or Plasma [facility] Work Phone: Start: 04-19-2022 Ceruloplasmin [Mass/ volume] in Serum or Plasma [facility] Work Phone: Start: 04-19-2022 Copper [Moles/volume ] in Serum or Plasma [facility] Work Phone: Start: 04-19-2022 Haptoglobin [Mass/vo lume] in Serum or Plasma [facility] Work Phone: Start: 04-19-2022 Smooth muscle Ab [Pr esence] in Serum [facility] Work Phone: Start: 04-19-2022 [facility] Work Phone: [id number]. tumor marker [Units/volume] in Serum or Plasma [facility] Angiotensin converti ng enzyme [Enzymatic activity/volume] in Serum or Plasma [facility] Work Phone: Bilirubin.direct [Ma ss/volume] in Serum or Plasma [facility] Blood ammonia measurement [facility] Work Phone: C reactive protein [ Mass/volume] in Serum or Plasma [facility] Work Phone: C reactive protein [ Mass/volume] in Serum or Plasma [facility] C reactive protein [ Mass/volume] in Serum or Plasma [facility] Cancer Ag 125 [Units /volume] in Serum or Plasma [facility] Work Phone: Cancer Ag 19-9 [Unit s/volume] in Serum or Plasma [facility] Work Phone: Carcinoembryonic Ag [Mass/volume] in Serum or Plasma [facility] Work Phone: CBC W Auto Different ial panel - Blood [facility] Work Phone: CBC W Auto Different ial panel - Blood [facility] CBC W Auto Different ial panel - Blood [facility] Ceruloplasmin [Mass/ volume] in Serum or Plasma [facility] Work Phone: Comprehensive metabo lic 2000 panel - Serum or Plasma [facility] Copper [Moles/volume ] in Serum or Plasma [facility] Work Phone: CT Abdomen and Pelvi s WO and W contrast IV [facility] CT Abdomen and Pelvi s WO and W contrast IV [facility] Erythrocyte sedimentation rate [facility] Work Phone: Erythrocyte sedimentation rate [facility] Ferritin [Mass/volum e] in Serum or Plasma [facility] Work Phone: Ferritin [Mass/volum e] in Serum or Plasma [facility] Haptoglobin [Mass/vo lume] in Serum or Plasma [facility] Work Phone: Hemoglobin A1c/Hemog lobin.total in Blood [facility] HIV 1+2 Ab+HIV1 p24 Ag [Presence] in Serum or Plasma by Immunoassay [facility] Work Phone: Iron and Iron bindin g capacity panel - Serum or Plasma [facility] Lipid 1996 panel - Serum or Plasma [facility] Mitochondria Ab [Pre sence] in Serum [facility] Work Phone: Neutrophil cytoplasm ic Ab.classic [Units/volume] in Serum [facility] Work Phone: P-ANCA measurement [facility] Work Phone: Patient referral [facility] Work Phone: Prothrombin time [facility] Work Phone: Prothrombin time [facility] Prothrombin time [facility] Smooth muscle Ab [Pr esence] in Serum [facility] Work Phone: Transferrin [Mass/vo lume] in Serum or Plasma [facility] Ultrasound elastography [facility] Work Phone: [facility] Immunizations Immunization Date Immunization Notes Care Provider Fa cility 04-08-2021 Covid (Pfizer) [facility] 09-16-2020 Covid (Pfizer) [facility] 08-19-2020 [facility] (Pfizer) [facility] Payers Date Payer Category Payer Private Health Insurance 2023 Self-pay [id number] 2023 Private Health Insurance 101 [id number] 2016 Medicare [id number] 2016 Unknown [id number] 1950 Unknown [id number] 2.16.8 [id number] 1950 Unknown [id number] 2.16. [id number] 1950 Unknown [id number] 2.16.8 [id number] Unknown [id number] 2.16.8 [id number] Unknown [id number] 2.16.8 [id number] Unknown [id number] 2.16.8 [id number] Unknown [id number] 2.16.8 [id number] Unknown [id number] 2.16.8 [id number] Unknown [id number] 2.16.8 [id number] Unknown [id number] 2.16.8 [id number] Unknown [id number] 2.16.8 [id number] Unknown [id number] 2.16.8 [id number] Social History Date Type Detail Facility Start: 07-21-2021 End: 05-14-2023 Tobacco smoking status NHIS Unknown if ever smoked [facility] Start: 1950 Sex Assigned At Female [facility] Start: 06-04-2023 End: 10-06-2024 Tobacco smoking status Never smoked tobacco (finding) [facility] Sexual Orientation Noel Cristofer jackson [facility] Start: 09-23-2024 End: 10-09-2024 Sex Female (finding) [facility] NEGATED: Highlighted row Not [facility] Medical Equipment Procedure Code Equipment Code Equipment Origin al Text Equipment Identifier Dates MARAH 3GRM HEMO STAT ABS FDA Start: 10-24-2017 MARAH 3GRM HEMO STAT ABS FDA Start: 10-24-2017 MARAH 3GRM HEMO STAT ABS FDA Start: 10-24-2017 MARAH 3GRM HEMO STAT ABS FDA Start: 10-24-2017 MARAH 3GRM HEMO STAT ABS FDA Start: 10-24-2017 MARAH 3GRM HEMO STAT ABS FDA Start: 10-24-2017 MARAH 3GRM HEMO STAT ABS FDA Start: 10-24-2017 MARAH 3GRM HEMO STAT ABS FDA Start: 10-24-2017 MARAH 3GRM HEMO STAT ABS FDA Start: 10-24-2017 MARAH 3GRM HEMO STAT ABS FDA Start: 10-24-2017 MARAH 3GRM HEMO STAT ABS FDA Start: 10-24-2017 MARAH 3GRM HEMO STAT ABS FDA Start: 10-24-2017 MARAH 3GRM HEMO STAT ABS FDA Start: 10-24-2017 MARAH 3GRM HEMO STAT ABS FDA Start: 10-24-2017 MARAH 3GRM HEMO STAT ABS FDA Start: 10-24-2017 MARAH 3GRM HEMO STAT ABS FDA Start: 10-24-2017 MARAH 3GRM HEMO STAT ABS FDA Start: 10-24-2017 MARAH 3GRM HEMO STAT ABS FDA Start: 10-24-2017 MARAH 3GRM HEMO STAT ABS FDA Start: 10-24-2017 MARAH 3GRM HEMO STAT ABS FDA Start: 10-24-2017 MARAH 3GRM HEMO STAT ABS FDA Start: 10-24-2017 Goals Date Patient Goal Desired Activity /State Mental Status Date Assessment Result Facility 10-09-2024 Cognitive function Voice/Name;Touch/Ulysseski toma [facility] Work Phone: Clinical Notes 05-19-2021 to 10-09-2024 Note Date & Type Note Facility 10-09-2024 Consult note [facility] 10-09-2024 Procedure note [facility] 10-09-2024 Procedure note [facility] 10-09-2024 History and physi jay note [facility] 10-09-2024 Note [facility] Medical Records Department [address] [place] [address] History Physical Exam 10/09/24 1226 MR#: [id number] Acct: [id number] Name: ANALI RDZ Rep #: [id number] : 1950 74 From: [facility] Friend DO PCP: Dr. Darryl Ramirez MD Status:REG [facility] [place] Location: [place] [address] HPI - General General Date of Admission: 10/09/24 Date of Service: 10/09/24 Chief Complaint: screening colon HPI Narrative ANALI RDZ, is a 74 Fwas previously seen by Dr. Terence Parada for rectal bleeding, there was also a polyp that she was unable to remove. Colonoscopy 03.29.[address] Terence Parada finding diverticulosis of sigmoid, descending and transverse colons; one 7mm polyp at appendiceal orifice. Colonoscopy 04.28.21 finding diverticulosis of sigmoid and descending colons; one 5mm hyperplastic polyp with benign lymphoid tissue removed from cecum. Tubular adenoma ??? repeat colonoscopy 2025. CT abd/pel 6.10.22 without lymphadenopathy; fatty infiltration of liver; contracted thick-walled gallbladder without stones; minor diverticular changes of colon without acute diverticulitis. chhk US abd/elastography 8.9.22- Liver measures 13.9cm- fatty infiltration of liver, subcentimeter cyst in the left lower lobe of liver, 10 kPa US abd/elastograpgy 3.3.23- Liver measures 15cm , 9 kPa - several echogenic nodules throughout the right and left lobe of the liver, nodules in both lobes of thyroid gland, reccomended CT CT abd/pel w/ contrast 3.7.23- stable liver cysts, no other mass seen. 10/2022 labs: crp 4.38 H, ferr 271 H, unremarkable CBC, unremarkable CMP OV 04.12.23 Liver stiffness improved. Cont. Milk thistle and Vitamin E. Diet and excercise. Rpt labs and Us in 6 mo US abd/elastograpgy 10.30.23- Liver measuring 16.8cm , 8.4kPa OV 11.6.23 Pt reports doing very well since last visit. Occasional bloating and gas. BM are normal and consistent. No other changes. Labs and ultrasound reviewed from May 07, 2023. Patient is taking liver cleanse and used to take milk thistle CT abd/pel Triple phase 4.3.24- Stable 5mm cyst in the anterior aspect of the left lobe of the liver, scattered sigmoid diverticula, fatty infiltration of liver OV 4.16.24 Pt stable since last visit. Continues to have occasional bloating and gas. BM remain normal. No other concerns. Review of the imaging test. Labs from January 2024 discussed with the patient glucose 100, A1c 5.4. Ferritin which was elevated in the past but most recent 225 in October 2023. Triglyceride 320, total cholesterol 194, VLDL 64 HDL low 35. Last lipid profile in March 31 shows LDL elevated 133 otherwise rest in normal limit. Repeat lipid profile from January 2024 shows triglyceride in normal range 91, TC 184 and other lipid profile normal OV .24.24- Reports feeling well since last visit. Weight gain since last visit. Continued occ bloating and gas, stayed the same. Blood pressure is controlled. No new concerns. Liver ultrasound with elastography from April 2023 also discussed which shows stable sepated cyst in the left lobe and right hepatic cyst. Median liver stiffness 8.4 kPa. US abd w/ elastography 3.10.25- Hepatomegaly 18.2 cm. Diffusely echogenic suggesting fatty infiltration. Stable 1 cm cyst in the left lobe of the liver. Multiple echogenic nodules scattered throughout both lobes of the liver. These may represent multiple hemangiomas. Correlation with a CT scan is recommended for further evaluation. OV 3.14.25- Feeling well. No acute concerns. Occasional gas and bloating unchanged. ROS Const Constitutional: Positive for weight change; No excessive sweating, fatigue, fever(s), frequent falls, headache(s) or weakness ENT ENT: No headache(s) or difficulty swallowing Cardio Cardiology: No leg pain with exertion or excessive sweating Gastro GI: Positive for bloating and excessive flatus; No abdominal pain, change in bowel habits, constipation, diarrhea, heartburn, difficulty swallowing, Vomiting blood/hematemesis, Blood in stool, nausea/dyspepsia or vomiting Musc Musculoskeletal: No joint pain, back pain, joint swelling, muscle cramps, muscle weakness, numbness, stiffness, tingling, Arthritis, sciatica, restless legs, leg pain at night or leg pain with exertion Skin Skin: No dry skin, lesions, itchy eyes or rash Neuro Neurology: No behavioral changes, unsteady gait/balance, weakness, frequent falls, headache(s), numbness, tingling, restless legs, tremor(s), Increased tone in limbs, paralysis or seizures Psych Psychiatric: No anxiety, No behavioral changes, No depression, No paranoia, No Compulsive Behavior, No hyperactivity, No inattentiveness, No obsessions/compulsions, No Temper Tantrums and No suicidal ideation Endo Endocrine: Positive for weight change; No excessive sweating or fatigue Aller/Imm Allergy/Immunologic: No itchy eyes Bayron/Lymp (more content not included)... [facility] 09-19-2024 Evaluation note Diagnosis Onset Date Resolution Dyslipidemia chronic September 19, 2024 12:51pm Metabolic dysfunction-associated steatotic liver disease (MASLD) chronic September 19, 2024 12:51pm [facility] Work Phone: 1(842) 241-109403-14-2025 Evaluation note* Diagnosis Onset Date Resolution Status Admit Date Dyslipidemia chronic September 19, 2024 12:51pm Metabolic dysfunction-associated steatotic liver disease (MASLD) chronic September 19, 2024 12:51pm Colon polyp acute October 09 10:55am [facility] Work Phone: 1(129) 274-529603-10-2025 Radiology Diagnostic study note [facility] Imaging Services [address] [place], [place] [address] ABD Limited w/ Elastography MR#: [id number] Acct: [id number] Name: ANALI RDZ Rep #: [id number] : 1950 F 74 From: Blaise Fox MD PCP: Dr. Darryl Ramirez MD Status: REG C LI Study:ABD Limited w/ Elastography Date of Exa m: 09/15/24 Exam# [id number] Ordering Dr: Marifer Rodriguez MD PROCEDURE: ABD LIMITED W/ ELASTOGRAPHY REASON FOR EXAM: Hepatic cyst. COMPARISON: Comparison is made with prior study dated May 07, 2023. TECHNIQUE: Right upper quadrant abdominal ultrasound. wst.cn ElastQ Imaging shear wave elastography for non-invasive assessment of liver tissue stiffness. wst.cn EPIQ Elite. FINDINGS: LIVER: Size: Hepatomegaly. Length: 18.2 cm cm Echotexture: Diffusely echogenic suggesting fatty infiltration Contour: Normal Lesions: Stable 1 cm cyst in the left lobe of the liver. There are multiple echogenic nodules scattered throughout both lobes of the liver. These may represent multiple hemangiomas. Correlation with a CT scan is recommended for further evaluation. Elastography: EQI Med: 6.8 kPa EQI Med Gino: 1.49 m/s IQR/Med: 16 %* GALLBLADDER: Normal COMMON BILE DUCT: Normal it measures 5 mm. PANCREAS: Normal Visualized portions of the right kidney are unremarkable. No right upper quadrant ascites. US/ABD Limited w/ Elastography IMPRESSION: NO TO MILD HEPATIC FIBROSIS Multiple echogenic nodule seen throughout both lobes of the liver as described. Correlation with a CT scan following IV contrast recommended. Reference Values: SRU <1.37 m/s (5.7kPa): No to mild fibrosis 1.37 m/s - 2.2 m/s: Moderate to severe fibrosis >2.2 m/s (15kPa): Significant fibrosis / cirrhosis METAVIR Score F2 or higher: 1.34 m/s (5.7kPa) F3 or higher: 1.55 m/s (7.3kPa) F4: 1.80 m/s (10kPa) * If the IQR/Med is >30%, the variance in the measurements is a large and the accuracy of the measurement may be in question. Reading Location: [place] [address] CC: Dr. Darryl Ramirez MD; Dr. Paul Rodriguez MD ~ Supervisor Assembly And Packing: Signed [facility]12-17-2024 Evaluation + Plan note Future Scheduled Tests Laboratory* [facility] Lab Send out (Blood Specimens) 06/24/24 Radiology* MA Mammo Screening Bilateral w/ Sree 06/24/24 [facility] 11-14-2023 Discharge summary Author Santiago Sifuentes [facility] May 22, 2023 10:25am Note Date/Time May 22, 2023 10:25am [facility] Physical Therapy [facility] [address] [place] [address]. [address] [place] [address] / REHABILITATION SERVICES DISCHARGE SUMMARY MR#: [id number] Acct: [id number] Name: KYAWANALITHIEN GAITAN Rep #: [id number] : 1950 73 From: Santiago Sifuentes DPT, OCS, CSCS Referring Dr.: MANN Jean Status: REG RCR Insurance: [facility] SELF PAY INSURANCE Patient Information Patient Information: ANALI RDZ was seen in my office for initial evaluation on 03/14/23. The following Plan of Care was established for this patient: POC Established Initial Frequency: 1-2x /Week Initial Duration: 2-4 Weeks Anticipated Interventions Patient/Client Instruction: Educate patient on: Condition and Plan of Care For the Purpose of:: To increase tolerance to activity/condition/position and Toimprove gait and locomotor functions Therapeutic Exercise to Include: Balance training For the Purpose of:: To increase tolerance to activity/condition/position and Toimprove gait and locomotor functions Last Seen Last Seen: This patient was last seen in our office 03/14/23. Pertinent comments regardingtheir Physical therapy will appear below: Pt seen one visit of positional therapy. She cancelled the rest of her POC stating she felt all better. D/C at this time. At this point I will be discontinuing this patient from physical therapy. I would be happy to see this patient again in the future if found appropriate by the physician. Thank you! Santiago Sifuentes, DPT, OCS, CSCS Balance/Gait/Functional tests Balance/Special Test Scores Functional Gait Assessment Score: 30 % Disability: 0 Dizziness Score: 58 <Electronically signed by Santiago Sifuentes DPT, OCS, CSCS> 05/22/23 1025 CC: Dr. Darryl Ramirez MD; MANN Jean ~ EBG Signed [facility] Work Phone: 1(657) 297-127811-11-2021 NoteHNO ID: [id number] Author: Stormy Arreola Population Health Navigator Service: ? Author Type: ? Type: Progress Notes Filed: 05/19/2021 2:42 PM Note Text: POPULATION HEALTH NAVIGATION OUTREACH Action/FYI I left a voice message and a my chart message re: pcp No care everywhere Contact made with patient or family member? NO Pt identified by name and : NO Outreach Outcome/Action Unable to reach patient: Left message Boxbeehart message sent Reason for Outreach Attribution: Provider [...] future healthcare decisions with a power of document review attorney, living will, or advance directives? No. Please bring a copy to your next appointment or email to Referrals: N/A Message Sent to Practice: NO Navigation Signature: Stormy Arreola Population Health Navigator May 19, 2021 2:41 [facility]11-11-2021 NotePatient Outreach (NETNAV) ANALI RDZ ([id number]) 1950 F Date Time Provider Department 05/19/21 STORMY ARREOLA During your visit today, we recorded the following information about you: Stormy Arreola Population Health Navigator 05/19/2021 2:42 PM Signed POPULATION HEALTH NAVIGATION OUTREACH Action/ I left a voice message and a my chart message re: pcp No care everywhere Contact made with patient or family member? NO Pt identified by name and : NO Outreach Outcome/Action Unable to reach patient: Left message Boxbeehart message sent Reason for Outreach Attribution: Provider [...] future healthcare decisions with a power of document review attorney, living will, or advance directives? No. Please bring a copy to your next appointment or email to Referrals: N/A Message Sent to Practice: NO Navigation Signature: Stormy Arreola Population Health Navigator May 19, 2021 [...] intramuscularly as needed (Allergy to bees). - [id number]-vwg-[id number]-[id number]-ast (KRILL OIL) [id number] mg cap Take 2 tablets by mouth [...] left hip [M25.552] 09/06/2016 Encounter Status:Closed by [facility] HEALTH NAVIGATORSTORMY on 05/19/21[facility] note Author Dilip Triana [facility] Note Date/Time October 09, 2024 1:22 pm [facility] Medical Records Department [address] [place] [address] Anesthesia Postop Eval I 10/09/24 1320 MR#: [id number] Acct: [id number] Name: ANALI RDZ Rep #:[id number] : 1950 74 From: Dilip Triana PCP: Dr. Darryl Ramirez MD Status:REG S DC Y Race: C Location: [place] [address] Anesthesia: Postop Eval I Current Vital Signs Temperature: 97.4 F Pulse Rate: 67 Blood Pressure: 113/71 Respiratory Rate: 16 Pulse Ox: 96 Oxygen Delivery Method: Room Air Assessment Airway patent: Yes Spontaneous unlabored respirations: Yes Mental status: Awake and Calm nausea: No Vomiting: No Anesthesia Complication: No Fluid Hydration Crystalloid volume administer (ml): 40 Total IV fluid infused: 40 Progress Note Anesthesia document: Postop Eval 1 completed: Yes 10/09/24 1322 <Electronically signed by Dilip Triana > Date _ Dilip Bui Signature: Date CC: ~ Signed [facility] Work Phone: Evaluation noteNo assessment information available [facility] Work Phone: Evaluation note* Diagnosis Onset Date Resolution Status Retroperitoneal lymphadenopathy acute Fatty liver chronic [facility] Work Phone: Evaluation note* Diagnosis Onset Date Resolution Status Retroperitoneal lymphadenopathy acute Fatty liver chronic NAFLD (nonalcoholic fatty liver disease) acute Retroperitoneal lymphadenopathy acute [facility] Work Phone: Evaluation note* Diagnosis Onset Date Resolution Status NAFLD (nonalcoholic fatty liver disease) acute Retroperitoneal lymphadenopathy acute [facility] Work Phone: Evaluation note* Diagnosis Onset Date Resolution Status BPPV (benign paroxysmal positional vertigo) acute [facility] Work Phone: Evaluation note* Diagnosis Onset Date Resolution Status BPPV (benign paroxysmal positional vertigo) acute NAFLD (nonalcoholic fatty liver disease) chronic [facility] Work Phone: Evaluation note* Diagnosis Onset Date Resolution Status NAFLD (nonalcoholic fatty liver disease) [facility] Work Phone: History and physical note Author Brian Friend [facility] Note Date/Time October 09, 2024 12:3 0pm [facility] Medical Records Department [address] [place] [address] History & Physical Exam 10/09/24 1226 MR#: [id number] Acct: [id number] Name: ANALI RDZ Rep #:[id number] : 1950 74 From: Brian Guerra DO PCP: Dr. Darryl Ramirez MD Status:REG S DC Location: [address] - General General Date of Admission: 10/09/24 Date of Service: 10/09/24 Chief Complaint: screening colon HPI Narrative ANALI RDZ, is a 74 Fwas previously seen by Dr. Terence Parada for rectal bleeding, there was also a polyp that she was unable to remove. Colonoscopy 03.29.[address] Terence Parada finding diverticulosis of sigmoid, descending and transverse colons; one 7mm polyp at appendiceal orifice. Colonoscopy 04.28.21 finding diverticulosis of sigmoid and descending colons; one 5mm hyperplastic polyp with benign lymphoid tissue removed from cecum. Tubular adenoma ? repeat colonoscopy 2025. CT abd/pel 6.10. without lymphadenopathy; fatty infiltration of liver; contracted thick-walled gallbladder without stones; minor diverticular changes of colon without acute diverticulitis. chhk US abd/elastography 8.9.22- Liver measures 13.9cm- fatty infiltration of liver, subcentimeter cyst in the left lower lobe of liver, 10 kPa US abd/elastograpgy 3.3.23- Liver measures 15cm , 9 kPa - several echogenic nodules throughout the right and left lobe of the liver, nodules in both lobes of thyroid gland, reccomended CT CT abd/pel w/ contrast 3.7.23- stable liver cysts, no other mass seen. 10/2022 labs: crp 4.38 H, ferr 271 H, unremarkable CBC, unremarkable CMP OV 04.12.23 Liver stiffness improved. Cont. Milk thistle and Vitamin E. Diet andexcercise. Rpt labs and Us in 6 mo US abd/elastograpgy 10.30.23- Liver measuring 16.8cm , 8.4kPa OV 11.6.23 Pt reports doing very well since last visit. Occasional bloating and gas. BM are normal and consistent. No other changes. Labs and ultrasound reviewed from May 07, 2023. Patient is taking liver cleanse and used to take milk thistle CT abd/pel Triple phase 4.3.24- Stable 5mm cyst in the anterior aspect of the left lobe of the liver, scattered sigmoid diverticula, fatty infiltration of liver OV 4.16.24 Pt stable since last visit. Continues to have occasional bloating and gas. BM remain normal. No other concerns. Review of the imaging test. Labs from January 2024 discussed with the patient glucose 100, A1c 5.4. Ferritin which was elevated in the past but most recent 225 in October 2023. Triglyceride 320, total cholesterol 194, VLDL 64 HDL low 35. Last lipid profile in March 31 shows LDL elevated 133 otherwise rest in normal limit. Repeat lipid profile from January 2024 shows triglyceride in normal range 91, TC 184 and other lipid profile normal OV 04.01.24- Reports feeling well since last visit. Weight gain since last visit. Continued occ bloating and gas, stayed the same. Blood pressure is controlled. No new concerns. Liver ultrasound with elastography from April 2023 also discussed which shows stable sepated cyst in the left lobe and right hepatic cyst. Median liver stiffness 8.4 kPa. US abd w/ elastography 3..25- Hepatomegaly 18.2 cm. Diffusely echogenic suggesting fatty infiltration. Stable 1 cm cyst in the left lobe of the liver. Multiple echogenic nodules scattered throughout both lobes of the liver. These may represent multiple hemangiomas. Correlation with a CT scan is recommended for further evaluation. OV 3..25- Feeling well. No acute concerns. Occasional gas and bloating unchanged. ROS Const Constitutional: Positive for weight change; No excessive sweating, fatigue, fever(s), frequent falls, headache(s) or weakness ENT ENT: No headache(s) or difficulty swallowing Cardio Cardiology: No leg pain with exertion or excessive sweating Gastro GI: Positive for bloating and excessive flatus; No abdominal pain, change in bowel habits, constipation, diarrhea, heartburn, difficulty swallowing, Vomiting blood/hematemesis, Blood in stool, nausea/dyspepsia or vomiting Musc Musculoskeletal: No joint pain, back pain, joint swelling, muscle cramps, muscleweakness, numbness, stiffness, tingling, Arthritis, sciatica, restless legs, legpain at night or leg pain with exertion Skin Skin: No dry skin, lesions, itchy eyes or rash Neuro Neurology: No behavioral changes, unsteady gait/balance, weakness, frequent falls, headache(s), numbness, tingling, restless legs, tremor(s), Increased tonein limbs, paralysis or seizures Psych Psychiatric: No anxiety, No behavioral changes, No depression, No paranoia, No Compulsive Behavior, No hyperactivity, No inattentiveness, No obsessions/compulsions, No Temper Tantrums and No suicidal ideation Endo Endocrine: Positive for weight change; No excessive sweating or fatigue Aller/Imm Allergy/Immunologic: No itchy eyes Bayron/Lymp Hematologic/Lymphatic: No easy bleeding or easy bruising Exam Const General: cooperative, no acute distress and well developed Nutritional Appearance: average body habitus Orientation: alert, awake and oriented x3 [facility] Head: normocephalic and atraumatic Nose: external nose normal Face and sinus: normal facial exam Mouth: moist mucous membranes Eyes Pupils: PERRL EOM: EOM intact bilaterally Neck Neck: normal visual inspection, no meningeal signs and trachea midline Carotids: no bruits Chest Chest palpation & inspection: normal inspection of the chest Resp Effort & Inspection: normal respiratory effort and symmetric chest movement Auscultation: Bilateral: Clear to Auscultation Cardio Palpation: normal PMI Rate: regular rate Rhythm: regular rhythm Heart Sounds: S1 normal and S2 normal Other: Ejection systolic murmur present over right second ICS. GI Auscultation: normal bowel sounds Percussion: normal to percussion Palpation: soft, no hepatosplenomegaly and no guarding Other: Abdomen nontender nondistended. Liver edge palpable over right costal margin. Spleen not palpable. General: bimanual renal exam normal bilaterally, bladder normal to inspection and bladder normal to palpation Bimanual Exam- Vagina & Uterus: bladder normal to palpation Musc Musculoskeletal: No joint tenderness, joint redness, joint warmth or decreased range of motion Thoracic/Lumbar Spine: thor and lumb spine abnorm to inspection Skin General: rashes and/or lesions noted, turgor normal and no erythema Wounds: wound noted Neuro General: patient alert, patient awake, patient oriented x3 and no focal motor deficits Speech: speech normal Motor: muscle tone normal throughout Extrem General: normal exam except as noted Psych Appearance: grossly normal Mood: congruent mood Affect: normal affect Attitude: cooperative Assessment and Plan Assessment and Plan (1) Metabolic dysfunction-associated steatotic liver disease (MASLD): Status: Chronic Plan: Lab test and imaging reviewed with the patient. She has elevated ferritin, H&H 15.3/45.1%. Glucose 105, TIBC low normal, ferritin 355, high normal. Mildly elevated AST ALT 30s. Glucose mildly elevated 105. A1c 5.7% She had elevated ferritin in the past but most recent 225 in October 2023.and started taking milk thistle but she is on multiple other vitamin supplements andherbal medications. Liver ultrasound shows median liver fibrosis 6.8 kPa, median velocity 1.49 m/s suggestive of mild fibrosis. Echogenic nodule seen both lobes of the liver. Her previous CT scan also reviewed with the patient which showed cyst, hemangioma and cyst but no evidence of enhancing mass in CT triple phage in September 2022. Liver ultrasound with elastography from April 2023 also discussed which shows stable sepated cyst in the left lobe and right hepatic cyst. Median liver stiffness 8.4 kPa In last visit, she did not use for respiratory curtis and does not want to take it. Repeat labs including ferritin and iron profile ordered ordered in 3 months. CTtriple phage in 6 months. Follow-up in 6 months. (2) Dyslipidemia: Status: Chronic Plan: Triglyceride 320, total cholesterol 194, VLDL 64 HDL low 35. Last lipid profile shows total cholesterol 207, TG 84, LDL 141. One-time triglyceride 320 in October 2023 was lab error Advised weight loss. Currently 183. Was about 172 in October 2022 Orders: Orders CT Abd/Pelvis W/WO Contrast 6 Months E78.5 - Hyperlipidemia, unspecified, K76.0- Fatty (change of) liver, not elsewhere classified, R79.89 - Other specified abnormal findings of blood chemistry CBC W/Diff, Automated 3 Months E78.5 - Hyperlipidemia, unspecified, K76.0 - Fatty (change of) liver, not elsewhere classified, R79.89 - Other specified abnormal findings of blood chemistry Ferritin 3 Months E78.5 - Hyperlipidemia, unspecified, K76.0 - Fatty (change of) liver, not elsewhere classified, R79.89 - Other specified abnormal findings of blood chemistry CRP 3 Months E78.5 - Hyperlipidemia, unspecified, K76.0 - Fatty (change of) liver, not elsewhere classified, R79.89 - Other specified abnormal findings of blood chemistry Comprehensive Metabolic Profil 3 Months E78.5 - Hyperlipidemia, unspecified, K76.0 - Fatty (change of) liver, not elsewhere classified, R79.89 - Other specified abnormal findings of blood chemistry Prothrombin Time w/INR 3 Months E78.5 - Hyperlipidemia, unspecified, K76.0 - Fatty (change of) liver, not elsewhere classified, R79.89 - Other specified abnormal findings of blood chemistry Transferrin 3 Months E78.5 - Hyperlipidemia, unspecified, K76.0 - Fatty (changeof) liver, not elsewhere classified, R79.89 - Other specified abnormal findings of blood chemistry Bilirubin, Direct 3 Months E78.5 - Hyperlipidemia, unspecified, K76.0 - Fatty (change of) liver, not elsewhere classified, R79.89 - Other specified abnormal findings of blood chemistry Iron+Iron Binding Capacity 3 Months E78.5 - Hyperlipidemia, unspecified, K76.0 - Fatty (change of) liver, not elsewhere classified, R79.89 - Other specified abnormal findings of blood chemistry Medications: Changed From loratadine (Claritin) 10 mg PO QDAY To loratadine (Claritin) 10 mg PO QDAY PRN allergy symptoms Discontinued [id number]-ast [id number] mg (krill oil) Discontinued Reason: Discontinued by PCP/other physicians 1 cap PO QDAY [liver health by [employer]] Discontinued Reason: Discontinued by PCP/other physicians 2 caps PO DAILY L.acid,linda-B.anim,bifid,infan 50 billion cell ([employer] [place] [employer] Probiotic) Discontinued Reason: Discontinued by PCP/other physicians 1 cap PO DAILY sour montero extract (Tart Montero Extract) Discontinued Reason: Discontinued by PCP/other physicians 2,500 mg PO DAILY [immuneti] Discontinued Reason: Discontinued by PCP/other physicians 2 caps PO DAILY [CL Balance by [employer]] Discontinued Reason: Discontinued by PCP/other physicians 2 caps PO DAILY vitamin E (dl, acetate) Discontinued Reason: Discontinued by PCP/other physicians 540 mg PO DAILY pzzexrtxqahn-Aw-saes-minerals Discontinued Reason: Discontinued by PCP/other physicians 1 TAB PO QDAY On Hold milk thistle Hold Comment: Order Changed 1,000 mg PO QDAY [facility] Medical History Post-menopausal Vertigo Heartburn Cataract (lens) fragments in eye following cataract surgery BPPV (benign paroxysmal positional vertigo) Retroperitoneal lymphadenopathy Tubular adenoma of colon Wears glasses Cancer Arthritis Blood in stool GERD (gastroesophageal reflux disease) Non-smoker History of stress test BRBPR (bright red blood per rectum) History of carpal tunnel syndrome Fatigue History of cancer Hypertension Home Medications ?Medication ?Instructions ?Recorded ?Last Taken ?Type losartan 25 mg tablet 25 mg PO DAILY bp 08/04/20 0 10/09/24 History Lactobacillus rhamnosus GG 20 20 cell PO DAILY 4 10/08/24 History billion cell capsule (Probiotic Digestive Care) milk thistle 500 mg capsule 1,000 mg PO QDAY 04/01/24 Unknown History loratadine 10 mg tablet (Claritin) 10 mg PO QDAY aller gy symptoms 09/19/24 10/08/24 History krill oil 500 mg capsule mg PO DAILY 10/09/24 5 History Allergy/AdvReac Type Severity Reaction Status Date / Time lansoprazole (From Prevacid) Allergy Mild Unknown Verified 10/09/24 11:26 bee venom protein (honey bee) Allergy Swelling Verified 10/09/24 11:26 Sulfa (Sulfonamide Allergy Rash Verified 10/09/24 11:26 Antibiotics) Proton Pump Inhibitors AdvReac Upset Verified 10/09/24 11:26 Stomach soy AdvReac Upset Verified 10/09/24 11:26 Stomach Family History Sister Breast cancer x2 Aunt CVA (cerebral vascular accident) Surgical History History of bilateral cataract extraction History of colonoscopy History of carpal tunnel release of both wrists History of appendectomy History of tonsillectomy History of hysterectomy Social History Smoking Status: Never smoker alcohol intake: never ROS Constitutional Constitutional: Denies fatigue, fever(s), poor appetite, weight gain or weight loss Gastrointestinal Gastrointestinal: Denies belching, bloating, change in bowel habits, change in stool character, chewing difficulty, coffee ground emesis, constipation, cramping, diarrhea, dyspepsia, dysphagia, early satiety, excessive flatus, fecalincontinence, heartburn, hematemesis, hematochezia, hemorrhoids, loose stools, melena, nausea, odynophagia, rectal bleeding, tenesmus, vomiting or weight changes Vital Signs Vital Signs Vital Signs: 10/09/24 11:28 10/09/24 11:28 10/09/24 12:26 Temperature 97.6 F L 97.6 F L Temperature Source Temporal Pulse Rate 85 85 Respiratory Rate 16 16 Respiratory Pattern Normal Blood Pressure 147/80 H 147/80 H Blood Pressure Mean 102 Blood Pressure Source Monitor Blood Pressure Position Semi-Fowlers Blood Pressure Location Left Arm Pulse Ox 98 98 Oxygen Delivery Method Room Air Weight Weight: 176 lb 5.917 oz Body Mass Index (BMI) 27.6 Physical Exam Const alert, oriented x3, no apparent distress and healthy appearing General Appearance: cooperative GI normal to inspection, nondistended, normoactive bowel sounds, soft to palpation,non-tender and non-distended Percussion: normal to percussion Rectal Exam: deferred Assessment & Plan Assessment/Plan (1) Colon polyp: PLAN: Attitude: cooperative Assessment and Plan Assessment and Plan (1) 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 She has elevated ferritin, H&H 15.3/45.1%. Glucose 105, TIBC low normal, ferritin 355, high normal. Mildly elevated AST ALT 30s. Glucose mildly elevated 105. A1c 5.7% She had elevated ferritin in the past but most recent 225 in October 2023.and started taking milk thistle but she is on multiple other vitamin supplements andherbal medications. Liver ultrasound shows median liver fibrosis 6.8 kPa, median velocity 1.49 m/s suggestive of mild fibrosis. Echogenic nodule seen both lobes of the liver. Her previous CT scan also reviewed with the patient which showed cyst, hemangioma and cyst but no evidence of enhancing mass in CT triple phage in September 2022. Liver ultrasound with elastography from April 2023 also discussed which shows stable sepated cyst in the left lobe and right hepatic cyst. Median liver stiffness 8.4 kPa In last visit, she did not use for respiratory curtis and does not want to take it. Repeat labs including ferritin and iron profile ordered ordered in 3 months. CTtriple phage in 6 months. Follow-up in 6 months. (2) Dyslipidemia: Status: Chronic Plan: Triglyceride 320, total cholesterol 194, VLDL 64 HDL low 35. Last lipid profile shows total cholesterol 207, TG 84, LDL 141. One-time triglyceride 320 in October 2023 was lab error Advised weight loss. Currently 183. Was about 172 in October 2022 Orders: Orders CT Abd/Pelvis W/WO Contrast 6 Months E78.5 - Hyperlipidemia, unspecified, K76.0- Fatty (change of) liver, not elsewhere classified, R79.89 - Other specified abnormal findings of blood chemistry CBC W/Diff, Automated 3 Months E78.5 - Hyperlipidemia, unspecified, K76.0 - Fatty (change of) liver, not elsewhere classified, R79.89 - Other specified abnormal findings of blood chemistry Ferritin 3 Months E78.5 - Hyperlipidemia, unspecified, K76.0 - Fatty (change of) liver, not elsewhere classified, R79.89 - Other specified abnormal findings of blood chemistry CRP 3 Months E78.5 - Hyperlipidemia, unspecified, K76.0 - Fatty (change of) liver, not elsewhere classified, R79.89 - Other specified abnormal findings of blood chemistry Comprehensive Metabolic Profil 3 Months E78.5 - Hyperlipidemia, unspecified, K76.0 - Fatty (change of) liver, not elsewhere classified, R79.89 - Other specified abnormal findings of blood chemistry Prothrombin Time w/INR 3 Months E78.5 - Hyperlipidemia, unspecified, K76.0 - Fatty (change of) liver, not elsewhere classified, R79.89 - Other specified abnormal findings of blood chemistry Transferrin 3 Months E78.5 - Hyperlipidemia, unspecified, K76.0 - Fatty (changeof) liver, not elsewhere classified, R79.89 - Other specified abnormal findings of blood chemistry Bilirubin, Direct 3 Months E78.5 - Hyperlipidemia, unspecified, K76.0 - Fatty (change of) liver, not elsewhere classified, R79.89 - Other specified abnormal findings of blood chemistry Iron+Iron Binding Capacity 3 Months E78.5 - Hyperlipidemia, unspecified, K76.0 - Fatty (change of) liver, not elsewhere classified, R79.89 - Other specified abnormal findings of blood chemistry Medications: Changed From loratadine (Claritin) 10 mg PO QDAY To loratadine (Claritin) 10 mg PO QDAY PRN allergy symptoms Discontinued [id number]-wsw-[id number]-ast 1,481-874-67-80 mg (krill oil) Discontinued Reason: Discontinued by PCP/other physicians 1 cap PO QDAY [liver health by [employer]] Discontinued Reason: Discontinued by PCP/other physicians 2 caps PO DAILY L.acid,linda-B.anim,bifid,infan 50 billion cell ([employer] [place] [employer] Probiotic) Discontinued Reason: Discontinued by PCP/other physicians 1 cap PO DAILY sour montero extract (Tart Montero Extract) Discontinued Reason: Discontinued by PCP/other physicians 2,500 mg PO DAILY [immuneti] Discontinued Reason: Discontinued by PCP/other physicians 2 caps PO DAILY [CL Balance by [employer]] Discontinued Reason: Discontinued by PCP/other physicians 2 caps PO DAILY vitamin E (dl, acetate) Discontinued Reason: Discontinued by PCP/other physicians 540 mg PO DAILY liemupxpboqd-Dc-jeum-minerals Discontinued Reason: Discontinued by PCP/other physicians 1 TAB PO QDAY On Hold milk thistle Hold Comment: Order Changed 1,000 mg PO QDAY 10/09/24 1230 <Electronically signed by Brian Guerra DO> Cosigner Signature (if applicable): CC: Dr. Darryl Ramirez MD; Brian Guerra, ~ Signed [facility] Work Phone: Hospital course Narrative No data available for this section [facility] Hospital Discharge instructions No data available for this section [facility] Progress note No data available for this section [facility] Reason for referral (narrative)No reason for referral information [facility] Work Phone: Summary Purpose Family History No Family History Records Found Relationship Condition Age at Onset Recorded Date/T reese sister Malignant neoplasm of breast Unknown aunt Cerebrovascular accident (CVA) Unknown Advance Directives No Advanced Directives Records Found Advance Directive Response Recorded Date/ Time Living Will No April 25 11:33am Power of Glazing Department Supervisor No April 25, 2021 11:33am Advance Directive Response Recorded Date/ Time Living Will No April 25 10:33am Power of Glazing Department Supervisor No April 25, 2021 10:33am Advance Directive Response Recorded Date/ Time Living Will No April 25 11:33am Do you have a Healthcare Power of Glazing Department Supervisor? No April 25, 2021 11:33am Advance Directive Response Recorded Date/ Time Living Will No April 25 11:33am Do you have a Healthcare Power of Glazing Department Supervisor? No April 25, 2021 11:33am Living Will Yes March 31st, 2025 1:04pm Do you have a Healthcare Power of Glazing Department Supervisor? Yes October 06, 2024 1:04pm Name of Medical Power of Glazing Department Supervisor DAVID October 06, 2024 1:04pm Chief Complaint and Reason for Visit Chief Complaint ORDER FROM DR GUERRA Benign paroxysmal vertigo, left ear Chief Complaint ORDER FROM DR GUERRA Benign paroxysmal vertigo, left ear DIZZINES & VERTIGO. RX HERE R59.0 Chief Complaint Benign paroxysmal ve rtigo, left ear R59.0 6 M FU DIZZINES & VERTIGO. RX HERE FATTY LIVER Reason for Visit Retroperitoneal lymp hadenopathy Fatty liver Chief Complaint 6 M FU DIZZINES & VERTIGO. RX HERE FATTY LIVER 3 M FU E ORDER Reason for Visit Retroperitoneal lymp hadenopathy Fatty liver NAFLD (nonalcoholic fatty liver disease) Retroperitoneal lymphadenopathy Chief Complaint DIZZINES & VERTIGO. RX HERE FATTY LIVER 3 M FU E ORDER SCREENING E ORDERS BPPV/PT HAS RX Reason for Visit NAFLD (nonalcoholic fatty liver disease) Retroperitoneal lymphadenopathy Chief Complaint 3 M FU E ORDER SCREENING E ORDERS BPPV/PT HAS RX SCREENING Reason for Visit NAFLD (nonalcoholic fatty liver disease) Retroperitoneal lymphadenopathy Chief Complaint SCREENING E ORDERS BPPV/PT HAS RX SCREENING FATTY LIVER Chief Complaint BPPV/PT HAS RX SCREENING FATTY LIVER LIVER MASS Chief Complaint BILATERAL EAR CONCER N/VERTIGO VESTIBULAR/PT HAS RX Reason for Visit BPPV (benign paroxys mal positional vertigo) Chief Complaint BILATERAL EAR CONCER N/VERTIGO VESTIBULAR/PT HAS RX FATTY LIVER 7 MO FU Reason for Visit BPPV (benign paroxys mal positional vertigo) NAFLD (nonalcoholic fatty liver disease) Chief Complaint BILATERAL EAR CONCER N/VERTIGO VESTIBULAR/PT HAS RX FATTY LIVER 7 MO FU SCREENING Reason for Visit BPPV (benign paroxys mal positional vertigo) NAFLD (nonalcoholic fatty liver disease) Chief Complaint VESTIBULAR/PT HAS RX FATTY LIVER 7 MO FU SCREENING Diarrhea- STOOL Reason for Visit NAFLD (nonalcoholic fatty liver disease) Chief Complaint Diarrhea- STOOL Fatty (change of) liver, not elsewhere classified Chief Complaint Diarrhea- STOOL Fatty (change of) liver, not elsewhere classified EORDER Chief Complaint Admit Date WELL WOMAN EXAM, FAMILY HISTORY OF BREAS T CANCER July 03, 2024 9:03am E-ORDER September 12, 2024 6:54 am LIVER CYST September 15, 2024 9:1 6am 6 M FU September 19, 2024 12: 51pm Reason for Visit Admit Date Dyslipidemia September 19, 2024 12: 51pm Metabolic dysfunction-associ ated steatotic liver disease (MASLD) September 19, 2024 12:51pm Reason for Visit Admit Date Dyslipidemia September 19, 2024 12: 51pm Metabolic dysfunction-associ ated steatotic liver disease (MASLD) September 19, 2024 12:51pm Colon polyp October 09, 2024 10:5 5am Additional Source Comments INFORMATION SOURCE (unrecogn ized section and content) DATE CREATED AUTHOR 12/27/2017 [facility] DATE CREATED AUTHOR AUTHOR'S ORGANIZ ATION 08/24/2021 [facility] DATE CREATED AUTHOR AUTHOR'S ORGANIZ ATION 06/30/2024 [facility] DATE CREATED AUTHOR AUTHOR'S ORGANIZ ATION 10/18/2024 [facility] DATE CREATED AUTHOR AUTHOR'S ORGANIZ ATION 12/23/2024 [facility] Goals (unrecognized section and content) Goals may be documented in a n alternate sectionGoals may be documented in an alternate sectionGoals may be documented in an alternate sectionGoals may be documented in an alternate sectionGoals may be documented in an alternate sectionGoals may be documented in an alternate sectionGoals may be documented in an alternate sectionGoals may be documented in an alternate sectionGoals may be documented in an alternate sectionGoals may be documented in an alternate sectionGoals may be documented in an alternate sectionGoals may be documented in an alternate sectionGoals may be documented in an alternate sectionGoals may be documented in an alternate sectionGoals may be documented in an alternate sectionGoals may be documented in an alternate sectionGoals may be documented in an alternate sectionGoals may be documented in an alternate section No data available for this sectionGoals may be documented in an alternate sectionGoals may be documented in an alternate section Care Teams (unrecognized sec tion and content) Team Status: Active Member Role Status Dates Dr. Darryl Ramirez MD Family Provider Active Dr. Darryl Ramirez MD Primary Care Provider Active Team Status: Inactive Member Role Status Dates Dr. Darryl Ramirez MD Primary Care Provider, Attending Provider Active Team Status: Inactive Member Role Status Dates Dr. Darryl Ramirez MD Primary Care Provider Active Tigist Ojeda SUPERVISOR ANODIZING, SUPERVISOR ANODIZING-C Attending Provider Active Team Status: Inactive Member Role Status Dates Dr. Darryl Ramirez MD Primary Care Provider Active Dr. Rafa Walsh MD Attending Provider, Referring Provider Active Team Status: Inactive Member Role Status Dates Dr. Darryl Ramirez MD Primary Care Provi marlene, Attending Provider, Referring Provider Active Team Status: Inactive Member Role Status Dates Dr. Darryl Ramirez MD Primary Care Provider Active Tigist Ojeda SUPERVISOR ANODIZING, SUPERVISOR ANODIZING-C Attending Provider, Referrin g Provider Active Team Status: Inactive Member Role Status Dates Dr. Darryl Ramirez MD Primary Care Provider, Referring Provider Active Aaron Geller PA PA Attending Provider Active Team Status: Active Member Role Status Dates Dr. Darryl Ramirez MD Primary Care Provider Active Aaron DARNELL, PA Attending Provider, Referring Pr ovider Active Team Status: Inactive Member Role Status Dates Dr. Darryl Ramirez MD Primary Care Provider, Referring Provider Active Dr. Paul Rodriguez MD Attending Provider Active Team Status: Inactive Member Role Status Dates Dr. Darryl Ramirez MD Primary Care Provider Active Aaron DARNELL, PA Attending Provider, Referring Pr ovider Active Team Status: Inactive Member Role Status Dates Dr. Brian Guerra DO Attending Provider, Referring Provider Active Dr. Darryl Ramirez MD Primary Care Provider Active Team Status: Inactive Member Role Status Dates Dr. Darryl Ramirez MD Primary Care Provider Active Dr. Paul Rodriguez MD Attending Provider, Referring P olayinka Active Team Status: Active Member Role Status Dates Dr. Darryl Ramirez MD Primary Care Provider Active Team Status: Inactive Member Role Status Dates Dr. Darryl Ramirez MD Primary Care Provider Active Start: July 03, 2024 End: July 03, 2024 Dr. Chiqui Lawrence MD Attending Provider Active Start: July 03, 2024 End: July 03, 2024 Dr. Chiqui Lawrence MD Referring Provider Active Start: July 03, 2024 End: July 03, 2024 Team Status: Inactive Member Role Status Dates Dr. Darryl Ramirez MD Primary Care Provider Active Start: September 12, 2024 End: September 12, 2024 Dr. Paul Rodriguez MD Attending Provider Active Start: September 12, 2024 End: September 12, 2024 Dr. Paul Rodriguez MD Referring Provider Active Start: September 12, 2024 End: September 12, 2024 Team Status: Active Member Role Status Dates Dr. Darryl Ramirez MD Primary Care Provider Active Start: September 15, 2024 Dr. Paul Rodriguez MD Attending Provider Active Start: September 15, 2024 Dr. Paul Rodriguez MD Referring Provider Active Start: September 15, 2024 Team Status: Inactive Member Role Status Dates Dr. Daryrl Ramirez MD Primary Care Provider Active Start: September 19, 2024 End: September 19, 2024 Dr. Darryl Ramirez MD Referring Provider Active Start: September 19, 2024 End: September 19, 2024 Dr. Paul Rodriguez MD Attending Provider Active Start: September 19, 2024 End: September 19, 2024 Team Status: Inactive Member Role Status Dates Dr. Darryl Ramirez MD Primary Care Provider Active Start: September 15, 2024 End: September 15, 2024 Dr. Paul Rodriguez MD Attending Provider Active Start: September 15, 2024 End: September 15, 2024 Dr. Paul Rodriguez MD Referring Provider Active Start: September 15, 2024 End: September 15, 2024 Team Status: Inactive Member Role Status Dates Dr. Darryl Ramirez MD Primary Care Provider Active Start: October 09, 2024 End: October 09, 2024 Dr. Darryl Ramirez MD Referring Provider Active Start: October 09, 2024 End: October 09, 2024 Dr. Brian Guerra DO Attending Provider Active Start: October 09, 2024 End: October 09, 2024 Team Status: Active Member Role Status Dates Dr. Darryl Ramirez MD Primary Care Provider Active Start: October 09, 2024 Dr. Darryl Ramirez MD Referring Provider Active Start: October 09, 2024 Dr. Brian Guerra DO Attending Provider Active Start: October 09, 2024 Dr. Brian Guerra DO Other Provider Active St art: October 09, 2024 FOR RECORDS PERTAINING TO PATIENTS WHO ARE [...] BE BASED ON THE PRIMARY CLINICAL RECORDS. [employer] [facility]. provides no warranty or guarantee of the accuracy or completeness of information in this document.
[2025-01-29 10:18] LABS: Hematocrit 42.4 % (37-47); Hemoglobin 14.6 g/dL (12.0-15.0); Immature Granulocytes Count 0.010 X10^3/uL (0.0-0.0); Mean Corp Hgb Conc 34.4 g/dL (32-36); Mean Corpuscular Volume 91.4 fL (81-99); Mean Platelet Vol. 9.4 fl (6.2-12.0); NRBC Flagged by Analyzer 0 % (0-5); Platelet Count 237 K/mm3 (150-450); RBC Distribution Width CV 12.1 % (11.6-14.6); RBC Distribution Width SD 40.1 fl (35.1-43.9); Red Blood Count 4.64 M/mm3 (4.2-5.4); White Blood Count 5.7 K/mm3 (4.4-11.0)
[2025-01-29 10:50] LABS: Prothrombin Time (Protime)PT. 13.7 SECONDS (11.7-14.9)
[2025-01-29 11:34] LABS: AST(SGOT) 33 U/L (<=31); Alanine Aminotransfer ALT/SGPT 35 U/L (<=34); Albumin, Serum 4.2 g/dL (3.4-4.8); Alkaline Phosphatase 88 U/L (35-104); Anion Gap 12 (5-15); BUN 15 mg/dL (4-19); BUN/Creat Ratio 21.0 RATIO (10-20); Bilirubin, Direct 0.19 mg/dL (0.00-0.30); Calcium,Total 10.0 mg/dL (7.6-11.0); Carbon Dioxide 24.1 mmol/L (21.0-32.0); Chloride 105 mmol/L (98-108); Ferritin 305 ng/mL (22-378); Globulin 3.0 g/dL (2.2-4.2); Glucose 117 mg/dL (70-99); Potassium 4.0 mmol/L (3.3-5.1)
[2025-01-29 11:56] LABS: CRP < 3.00 mg/L (0.0-3.0); Iron 209 ug/dL (50-170); Iron Binding Capacity,Unsat 26 ug/dL (228-428)
[2025-01-29 12:14] LABS: Iron Binding Capacity,Total 235 ug/dL (250-450)
[2025-01-30 04:07] LABS: Transferrin 206 mg/dL (192-364)
== END | disposition home or self-care (01) ==
LOC: MTLAB 07:28
PROVIDERS: PCP Family Medicine; Referring Provider Internal Medicine; Visit Provider Internal Medicine
DX: K76.0 Fatty (change of) liver, not elsewhere classified (principal); E78.5 Hyperlipidemia, unspecified; R79.89 Other specified abnormal findings of blood chemistry
CPT/HCPCS: 36415; 80053; 82248; 82728; 83540; 83550; 84466; 85025; 85610; 86140

== ENCOUNTER → 2025-02-10 | Outpatient (CLI) | payer MEDICARE, SELFPAY | END | disposition home or self-care (01) | LOC: LAB 15:38 | PROVIDERS: PCP Family Medicine; Referring Provider Internal Medicine; Visit Provider Internal Medicine | DX: R79.89 Other specified abnormal findings of blood chemistry (principal) | CPT/HCPCS: 36415 ==

== ENCOUNTER → 2025-02-26 | Outpatient (CLI) | payer MEDICARE, SELFPAY ==
--- NOTE | 2025-02-26 14:12 | CT_ITS ---
PROCEDURE: CT ABD/PELVIS W/WO CONTRAST 02/26/2025 REASON FOR EXAM: LIVER CYST,HEMANGIOMA, NODULE Follow-up examination. History of uterine carcinoma. TECHNIQUE: CT ABD/PELVIS W/WO CONTRAST Coronal and Sagittal reconstruction series were provided. CONTRAST: Isovue 3 7 VOLUME: 100 mL One or more dose reduction techniques were used (e.g., Automated exposure control, adjustment of the mA and/or kV according to patient size, use of iterative reconstruction technique. RADIATION DOSE SUMMARY: CTDlvol: 18.4 mGy DLP: 1687.73 mGycm COMPARISON: Prior study dated October 10, 2023. FINDINGS: Lung bases: Lung bases are clear. Liver: Stable 3 mm cyst in the anterior medial aspect of the left lobe of the liver superiorly. Gallbladder: Unremarkable Spleen: Normal size. Pancreas: Normal size without evidence of mass surrounding inflammation or ductal dilation. Adrenals: Unremarkable Kidneys: There is a 5 mm cyst in the anterior upper pole of the right kidney. There is evidence of cortical scarring in the superior medial aspect of the left kidney. Bladder: The urinary bladder is almost empty. Reproductive Organs: Prior hysterectomy. Adnexal regions are unremarkable. Bowel: No bowel obstruction. Appendix: Prior appendectomy. Lymph nodes: No suspicious lymph node enlargement. Vasculature: Mild diffuse atherosclerotic calcifications are noted. Peritoneum / Retroperitoneum: Unremarkable Bones: Degenerative changes of the spine. CT/CT Abd/Pelvis W/WO Contrast IMPRESSION: Stable examination. Reading Location: [id number]
== END | disposition home or self-care (01) ==
LOC: CT 14:11
PROVIDERS: PCP Family Medicine; Referring Provider Internal Medicine; Visit Provider Internal Medicine
DX: K76.0 Fatty (change of) liver, not elsewhere classified (principal); E78.5 Hyperlipidemia, unspecified; R79.89 Other specified abnormal findings of blood chemistry
CPT/HCPCS: 74178; Q9967